=== PATIENT | female | born 1995 | race Caucasian/White ===

== ENCOUNTER 2021-10-05 07:18 | Outpatient (CLI) | payer OTHER, SELFPAY ==
--- NOTE | 2021-10-05 07:15 | CRLHL7_ITS ---
For Patients: As a result of the Century Cures Act, medical imaging exams and procedure reports are released immediately into your electronic medical record. You may view this report before your referring provider. If you have questions, please contact your health care provider. INDICATION: Third trimester scan, evaluate growth. +Covid in COMPARISON: 07/12/2021 TECHNIQUE: Real time alonzo scale imaging of the fetus was performed. FINDINGS: Sonographic imaging demonstrates a single living intrauterine gestation. Fetus demonstrates a regular cardiac rate of 136 beats per minute. Fetus has a vertex position. The placenta lies fundal. Amniotic fluid volume appears normal and there is a single deepest vertical pocket: 6.7 cm. The estimated weight is 1943gm which lies at the 49th %. On the prior OB ultrasound exam dated 07/12/2021 the estimated weight was at the 31st%. BPD 76th percentile. HC 74th percentile. AC 67th percentile. FL 11th percentile. The HC/AC ratio measures 1.07 range (0.96-1.12). IMPRESSION: Sonographic gestational age 32 weeks 5 days and sonographic due date 11/25/2021. Sonographic age is 5 days ahead of the clinical age. Estimated weight 49th percentile. Abdominal circumference 67th percentile. Dictated by Gopal Banks MD @ 10/05/2021 11:21:09 AM (Electronically Signed)
== END 2021-10-05 07:19 | disposition home or self-care (01) ==
PROVIDERS: Visit Provider Advanced Practice Midwife
DX: O98.513 Other viral diseases complicating pregnancy, third trimester (principal); U07.1 COVID-19; Z3A.32 32 weeks gestation of pregnancy
CPT/HCPCS: 76816

== ENCOUNTER 2021-11-02 07:19 | Outpatient (CLI) | payer OTHER, SELFPAY ==
--- NOTE | 2021-11-02 07:15 | CRLHL7_ITS ---
For Patients: As a result of the Century Cures Act, medical imaging exams and procedure reports are released immediately into your electronic medical record. You may view this report before your referring provider. If you have questions, please contact your health care provider. INDICATION: Third trimester scan, evaluate growth. +Covid in COMPARISON: 10/05/2021 TECHNIQUE: Real time alonzo scale imaging of the fetus was performed. FINDINGS: Sonographic imaging demonstrates a single living intrauterine gestation. Fetus demonstrates a regular cardiac rate of 129 beats per minute. Fetus has a vertex position. The placenta lies fundal. Amniotic fluid volume appears normal and there is a single deepest vertical pocket: 5.7 cm. The estimated weight is 3136gm which lies at the 82nd %. On the prior OB ultrasound exam dated 10/05/2021 the estimated weight was at the 49th%. BPD 76th percentile. HC 79th percentile. AC greater than 97th percentile. FL 10th percentile. The HC/AC ratio measures 0.98 range (0.92-1.05). Normal gross body movements, tone and respiratory activity. IMPRESSION: Normal biophysical profile 10/23. Sonographic gestational age 36 weeks 6 days and sonographic due date 11/24/2021. Sonographic age is 6 days ahead of the clinical age. Estimated weight 82nd percentile. Abdominal circumference greater than 97th percentile. Dictated by Gopal Banks MD @ 11/02/2021 8:51:32 AM (Electronically Signed)
--- OUTSIDE RECORDS SUMMARY | 2021-11-02 07:23 | XMS_ITS | Encounter Summary ---
:1995 Author Organization [place] Address [address] [place] [address] Care Team Providers Name Role Phone Krissy Gutierrez APRN, CNP Primary Care Provider [phone] Krissy Gutierrez APRN DIRECTOR DANCE Unavailable [phone] Krissy Gutierrez APRN DIRECTOR DANCE Unavailable [phone] Reason for Visit Reason Comments Medication Refill Zully Encounter Details Date Type Department Care Team Description 04/14/2018 Refill [facility] Krissy Gutierrez ication Refill [place] CANDIDA Heard CNP (Zully) [address] [place] [phone] (Wo rk) Social History Tobacco Use Types Packs/Day Years Used Date Never Smoker Smokeless Tobacco: Never Used Alcohol Use Standard Drinks/Week Comments Yes 0 (1 standard drink = 0.6 oz pure occasi onal. 2-3x per month, roughly alcohol) 5 mixed drinks. Alcohol Habits Answer Date Recorded How often do you have a drink Not asked containing alcohol? How many drinks containing alcohol do Not asked you have on a typical day when you are drinking? How often do you have six or more Not asked drinks on one occasion? Comment: occasional. 2-3x per month, 02/15/2015 roughly 5 mixed drinks. Financial Resource Strain Answer Date Recorded How hard is it for you to pay for the very basics like Not h carlos at all 07/28/2019 food, housing, medical care, and heating? Food Insecurity Answer Date Recorded Within the past 12 months, you worried that your food would Never true 07/28/2019 run out before you got money to buy more. Within the past 12 months, the food you bought just didn't N ever true 07/28/2019 last and you didn't have money to get more. Transportation Needs Answer Date Recorded In the past 12 months, has lack of transportation kept you f rom No 07/28/2019 medical appointments or from getting medications? In the past 12 months, has lack of transportation kept you f rom No 07/28/2019 meetings, work, or getting things needed for daily living? Sex Assigned at Date Recorded Female 07/27/2019 7:13 AM CDT documented as of this encounter Miscellaneous Notes Telephone Encounter - Jaqueline Pacheco RN - 04/16/2018 11:44 AM CST Duplicate Prescription approved per [facility] Refill Protocol. Jaqueline Pacheco RN, BSN WIRE OPERATOR Telephone Encounter - Dena Hedrick - 04/14/2018 4:22 PM CST Requested Prescriptions Pending Prescriptions Disp Refills ??? drospirenone-ethinyl estradiol (ZULLY) 3-0.03 MG tablet [Pharmacy Med Name: DROSPIRENONE-EE 3-0.03 MG TAB] 84 tablet 0 Sig: TAKE 1 TABLET BY MOUTH DAILY Contraceptives Protocol Passed - 04/14/2018 4:22 PM Passed - Patient is not a current smoker if age is 35 or older Passed - Recent (12 mo) or future (30 days) visit within the authorizing provider's specialty Patient had office visit in the last 12 months or has a visit in the next 30 days with authorizing provider or within the authorizing provider's specialty. See Patient Info tab in inbasket, or Choose Columns in Meds & Orders section of the refill encounter. Passed - Medication is active on med list Passed - No active on record Passed - No positive test in past 12 months Last Written Prescription Date: 03/06/18 Last Fill Quantity: 84, # refills: 3 Last office visit: 03/06/2018 with prescribing provider: Krissy Gutierrez Future Office Visit: WIRE OPERATOR documented in this encounter Plan of Treatment Not on filedocumented as of this encounter Visit Diagnoses Diagnosis Encounter for surveillance of contracept shirin pills Surveillance of previously prescribed co ntraceptive pill documented in this encounter Care Teams Window Shade Cloth Sewer Relationship Specialty Start Date End Date Krissy Gutierrez APRN PCP - General Nurse Practitioner 05/03/17 DIRECTOR DANCE [address] [place] [address] Krissy Gutierrez APRN PCP - Assigned PCP 05/05/17 05/20/18 DIRECTOR DANCE [address] [place], [place] [id number] Krissy Gutierrez APRN Assigned PCP 05/05/17 DIRECTOR DANCE [address] [place] [address] documented as of this encounter
--- OUTSIDE RECORDS SUMMARY | 2021-11-02 07:23 | XMS_ITS | Encounter Summary ---
:1995 Author Organization [place] Address [facility] [place] [address] Care Team Providers Name Role Phone Krissy Gutierrez APRN, CNP Primary Care Provider [phone] Krissy Gutierrez APRN HELICOPTER SPECIALIST Unavailable [phone] Krissy Gutierrez APRN HELICOPTER SPECIALIST Unavailable [phone] Reason for Visit Reason Comments Medication Refill fluticasone (FLONASE) 50 MCG /ACT spray Encounter Details Date Type Department Care Team Description 12/28/2017 Refill [facility] [place], [place] [facility]ication [facility] HELICOPTER SPECIALIST (fluticasone (FLONASE) [address] [place] [address] 50 MCG/ACT spray ) [place] [address] [place], [place] [phone] (Wo rk) [address] [phone] Social History Tobacco Use Types Packs/Day Years [...] this encounter Miscellaneous Notes Telephone Encounter - Roz Porter - 12/30/2017 8:27 AM CDT Requested Prescriptions Pending Prescriptions Disp Refills ??? fluticasone (FLONASE) 50 MCG/ACT spray [Pharmacy Med Name: FLUTICASONE PROP 50 MCG SPRAY] 16 mL 0 Last Written Prescription Date: Not on meds list Last Fill Quantity: n/a, # refills: n/a Last office visit: No previous visit found with prescribing provider: Future Office Visit: Sig: INHALE 2 SPRAYS IN EACH NOSTRIL ONCE DAILY, AFTER 1 WEEK, MAY USE 1-2 SPRAYS EACH NOSTRIL ONCE DAILY Inhaled Steroids Protocol Passed 12/28/2017 1:36 AM Passed - Patient is age 12 or older Passed - Recent (12 mo) or future (30 days) visit within the authorizing provider's specialty Patient had office visit in the last 12 months or has a visit in the next 30 days with authorizing provider or within the authorizing provider's specialty. See Patient Info tab in inbasket, or Choose Columns in Meds & Orders section of the refill encounter. documented in this encounter Plan of Treatment Not on filedocumented as of this encounter Visit Diagnoses Diagnosis Non-seasonal allergic rhinitis, unspecif ied trigger - Primary documented in this encounter Care Teams Bottom Crane Operator Relationship Specialty Start Date End Date Krissy Gutierrez APRN PCP - General Nurse Practitioner 05/03/17 HELICOPTER SPECIALIST [address] [place], [place] [phone] Krissy Gutierrez APRN PCP - Assigned PCP 05/05/17 05/20/18 HELICOPTER SPECIALIST [address] [place], [place] [id number] Krissy Gutierrez APRN Assigned PCP 05/05/17 HELICOPTER SPECIALIST [address] [place], [place] [id number] documented as of this encounter
--- OUTSIDE RECORDS SUMMARY | 2021-11-02 07:23 | XMS_ITS | Encounter Summary ---
:1995 Author Organization [place] Address [address] [place] [address] Care Team Providers Name Role Phone [place] Murillo Md MD Primary Care Provider [phone] BrendaKrissy ward APRN BOTTOM SANDER Primary Care Provider [phone] BrendaKrissy ward APRN BOTTOM SANDER Unavailable [phone] BrendaKrissy ward APRN BOTTOM SANDER Unavailable [phone] Yuki oRth BOAT CANVAS INSTALLER Unavailable Jonathan Susan CNM Unavailable Mari Jauregui CNM Unavailable [phone] Reason for Visit Reason Onset Date Comments Path Results 02/23/2015 biopsy Encounter Details Date Type Department Care Team Description 02/23/2015 Telephone Medicine GI - 1E Bri Gallagher Path Results (biopsy) Chris Payne MD Building [address] [place] [address] 1st Floor, Clinic [address] [phone] (Wo rk) [address] [phone] Social History Tobacco Use Types Packs/Day Years Used Date Never Smoker Alcohol Use Standard Drinks/Week Comments Yes 0 [...] this encounter Miscellaneous Notes Telephone Encounter - Bri Gallagher MD - 02/23/2015 5:29 PM INFECTION PREVENTIONIST Notified by call center that patient had called about biopsy results. Letter with results sent several days ago - unclear if letter not arrived yet, wrong address, or if pt has questions about biopsy results. Called patient multiple times at provided number with no answer. Message left (on personal voicemail) indicating letter was sent, no concerning findings on biopsy, and number provided to reach GI RN coordinator if further questions or concerns. CTION PREVENTIONIST Telephone Encounter - Mary Anne Allen - 02/23/2015 2:52 PM CST Patient called today. Patient is trying to get their biopsy test results. Please call patient at [phone]. Thank you. Central Scheduling Mary Anne Felipe CTION PREVENTIONIST documented in this encounter Plan of Treatment Not on filedocumented as of this encounter Visit Diagnoses Not on filedocumented in this encounter Care Teams Manager Statistical Programming Relationship Specialty Start Date End Date [facility], PCP - General 02/15/15 05/02/17 MD [place] [address] [place] [id number] Krissy Gutierrez, PCP - General Nurse Practitioner 05/03/17 SENIOR SOFTWARE ENGINEER BOTTOM SANDER [address] [place] [address] Krissy Gutierrez, PCP - Assigned PCP 05/05/17 05/20/18 SENIOR SOFTWARE ENGINEER BOTTOM SANDER [address] [place] [address] Krissy Gutierrez, Assigned PCP 05/05/17 2 SENIOR SOFTWARE ENGINEER BOTTOM SANDER [address] [place], [place] [id number] Yuki Roth, BOAT CANVAS INSTALLER Lead Supervisor [employer] Primary [facility] - CC 02/11/19 05/05/19 Jaqueline Castillo CNM Assigned OBGYN Provider 01/08/20 03/04/21 [address] [place], [place] [id number] Mari Jauregui, Assigned OBGYN Provider 1 04/29/[address] [facility] [address] [place] [address] documented as of this encounter
--- OUTSIDE RECORDS SUMMARY | 2021-11-02 07:23 | XMS_ITS | Encounter Summary ---
:1995 Author Organization [place] Address [address] [place] [address] Care Team Providers Name Role Phone Krissy Gutierrez APRN PATROL COMMUNITY SERVICE OFFICER Primary Care Provider [phone] Krissy Gutierrez APRN PATROL COMMUNITY SERVICE OFFICER Unavailable [phone] Jaqueline Castillo CNM Unavailable Mari Jauregui CNM Unavailable [phone] Encounter Details Date Type Department Care Team Description 07/28/2019 Documentation Only [facility] Janett Castillo, [place] [facility] CNM [address] [address] [place] [address] (Wo rk) Social History Tobacco Use Types Packs/Day Years Used Date Never Smoker Smokeless Tobacco: Never Used Alcohol Use Standard Drinks/Week Comments Not Currently 0 (1 standard drink = 0.6 oz pure occasi onal. 2-3x per month, alcohol) roughly 5 mixed drin ks. Alcohol Habits Answer Date Recorded How often [...] or getting things needed for daily living? Education Answer Date Recorded What is the highest level of school Master's degree (e.g., M A, MS, 07/28/2019 you have completed or the highest Mayda, MEd, RIVET DRIVER, DEVIKA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 Sex Assigned at Date Recorded Female 07/27/2019 7:13 AM CDT COVID-19 Exposure Response Date Recorded In the last month, have you been in contact with No / Unsure 07/28/2019 3:10 PM CDT someone who was confirmed or suspected to have Coronavirus / COVID-19? documented as of this encounter Plan of Treatment Not on filedocumented as of this encounter Visit Diagnoses Not on filedocumented in this encounter Care Teams Maid Cleaning Cooking Relationship Specialty Start Date End Date Krissy Gutierrez, PCP - General Nurse Practitioner 05/03/17 UTILITIES OPERATOR [employer]ITY SERVICE OFFICER [address] [place] [address] Krissy Gutierrez, Assigned PCP 05/05/17 2 UTILITIES OPERATOR [employer]OL COMMUNITY SERVICE OFFICER [address] [place] [address] Jaqueline Castillo, LEE Assigned OBGYN Provider 01/08/20 03/04/21 [address] [place] [address] Mari Jauregui, Assigned OBGYN Provider 1 04/29/[address] [address] documented as of this encounter
--- OUTSIDE RECORDS SUMMARY | 2021-11-02 07:23 | XMS_ITS | Encounter Summary ---
:1995 Author Organization [place] Address [facility] [place] [address] Care Team Providers Name Role Phone Krissy Gutierrez APRN, CNP Primary Care Provider [phone] Krissy Gutierrez APRN DRILL BIT SHARPENER Unavailable [phone] Reason for Referral Diagnostic Imaging Ultrasound (Routine) - Closed Specialty Diagnoses / Procedures Referred By Contact Refer red To Contact Diagnoses Encounter for supervision of normal first in first trimester Jaqueline Castillo CNM Procedures US OB < 14 Weeks Single [address] [place], [place] [address] Referral ID Status Reason Start Date Expiration Date Visits Requ ested Visits Authorized [id number] Closed 07/28/2019 07/27/2020 1 1 Reason for Visit Reason Comments Care New Nurse Telephone Visit Encounter Details Date Type Department Care Team Description 07/28/2019 Office [facility] er for supervision of normal first in first trimester (Primary Dx); Visit Clinic [facility]; [address] [place] [address] Seasonal a llergic [employer] [address] [place] [phone] Social History Tobacco Use Types Packs/Day Years Used Date Never Smoker Smokeless Tobacco: Never Used Alcohol Use Standard Drinks/Week Comments Not Currently 0 (1 standard drink = 0.6 oz pure occasi onal. 2-3x per month, alcohol) roughly 5 mixed yolanda ks. Alcohol Habits Answer Date Recorded How [...] have completed or the highest Mayda, MEd, DOLLY OPERATOR, DEVIKA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 Sex Assigned at Date Recorded Female 07/27/2019 7:13 AM CDT COVID-19 Exposure Response Date Recorded In the last month, have you been in contact with No / Unsure 07/28/2019 3:10 PM CDT someone who was confirmed or suspected to have Coronavirus / COVID-19? documented as of this encounter Last Filed Vital Signs Vital Sign Reading Time Taken Comments Blood Pressure - - Pulse - - Temperature - - Respiratory Rate - - Oxygen Saturation - - Inhaled Oxygen Concentration - - Weight - - Height 175.3 cm (5' 9) 07/28/2019 3:14 PM CDT Body Mass Index - - documented in this encounter Progress Notes Zuleika Garcia RN - 07/28/2019 3:30 PM CDT Chief Complaint Patient presents with ??? Care New Nurse Telephone Visit [id number] Estimated Date of Delivery: Mar 10, 2020 Initial Ht 1.753 m (5' 9) LMP 06/04/2019 BMI 19.64 kg/m?? Estimated body mass index is 19.64 kg/m?? as calculated from the following: Height as of this encounter: 1.753 m (5' 9). Weight as of 02/10/19: 60.3 kg (133 lb). BP completed using cuff size: NA (Not Taken) Questioned patient about current smoking habits. Pt. has never smoked. The following HM Due: NONE book and folder (containing standard educational hand-outs and brochures) given to patientat NPN visit. Information in folder reviewed. Questions answered. Brochure given on optional screening available to assess chromosomal anomalies. Pt advised to call the clinic if she has any questions or concerns related to her . labs to be obtained at NPN visit. New visit scheduled on 08/05/19 with Jaqueline Castillo CNM. Lab Results Component Value Date PAP NIL 05/02/2017 Patient supplied answers from flow sheet for: OB Questionnaire. Past Medical History Diabetes?: No Hypertension : No Heart disease, mitral valve prolapse or rheumatic fever?: No An autoimmune disease such as lupus or rheumatoid arthritis?: No Kidney disease or urinary tract infection?: No Epilepsy, seizures or spells?: No Migraine headaches?: (!) Yes A stroke or loss of function or sensation?: No Any other neurological problems?: No Have you ever been treated for depression?: No Are you having problems with crying spells or loss of self-esteem?: No Have you ever required psychiatric care?: No Have you ever had hepatitis, liver disease or jaundice?: No Have you been treated for blood clots in your veins, deep vein thromosis, inflammation in the veins,thrombosis, phlebitis, pulmonary embolism or varicosities?: No Have you had excessive bleeding after surgery or dental work?: No Do you bleed more than other women after a cut or scratch?: No Do you have a history of anemia?: (!) Yes Have you ever had thyroid problems or taken thyroid medication?: No Do you have any endocrine problems?: No Have you ever been in a major accident or suffered serious trauma?: No Within the last year, has anyone hit, slapped, kicked or otherwise hurt you?: No In the last year, has anyone forced you to have sex when you didn't want to?: No Past Medical History 2 Have you ever received a blood transfusion?: No Would you refuse a blood transfusion if a doctor judged it to be medically necessary?: No If you answered Yes, would you rather than receive a blood transfusion?: No If you answered Yes, is this for taoism reasons?: No Does anyone in your home smoke?: No Do you use tobacco products?: No Do you drink beer, wine or hard liquor?: No Do you use any of the following: marijuana, speed, cocaine, heroin, hallucinogens or other drugs?: No Is your blood type Rh negative?: No Have you ever had abnormal antibodies in your blood?: No Have you ever had asthma?: No Have you ever had tuberculosis?: No Do you have any allergies to drugs or kwwk-oos-gboidyi medications?: No Allergies: Dust Mites, Aspartame, Ethanol, Venlafaxine, Hydrochloride, Sertraline: (!) Yes(seasonal and dust mites) Have you had any breast problems?: No Have you ever breastfed?: No Have you had any gynecological surgical procedures such as cervical conization, a LEEP procedure, laser treatment, cryosurgery of the cervix or a dilation and curettage, etc?: No Have you ever had any other surgical procedures?: (!) Yes(see surgical history) Have you been hospitalized for a nonsurgical reason excluding normal delivery?: (!) Yes terminal ileitis Have you ever had any anesthetic complications?: No Have you ever had an abnormal pap smear?: No Past Medical History (Continued) Do you have a history of abnormalities of the uterus?: No Did your mother take ABBI or any other hormones when she was with you?: Unknown Did it take you more than a year to become ?: No Have you ever been evaluated or treated for infertility?: No Is there a history of medical problems in your family, which you feel may be important to this ?: No Do you have any other problems we have not asked about which you feel may be important to this ?: No Symptoms since last menstrual period Do you have any of the following symptoms: abdominal pain, blood in stools or urine, chest pain, shortness of breath, coughing or vomiting up blood, your heart racing or skipping beats, nausea and vomiting, pain on urination or vaginal discharge or bleed: No Current medications, including tbkv-mtt-aatyhkn medications, you are using? (If not applicable answer none): , iron supplement, OTC allergy medicine Will the patient be 35 years old or older at the time of delivery?: No Has the patient, baby's father or anyone in either family had: Thalassemia (Kenyan, Tanzanian, Mediterranean or background only) and an MCV result less than 80?: No Neural tube defect such as meningomyelocele, spina bifida or anencephaly?: No Congenital heart defect?: No Down's Syndrome?: No Nando-Sachs disease (Restoration, Cajun, Faroese-Swatara)?: No Sickle cell disease or trait ()?: No Hemophilia or other inherited problems of blood?: No Muscular dystrophy?: No Cystic fibrosis?: No Miami's chorea?: No Mental retardation/autism?: No If yes, was the person tested for fragile X?: Unknown Any other inherited genetic or chromosomal disorder?: Unknown Maternal metabolic disorder (e.g Insulin-dependent diabetes, PKU)?: No A child with defects not listed above?: No Recurrent loss or stillbirth?: Unknown Has the patient had any medications/street drugs/alcohol since her last menstrual period?: No Does the patient or baby's father have any other genetic risks?: No Infection History Do you object to being tested for Hepatitis B?: No Do you object to being tested for HIV?: No Do you feel that you are at high risk for coming in contact with the AIDS virus?: No Have you ever been treated for tuberculosis?: No Have you ever had a positive skin test for tuberculosis?: No Do you live with someone who has tuberculosis?: No Have you ever been exposed to tuberculosis?: No Do you have genital herpes?: No Does your partner have genital herpes?: No Have you had a viral illness since your last period?: No Have you ever had gonorrhea, chlamydia, syphilis, venereal warts, trichomoniasis, pelvic inflammatory disease or any other sexually transmitted disease?: No Do you know if you are a genital group B streptococcus carrier?: Unknown Have you had chicken pox/varicella?: (!) Yes Have you been vaccinated against chicken Pox?: No Have you had any other infectious diseases?: No Zuleika Garcia RN documented in this encounter Plan of Treatment Not on filedocumented as of this encounter Results US OB < 14 Weeks Single (08/05/2019 2:11 PM CDT) Anatomical Region Laterality Modality Abdomen/Pelvis Ultrasound Specimen (Source) Anatomical Location Collection Method / Collectio n Time Received Time / Laterality Volume Impressions 08/05/2019 3:09 PM CDT ? MEASUREMENTS Gest Sac: vis ? Position:nl ?Contour:smth/reg Yolk sac: 3.1 mm wnl CRL: 1.76 cm. ?EGA: ??8w 2d ?? U/S EDC: 14 Mar 2020 correspond Cardiac Activity:Yes ? FHR: 168 bpm ?? Rt Ov L: 1.5 x 3.7 x 2.1 cm ?? Complex c yst 2.1 x 2.0 x 2.5 cm Lt Ov L: nv ? Cul de sac: no free fluid ?? *Other Findings: ?? Early obstetric transabdominal ultrasoun d. Minor live intrauterine . EDC by LMP consistent with today's ultra sound EDC. ??Recommend EDC 03/10/2020. anomalies may be present but not d etected. Normal amniotic fluid seen. Gestational sac is Normal. Placenta is not seen as is appropriate f or early gestational age. Uterus is anteverted and normal. Left ovary Not visualized. Complex right ovarian cyst, consistent w ith corpus luteum cyst, consider repeat ultrasound only if clinically ind icated. No cul-de-sac fluid. Yury Hooper MD Obstetrics & Gynecology [facility] Narrative 08/05/2019 3:[address] [facility] Obstetrics & Gynecology [address] [place] [address] ULTRASOUND - OB < 14 Weeks ?? Referring Provider: Jaqueline Castillo CNM Clinic: [facility] ?? INDICATIONS FOR ULTRASOUND: OB History: Present Conditions: Initial S&D (0-17 we eks) ?? CLINICAL INFORMATION ?? LMP: 04 Jun 2019 - unsure EDC: Mar 06 ?? EGA: 8 w 6 d ? Jaqueline Castillo CNM IMG US ORDERABLES documented in this encounter Visit Diagnoses Diagnosis Encounter for supervision of normal firs t in first trimester - Primary Supervision of normal first Anemia Anemia, unspecified Seasonal allergic rhinitis Allergic rhinitis, cause unspecified Encounter for supervision of normal firs t in first trimester Supervision of normal first documented in this encounter Care Teams Gang Ripsaw Operator Relationship Specialty Start Date End Date Krissy Gutierrez APRN DRILL BIT SHARPENER PCP - General Nurse Practitioner 05/03/17 [address] [place] [address] Krissy Gutierrez APRN DRILL BIT SHARPENER Assigned PCP 05/05/17 10/13/21 [address] [place] [address] documented as of this encounter
--- OUTSIDE RECORDS SUMMARY | 2021-11-02 07:23 | XMS_ITS | Encounter Summary ---
:1995 Author Organization [place] Address [address] [place] [address]. [place] [address] Care Team Providers Name Role Phone Richa Murillo Md MD Primary Care Provider [phone] Reason for Visit Reason Comments URI Encounter Details Date Type Department Care Team Description 02/14/2017 Office Visit [facility] Javier Rosales Acute recurrent Clinic Walker MD Angel Luis maxillary sinusitis [address] [place] [address] (Primary Dx) [place] [address] [phone] Social History Tobacco Use Types Packs/Day Years [...] AM CDT documented as of this encounter Last Filed Vital Signs Vital Sign Reading Time Taken Comments Blood Pressure 100/69 02/14/2017 9:44 AM FILM OR VIDEOTAPE EDITOR Pulse 90 02/14/2017 9:44 AM FILM OR VIDEOTAPE EDITOR Temperature 36.4 ??C (97.6 ??F) 02/14/2017 9:44 AM FILM OR VIDEOTAPE EDITOR Respiratory Rate 12 02/14/2017 9:44 AM FILM OR VIDEOTAPE EDITOR Oxygen Saturation 96% 02/14/2017 9:44 AM FILM OR VIDEOTAPE EDITOR Inhaled Oxygen Concentration - - Weight 59.8 kg (131 lb 12.8 oz) 02/14/2017 9:44 AM FILM OR VIDEOTAPE EDITOR Height - - Body Mass Index 19.46 02/19/2015 10:47 PM FILM OR VIDEOTAPE EDITOR documented in this encounter Progress Notes Javier Rosales MD - 02/14/2017 9:30 AM CST SUBJECTIVE: Sharmaine Salas is a 21 year old female who presents to clinic today for the following health issues: RESPIRATORY SYMPTOMS ?? Duration: 1 month ?? Description nasal congestion, cough, ear pain both and headache ?? Severity: mild ?? Accompanying signs and symptoms: None ?? History (predisposing factors): none ?? 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 Therapies tried and outcome: Sudafed, Ibuprofen, and cough drops Past Medical History: Diagnosis Date ??? Anemia Past Surgical History: Procedure Laterality Date ??? COLONOSCOPY N/A 02/17/2015 Procedure: COMBINED COLONOSCOPY, SINGLE OR MULTIPLE BIOPSY/POLYPECTOMY BY BIOPSY; Surgeon: Bri Gallagher MD; Location: GI History reviewed. No pertinent family history. Social History Substance Use Topics ??? Smoking status: Never Smoker ??? Smokeless tobacco: Never Used ??? Alcohol use 0.0 oz/week 0 Standard drinks or equivalent per week Comment: occasional. 2-3x per month, roughly 5 mixed drinks. Patient complains of congestion with sore throat, nasal congestion and sinus pain. Some mucopurulantdischarge but no upper dental pain and no sustained fever. Duration less than one week. Has nohistory of airborn allergy or asthma. No chest pain, diaphoresis, or sob. scantilyproductive cough. TMs dull not *red, sinus tenderness left, lungs clear, s1s2,soft abd,no distress, cyanosis or stridor. 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 Discussed signs of systemic or constutional illness. OR VIDEOTAPE EDITOR documented in this encounter Plan of Treatment Not on filedocumented as of this encounter Visit Diagnoses Diagnosis Acute recurrent maxillary sinusitis - Pr imary Acute maxillary sinusitis documented in this encounter Care Teams Thread Milling Machine Set Up Operator Relationship Specialty Start Date End Date [facility] Md Murillo MD PCP - General 02/15/15 05/02/[address] [place] [id number] documented as of this encounter
--- OUTSIDE RECORDS SUMMARY | 2021-11-02 07:23 | XMS_ITS | Encounter Summary ---
:1995 Author Organization [place] Address [facility] [place] [address] Care Team Providers Name Role Phone Krissy Gutierrez APRN, CNP Primary Care Provider [phone] BrendaKrissy Orquidea TIRADO RN IMAGING Unavailable [phone] BrendaKrissy Orquidea TIRADO RN IMAGING Unavailable [phone] Encounter Details Date Type Department Care Team Description 11/30/2017 Virtual Visit [facility] Cary Peres, [address] [facility] PRODUCT PROMOTER SALES PERSON RN IMAGING [place] [address] [address] [facility] [address] [place] [address] [place] [address] [phone] Social History Tobacco Use Types Packs/Day Years [...] AM CDT documented as of this encounter Progress Notes Cary Peres APRN RN IMAGING - 11/30/2017 9:32 PM CDT Date: Clinician: Cary Peres Clinician Patient: Sharmaine Augustin Patient : 1995 Patient [address]: [address] [place] [address] Patient Visit Protocol: URI Patient Summary: Sharmaine is a 22 year old ( : 1995 ) female who initiated a Visit for cold, sinus infection, or influenza. When asked the question Please sign me up to receive news, health information and promotions. , Sharmaine responded No. Sharmaine states her symptoms started gradually3-6 days ago. After her symptoms started, they improved and then got worse again. Her symptoms consist of myalgia, facial pain or pressure, chills, rhinitis, enlarged lymph nodes, malaise, nasal congestion, a sore throat, and a headache. Sharmaine also feels feverish but was unable to measure her temperature. Symptom details Nasal secretions: The color of her mucus is green. Sore throat: Sharmaine reports having mild throat pain (between 1-3 on a 10 point pain scale), does not have exudate on her tonsils, and can swallow liquids. The lymph nodes in her neck are enlarged. Mele has not appeared on the skin since the sore throat started. Facial pain or pressure: The facial pain or pressure feels worse when bending over or leaning forward. Headache: She states the headache is moderate (between 4-6 on a 10 point pain scale). Sharmaine denies having wheezing, cough, dyspnea, ear pain, and teeth pain. She also denies having recent facial or sinus surgery in the past 60 days and taking antibiotic medication for the symptoms. Within the past week, Sharmaine has not been exposed to someone with strep throat. She has not recently been exposed to someone with influenza. Sharmaine has not been in close contact with any high risk individuals. Sharmaine had 1 sinus infection within the past year. Weight: 135 lbs Sharmaine does not smoke or use smokeless tobacco. She denies and denies . She has menstruated in the past month. Additional information as reported by the patient (free text): I would normally wait longer than 3 days of symptoms before coming in, however my wedding is in 2 weeks and I really want tofight this BERNADINE. 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 I feel very confident that this is a sinus infection because of how often I get them. MEDICATIONS: drospirenone-ethinyl estradiol oral, ALLERGIES: NKDA Clinician Response: Dear Sharmaine, Based on the information provided, you have viral sinusitis, alsoknown as a sinus infection. Sinus infections are caused by bacteria or a virus and symptoms are almost always identical. The difference between the 2 types of infections is timing. Sinus infections start as viral infections and symptoms improve on their own in about 7 days. If symptoms have not improved after 7 days or have even worsened, a bacterial infection may have developed. Medication information Because you have a viral infection, antibiotics will not help you get better. Treating a viral infection with antibiotics could actually make you feel worse. I am prescribing: Fluticasone 50 mcg/actuation nasal spray. Inhale 2 sprays in each nostril 1 time per day; after 1 week, may adjust to 1 - 2 sprays in each nostril 1 time per day. This medication takes several days to start working, so keep taking it even if it doesn't help right away. There are no refills with this prescription. Unless you are allergic to the mkwh-nvj-bqixswk medication(s) below, I recommend using: An antihistamine such as Benadryl, Claritin, or store brand. A decongestant such as Sudafed PE or store brand. Pizf-ozy-xfjqfqc medications do not require a prescription. Ask the pharmacist if you have any questions. Self care The following tips will keep you as comfortable as possible while you recover: Rest Drink plenty of water and other liquids Take a hot shower to loosen congestion Use throat lozenges Gargle with warm salt water (1/4 teaspoon of salt per 8 ounce glass of water) Suck on frozen items such as popsicles or ice cubes Drink hot tea with lemon and honey When to seek care Please be seen in a clinic or urgent care if new symptoms develop, or symptoms become worse. Call 911 or go to the emergency room if you feel that your throat is closing off, you suddenly develop a rash, you are unable to swallow fluids, you are drooling, or you are having difficulty breathing. Diagnosis: Viral sinusitis Diagnosis ICD: J01.90 Prescription: fluticasone 50 mcg/actuation nasal spray,suspension 1 120 spray aerosol with adapter (grams), 30 days supply. Inhale 2 sprays in each nostril 1 time per day; after 1 week, may adjust to 1- 2 sprays in each nostril 1 time per day.. Refills: 0, Refill as needed: no, Allow substitutions: yes Pharmacy: [facility] [id number] [address] [employer] - - [address] [place] [address] documented in this encounter Plan of Treatment Not on filedocumented as of this encounter Visit Diagnoses Not on filedocumented in this encounter Care Teams Digital Account Coordinator Relationship Specialty Start Date End Date Krissy Gutierrez APRN PCP - General Nurse Practitioner 05/03/17 RN IMAGING [address] [place], [place] [phone] Krissy Gutierrez APRN PCP - Assigned PCP 05/05/17 05/20/18 RN IMAGING [address] [place], [place] [phone] Krissy Gutierrez APRN Assigned PCP 05/05/17 RN IMAGING [address] [place] [address] documented as of this encounter
--- OUTSIDE RECORDS SUMMARY | 2021-11-02 07:23 | XMS_ITS | Encounter Summary ---
:1995 Author Organization [place] Address [address] [place] [address] Care Team Providers Name Role Phone Richa Murillo Md MD Primary Care Provider [phone] Reason for Visit Reason Onset Date Comments Panel Management 05/01/2017 Patient is failing P hysical and Pap Encounter Details Date Type Department Care Team Description 05/01/2017 Telephone [facility] Hesham Murillo el Management Clinic [place]calaRanjit Isaac MD (Patient is failing [address] Physical and Pap) [place] [address] [phone] (Wo rk) Social History Tobacco Use Types [...] this encounter Miscellaneous Notes Telephone Encounter - Peace Gonzalez CMA - 05/01/2017 12:17 PM CST Panel Management Review Patient has the following on her problem list: None Composite cancer screening Chart review shows that this patient is due/due soon for the following Pap Smear Summary: Patient is due/failing the following: PAP and PHYSICAL Action needed: Patient needs office visit for physiacl and pap. Type of outreach: Phone, spoke to patient. Coming 05/02/14 to see Krissy Gutierrez Questions for provider review: None Peace Gonzalez Chart routed to none . [place] documented in this encounter Plan of Treatment Not on filedocumented as of this encounter Visit Diagnoses Not on filedocumented in this encounter Care Teams Laborer Wrecking And Salvaging Relationship Specialty Start Date End Date [facility] Md Murillo MD PCP - General 02/15/15 05/02/[address] [place] [id number] documented as of this encounter
--- OUTSIDE RECORDS SUMMARY | 2021-11-02 07:23 | XMS_ITS | Encounter Summary ---
:1995 Author Organization [facility] Address [address] [place] [address] Care Team Providers Name Role Phone Krissy Gutierrez APRN, CNP Primary Care Provider [phone] Krissy Gutierrez APRN MICRO COMPUTER SPECIALIST Unavailable Encounter Details Date Type Department Care Team Description 07/28/2019 Travel Social History Tobacco Use Types Packs/Day Years [...] have completed or the highest Mayda, MEd, PACKAGE WORKER, DEVIKA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 Sex Assigned [...] on filedocumented in this encounter Care Teams Loader Magazine Grinder Relationship Specialty Start Date End Date Krissy Gutierrez APRN MICRO COMPUTER SPECIALIST PCP - General Nurse Practitioner 05/03/17 [address] [place], [place] [phone] Krissy Gutierrez APRN MICRO COMPUTER SPECIALIST Assigned PCP 05/05/17 10/13/21 [address] [place], [place] [phone] documented as of this encounter
--- OUTSIDE RECORDS SUMMARY | 2021-11-02 07:23 | XMS_ITS | Encounter Summary ---
:1995 Author Organization [place] Address [address] [place] [address] Care Team Providers Name Role Phone Krissy Gutierrez APRN, CNP Primary Care Provider [phone] Krissy Gutierrez APRN RN TESTING Unavailable [phone] Encounter Details Date Type Department Care Team Description 02/10/2019 Travel Social History Tobacco Use Types Packs/Day [...] AM CDT documented as of this encounter Plan of Treatment Not on filedocumented as of this encounter Visit Diagnoses Not on filedocumented in this encounter Care Teams Canal Driver Relationship Specialty Start Date End Date Krissy Gutierrez APRN RN TESTING PCP - General Nurse Practitioner 05/03/17 [address] [place] [address] Krissy Gutierrez APRN RN TESTING Assigned PCP 05/05/17 10/13/21 [address] [place] [address] documented as of this encounter
--- OUTSIDE RECORDS SUMMARY | 2021-11-02 07:23 | XMS_ITS | Encounter Summary ---
:1995 Author Organization [place] Address [address] [place] [address] Care Team Providers Name Role Phone Krissy Gutierrez APRN, CNP Primary Care Provider Krissy Gutierrez APRN STOCK PARTS FABRICATOR Unavailable [phone] Encounter Details Date Type Department Care Team Description 10/29/2019 Travel Social History Tobacco Use Types Packs/Day [...] have completed or the highest Mayda, MEd, WELDING MACHINE FEEDER, DEVIKA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 Sex Assigned at Date Recorded Female 07/27/2019 7:13 AM CDT COVID-19 Exposure Response Date Recorded In the last month, have you been in contact with No / Unsure 10/29/2019 9:44 AM CDT someone who was confirmed or suspected to have Coronavirus / COVID-19? documented as of this encounter Plan of Treatment Not on filedocumented as of this encounter Visit Diagnoses Not on filedocumented in this encounter Care Teams Reeling Machine Setup Operator Relationship Specialty Start Date End Date Krissy Gutierrez APRN STOCK PARTS FABRICATOR PCP - General Nurse Practitioner 05/03/17 [address] [place], [place] [phone] Krissy Gutierrez APRN STOCK PARTS FABRICATOR Assigned PCP 05/05/17 10/13/21 [address] [place], [place] [id number] documented as of this encounter
--- OUTSIDE RECORDS SUMMARY | 2021-11-02 07:23 | XMS_ITS | Encounter Summary ---
:1995 Author Organization [place] Address [facility] [place] [address] Care Team Providers Name Role Phone Krissy Gutierrez APRN CARGO HANDLER Primary Care Provider [phone] Krissy Gutierrez APRN CARGO HANDLER Unavailable [phone] Reason for Visit Diagnostic Imaging Ultrasound (Routine) - Closed Specialty Diagnoses / Procedures Referred By Contact Refer red To Contact Diagnoses Encounter for supervision of normal first in first trimester Jaqueline Castillo CNM Procedures US OB < 14 Weeks Single [address] [place], [place] [address] Referral ID Status Reason Start Date Expiration Date Visits Requ ested Visits Authorized [id number] Closed 07/28/2019 07/27/2020 1 1 Encounter Details Date Type Department Care Team Description 08/05/2019 Orders Only [facility] parvez for supervision [place] of normal first [address] [place] [address] in [facility] [address] [place] [address] Social History Tobacco Use Types Packs/Day Years [...] have completed or the highest Mayda, MEd, HYDROCRANE OPERATOR, DEVIKA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 Sex Assigned at Date Recorded Female 07/27/2019 7:13 AM CDT COVID-19 Exposure Response Date Recorded In the last month, have you been in contact with No / Unsure 08/05/2019 2:18 PM CDT someone who was confirmed or suspected to have Coronavirus / COVID-19? documented as of this encounter Plan of Treatment Not on filedocumented as of this encounter Procedures Procedure Name Priority Date/Time Associated Diagnosis Comme nts US OB < 14 WEEKS Routine 08/05/2019 2:11 PM Encounter for Resu lts for this SINGLE-TRANSABDOMIN CDT supervision of clement galeano are in [place] normal first the results in first section. trimester documented in this encounter Results US OB < 14 [...] fluid. Yury Hooper MD Obstetrics & Gynecology [facility] Narrative 08/05/2019 3:09 PM CDT [facility] Obstetrics & Gynecology [address] [place] [address] ULTRASOUND - OB < 14 Weeks ?? Referring Provider: Jaqueline Castillo CNM Clinic: [facility] ?? INDICATIONS FOR ULTRASOUND: OB History: Present [...] first documented in this encounter Care Teams Lamp Stack Developer Relationship Specialty Start Date End Date Krissy Gutierrez APRN CARGO HANDLER PCP - General Nurse Practitioner 05/03/17 [address] [place], [place] [phone] Krissy Gutierrez APRN CARGO HANDLER Assigned PCP 05/05/17 10/13/21 [address] [place], [place] [id number] documented as of this encounter
--- OUTSIDE RECORDS SUMMARY | 2021-11-02 07:23 | XMS_ITS | Encounter Summary ---
:1995 Author Organization [place] Address [address] [facility] [place] [address] Care Team Providers Name Role Phone Krissy Gutierrez APRN SHIFT SUPERVISOR Primary Care Provider [phone] Krissy Gutierrez APRN SHIFT SUPERVISOR Unavailable [phone] Reason for Visit Reason Comments Care Encounter Details Date Type Department Care Team Description 10/29/2019 Office [facility] Mari Jauregui Pre екатерина care in [facility] Jaqueline SELENAJanett second trimester [place] [address] (Primary Dx) [address], [place] [address] [address] [place], [place] [phone] [address] (Work) [phone] Social History Tobacco Use Types Packs/Day Years [...] have completed or the highest Mayda, MEd, TANKROOM TENDER, DEVIKA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 Sex Assigned [...] Sign Reading Time Taken Comments Blood Pressure 96/56 10/29/2019 10:26 AM CDT Pulse - - Temperature - - Respiratory Rate - - Oxygen Saturation - - Inhaled Oxygen Concentration - - Weight 63 kg (139 lb) 10/29/2019 10:26 AM CDT Height - - Body Mass Index 20.53 08/05/2019 2:23 PM CDT documented in this encounter Progress Notes Mari Jauregui CNM - 10/29/2019 10:30 AM CDT Feeling well. Baby is active. Denies any leaking of fluid, vaginal bleeding, regular uterine contractions, or headaches or other concerns. Reviewed to call [phone] for contractions, loss of fluid, vaginal bleeding, decreased movement or any other questions or concerns. RTC in 4 weeks - can be phone or video. Mari Jauregui DNP, SENIOR UX DEVELOPER, LEE documented in this encounter Nursing Notes Darnell Dowling MA - 10/29/2019 10:30 AM CDT Chief Complaint Patient presents with ??? Care Initial BP 96/56 (BP Location: Right arm, Cuff Size: Adult Regular) Wt 63 kg (139 lb) LMP 06/04/2019 BMI 20.53 kg/m?? Estimated body mass index is 20.53 kg/m?? as calculated from the following: Height as of 08/05/19: 1.753 m (5' 9). Weight as of this encounter: 63 kg (139 lb). BP completed using cuff size: regular Questioned patient about current smoking habits. Pt. has never smoked. Darnell Dowling MA documented in this encounter Plan of Treatment Not on filedocumented as of this encounter Visit Diagnoses Diagnosis care in second trimester - Prim guillermo documented in this encounter Care Teams Dry Kiln Burner Relationship Specialty Start Date End Date Krissy Gutierrez APRN SHIFT SUPERVISOR PCP - General Nurse Practitioner 05/03/17 [address] [place] [address] Krissy Gutierrez APRN SHIFT SUPERVISOR Assigned PCP 05/05/17 10/13/21 [address] [place] [address] documented as of this encounter
--- OUTSIDE RECORDS SUMMARY | 2021-11-02 07:23 | XMS_ITS | Encounter Summary ---
:1995 Author Organization [place] Address [address] [place] [address] Care Team Providers Name Role Phone Krissy Gutierrez APRN CHALK TESTER Primary Care Provider [phone] Krissy Gutierrez APRN CHALK TESTER Unavailable [phone] Reason for Visit Reason Comments Medication Refill Encounter Details Date Type Department Care Team Description 09/01/2019 Refill [facility] Cary Peres Ma, Medication Refill [place] DIRECTOR CUSTOMER CHALK TESTER [address] [place] [address] [place] [address] [phone] Social History Tobacco Use Types Packs/Day Years [...] have completed or the highest Mayda, MEd, CARDING MACHINE FEEDER, DEVIKA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 Sex Assigned at Date Recorded Female 07/27/2019 7:13 AM CDT COVID-19 Exposure Response Date Recorded In the last month, have you been in contact with No / Unsure 08/05/2019 2:18 PM CDT someone who was confirmed or suspected to have Coronavirus / COVID-19? documented as of this encounter Miscellaneous Notes Telephone Encounter - Bri Caruso RN - 09/03/2019 12:40 PM CDT Pending Prescriptions: Disp Refills fluticasone (FLONASE) 50 MCG/ACT nasal spr*16 mL 0 Sig: INHALE 2 SPRAYS IN EACH NOSTRIL ONCE DAILY, AFTER 1 WEEK, MAY USE 1-2 SPRAYS EACH NOSTRIL ONCE DAILY Routing refill request to provider for review/approval because: Protocol failed. Please advise, thanks. Routed to covering provider. documented in this encounter Plan of Treatment Not on filedocumented as of this encounter Visit Diagnoses Diagnosis Seasonal allergic rhinitis, unspecified trigger - Primary documented in this encounter Care Teams High School Sports Coach Relationship Specialty Start Date End Date Krissy Gutierrez APRN CHALK TESTER PCP - General Nurse Practitioner 05/03/17 [address] [place] [address] Krissy Gutierrez APRN CHALK TESTER Assigned PCP 05/05/17 10/13/21 [address] [place] [address] documented as of this encounter
--- OUTSIDE RECORDS SUMMARY | 2021-11-02 07:23 | XMS_ITS | Encounter Summary ---
:1995 Author Organization [place] Address [address] [place] [address] Care Team Providers Name Role Phone Krissy Gutierrez APRN, CNP Primary Care Provider [phone] Krissy Gutierrez APRN REGULATORY AFFAIRS MANAGER Unavailable [phone] Encounter Details Date Type Department Care Team Description 09/03/2019 Travel Social History Tobacco Use Types Packs/Day [...] have completed or the highest Mayda, MEd, AUDIT SPECIALIST, DEVIKA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 Sex Assigned at Date Recorded Female 07/27/2019 7:13 AM CDT COVID-19 Exposure Response Date Recorded In the last month, have you been in contact with No / Unsure 09/03/2019 1:57 PM CDT someone who was confirmed or suspected to have Coronavirus / COVID-19? documented as of this encounter Plan of Treatment Not on filedocumented as of this encounter Visit Diagnoses Not on filedocumented in this encounter Care Teams Adhesion Tester Relationship Specialty Start Date End Date Krissy Gutierrez APRN REGULATORY AFFAIRS MANAGER PCP - General Nurse Practitioner 05/03/17 [address] [place], [place] [phone] Krissy Gutierrez APRN REGULATORY AFFAIRS MANAGER Assigned PCP 05/05/17 10/13/21 [address] [place], [place] [phone] documented as of this encounter
--- OUTSIDE RECORDS SUMMARY | 2021-11-02 07:23 | XMS_ITS | Encounter Summary ---
:1995 Author Organization [place] Address [address] [place] [address]. [place] [address] Care Team Providers Name Role Phone Richa Murillo Md MD Primary Care Provider [phone] Reason for Visit Reason Comments Arm Pain right arm pain post IV, redn ess, swelling, and hardness at sight after potassium Encounter Details Date Type Department Care Team Description 02/19/2015 - Emergency [facility] Santiago Cho after 02/20/2015 [facility] Emergency MD Travis infusion, initial Department [address] [place] [address] encounter [address] [place] [address] [phone] (Wo rk) Social History Tobacco Use Types [...] Sign Reading Time Taken Comments Blood Pressure 109/55 02/20/2015 1:34 AM BUSINESS REPORTING DEVELOPER Pulse 82 02/20/2015 1:34 AM BUSINESS REPORTING DEVELOPER Temperature 36.6 ??C (97.9 ??F) 02/19/2015 10:47 PM BUSINESS REPORTING DEVELOPER Respiratory Rate 16 02/20/2015 1:34 AM BUSINESS REPORTING DEVELOPER Oxygen Saturation 100% 02/20/2015 1:34 AM BUSINESS REPORTING DEVELOPER Inhaled Oxygen Concentration - - Weight 63.5 kg (140 lb) 02/19/2015 10:47 PM BUSINESS REPORTING DEVELOPER Height 175.3 cm (5' 9) 02/19/2015 10:47 PM BUSINESS REPORTING DEVELOPER Body Mass Index 20.67 02/19/2015 10:47 PM BUSINESS REPORTING DEVELOPER documented in this encounter Discharge Instructions Discharge InstructionsSchSantiago gonzales MD - 02/20/2015 1:06 AM BUSINESS REPORTING DEVELOPER Please make an appointment to follow up with [facility] (phone: ) in 2-3 days if not improving. Return if worsening redness that spreads up her arm, worse swelling in her hand or fever. NESS REPORTING DEVELOPER documented in this encounter Medications at Time of Discharge Medication Sig Dispensed Refills Start Date End Date cephALEXin (KEFLEX) 500 Take 1 capsule (500 28 capsule 0 08/201402/27/2015 MG capsule mg) by mouth 4 times daily for 7 days cephALEXin (KEFLEX) 500 Take 1 capsule (500 15 capsule 0 08/201402/14/2017 MG capsuleIndications: mg) by mouth 3 times Skin and Soft Tissue daily Infection desogestrel-ethinyl Take 1 tablet by 0 05/02/2017 estradiol (APRI) 0.15-30 mouth daily MG-MCG per tablet oxyCODONE (ROXICODONE) 5 Take 0.5-1 tablets 6 tablet 0 06/201402/14/2017 MG immediate release (2.5-5 mg) by mouth tabletIndications: every 3 hours as Ileitis, terminal, needed for moderate unspecified complication to severe pain (H) documented as of this encounter ED Notes Santiago Cho MD - 02/19/2015 11:22 PM CST Images from the original note were not included. History Chief Complaint Patient presents with ??? Arm Pain right arm pain post IV, redness, swelling, and hardness at sight after potassium HPI Sharmaine Louise is a 19 year old female with chronic anemia who was recent hospitalized with terminal ileitis managed conservatively. The patient reports that she was discharged 2 days ago and was feeling better. She developed some redness near her IV site in the right arm yesterday which got worse today. It feels swollen and warm but there is no feverishness or spread up to the upper arm. She denies any swelling in her hand. I have reviewed the Medications, Allergies, Past Medical and Surgical History, and Social History inthe [email or web address] system. Past Medical History Diagnosis Date ??? Anemia Past Surgical History Procedure Laterality Date ??? Colonoscopy N/A 02/17/2015 Procedure: COMBINED COLONOSCOPY, SINGLE OR MULTIPLE BIOPSY/POLYPECTOMY BY BIOPSY; Surgeon: Bri Gallagher MD; Location: [facility] No family history on file. History Substance Use Topics ??? Smoking status: Never Smoker ??? Smokeless tobacco: Not on file ??? Alcohol Use: 0.0 oz/week 0 Not specified per week Comment: occasional. 2-3x per month, roughly 5 mixed drinks. No current facility-administered medications for this encounter. Current Outpatient Prescriptions Medication ??? cephALEXin (KEFLEX) 500 MG capsule ??? oxyCODONE (ROXICODONE) 5 MG immediate release tablet ??? desogestrel-ethinyl estradiol (APRI) 0.15-30 MG-MCG per tablet No Known Allergies Review of Systems Constitutional: Negative for fever. Respiratory: Negative for shortness of breath. Cardiovascular: Negative for chest pain. Gastrointestinal: Negative for abdominal pain. All other systems reviewed and are negative. Physical Exam BP: 111/71 mmHg Pulse: 77 Temp: 97.9 ??F (36.6 ??C) Resp: 16 Height: 175.3 cm (5' 9) Weight: 63.504 kg (140 lb) SpO2: 100 % Physical Exam Constitutional: She is oriented to person, place, and time. She appears well- developed and well-nourished. No distress. HENT: Head: Normocephalic and atraumatic. Eyes: No scleral icterus. Neck: Normal range of motion. Neck supple. Musculoskeletal: Arms: Neurological: She is alert and oriented to person, place, and time. Skin: Skin is warm and dry. No rash noted. She is not diaphoretic. No erythema. No pallor. ED Course Procedures Critical Care time: none [facility] Diagnoses: None Labs Ordered and Resulted from Time of ED Arrival Up to the Time of Departure from the ED - No data to display Assessments & Plan (with Medical Decision Making) The patient has a superficial thrombophlebitis secondary to recent IV. She had no pain at the time of infusion of her last meds so I do not think this is a chemical phlebitis from extravasation. It is warm and the redness is increasing in size today so we will start her on Keflex and have her use warmcompresses until it resolves. She does not appear systemically ill or have any clinical signs of a DVT. I have reviewed the nursing notes. I have reviewed the findings, diagnosis, plan and need for follow up with the patient. Discharge Medication List as of 02/20/2015 1:08 AM START taking these medications Details cephALEXin (KEFLEX) 500 MG capsule Take 1 capsule (500 mg) by mouth 3 times daily, Disp-15 capsule, R-0, Local Print Final diagnoses: Phlebitis after infusion, initial encounter 02/19/2015 [facility] [place] EMERGENCY DEPARTMENT Santiago Cho MD 02/20/15 0252 NESS REPORTING DEVELOPER Kristal Rodney RN - 02/19/2015 10:49 PM CST Triage Assessment & Note: BP 111/71 mmHg Pulse 77 Temp(Src) 97.9 ??F (36.6 ??C) (Oral) Resp 16 Ht 1.753 m (5' 9) Wt63.504 kg (140 lb) BMI 20.67 kg/m2 SpO2 100% LMP 01/25/2015 ? No Patient presents with: Pt pain, redness, hardness at IV sight. Pt reports that she had potassium running as the last medication and that when the IV was taken out that the site looked odd and heat was applied. Home Treatments/Remedies: ice/ heat Febrile / Afebrile: Afebrile Duration of C/o: 48 hours Kristal Vivar RN February 19, 2015 NESS REPORTING DEVELOPER documented in this encounter Plan of Treatment Not on filedocumented as of this encounter Visit Diagnoses Diagnosis Phlebitis after infusion, initial encoun ter documented in this encounter Administered Medications Inactive Administered Medications - up to 3 most recent administrations Medication Order MAR Action Action Date Dose Rate Site cephALEXin (KEFLEX) capsule Given 02/20/2015 1:16 AM BUSINESS REPORTING DEVELOPER 1,000 m g 1,000 mg STAT, 1,000 mg, Oral, ONCE, On 02/20/15 at 0052, For 1 dose, Indications: Skin and Soft Tissue Infection documented in this encounter Active and Recently Administered Medications Times are shown in BUSINESS REPORTING DEVELOPER. Scheduled Medication Order 02/18/2015 02/19/2015 02/20/2015 cephALEXin (KEFLEX) capsule 1,000 mg (COMPLETED) 0116 (Given - Provider: Kristal Rodney RN) 1,000 mg, Oral, ONCE, 02/20/15 at 005 2, For 1 dose, Indications: Skin and Soft Tissue Infection documented in this encounter Care Teams Foster Care Therapist Relationship Specialty Start Date End Date [facility] Md Lidia, PCP - General 02/15/15 05/02/[address] [place] [address] documented as of this encounter
--- OUTSIDE RECORDS SUMMARY | 2021-11-02 07:23 | XMS_ITS | Encounter Summary ---
:1995 Author Organization [place] Address [address] [place] [address] Care Team Providers Name Role Phone Krissy Gutierrez APRN, CNP Primary Care Provider [phone] Krissy Gutierrez APRN SHOEMAKER APPRENTICE Unavailable [phone] Encounter Details Date Type Department Care Team Description 08/05/2019 Travel Social History Tobacco Use Types Packs/Day [...] have completed or the highest Mayda, MEd, CLINICAL SCIENCE LIAISON, DEVIKA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 Sex Assigned [...] filedocumented in this encounter Care Teams Manager Consumer Insights Relationship Specialty Start Date End Date Krissy Gutierrez APRN SHOEMAKER APPRENTICE PCP - General Nurse Practitioner 05/03/17 [address] [place], [place] [phone] Krissy Gutierrez APRN SHOEMAKER APPRENTICE Assigned PCP 05/05/17 10/13/21 [address] [place], [place] [id number] documented as of this encounter
--- OUTSIDE RECORDS SUMMARY | 2021-11-02 07:23 | XMS_ITS | Encounter Summary ---
:1995 Author Organization [place] Address [facility] [place] [address] Care Team Providers Name Role Phone Krissy Gutierrez APRN, CNP Primary Care Provider [phone] Krissy Gutierrez APRN, CNP Unavailable [phone] Reason for Referral Diagnostic Imaging Ultrasound (Routine) - Closed Specialty Diagnoses / Procedures Referred By Contact Refer red To Contact Diagnoses Encounter for supervision of normal first in second trimester Jaqueline Castillo CNM Procedures US OB > 14 Weeks [address] [place], [place] [address] Referral ID Status Reason Start Date Expiration Date Visits Requ ested Visits Authorized [id number] Closed 10/27/2019 10/26/2020 1 1 Reason for Visit Reason Comments Care 17w 1d, discuss cyst found o n US on 08/05/19-no sx Encounter Details Date Type Department Care Team Description 10/02/2019 Office [facility] Jaqueline Castillo for Visit [facility] supervision of normal [place] [address] first in [address] second trimester [place], (Primary Dx) [address] [place] [address] [place], [place] [phone] (Work) [phone] Social History Tobacco Use Types Packs/Day Years [...] have completed or the highest 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 Sex Assigned at Date Recorded Female 07/27/2019 7:13 AM CDT COVID-19 Exposure Response Date Recorded In the last month, have you been in contact with No / Unsure 10/02/2019 9:33 AM CDT someone who was confirmed or suspected to have Coronavirus / COVID-19? documented as of this encounter Last Filed Vital Signs Vital Sign Reading Time Taken Comments Blood Pressure 100/60 10/02/2019 9:44 AM CDT Pulse - - Temperature - - Respiratory Rate - - Oxygen Saturation - - Inhaled Oxygen Concentration - - Weight 61.2 kg (135 lb) 10/02/2019 9:44 AM CDT Height - - Body Mass Index 19.94 08/05/2019 2:23 PM CDT documented in this encounter Patient Instructions Patient InstructionsJaqueline Castillo CNM - 10/02/2019 9:30 AM CDT Weeks 17 thru 20 - Gestational Age ( Age - Weeks 15 thru 18): The baby has reached a point where movements are being felt more often by the mother. The eyebrows and eyelashes grow in, and tiny nails have begun to grow on the fingers and toes. The skin of the fetus is going through many changes and begins to produce vernix at the twentieth week. Vernix is a whitepasty substance that covers the fetus??? skin to protect it from amniotic fluid. Your baby can now hear your voices and music. A heartbeat can be heard by a stethoscope now. The fetus has reacheda length of 8 inches and weighs about 12 ounces. documented in this encounter Progress Notes Jaqueline Castillo CNM - 10/02/2019 9:30 AM CDT S:Feels well and has no concerns movement No Denies loss of fluid/vb/contractions/pelvic pain Depression screening done O: BP 100/60 (BP Location: Right arm, Cuff Size: Adult Regular) Wt 61.2 kg (135 lb) LMP 06/04/2019 BMI 19.94 kg/m?? Exam: Constitutional: healthy, alert and no distress Respiratory: Respirations even and unlabored Gastrointestinal: Abdomen soft, non-tender. Fundus measures appropriately for gestational age. Fetalheart tones heard easily. Psychiatric: mentation appears normal and affect normal/bright A: Diagnosis Comments 1. Encounter for supervision of normal first in second trimester P: Discussed options for quad screen today declined quad screen today Anatomy ultrasound next visit between 20-22 weeks Return to clinic 4 weeks Jaqueline Castillo APRN, CNM documented in this encounter Nursing Notes Catia Porter - 10/02/2019 9:30 AM CDT Chief Complaint Patient presents with ??? Care 17w 1d, discuss cyst found on US on 08/05/19-no sx Initial BP 100/60 (BP Location: Right arm, Cuff Size: Adult Regular) Wt 61.2 kg (135 lb) LMP 06/04/2019 BMI 19.94 kg/m?? Estimated body mass index is 19.94 kg/m?? as calculated from the following: Height as of 08/05/19: 1.753 m (5' 9). Weight as of this encounter: 61.2 kg (135 lb). BP completed using cuff size: regular Questioned patient about current smoking habits. Pt. has never smoked. The following HM Due: NONE Catia Porter CMA documented in this encounter Miscellaneous Notes Addendum Note - Catia Porter - 10/02/2019 9:30 AM CDT Addended by: CATIA PORTER on: 10/27/2019 01:13 PM Modules accepted: Orders documented in this encounter Plan of Treatment Not on filedocumented as of this encounter Results US OB > 14 Weeks (10/29/2019 10:25 AM CDT) Anatomical Region Laterality Modality Abdomen/Pelvis Ultrasound Specimen (Source) Anatomical Location Collection Method / Collectio n Time Received Time / Laterality Volume Narrative 10/30/2019 6:21 AM CDT 10/29/2019 10:28 AM ? [facility] [address] [facility]. [address] [place] [address] ?? ULTRASOUND - OB > 14 Weeks Complete ?? Referring Provider: Jaqueline Castillo CNM ?? INDICATIONS FOR ULTRASOUND: OB History: Present Conditions: Initial Survey (18-26 weeks) ?? CLINICAL INFORMATION ?? LMP: 04 Jun 2019 ??sure EDC: 10 Mar 2020 ??EGA: 21w 0d Previous US: Yes ? Minor Gestation. ?? presentation: Variable Placenta location: posterior and mid ?? Grade: 0 ?? Cord: 3 Vessel Cord ?? BPD 4.81 cm 20w4d HC 17.33 cm 19w6d AC 15.62 cm 20w5d FL 3.23 cm 20w0d HL 3.12 cm 20w3d Cerebellum 2.04 cm 19w4d CM 2.24 mm ?? Lat Vent 4.61 mm ?? Amniotic Fluid 5.00 cm MVP ?? Heart Rate 150 bpm ?? EFW (lbs/oz) 0 lbs ? 12ozs ?? EFW (g) 351 g ?? EDC: 03/15/2020 EGA:20w2d ??correspond ?? SURVEY Visualized with normal appearance: Head, Ventricles, Cerebellum, CSP, Face, Nose/Lips , Profile, 4 Chamber Hea rt, RVOT, LVOT, Spine, Kidneys, Stomach, Diaphragm, Abdominal Cord Inser tion, Bladder, Arms, Legs and Gender: Female ? MATERNAL ANATOMY Cervix: The cervix appears long and clos ed. Cervical Length: 3.28cm ?? Right Ovary: Not visualized Left Ovary: Not visualized ?? Complete obstetrical ultrasound using re altime transabdominal scanning. No gross anomalies observed; ??cor responding menstrual and sonographic dates. Placenta is posterior and mid. Maternal Uterus appears Normal. Maternal ovaries were not visualized. Amniotic fluid assessment is: Normal. anomalies may be present but not d etected. Dr. Salma Barnett MD Obstetrics and Gynecology [facility] ?? Jaqueline Castillo [facility] ORDERABLES documented in this encounter Visit Diagnoses Diagnosis Encounter for supervision of normal firs t in second trimester - Primary Supervision of normal first Encounter for supervision of normal firs t in second trimester Supervision of normal first documented in this encounter Care Teams Welfare Director Relationship Specialty Start Date End Date Krissy Gutierrez APRN POLYMER SPECIALIST PCP - General Nurse Practitioner 05/03/17 [id number] [place] [address] Krissy Gutierrez, CANDIDA POLYMER SPECIALIST Assigned PCP 05/05/17 10/13/21 [id number] [place] [address] documented as of this encounter
--- OUTSIDE RECORDS SUMMARY | 2021-11-02 07:23 | XMS_ITS | Encounter Summary ---
:1995 Author Organization [place] Address [facility] [place] [address] Care Team Providers Name Role Phone Krissy Gutierrez APRN INFORMATION TECHNOLOGY INSTRUCTOR Primary Care Provider [phone] Krissy Gutierrez APRN INFORMATION TECHNOLOGY INSTRUCTOR Unavailable Reason for Visit Reason Comments Care feeling nausea but not throw ing up Encounter Details Date Type Department Care Team Description 08/05/2019 Office [facility] Jaqueline Castillo for Visit [facility] LEE Jackson supervision of normal [place] [address] [address] first in [address] first trimester [facility], (Primary Dx) [address] [place] [address] [place], [place] [phone] (Work) [phone] Social History Tobacco Use Types Packs/Day Years [...] have completed or the highest Mayda, MEd, BIOLOGICAL SCIENCE TECHNICIAN FISH, [place]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 Sex Assigned [...] Sign Reading Time Taken Comments Blood Pressure 90/60 08/05/2019 2:23 PM CDT Pulse - - Temperature - - Respiratory Rate - - Oxygen Saturation - - Inhaled Oxygen Concentration - - Weight 62 kg (136 lb 11.2 oz) 08/05/2019 2:23 PM CDT Height 175.3 cm (5' 9) 08/05/2019 2:23 PM CDT Body Mass Index 20.19 08/05/2019 2:23 PM CDT documented in this encounter Patient Instructions Patient InstructionsJaqueline Castillo CNM - 08/05/2019 3:15 PM CDT Thank you for coming to see the Midwives at the [facility] ?? We will notify you about your labs that were drawn today once we get the results back or if you have MyChart they will be posted there as well ?? We will call you personally with results that require further discussion ?? If any referrals were ordered today you should be getting a call in the next week or you may needto call the number listed with your referral to schedule. ?? If you need any refills of medications please call your pharmacy and they will contact us ?? If you have any questions or concerns before your next visit, you can reach the nurse crusher loader operator healthcare market consultant by calling our pager number [phone]. ?? If you wish to schedule another appointment, please call our office at [phone]. You can alsomake appointments through [employer] ?? If you have a medical emergency please call 151. Because you are , we have additional resources for you: ?? You may call our consulting RN's during normal business hours for non-urgent questions about yourpregnancy. ?? After hours you may also page the crusher loader operator healthcare market consultant for urgent questions or issues at [phone].There is always a crusher loader operator healthcare market consultant 24 hours a day. Reminders: Before 14 weeks: Dating ultrasound, Genetic testing This ultrasound helps us determine your dates accurately. Verifi can be drawn anytime after 10 weeks of gestation 16 weeks: Optional genetic testing (quad screen) or single AFP This testing helps understand your baby's risk for some genetic abnormalities. 20 weeks: Screening ultrasound ( survey) This testing will look for early growth abnormalities, and may tell the baby's sex if you wish to find out. 28 weeks: One hour sugar test (GCT), hemoglobin and platelets This test helps identify diabetes of or gestational diabetes. We also look at the iron inyour blood and how well your blood clots. 28 - 36 weeks: Tetanus shot (Tdap) This shot helps protect you and your baby from tetanus and whooping cough. 36 weeks and later: Group B Strep test (GBS) This test helps predict if you need antibiotics in labor to prevent infection in your baby. Anytime November to June: Flu shot This shot helps protect you and your family from the flu. This is especially important during Any time during or after your you may experience increased depression and/or mood changes. We are here to support you. Please contact us if you are: ?? Feeling anxious ?? Overwhelmed or sad ?? Trouble sleeping ?? Crying uncontrollably ?? Trouble caring for yourself or baby. The typical schedule after your first visit today you can expect: Visit 2 - 12-16 weeks Visit 3 - 20 weeks Visit 4 - 24 weeks Visit 5 - 28 weeks Visit 6 - 32 weeks Visit 7 - 34 weeks Visit 8 - 36 weeks Weekly after 36 weeks until delivery. If anything comes up between your visits or you have concerns please don't hesitate to contact us. Secure access to your medical record: Use [employer] (secure email communication and access to your chart) to send your primary care providera message or make an appointment. Ask someone on your Team how to sign up for [employer]. To log on to [employer] or for more information in [employer] please visit the website at [email or web address]. Certified Nurse Cook Manager (CNM) Team Jaqueline Castillo APRN, LEE Gerard APRN, LEE Pitts APRN, LEE Baumann APRN, LEE Again, thank you for choosing the midwives at [facility]. We are excited to be a part of your . Please let us know how we can best partner with you to improve your and your family's health. Genetic Screening in There are several options you have for genetic screening in your . Everyone has their own personal reasons to screen or not to screen. We want you to make the best choice for you and your . Below is a list of options, what they screen for and when the screening is done. Genetic screening is recommended for women who are 35 and older at delivery and for those with a family history ofchromosomal abnormalities. However, screening is offered to all women. Innatal: This is a screening for the more common chromosome abnormalities, including trisomy 21 (Down's syndrome), trisomy 18, trisomy 13 and sex chromosome abnormalities. This is a test that can be done as early as 10 weeks gestation. ?? A maternal blood sample is drawn that sequences cell-free DNA in maternal plasma. This in turn allows for molecular counting of chromosome copy numbers with a >99% detection rate of Down syndrome, a 97% detection rate of Trisomy 18, and a 78% detection rate of Trisomy 13. ?? This test will give information about the gender of the baby. You can choose to not have that disclosed. ?? Results come back within 10-14 days. ?? About 5% of samples will have results that are designated as indeterminate or uninterruptable. With this type of result, genetic counseling and diagnostic testing are recommended. Remember this is a screening test and does not definitively diagnose or exclude the presence of these chromosome con ditions. ?? This screening may or may not be covered by insurance. We recommend you consult your insurance company to discuss. Financial assistance is available at a low cost if not covered by your insurance. Hemoglobin Electrophoresis: Hemoglobin electrophoresis is a non-invasive blood test that looks at abnormal hemoglobin (componentof red blood cells) production. Examples of this include sickle cell anemia (which is a disorder of the red blood cells and their shape) and the thalassemia???s (which is also a form of anemia). High risk groups include: , Southeast Asians, , Mediterranean, Estonian, South and Central Tuvaluan and Roe descent. This blood test is usually done with your first OB labs. This is a one-time test. Trio Carrier Screen: 1. Cystic Fibrosis (CF) is the most common life-shortening autosomal recessive disease among populations, with a frequency of 1 in Every 3,500 live births. Although it mainly affects the Population anyone can request screening. If you have a family history of cystic fibrosis you should request this test. This screening is a blood draw 2. Spinal Muscular Atrophy (SMA) is the most common inherited cause of infant . The most common form of this disorder causes by a age two. One in every 6,000 to 10,000 babies born in the has SMA 3. Fragile X Syndrome (FXS) is the most common inherited cause of intellectual disability. Approximately 1 in every 3,600 boys and 1 in every 6,000 girls is born with FXS If you are a carrier of CF or SMA, your partner will also need to be tested. This partner testing is offered free of charge. This screen can be done prior to or at any time during the . Quad Screen: The quad screen is a quadruple marker screening test done during the second trimester of your . This screening test that measures levels of four substances in a woman's blood; Alpha-fetoprotein (AFP), Human chorionic gonadotropin (HCG), Estriol, and Inhibin A. ?? AFP screens for open neural tube defects like Spina Bifida and Anencephaly. ?? Spina bifida is a serious defect that occurs when a portion of the neural tube fails to develop or close properly, causing defects in the spinal cord and in the bones of the spine. ?? Anencephaly is a serious defect in the closure of the neural tube, resulting in an underdeveloped brain and an incomplete skull. ?? Human chorionic gonadotropin (HCG), Estriol, and Inhibin screen for Down syndrome (trisomy 21) and Trisomy 18. ?? Down syndrome is a chromosomal disorder that causes lifelong intellectual disability and developmental delays and, in some people, health problems ?? Trisomy 18 is a chromosomal disorder that causes severe developmental delays and anatomic abnormalities. It is often fatal by age 1. The screening is ideally done between 15 and 18 weeks of but can be done up to week 20. Even if you have done the Verifi testing you can still get a single AFP drawn to check for neural tube defects. Screening Ultrasound: This is a survey done around 20 weeks gestation. This screen will look at the cardiac activity, heart rate and rhythm, assessment of the amniotic fluid volume, placenta appearance and location, and the umbilical cord vessel number and placental insertion site. They also do many measurements to make sure the baby is growing properly. The cervical length is also measured and movement is evaluated. The sex of the baby can usually be determined. In the event of a positive screen: There are two diagnostic tests available if any screening tests come back with an increased risk. You would first be referred to Maternal Medicine to be seen by a genetic counselor. They would assess your risk and see if further diagnostic testing is warranted. The options are; chorionic villus sampling (CVS), usually done at 11 to 12 weeks of and amniocentesis which is generally donelater in around 15 to 20 weeks. All risks/benefits would be explained and you can decide what course of action is best for you and your family. Why you might choose to screen? ?? A desire to know as much as you can about your baby ?? If your baby had a genetic abnormality you can learn about it before they are born ?? Choose whether to continue the or to terminate Why you might choose to NOT screen? ?? You feel that whatever happens is fine and you would not terminate ?? You know you don't want to do any diagnostic tests even if the screening test showed a high possibility of a genetic abnormality For further information please call: Quinn Pulliam [phone] documented in this encounter Progress Notes Jaqueline Castillo CNM - 08/05/2019 3:15 PM CDT Sharmaine Salas is a 23 year old woman, who is not a previous CN patient. She presents for a new OB Visit. This was a planned . FOB is Anup who is in good health. FOB IS actively involved in relationship and this . Sharmaine presents for her first OB visit. She is having intermittent nausea, otherwise is feeling well. Her and Anup and happy and excited about . She has not had bleeding since her LMP. She denies abdominal pain since her LMP. She has had nausea. has not had vomiting. Any personal or family history of blood clots? No History of sickle cell anemia or trait? No Patient's last menstrual period was 06/04/2019.. Estimated Date of Delivery: Mar 10, 2020 Ultrasoundconsistent with LMP. MENSTRUAL HISTORY frequency: every 28-32 days Last PAP: 2018 History of abnormal Pap? No Health maintenance updated: yes Current medications are: Current Outpatient Medications: ??? ferrous sulfate (FE TABS) 325 (65 Fe) MG EC tablet, Take 1 tablet (325 mg) by mouth daily, Disp:90 tablet, Rfl: 3 ??? loratadine (CLARITIN) 10 MG tablet, Take 1 tablet (10 mg) by mouth daily, Disp: 90 tablet, Rfl: 3 ??? Vit-Fe Fumarate-FA ( MULTIVITAMIN W/IRON) 27-0.8 MG tablet, Take 1 tablet by mouth daily, Disp: 90 tablet, Rfl: 3 INFECTION HISTORY HIV: No Hepatitis B: No Hepatitis C: No Tuberculosis: No Genital Herpes self: no Herpes partner: no Chlamydia: no Gonorrhea: no HPV: No BV: No Syphilis: No Chicken Pox: Yes - age 3 OB HISTORY OB History Para Term AB Living 1 0 0 0 0 0 SAB TAB Ectopic Multiple Live Births 0 0 0 0 0 # Outcome Date GA Lbr Julian/2nd Weight Sex Delivery Anes PTL Lv 1 Current PERSONAL HISTORY Exercise Habits: walking and jogging 4-7 days per week. Employment: Unemployed. Her job involves light activity with little potential for toxic exposure. Travel plans: are none planned. Diet: follows a balanced nutrition diet vitamins? Yes: Fish Oil? Yes: Abuse concerns? Partner present Any history if abuse, varbal, physical, sexual? Partner present Hgb A1c screen: BMI > 30: No, 1st degree family DM: No, History of GDM: No, PCOS: No, High risk ethnicity: No Social History Socioeconomic History ??? Marital status: Spouse name: Anup Tan ??? Number of children: Not on file ??? Years of education: Not on file ??? Highest education level: Master's degree (e.g., MA, MS, Mayda, MEd, BIOLOGICAL SCIENCE TECHNICIAN FISH, [employer]) Occupational History ??? 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 Financial resource strain: Not hard at all ??? Food insecurity Worry: Never true Inability: Never true ??? Transportation needs Medical: No Non-medical: No Tobacco Use ??? Smoking status: Never Smoker ??? Smokeless tobacco: Never Used Substance and Sexual Activity ??? Alcohol use: Not Currently Alcohol/week: 0.0 standard drinks Comment: occasional. 2-3x per month, roughly 5 mixed drinks. ??? Drug use: No ??? Sexual activity: Yes Partners: Male Lifestyle ??? Physical activity Days per week: Not on file Minutes per session: Not on file ??? Stress: Not on file Relationships ??? Social connections Talks on phone: Not on file Gets together: Not on file Attends religion service: Not on file Active member of club or organization: Not on file Attends meetings of clubs or organizations: Not on file Relationship status: Not on file ??? Intimate partner violence Fear of current or ex partner: Not on file Emotionally abused: Not on file Physically abused: Not on file Forced sexual activity: Not on file Other Topics Concern ??? Parent/sibling w/ CABG, VA or angioplasty before 65F 55M? Not Asked Social History Narrative ??? Not on file She reports that she has never smoked. She has never used smokeless tobacco. STD testing offered? Accepted Last PHQ-9 score on record = No flowsheet data found. Last GAD7 score on record = No flowsheet data found. Alcohol Score = 0 Referral/Meds needed? no PAST MEDICAL/SURGICAL HISTORY Past Medical History: Diagnosis Date ??? Anemia Past Surgical History: Procedure Laterality Date ??? COLONOSCOPY N/A 02/17/2015 Procedure: COMBINED COLONOSCOPY, SINGLE OR MULTIPLE BIOPSY/POLYPECTOMY BY BIOPSY; Surgeon: Bri Gallagher MD; Location: [facility] ??? EXTRACTION(S) DENTAL FAMILY HISTORY Family History Problem Relation Age of Onset ??? Breast Cancer Paternal Grandmother ??? Breast Cancer Paternal Aunt ROS: CONSTITUTIONAL: NEGATIVE for fever, chills, change in weight INTEGUMENTARU/SKIN: NEGATIVE for worrisome rashes, moles or lesions EYES: NEGATIVE for vision changes or irritation ENT: NEGATIVE for ear, mouth and throat problems RESP: NEGATIVE for significant cough or SOB BREAST: NEGATIVE for masses, tenderness or discharge CV: NEGATIVE for chest pain, palpitations or peripheral edema GI: NEGATIVE for nausea, abdominal pain, heartburn, or change in bowel habits : NEGATIVE for unusual urinary or vaginal symptoms. Periods are regular. MUSCULOSKELETAL: NEGATIVE for significant arthralgias or myalgia NEURO: NEGATIVE for weakness, dizziness or paresthesias PSYCHIATRIC: NEGATIVE for changes in mood or affect PHYSICAL EXAM Vitals: BP 90/60 Ht 1.753 m (5' 9) Wt 62 kg (136 lb 11.2 oz) LMP 06/04/2019 BMI 20.19 kg/m?? BMI= Body mass index is 20.19 kg/m??. GENERAL: 23 year old pleasant female, alert, cooperative and well groomed. NECK: Thyroid without enlargement and nodules. Lymph nodes not palpable. LUNGS: Clear to auscultation. BREAST: Symmetrical without lesions or nodes. Nipples everted. Areolas symmetric. No palpable axillary nodes. HEART: RRR without murmur. ABDOMEN: Soft without masses or tenderness. No scars noted.. GENITALIA: BUS without tenderness or inflammation. Perineum without lesions. VAGINA: [place], normal rugae and discharge. CERVIX: Anterior, smooth, without discharge, and firm/ closed 4 cm long. UTERUS: Anteverted, nontender 8 weeks in size. ADNEXA: Without masses or tenderness RECTAL: Normal appearance. Digital exam deferred. LOWER EXTREMITIES: No edema. No significant varicosities. ASSESSMENT/PLAN: IUP at 8w6d ICD-10-CM 1. Encounter for supervision of normal first in first trimester Z34.01 ABO/Rh type and screen Hepatitis B surface antigen CBC with platelets HIV Antigen Antibody Combo Rubella Antibody IgG Quantitative Treponema Abs w Reflex to RPR and Titer Urine Culture Aerobic Bacterial NEISSERIA GONORRHOEA PCR CHLAMYDIA TRACHOMATIS PCR consult for US for AMA patients: NA Genetic Testing reviewed and discussed, patient desires to discuss further with Anup and will have at next visit if they decide to have testing.. Handout provided COUNSELING ?? Instructed on use of triage nurse line and contacting the healthcare market consultant CNM after hours in an emergency. ?? Symptoms of N&V and fatigue usually start to resolve around 12-16 weeks ?? Reviewed CNM philosophy, call schedule for labor and delivery, and [facility] for delivery ?? 1st OB handout given outlining appointment spacing and CNM information ?? Reviewed exercise and nutrition ?? Recommend to gain 25-35 pounds with her . ?? Discussed OTC medications. OB med list given ?? Encouraged patient to arrange daycare if needed ?? Encouraged patient to take PNV's/DHA ?? Travel precautions discussed, no air travel after 36 weeks and Zika Virus discussed ?? Will call patient with lab results when available Does patient desire a RN home visit from the [facility]? No If yes, paperwork completed? No F/U to be addressed next visit: Decision about genetic testing. Will return to the clinic in 4 weeks for her next routine check. Will call to be seen sooner if problems arise. Jaqueline Castillo APRN, CNM documented in this encounter Nursing Notes Sarah Santiago CMA - 08/05/2019 3:15 PM CDT 8w6d Chief Complaint Patient presents with ??? Care feeling nausea but not throwing up Initial BP 90/60 Ht 1.753 m (5' 9) Wt 62 kg (136 lb 11.2 oz) LMP 06/04/2019 BMI 20.19 kg/m?? Estimated body mass index is 20.19 kg/m?? as calculated from the following: Height as of this encounter: 1.753 m (5' 9). Weight as of this encounter: 62 kg (136 lb 11.2 oz). BP completed using cuff size: regular Questioned patient about current smoking habits. Pt. has never smoked. The following HM Due: Chalmydia (13-24) documented in this encounter Plan of Treatment Not on filedocumented as of this encounter Procedures Procedure Name Priority Date/Time Associated Diagnosis Comme nts RUBELLA ANTIBODY IGG Routine 08/05/2019 3:16 PM Encounter for Results for this CDT supervision of procedure are in normal first the results in first section. trimester HIV ANTIGEN ANTIBODY Routine 08/05/2019 3:16 PM Encounter for Results for this COMBO CDT supervision of procedure are in normal first the results in first section. trimester TREPONEMA ABS W Routine 08/05/2019 3:16 PM Encounter for Resul ts for this REFLEX TO RPR AND CDT supervision of procedur e are in TITER normal first the results in first section. trimester HEPATITIS B SURFACE Routine 08/05/2019 3:16 PM Encounter for R esults for this ANTIGEN CDT supervision of procedure are in normal first the results in first section. trimester ABO/RH TYPE AND Routine 08/05/2019 3:16 PM Encounter for Resul ts for this SCREEN CDT supervision of procedure are in normal first the results in first section. trimester CBC WITH PLATELETS Routine 08/05/2019 3:16 PM Encounter for Re sults for this CDT supervision of procedure are in normal first the results in first section. trimester NEISSERIA Routine 08/05/2019 3:00 PM Encounter for Results for this GONORRHOEAE PCR CDT supervision of procedure are in normal first the results in first section. trimester CHLAMYDIA Routine 08/05/2019 3:00 PM Encounter for Results for this TRACHOMATIS PCR CDT supervision of procedure are in normal first the results in first section. trimester URINE CULTURE Routine 08/05/2019 2:35 PM Encounter for Results for this CDT supervision of procedure are in normal first the results in first section. trimester documented in this encounter Results Treponema Abs w Reflex to RPR and Titer (08/05/2019 3:16 PM CDT) [facility] Method Time Signature Treponema Nonreactive NR^Nonrea 08/06/2019 [facility] ctive 8:25 AM CDT [facility] Comment: Methodology Change: Test performed on DiaSorin Liaison XL by Treponema pallidum Total Antibodies Assay as of . Specimen Anatomical Collection Method Collection Time Receive d Time (Source) Location / / Volume Laterality Blood specimen 08/05/2019 3:16 PM 020 3:21 (specimen) CDT PM CDT SusanRenetta [facility] - BLOOD ORDERABLES Performing Organization Address City/[facility]/ZIP Code Phon e Number [facility] [address] Rubella Antibody IgG Quantitative (08/05/2019 3:16 PM CDT) [facility] Rubella Antibody 20 IU/mL 08/06/2019 [place] [facility] IgG Quantitative 9:39 AM CDT [facility] Comment: Positive. ??Suggests previous exposure o r immunization and probable immunity Reference Range: ??Unvaccinated Negative 0-7 IU/mL Vaccinated or previous exposure Positive 10 IU/ml or greater Specimen Anatomical Collection Method Collection Time Receive d Time (Source) Location / / Volume Laterality Blood specimen 08/05/2019 3:16 PM 020 3:21 (specimen) CDT PM CDT Jaqueline [facility] - BLOOD ORDERABLES Performing Organization Address City/[facility]/ZIP Code Phon e Number [address] HIV Antigen Antibody Combo (08/05/2019 3:16 PM CDT) [facility] Method Time Signature HIV Antigen Nonreactive NR^Nonrea 08/06/2019 [place] OF Antibody ctive 11:32 AM CDT [facility] Comment: HIV-1 p24 Ag & HIV-1/HIV-2 Ab N ot Detected Specimen Anatomical Collection Method Collection Time Receive d Time (Source) Location / / Volume Laterality Blood specimen 08/05/2019 3:16 PM 020 3:21 (specimen) CDT PM CDT Jaqueline [facility] - BLOOD ORDERABLES Performing Organization Address City/[facility]/ZIP Code Phon e Number [address] (ABNORMAL) CBC with platelets (08/05/2019 3:16 PM CDT) [facility] Method Time Signature WBC 8.8 4.0 - 11.0 08/05/2019 [place] 10e9/L 4:28 PM CDT [facility] RBC Count 3.83 3.8 - 5.2 08/05/2019 [place] 10e12/L 4:28 PM CDT [facility] Hemoglobin 11.0 (L) 11.7 - 08/05/2019 [place] 15.7 g/dL 4:28 PM CDT [facility] Hematocrit 32.5 (L) 35.0 - 08/05/2019 [place] 47.0 % 4:28 PM CDT [facility] MCV 85 78 - 100 08/05/2019 [facility] fl 4:28 PM CDT [facility] MCH 28.7 26.5 - 08/05/2019 [place] 33.0 pg 4:28 PM CDT [facility] MCHC 33.8 31.5 - 08/05/2019 [place] 36.5 g/dL 4:28 PM CDT [facility] RDW 12.2 10.0 - 08/05/2019 [place] 15.0 % 4:28 PM CDT [facility] Platelet Count 204 150 - 450 08/05/2019 [place] 10e9/L 4:28 PM CDT [facility] Specimen Anatomical Collection Method Collection Time Receive d Time (Source) Location / / Volume Laterality Blood specimen 08/05/2019 3:16 PM 020 3:21 (specimen) CDT PM CDT Jaqueline [facility] LAB - BLOOD ORDERABLES Performing Organization Address City/State/ZIP Code Phon e Number [facility] [address] [place], [place] [address] [address] Hepatitis B surface antigen (08/05/2019 3:16 PM CDT) [facility] gist Method Time Signature Hep B Surface Nonreactive NR^Nonrea 08/06/2019 [facility] ctive 11:32 AM CDT [facility] Specimen Anatomical Collection Method Collection Time Receive d Time (Source) Location / / Volume Laterality Blood specimen 08/05/2019 3:16 PM 020 3:21 (specimen) CDT PM CDT Jaqueline [facility] - BLOOD ORDERABLES Performing Organization Address City/State/ZIP Code Phon e Number [facility] [address] [place] [address] [facility] ABO/Rh type and screen (08/05/2019 3:16 PM CDT) [facility] [place] Method Time Signature ABO O 08/05/2019 [place] 5:42 PM CDT [facility] RH(D) Pos [facility] Antibody Neg 08/05/2019 [place] Screen 5:42 PM CDT [facility] Test Valid [place] 08/05/2019 [facility] Only At [facility] 5:50 PM CDT [facility]PITAL Specimen 08/08/2019 08/05/2019 [place] Expires 5:50 PM CDT [facility] Specimen Anatomical Collection Method Collection Time Receive d Time (Source) Location / / Volume Laterality Blood specimen 08/05/2019 3:16 PM 020 3:21 (specimen) CDT PM CDT Jaqueline Castillo CNM LAB - BLOOD BANK TEST ORDER Performing Organization Address City/State/ZIP [facility] Phon e Number [facility] [address] [place], [place] [address] [facility] [address] [place], [place] [address] [place] [address] CHLAMYDIA TRACHOMATIS PCR (08/05/2019 3:00 PM CDT) [facility] [place] Method Time Signature Specimen Vagina 08/05/2019 [place] Description 3:37 PM CDT [facility] Chlamydia Negative NEG^Negat 08/06/2019 INFECTIOUS Trachomatis PCR shirin 12:26 PM CDT [facility] Comment: Negative for C. trachomatis rRNA by galo scription mediated amplification. A negative result by consultant electronics media mario amplification does not preclude the presence of C. trachomatis infection because results are dependent on proper and adequate collection, absence of inhibitors, and sufficient rRNA to be detected. Specimen Anatomical Collection Method Collection Time Receive d Time (Source) Location / / Volume Laterality Specimen from 08/05/2019 3:00 PM 08/05/19 20 3:37 vagina CDT PM CDT (specimen) Jaqueline Castillo CNM LAB - MICRO GENERAL ORDERABL ES Performing Organization Address City/State/ZIP Code Phon e Number [facility] [address] [place] [address] DIAGNOSTIC LABORATORY, [facility] [address] [place] [address] [place] [address] INFECTIOUS DISEASES [address] [place] [address], A [facility]IC LAB[facility]ORY NEISSERIA GONORRHOEA PCR (08/05/2019 3:00 PM CDT) Analysis Performed At Patho logist Time Signature Specimen Vagina 08/05/2019 [facility] 3:37 PM CDT [facility] [place] N Gonorrhea Negative NEG^Negati 08/06/2019 INFECTIOUS PCR ve 12:26 PM CDT [facility] Comment: Negative for N. gonorrhoeae rRNA by galo scription mediated amplification. A negative result by consultant electronics media mario amplification does not preclude the presence of N. gonorrhoeae infection because results are dependent on proper and adequate collection, absence of inhibitors, and sufficient rRNA to be detected. Specimen Anatomical Collection Method Collection Time Receive d Time (Source) Location / / Volume Laterality Specimen from 08/05/2019 3:00 PM 08/05/19 3:37 vagina CDT PM CDT (specimen) Jaqueline [facility] LAB - MICRO GENERAL ORDERABL ES Performing Organization Address City/State/ZIP Code Phon e Number [facility]ECTIOUS [facility] [address] [place] [address] DIAGNOSTIC LABORATORY, [facility] [address] [place] [address] [facility] 180 INFECTIOUS DISE[facility] [address] [place] [address], A DIAGNOSTIC LABORATORY Urine Culture Aerobic Bacterial (08/05/2019 2:35 PM CDT) Component Value Ref Test Analysis Performed At Patholo gist Range Method Time Signature Specimen Midstream Urine INFECTIOUS Description [facility] Culture Micro 50,000 to 100,000 colonies/mL 2019 INFECTIOUS urogenital marly 10:02 PM [facility] Susceptibility testing not routinely done CDT [facility] Specimen (Source) Anatomical Collection Method Collection Time Re ceived Time Location / / Volume Laterality Examination of 08/05/2019 2:35 08/05/2019 2:45 midstream urine PM CDT PM CDT specimen (procedure) Jaqueline Castillo CNM LAB - MICRO GENERAL ORDERABL ES Performing Organization Address City/State/ZIP Code Phon e Number INFECTIOUS DISEASES [address] [place] [address] DIAGNOSTIC LABORATORY, [facility] INFECTIOUS DISEASES [address] [place] [address], A DIAGNOSTIC LABORATORY documented in this encounter Visit Diagnoses Diagnosis Encounter for supervision of normal firs t in first trimester - Primary Supervision of normal first documented in this encounter Care Teams Merchandising Stock Associate Relationship Specialty Start Date End Date Krissy Gutierrez APRN INFORMATION TECHNOLOGY INSTRUCTOR PCP - General Nurse Practitioner 05/03/17 [address] [place], [place] [phone] Krissy Gutierrez APRN INFORMATION TECHNOLOGY INSTRUCTOR Assigned PCP 05/05/17 10/13/21 [address] [place], [place] [phone] documented as of this encounter
--- OUTSIDE RECORDS SUMMARY | 2021-11-02 07:23 | XMS_ITS | Encounter Summary ---
:1995 Author Organization [place] Address [facility] [place] [address] Care Team Providers Name Role Phone Krissy Gutierrez APRN, CNP Primary Care Provider [phone] Krissy Gutierrez APRN INSPECTOR AND TESTER Unavailable [phone] Reason for Visit Reason Onset Date Comments Physical Blood Draw Imm/Inj flu Imm/Inj 02/10/2019 Flu Shot Encounter Details Date Type Department Care Team Description 02/10/2019 Office Visit [facility] Krissy Gutierrez Wellness e xamination (Primary Dx); [facility] [place] CANDIDA Heard Iron deficiency anemia, unsp ecified iron deficiency anemia type; [address] [facility] Encounter for surveillance of contracept shirin pills; [place], [place] [phone] [place] [address] Need for Tdap vaccination; [id number] [place], [place] Need for prophylactic vaccin ation and inoculation against influenza [phone] Social History Tobacco Use Types Packs/Day Years [...] Sign Reading Time Taken Comments Blood Pressure 96/50 02/10/2019 11:05 AM ELECTRIC SCREW DRIVER OPERATOR Pulse 72 02/10/2019 11:05 AM ELECTRIC SCREW DRIVER OPERATOR Temperature 36.8 ??C (98.2 ??F) 02/10/2019 11:05 AM ELECTRIC SCREW DRIVER OPERATOR Respiratory Rate 16 02/10/2019 11:05 AM ELECTRIC SCREW DRIVER OPERATOR Oxygen Saturation 98% 02/10/2019 11:05 AM ELECTRIC SCREW DRIVER OPERATOR Inhaled Oxygen Concentration - - Weight 60.3 kg (133 lb) 02/10/2019 11:05 AM ELECTRIC SCREW DRIVER OPERATOR Height 175.3 cm (5' 9) 02/10/2019 11:05 AM ELECTRIC SCREW DRIVER OPERATOR Body Mass Index 19.64 02/10/2019 11:05 AM ELECTRIC SCREW DRIVER OPERATOR documented in this encounter Progress Notes Krissy Gutierrez, CANDIDA INSPECTOR AND TESTER - 02/10/2019 10:45 AM CST SUBJECTIVE: CC: Sharmaine Salas is an 23 year old woman who presents for preventive health visit. Healthy Habits: Getting at least 3 servings of Calcium per day: Yes Bi-annual eye exam: NO Dental care twice a year: NO Sleep apnea or symptoms of sleep apnea: None Diet: Regular (no restrictions) Frequency of exercise: 4-5 days/week Duration of exercise: 30-45 minutes Taking medications regularly: Yes Medication side effects: None PHQ-2 Total Score: 1 Additional concerns today: Yes 1. Cervical cancer screening: pap 04/2017 2. Discuss preparing for future . 3. Menses; Regular, on OCP Today's PHQ-2 Score: PHQ-2 (??1999 Pfizer) 02/10/2019 Q1: Little interest or pleasure in doing things 1 Q2: Feeling down, depressed or hopeless 0 PHQ-2 Score 1 Q1: Little interest or pleasure in doing things Several days Q2: Feeling down, depressed or hopeless Not at all PHQ-2 Score 1 Abuse: Current or Past(Physical, Sexual or Emotional)- No Do you feel safe in your environment? Yes Social History Tobacco Use ??? Smoking status: Never Smoker ??? Smokeless tobacco: Never Used Substance Use Topics ??? Alcohol use: Yes Alcohol/week: 0.0 standard drinks Comment: occasional. 2-3x per month, roughly 5 mixed drinks. Alcohol Use 02/10/2019 Prescreen: >3 drinks/day or >7 drinks/week? No Prescreen: >3 drinks/day or >7 drinks/week? - Reviewed orders with patient. Reviewed health maintenance and updated orders accordingly - Yes BP Readings from Last 3 Encounters: 02/10/19 96/50 03/06/18 100/60 05/02/17 112/75 Wt Readings from Last 3 Encounters: 02/10/19 60.3 kg (133 lb) 03/06/18 60.3 kg (133 lb) 05/02/17 60.5 kg (133 lb 6.4 oz) Patient Active Problem List Diagnosis ??? Encounter for surveillance of contraceptive pills Past Surgical History: Procedure Laterality Date ??? COLONOSCOPY N/A 02/17/2015 Procedure: COMBINED COLONOSCOPY, SINGLE OR MULTIPLE BIOPSY/POLYPECTOMY BY BIOPSY; Surgeon: Bri Gallagher MD; Location: [facility] Social History Tobacco Use ??? Smoking status: Never Smoker ??? Smokeless tobacco: Never Used Substance Use Topics ??? Alcohol use: Yes Alcohol/week: 0.0 standard drinks Comment: occasional. 2-3x per month, roughly 5 mixed drinks. History reviewed. No pertinent family history. Current Outpatient Medications Medication Sig Dispense Refill ??? drospirenone-ethinyl estradiol (MONIKA) 3-0.03 MG tablet TAKE 1 TABLET BY MOUTH DAILY 84 tablet 3 Mammogram not appropriate for this patient based on age. Pertinent mammograms are reviewed under the imaging tab. History of abnormal Pap smear: NO - age 21-29 PAP every 3 years recommended PAP / HPV 05/02/2017 PAP NIL Reviewed and updated as needed this visit by clinical staff Reviewed and updated as needed this visit by Provider Review of Systems Constitutional: Negative for chills and fever. HENT: Positive for sore throat. Negative for congestion, ear pain and hearing loss. Eyes: Negative for pain and visual disturbance. Respiratory: Positive for cough. Negative for shortness of breath. Cardiovascular: Negative for chest pain, palpitations and peripheral edema. Gastrointestinal: Negative for abdominal pain, constipation, diarrhea, heartburn, hematochezia and nausea. Breasts: Negative for tenderness, breast mass and discharge. Genitourinary: Negative for dysuria, frequency, genital sores, hematuria, pelvic pain, urgency, vaginal bleeding and vaginal discharge. Musculoskeletal: Positive for arthralgias. Negative for joint swelling and myalgias. Skin: Negative for rash. Neurological: Positive for weakness and headaches. Negative for dizziness and paresthesias. Psychiatric/Behavioral: Negative for mood changes. The patient is not nervous/anxious. Sore throat and cough, improving. OBJECTIVE: BP 96/50 (BP Location: Right arm, Patient Position: Chair, Cuff Size: Adult Regular) Pulse 72 Temp 98.2 ??F (36.8 ??C) (Oral) Resp 16 Ht 1.753 m (5' 9) Wt 60.3 kg (133 lb) LMP 01/20/2019 SpO2 98% BMI 19.64 kg/m?? Physical Exam GENERAL: healthy, alert and no distress EYES: Eyes grossly normal to inspection, PERRL and conjunctivae and sclerae normal HENT: ear canals and TM's normal, nose and mouth without ulcers or lesions NECK: no adenopathy, no asymmetry, masses, or scars and thyroid normal to palpation RESP: lungs clear to auscultation - no rales, rhonchi or wheezes BREAST: normal without masses, tenderness or nipple discharge and no palpable axillary masses or adenopathy CV: regular rate and rhythm, normal S1 S2, no S3 or S4, no murmur, click or rub, no peripheral edemaand peripheral pulses strong ABDOMEN: soft, nontender, no hepatosplenomegaly, no masses and bowel sounds normal MS: no gross musculoskeletal defects noted, no edema SKIN: no suspicious lesions or rashes NEURO: Normal strength and tone, mentation intact and speech normal PSYCH: mentation appears normal, affect normal/bright ASSESSMENT/PLAN: Sharmaine was seen today for physical, blood draw, imm/inj and imm/inj. Diagnoses and all orders for this visit: Wellness examination: Contemplating in the spring, discussed stopping OCP for 2 months prior and using condoms, start on vitamin at that time. Suggested Dr. Ugarte for OB care. Very nervous about medical care for herself and is interested in discussing counseling to help withdiscussion of stress related to medical care and procedures (social sciences department chair contacted). Iron deficiency anemia, unspecified iron deficiency anemia type - CBC with platelets differential - Iron and iron binding capacity Encounter for surveillance of contraceptive pills - drospirenone-ethinyl estradiol (MONIKA) 3-0.03 MG tablet; Take 1 tablet by mouth daily Need for Tdap vaccination - TDAP VACCINE Need for prophylactic vaccination and inoculation against influenza - INFLUENZA VACCINE IM > 6 MONTHS VALENT IIV4 [57956] - Vaccine Administration, Initial [73743] COUNSELING: Reviewed preventive health counseling, as reflected in patient instructions Regular exercise Healthy diet/nutrition Estimated body mass index is 19.64 kg/m?? as calculated from the following: Height as of 03/06/18: 1.753 m (5' 9). Weight as of 03/06/18: 60.3 kg (133 lb). reports that she has never smoked. She has never used smokeless tobacco. Counseling Resources: ATP IV Guidelines Pooled Cohorts Equation Calculator Breast Cancer Risk Calculator FRAX Risk Assessment ICSI Preventive Guidelines Dietary Guidelines for Americans, 2009 USDA's MyPlate ASA Prophylaxis Lung CA Screening Follow up in 1 year, sooner as needed. Krissy Gutierrez APRN CNP [facility] TRIC SCREW DRIVER OPERATOR documented in this encounter Plan of Treatment Not on filedocumented as of this encounter Procedures Procedure Name Priority Date/Time Associated Diagnosis Comme nts CBC WITH PLATELETS & Routine 02/10/2019 11:38 Iron deficiency Results for this DIFFERENTIAL AM ELECTRIC SCREW DRIVER OPERATOR anemia, unspecified procedur e are in iron deficiency the results anemia type section. IRON AND IRON BINDING Routine 02/10/2019 11:38 Iron deficiency Results for this CAPACITY AM ELECTRIC SCREW DRIVER OPERATOR anemia, unspecified procedur e are in iron deficiency the results anemia type section. documented in this encounter Results Iron and iron binding capacity (02/10/2019 11:38 AM ELECTRIC SCREW DRIVER OPERATOR) athologist Signature Iron 157 35 - 180 02/11/2019 [facility] ug/dL 8:33 AM [facility] Iron Binding 386 240 - 430 02/11/2019 [place] Cap ug/dL 8:36 AM [facility] Iron Saturation 41 15 - 46 % 02/11/2019 [place] Index 8:36 AM [facility] Specimen Anatomical Collection Method Collection Time Receive d Time (Source) Location / / Volume Laterality Blood specimen 02/10/2019 11:38 9 (specimen) AM ELECTRIC SCREW DRIVER OPERATOR 11:51 AM ELECTRIC SCREW DRIVER OPERATOR Krissy Gutierrez BRICK SETTER OPERATOR INSPECTOR AND TESTER LAB - BLOOD ORDERABLES Performing Organization Address City/State/ZIP Code Phon e Number [facility] [address] [address] [phone] [facility] [address] [place], [place] [address] [facility] [address] [place] [address], [place] [phone] (ABNORMAL) CBC with platelets differential (02/10/2019 11:38 AM ELECTRIC SCREW DRIVER OPERATOR) athologist Signature WBC 7.7 4.0 - 11.0 02/10/2019 [place] 10e9/L 12:19 PM [facility] RBC Count 3.89 3.8 - 5.2 02/10/2019 [place] 10e12/L 12:19 PM [facility] Hemoglobin 11.2 (L) 11.7 - 15.7 02/10/2019 [place] g/dL 12:19 PM [facility] Comment: Results confirmed by repeat megan t Hematocrit 33.6 (L) 35.0 - 47.0 % 02/10/2019 12:19 PM CS T [facility] Comment: Results confirmed by repeat megan t MCV 86 78 - 100 fl 02/10/2019 12:19 [place] [facility] PM [facility] MCH 28.8 26.5 - 33.0 02/10/2019 12:19 [facility] pg PM ELECTRIC SCREW DRIVER OPERATOR [place] MCHC 33.3 31.5 - 36.5 02/10/2019 12:19 [facility] g/dL PM ELECTRIC SCREW DRIVER OPERATOR [place] RDW 12.2 10.0 - 15.0 02/10/2019 12:19 [facility] % PM ELECTRIC SCREW DRIVER OPERATOR [place] Platelet Count 229 150 - 450 02/10/2019 12:19 [facility] 10e9/L PM ELECTRIC SCREW DRIVER OPERATOR [place] % Neutrophils 53.8 % 02/10/2019 12:19 [facility] PM ELECTRIC SCREW DRIVER OPERATOR [place] % Lymphocytes 38.3 % 02/10/2019 12:19 [facility] PM ELECTRIC SCREW DRIVER OPERATOR [place] % Monocytes 6.6 % 02/10/2019 12:19 [facility] PM ELECTRIC SCREW DRIVER OPERATOR [place] % Eosinophils 0.8 % 02/10/2019 12:19 [facility] PM ELECTRIC SCREW DRIVER OPERATOR [place] % Basophils 0.5 % 02/10/2019 12:19 [facility] PM ELECTRIC SCREW DRIVER OPERATOR [place] Absolute Neutrophil 4.1 1.6 - 8.3 02/10/2019 12:19 [facility] 10e9/L PM ELECTRIC SCREW DRIVER OPERATOR [place] Absolute 2.9 0.8 - 5.3 02/10/2019 12:19 [facility] Lymphocytes 10e9/L PM ELECTRIC SCREW DRIVER OPERATOR [place] Absolute Monocytes 0.5 0.0 - 1.3 02/10/2019 12:19 [facility] 10e9/L PM ELECTRIC SCREW DRIVER OPERATOR [place] Absolute 0.1 0.0 - 0.7 02/10/2019 12:19 [facility] Eosinophils 10e9/L PM ELECTRIC SCREW DRIVER OPERATOR [place] Absolute Basophils 0.0 0.0 - 0.2 02/10/2019 12:19 [facility] 10e9/L PM ELECTRIC SCREW DRIVER OPERATOR [place] Diff Method Automated Method 02/10/2019 12:19 [facility] PM ELECTRIC SCREW DRIVER OPERATOR [place] Specimen Anatomical Collection Method Collection Time Receive d Time (Source) Location / / Volume Laterality Blood specimen 02/10/2019 11:38 9 (specimen) AM ELECTRIC SCREW DRIVER OPERATOR 11:51 AM ELECTRIC SCREW DRIVER OPERATOR Krissy Gutierrez APRN INSPECTOR AND TESTER LAB - BLOOD ORDERABLES Performing Organization Address City/State/ZIP Code Phon e Number [facility] [address] [place] [address] documented in this encounter Visit Diagnoses Diagnosis Wellness examination - Primary Iron deficiency anemia, unspecified iron deficiency anemia type Encounter for surveillance of contracept shirin pills Surveillance of previously prescribed co ntraceptive pill Need for Tdap vaccination Need for prophylactic vaccination with c ombined [id number]-bmahyvwny (DTP) vaccine Need for prophylactic vaccination and in oculation against influenza documented in this encounter Care Teams Meeting Coordinator Relationship Specialty Start Date End Date Krissy Gutierrez APRN INSPECTOR AND TESTER PCP - General Nurse Practitioner 05/03/17 [address] [place], [place] [phone] Krissy Gutierrez APRN INSPECTOR AND TESTER Assigned PCP 05/05/17 10/13/21 [address] [place], [place] [phone] documented as of this encounter
--- OUTSIDE RECORDS SUMMARY | 2021-11-02 07:23 | XMS_ITS | Encounter Summary ---
:1995 Author Organization [place] Address [facility] [place] [address] Care Team Providers Name Role Phone Krissy Gutierrez APRN, CNP Primary Care Provider [phone] Krissy Gutierrez APRN CLASSROOM COORDINATOR Unavailable [phone] Krissy Gutierrez APRN CLASSROOM COORDINATOR Unavailable [phone] Reason for Visit Reason Comments Refill Request BC Encounter Details Date Type Department Care Team Description 03/06/2018 Office Visit [facility] Krissy Gutierrez Encounter for Clinic [place] [address] [facility] CLASSROOM COORDINATOR contraceptive pills [place], [place] [id number] [id number] [place], [place] [phone] [id number] Social History Tobacco Use Types Packs/Day Years [...] Reading Time Taken Comments Blood Pressure 100/60 03/06/2018 4:21 PM COAL HAULER Pulse 81 03/06/2018 4:21 PM COAL HAULER Temperature 36.7 ??C (98.1 ??F) 03/06/2018 4:21 PM COAL HAULER Respiratory Rate 12 03/06/2018 4:21 PM COAL HAULER Oxygen Saturation 99% 03/06/2018 4:21 PM COAL HAULER Inhaled Oxygen Concentration - - Weight 60.3 kg (133 lb) 03/06/2018 4:21 PM COAL HAULER Height 175.3 cm (5' 9) 03/06/2018 4:21 PM COAL HAULER Body Mass Index 19.64 03/06/2018 4:21 PM COAL HAULER documented in this encounter Progress Notes Krissy Gutierrez, CANDIDA CLASSROOM COORDINATOR - 03/06/2018 5:15 PM CST SUBJECTIVE: Sharmaine Tan is a 22 year old female who presents to clinic today for the following health issues: Medication Followup of Zully ?? Taking Medication as prescribed: yes ?? Side Effects: None ?? Medication Helping Symptoms: yes Periods are monthly, lasting 2-3 days, light. Social: Recently , plans to run a marathon in 12/2018 Problem list and histories reviewed & adjusted, as indicated. Additional history: as documented Patient Active Problem List Diagnosis ??? Encounter for surveillance of contraceptive pills Past Surgical History: Procedure Laterality Date ??? COLONOSCOPY N/A 02/17/2015 Procedure: COMBINED COLONOSCOPY, SINGLE OR MULTIPLE BIOPSY/POLYPECTOMY BY BIOPSY; Surgeon: Bri Gallagher MD; Location: [facility] Social History Tobacco Use ??? Smoking status: Never Smoker ??? Smokeless tobacco: Never Used Substance Use Topics ??? Alcohol use: Yes Alcohol/week: 0.0 oz Comment: occasional. 2-3x per month, roughly 5 mixed drinks. History reviewed. No pertinent family history. Current Outpatient Medications Medication Sig Dispense Refill ??? drospirenone-ethinyl estradiol (ZULLY) 3-0.03 MG tablet Take 1 tablet by mouth daily 84 tablet 3 No Known Allergies Reviewed and updated as needed this visit by clinical staff Tobacco Allergies Meds Med Hx Surg Hx Fam Hx Soc Hx Reviewed and updated as needed this visit by Provider ROS: CONSTITUTIONAL: NEGATIVE for fever, chills, change in weight RESP: NEGATIVE for significant cough or SOB CV: NEGATIVE for chest pain, palpitations or peripheral edema : negative for dysuria, hematuria, decreased urinary stream, erectile dysfunction PSYCHIATRIC: NEGATIVE for changes in mood or affect OBJECTIVE: BP 100/60 (BP Location: Left arm, Patient Position: Chair, Cuff Size: Adult Regular) Pulse 81 Temp 98.1 ??F (36.7 ??C) (Oral) Resp 12 Ht 1.753 m (5' 9) Wt 60.3 kg (133 lb) SpO2 99% BMI 19.64 kg/m?? Body mass index is 19.64 kg/m??. GENERAL: healthy, alert and no distress NECK: no adenopathy, no asymmetry, masses, or scars and thyroid normal to palpation RESP: lungs clear to auscultation - no rales, rhonchi or wheezes CV: regular rate and rhythm, normal S1 S2, no S3 or S4, no murmur, click or rub, no peripheral edema PSYCH: mentation appears normal, affect normal/bright ASSESSMENT: See below PLAN: Sharmaine was seen today for refill request. Diagnoses and all orders for this visit: Encounter for surveillance of contraceptive pills - drospirenone-ethinyl estradiol (ZULLY) 3-0.03 MG tablet; Take 1 tablet by mouth daily Follow up in 1 year sooner as needed. Krissy Gutierrez APRN CNP [facility] documented in this encounter Plan of Treatment Not on filedocumented as of this encounter Visit Diagnoses Diagnosis Encounter for surveillance of contracept shirin pills Surveillance of previously prescribed co ntraceptive pill documented in this encounter Care Teams In File Operator Relationship Specialty Start Date End Date Krissy Gutierrez APRN PCP - General Nurse Practitioner 05/03/17 CLASSROOM COORDINATOR [address] [place] [address] Krissy Gutierrez APRN PCP - Assigned PCP 05/05/17 05/20/18 CLASSROOM COORDINATOR [address] [place] [address] Krissy Gutierrez APRN Assigned PCP 05/05/17 CLASSROOM COORDINATOR [address] [place] [address] documented as of this encounter
--- OUTSIDE RECORDS SUMMARY | 2021-11-02 07:23 | XMS_ITS | Encounter Summary ---
:1995 Author Organization [place] Address [address] [place] [address] Care Team Providers Name Role Phone Krissy Gutierrez APRN, CNP Primary Care Provider [phone] Krissy Gutierrez APRN INCOME TAX ADVISOR Unavailable [phone] Brenda Krissy Heard APRN INCOME TAX ADVISOR Unavailable [phone] Encounter Details Date Type Department Care Team Description 03/06/2018 Travel Social History Tobacco Use Types Packs/Day [...] on filedocumented in this encounter Care Teams Weather Teacher Relationship Specialty Start Date End Date Krissy Gutierrez APRN PCP - General Nurse Practitioner 05/03/17 INCOME TAX ADVISOR [address] [place] [address] Krissy Gutierrez APRN PCP - Assigned PCP 05/05/17 05/20/18 INCOME TAX ADVISOR [address] [place] [address] Krissy Gutierrez APRN Assigned PCP 05/05/17 INCOME TAX ADVISOR [address] [place] [address] documented as of this encounter
--- OUTSIDE RECORDS SUMMARY | 2021-11-02 07:23 | XMS_ITS | Encounter Summary ---
:1995 Author Organization [place] Address [address] [place] [address] Care Team Providers Name Role Phone Krissy Gutierrez APRN, CNP Primary Care Provider [phone] Krissy Gutierrez APRN GINGER FARMER Unavailable [phone] Encounter Details Date Type Department Care Team Description 10/02/2019 Travel Social History Tobacco Use Types Packs/Day [...] have completed or the highest Mayda, MEd, TEST LEAD APPLICATION TESTING, [place]VIKA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 Sex Assigned [...] on filedocumented in this encounter Care Teams Board Design Engineer Relationship Specialty Start Date End Date Krissy Gutierrez APRN GINGER FARMER PCP - General Nurse Practitioner 05/03/17 [address] [place], [place] [id number] Krissy Gutierrez APRN GINGER FARMER Assigned PCP 05/05/17 10/13/21 [address] [place], [place] [id number] documented as of this encounter
--- OUTSIDE RECORDS SUMMARY | 2021-11-02 07:23 | XMS_ITS | Encounter Summary ---
:1995 Author Organization [place] Address [address] [place] [address] Care Team Providers Name Role Phone Krissy Gutierrez APRN LOAN APPROVER Primary Care Provider [phone] Krissy Gutierrez APRN LOAN APPROVER Unavailable [phone] Krissy Gutierrez APRN LOAN APPROVER Unavailable [phone] Reason for Visit Reason Onset Date Comments Medication Refill 04/11/2018 Encounter Details Date Type Department Care Team Description 04/10/2018 Refill [facility] Krissy Gutierrez, Medication Refill [facility] LOAN APPROVER [phone] [place] [address] (Wo rk) Social History Tobacco Use [...] this encounter Miscellaneous Notes Telephone Encounter - Junie Knapp RN - 04/11/2018 1:59 PM CST Last Written Prescription Date: 03.06.18 Last Fill Quantity: 84, # refills: 3 Last office visit: 03/06/2018 with prescribing provider: Brenda Future Office Visit: Requested Prescriptions Pending Prescriptions Disp Refills ??? drospirenone-ethinyl estradiol (MONIKA) 3-0.03 MG tablet [Pharmacy Med Name: DROSPIRENONE-EE 3-0.03 MG TAB] 84 tablet 0 Sig: TAKE 1 TABLET BY MOUTH DAILY Contraceptives Protocol Passed - 04/10/2018 2:15 AM Passed - Patient is not a current [...] No positive test in past 12 months Rx was sent 03.06.18 for year supply Deny as duplicate Junie Knapp RN, BS Clinical Nurse Triage. CAULKER documented in this encounter Plan of Treatment Not on filedocumented as of this encounter Visit Diagnoses Diagnosis Encounter for surveillance of contracept shirin pills Surveillance of previously prescribed co ntraceptive pill documented in this encounter Care Teams Events Assistant Relationship Specialty Start Date End Date Krissy Gutierrez APRN PCP - General Nurse Practitioner 05/03/17 LOAN APPROVER [address] [place] [address] Krissy Gutierrez APRN PCP - Assigned PCP 05/05/17 05/20/18 LOAN APPROVER [address] [place] [address] Krissy Gutierrez APRN Assigned PCP 05/05/17 LOAN APPROVER [address] [place] [address] documented as of this encounter
--- OUTSIDE RECORDS SUMMARY | 2021-11-02 07:23 | XMS_ITS | Encounter Summary ---
:1995 Author Organization [place] Address [facility] [place] [address] Care Team Providers Name Role Phone Krissy Gutierrez APRN HYDRO PNEUMATIC TESTER Primary Care Provider [phone] Krissy Gutierrez APRN HYDRO PNEUMATIC TESTER Unavailable [phone] Reason for Visit Diagnostic Imaging Ultrasound (Routine) - Closed Specialty Diagnoses / Procedures Referred By Contact Refer red To Contact Diagnoses Encounter for supervision of normal first in second trimester Jaqueline Castillo CNM Procedures US OB > 14 Weeks [address] [place], [place] [address] Referral ID Status Reason Start Date Expiration Date Visits Requ ested Visits Authorized [id number] Closed 10/27/2019 10/26/2020 1 1 Encounter Details Date Type Department Care Team Description 10/29/2019 Orders Only [facility] dale for supervision [place] of normal first [address] [facility] in second trimester [address] [place] [address] Social History Tobacco Use [...] have completed or the highest Mayda, MEd, HAND II THERMAL CUTTER, DEVIKA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 Sex Assigned [...] Date/Time Associated Diagnosis Comme nts US OB > 14 WEEKS Routine 10/29/2019 10:25 AM Encounter for Res ults for this CDT supervision of normal proced ure are in first in the resul ts second trimester section. documented in this encounter Results US OB > 14 Weeks (10/29/2019 10:25 AM CDT) Anatomical Region Laterality Modality Abdomen/Pelvis Ultrasound Specimen (Source) Anatomical Location Collection Method / Collectio n Time Received Time / Laterality Volume Narrative 10/30/2019 6:21 AM CDT 10/29/2019 10:28 AM ? [facility] Obstetrics & Gynecology [address] [facility] [place] [address] ?? ULTRASOUND - OB > 14 Weeks [...] Not visualized ?? Complete obstetrical ultrasound using [facility] transabdominal scanning. No gross anomalies observed; ??cor responding menstrual and sonographic dates. Placenta is posterior and mid. Maternal Uterus appears Normal. Maternal ovaries were not visualized. Amniotic fluid assessment is: Normal. anomalies may be present but not d etected. Dr. Salma Barnett MD Obstetrics and Gynecology [facility] ?? Jaqueline Castillo CNM IMG US ORDERABLES documented in this encounter Visit Diagnoses Diagnosis Encounter for supervision of normal firs t in second trimester Supervision of normal first documented in this encounter Care Teams Fire Investigation Lieutenant Relationship Specialty Start Date End Date Krissy Gutierrez APRN HYDRO PNEUMATIC TESTER PCP - General Nurse Practitioner 05/03/17 [address] [place], [place] [id number] Krissy Gutierrez APRN HYDRO PNEUMATIC TESTER Assigned PCP 05/05/17 10/13/21 [address] [place], [place] [id number] documented as of this encounter
--- OUTSIDE RECORDS SUMMARY | 2021-11-02 07:23 | XMS_ITS | Encounter Summary ---
:1995 Author Organization [place] Address [facility] [place] [address] Care Team Providers Name Role Phone [place] Toni Murillo Md MD Primary Care Provider [phone] Krissy Gutierrez APRN, CNP Primary Care Provider [phone] Krissy Gutierrez APRN COMMUNICATION ELECTRONIC TECHNICIAN Unavailable [phone] Krissy Gutierrez APRN, CNP Unavailable [phone] Reason for Visit Reason Comments Physical Recheck Medication Encounter Details Date Type Department Care Team Description 05/02/2017 Office Visit [facility] Krissy Gutierrez e xamination (Primary Dx); [facility] [place] CANDIDA Heard Encounter for surveillance o f contraceptive pills [address] [place] [address] [facility] [address] [place], [place] [phone] [id number] Social History Tobacco Use Types Packs/Day Years [...] Sign Reading Time Taken Comments Blood Pressure 112/75 05/02/2017 6:05 PM PIPELINE WELDER Pulse 67 05/02/2017 6:05 PM PIPELINE WELDER Temperature 36.4 ??C (97.5 ??F) 05/02/2017 6:05 PM PIPELINE WELDER Respiratory Rate 14 05/02/2017 6:05 PM PIPELINE WELDER Oxygen Saturation 100% 05/02/2017 6:05 PM PIPELINE WELDER Inhaled Oxygen Concentration - - Weight 60.5 kg (133 lb 6.4 oz) 05/02/2017 6:05 PM PIPELINE WELDER Height 175.3 cm (5' 9) 05/02/2017 6:05 PM PIPELINE WELDER Body Mass Index 19.7 05/02/2017 6:05 PM PIPELINE WELDER documented in this encounter Patient Instructions Patient Peace Riddle CMA - 05/02/2017 6:06 PM CST Preventive Health Recommendations Female Ages 18 to 25 Yearly exam: ??? See your health care provider every year in order to o Review health changes. o Discuss preventive care. o Review your medicines if your doctor has prescribed any. ??? You should be tested each year for STDs (sexually transmitted diseases). ??? After age 20, talk to your provider about how often you should have cholesterol testing. ??? Starting at age 21, get a Pap test every three years. If you have an abnormal result, your doctor may have you test more often. ??? If you are at risk for diabetes, you should have a diabetes test (fasting glucose). Shots: ??? Get a flu shot each year. ??? Get a tetanus shot every 10 years. ??? Consider getting the shot (vaccine) that prevents cervical cancer (Gardasil). Nutrition: ??? Eat at least 5 servings of fruits and vegetables each day. ??? Eat whole-grain bread, whole-wheat pasta and brown rice instead of white grains and rice. ??? Talk to your provider about Calcium and Vitamin D. Lifestyle ??? Exercise at least 150 minutes a week each week (30 minutes a day, 5 days a week). This will helpyou control your weight and prevent disease. ??? Limit alcohol to one drink per day. ??? No smoking. ??? Wear sunscreen to prevent skin cancer. ??? See your dentist every six months for an exam and cleaning. LINE WELDER documented in this encounter Progress Notes Peace Gonzalez CMA - 05/02/2017 6:00 PM CST phy LINE WELDER Krissy Gutierrez APRN CNP - 05/02/2017 6:00 PM CST SUBJECTIVE: CC: Penny Salas is an 21 year old woman who presents for preventive health visit. 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 She is also planning a wedding and buying a house. She is getting in November Prior to this year she was very physically active, but she has had a hard time maintaining that this year. CUSTOMER SERVICER: Penny reports that for the most part her periods are good. She says that the longer she is on the Apri the sole stainer her periods are becoming and the less cramping she is getting. She reports that her periods are lasting about 2.5 days. However 6 months she has noticed she is getting very emotional and anxious and agitated a few days before her period starts and it lasts about a week. Her LMP was 04/16/2017 and it was normal. Sexually active with male partner. Health Maintenance: Pap: Last 2014? - Normal, Will be done today Mammogram: Not needed, patient <50yo Colonoscopy: Not needed, patient <50yo DEXA: Not needed, patient <50yo Today's PHQ-2 Score: PHQ-2 (??1999 Pfizer) 05/02/2017 Q1: Little interest or pleasure in doing things 1 Q2: Feeling down, depressed or hopeless 1 PHQ-2 Score 2 Q1: Little interest or pleasure in doing things Several days Q2: Feeling down, depressed or hopeless Several days PHQ-2 Score 2 Abuse: Current or Past(Physical, Sexual or Emotional)- No Do you feel safe in your environment - Yes Social History Substance Use Topics ??? Smoking status: Never Smoker ??? Smokeless tobacco: Never Used ??? Alcohol use 0.0 oz/week 0 Standard drinks or equivalent per week Comment: occasional. 2-3x per month, roughly 5 mixed drinks. Alcohol Use 05/02/2017 If you drink alcohol, do you typically have greater than 3 drinks per day OR greater than 7 drinks per week??? No No flowsheet data found. Reviewed orders with patient. Reviewed health maintenance and updated orders accordingly - Yes Mammogram not appropriate for this patient based on age. Pertinent mammograms are reviewed under the imaging tab. History of abnormal Pap smear: NO - age 21-29 PAP every 3 years recommended Reviewed and updated as needed this visit by clinical staff Tobacco Med Hx Surg Hx Fam Hx Soc Hx Reviewed and updated as needed this visit by Provider Review of Systems Constitutional, HEENT, cardiovascular, pulmonary, GI, , musculoskeletal, neuro, skin, endocrine and psych systems are negative, except as in HPI or otherwise noted This document serves as a record of the services and decisions personally performed and made by Krissy Gutierrez CNP. It was created on her behalf by Ryan Castillo, a trained medical librarian. The creation of this document is based the provider's statements to the medical librarian. Ryan Castillo May 02, 2017 6:10 PM OBJECTIVE: BP 112/75 (BP Location: Right arm, Patient Position: Chair, Cuff Size: Adult Regular) Pulse 67 Temp 97.5 ??F (36.4 ??C) (Oral) Resp 14 Ht 5' 9 (1.753 m) Wt 133 lb 6.4 oz (60.5 kg) LMP 04/16/2017 SpO2 100% BMI 19.7 kg/m2 Physical Exam GENERAL: healthy, alert and no [...] rub, no peripheral edemaand peripheral pulses strong CAPPING MACHINE OPERATOR: normal female external genitalia, vaginal mucosa pink, moist, well rugated and normal cervix, adnexae, and uterus without masses. Normal vaginal discharge. No CMT. ABDOMEN: soft, nontender, no hepatosplenomegaly, no masses and bowel sounds normal MS: no gross musculoskeletal defects noted, no edema SKIN: no suspicious lesions or rashes NEURO: Normal strength and tone, mentation intact and speech normal PSYCH: mentation appears normal, affect normal/bright ASSESSMENT/PLAN: Penny was seen today for physical and recheck medication. Diagnoses and all orders for this visit: Wellness examination - PAP imaged thin layer screen - Neisseria gonorrhoeae PCR - Chlamydia trachomatis PCR - Wet prep Encounter for surveillance of contraceptive pills: due to issues with PMS will change OCP to monika,also discussed option of taking consecutively for 3 months. - drospirenone-ethinyl estradiol (MONIKA) 3-0.03 MG per tablet; Take 1 tablet by mouth daily COUNSELING: Reviewed preventive health counseling, as reflected in patient instructions Regular exercise Healthy diet/nutrition Contraception Family planning reports that she has never smoked. She has never used smokeless tobacco. Estimated body mass index is 19.46 kg/(m^2) as calculated from the following: Height as of 02/19/15: 5' 9 (1.753 m). Weight as of 02/14/17: 131 lb 12.8 oz (59.8 kg). Counseling Resources: ATP IV Guidelines Pooled Cohorts Equation Calculator Breast Cancer Risk Calculator FRAX Risk Assessment ICSI Preventive Guidelines Dietary Guidelines for Americans, 2009 USDA's MyPlate ASA Prophylaxis Lung CA Screening The information in this document, created by the medical librarian for me, accurately reflects the services I personally performed and the decisions made by me. I have reviewed and approved this document for accuracy. Krissy Gutierrez CNP Follow up via phone in 1-2 months to update me on how the OCP is working. Return in 1 year for physical Krissy Gutierrez APRN CNP [facility] Answers for HPI/ROS submitted by the patient on 05/02/2017 PHQ-2 Score: 2 LINE WELDER documented in this encounter Nursing Notes Peace Gonzalez CMA - 05/02/2017 6:00 PM CST Chief Complaint Patient presents with ??? Physical ??? Recheck Medication Initial BP 112/75 (BP Location: Right arm, Patient Position: Chair, Cuff Size: Adult Regular) Pulse 67 Temp 97.5 ??F (36.4 ??C) (Oral) Resp 14 Ht 5' 9 (1.753 m) Wt 133 lb 6.4 oz (60.5 kg) LMP 04/16/2017 SpO2 100% BMI 19.7 kg/m2 Estimated body mass index is 19.7 kg/(m^2) as calculated from the following: Height as of this encounter: 5' 9 (1.753 m). Weight as of this encounter: 133 lb 6.4 oz (60.5 kg). Medication Reconciliation: complete LINE WELDER documented in this encounter Plan of Treatment Not on filedocumented as of this encounter Procedures Procedure Name Priority Date/Time Associated Diagnosis Comme nts PAP IMAGED THIN Routine 05/02/2017 6:34 PM Wellness examinatio n Results for this LAYER SCREEN PIPELINE WELDER procedure are i n the results section. WET PREPARATION Routine 05/02/2017 6:30 PM Wellness examinatio n Results for this PIPELINE WELDER procedure are i n the results section. NEISSERIA Routine 05/02/2017 6:30 PM Wellness examination R esults for this GONORRHOEAE PCR PIPELINE WELDER procedure ar e in the results section. CHLAMYDIA Routine 05/02/2017 6:30 PM Wellness examination R esults for this TRACHOMATIS PCR PIPELINE WELDER procedure ar e in the results section. documented in this encounter Results PAP imaged thin layer screen (05/02/2017 6:34 PM PIPELINE WELDER) Component Value Ref Test Analysis Performed At [facility] Range Method Time Signature PAP NIL COPATH Copath Report COPATH Patient Name: PENNY SALAS MR#: [id number] Specimen #: [id number] Collected: 05/02/2017 Received: 05/06/2017 Reported: 05/07/2017 14:40 Ordering Phy(s): KRISSY GUTIERREZ For improved result formatting, select 'View Enhanced Report Format' under Linked Documents section. SPECIMEN/STAIN PROCESS: Pap imaged thin layer prep screening (Surepath, FocalPoint w ith guided screening) ? Pap-Cyto x 1 SOURCE: Cervical, endocervical ---- Pap imaged thin layer prep screening (Surepath, FocalPoint with guided screening) SPECIMEN ADEQUACY: Satisfactory for evaluation. -Transformation zone component present. CYTOLOGIC INTERPRETATION: Negative for intraepithelial lesion or malignancy Electronically signed out by: SARA Kaye (ASCP) Processed and screened at [facility], [facility] CLINICAL HISTORY: LMP: 04/16/17 Papanicolaou Test Limitations: ??Cervical cytology is a sc reening test with limited sensitivity; regular screening is critical for cancer prevention; Pap tests are p rimarily effective for the diagnosis/prevention of squamous cell carcinoma, not adenocarcinomas or other cancer s. TESTING LAB LOCATION: [address] ??[address] COLLECTION SITE: Client: ??[facility] Location: [facility] (R) Specimen (Source) Anatomical Collection Method Collection Time Re ceived Time Location / / Volume Laterality Cytologic 05/02/2017 6:34 05/06/2017 8 :30 material PM PIPELINE WELDER AM PIPELINE WELDER (specimen) Krissy Gutierrez APRN, CNP LAB - OPTIME CLINICAL SPE LELE Performing Organization Address City/State/ZIP Code Phon e Number [place] Wet prep (05/02/2017 6:30 PM PIPELINE WELDER) Patholo gist Method Time Signature Specimen Vagina [place] Description [facility] Wet Prep No Trichomonas 05/02/2017 [facility] seen 7:02 PM PIPELINE WELDER [facility] Wet Prep No clue cells 05/02/2017 [facility] seen 7:02 PM PIPELINE WELDER [facility] Wet Prep No yeast seen 05/02/2017 [facility] 7:02 PM PIPELINE WELDER [facility] Specimen Anatomical Collection Method Collection Time Receive d Time (Source) Location / / Volume Laterality Specimen from 05/02/2017 6:30 PM 05/02/19 18 6:36 vagina PIPELINE WELDER PM PIPELINE WELDER (specimen) Krissy Gutierrez APRN COMMUNICATION ELECTRONIC TECHNICIAN LAB - MICRO GENERAL ORDER NISHA Performing Organization Address City/[facility]/ZIP Code Phon e Number [facility] [address] [place] [address] Chlamydia trachomatis PCR (05/02/2017 6:30 PM PIPELINE WELDER) [facility] gist Method Time Signature Specimen Endocervical 05/02/2017 [facility] Description 6:36 PM PIPELINE WELDER [facility] Chlamydia Negative NEG^Negat 05/05/2017 [facility] Trachomatis PCR shirin 2:[address] [facility] Comment: Negative for C. trachomatis rRNA by galo scription mediated amplification. A negative result by plasma center technician media mario amplification does not preclude the presence of C. trachomatis infection because results are dependent on proper and adequate collection, absence of inhibitors, and sufficient rRNA to be detected. Specimen (Source) Anatomical Collection Method Collection Time Re ceived Time Location / / Volume Laterality Endocervical 05/02/2017 6:30 05/02/2017 6 :36 cytologic material PM PIPELINE WELDER PM PIPELINE WELDER (specimen) Krissy Gutierrez APRN COMMUNICATION ELECTRONIC TECHNICIAN LAB - MICRO GENERAL ORDER NISHA Performing Organization Address City/State/ZIP Code Phon e Number [facility] [address] [place] [address] [address] Neisseria gonorrhoeae PCR (05/02/2017 6:30 PM PIPELINE WELDER) [facility] gist Method Time Signature Specimen Endocervical 05/02/2017 [place] Des[facility]rip 6:36 PM PIPELINE WELDER [facility] N Gonorrhea Negative NEG^Negat 05/05/2017 [facility] PCR shirin 2:[address] [facility] Comment: Negative for N. gonorrhoeae rRNA by galo scription mediated amplification. A negative result by plasma center technician media mario amplification does not preclude the presence of N. gonorrhoeae infection because results are dependent on proper and adequate collection, absence of inhibitors, and sufficient rRNA to be detected. Specimen (Source) Anatomical Collection Method Collection Time Re ceived Time Location / / Volume Laterality Endocervical 05/02/2017 6:30 05/02/2017 6 :36 cytologic material PM PIPELINE WELDER PM PIPELINE WELDER (specimen) Krissy Gutierrez APRN COMMUNICATION ELECTRONIC TECHNICIAN LAB - MICRO GENERAL ORDER NISHA Performing Organization Address City/State/ZIP Code Phon e Number [facility] [address] [place], [place] [id number] [place] [address] documented in this encounter Visit Diagnoses Diagnosis Wellness examination - Primary Encounter for surveillance of contracept shirin pills Surveillance of previously prescribed co ntraceptive pill documented in this encounter Care Teams Pressure Steamer Tender Relationship Specialty Start Date [facility] - General 02/15/15 05/02/[address] [place] [address] Krissy Gutierrez APRN PCP - General Nurse Practitioner 05/03/17 COMMUNICATION ELECTRONIC TECHNICIAN [address] [place] [address] Krissy Gutierrez APRN PCP - Assigned PCP 05/05/17 05/20/18 COMMUNICATION ELECTRONIC TECHNICIAN [address] [place] [address] Krissy Gutierrez APRN Assigned PCP 05/05/17 [facility] [address] [place], [place] [id number] documented as of this encounter
--- OUTSIDE RECORDS SUMMARY | 2021-11-02 07:23 | XMS_ITS | Encounter Summary ---
:1995 Author Organization [place] Address [facility] [place] [address] Care Team Providers Name Role Phone Krissy Gutierrez APRN GEOPHYSICS PROFESSOR Primary Care Provider [phone] Krissy Gutierrez APRN GEOPHYSICS PROFESSOR Unavailable [phone] Reason for Visit Reason Comments Care 13w, Progenity screening Encounter Details Date Type Department Care Team Description 09/03/2019 Office [facility] Jaqueline Castillo for Visit [facility] [place] supervision of [facility] [address] [address] first in [address] second trimester [facility], (Primary Dx) [address] [place] [address] [place], [place] [phone] [address] (Work) [phone] Social History Tobacco Use Types Packs/Day Years [...] have completed or the highest Mayda, MEd, NURSE EXTERN, DEVIKA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 Sex Assigned [...] Sign Reading Time Taken Comments Blood Pressure 94/58 09/03/2019 2:04 PM CDT Pulse - - Temperature - - Respiratory Rate - - Oxygen Saturation - - Inhaled Oxygen Concentration - - Weight 60.3 kg (133 lb) 09/03/2019 2:04 PM CDT Height - - Body Mass Index 19.64 08/05/2019 2:23 PM CDT documented in this encounter Patient Instructions Patient InstructionsJaqueline Castillo CNM - 09/03/2019 2:00 PM CDT Weeks 14 thru 16 - Gestational Age ( age - Weeks 12 thru 14): The fetus???s skin is thin and see-through. Fine hair called lanugo begins to form on the head. The fetus begins sucking and swallows bits of amniotic fluid. Fingerprints which individualize each humanbeing have now begun to develop on the tiny fingers of the fetus. Meconium is made in the intestinaltract and will build up to be the baby???s first bowel movement. Flutters may be felt in the mom???sgrowing abdomen, as the fetus begins to move around more. Sweat glands have developed, and the liverand pancreas produce fluid secretions. The fetus has reached 6 inches in length and weighs about 4 ounces documented in this encounter Progress Notes Jaqueline Castillo CNM - 09/03/2019 2:00 PM CDT S: Patient feels much better Patient has had nausea and has not had vomiting O: BP 94/58 (BP Location: Right arm, Cuff Size: Adult Regular) Wt 60.3 kg (133 lb) LMP 06/04/2019 BMI 19.64 kg/m?? Exam: Constitutional: healthy, alert and no distress Respiratory: Respirations even and unlabored Gastrointestinal: Abdomen soft, non-tender. Fundus measures appropriately for gestational age. Fetalheart tones heard easily Psychiatric: mentation appears normal and affect normal/bright A: Diagnosis Comments 1. Encounter for supervision of normal first in second trimester Non Invasive Test Cell Free DNA P: Educated about diet and exercise and normal weight gain Normal to feel movement between 18-22 weeks Reviewed labs from 1st OB Discussed genetic screening; patient wishes to have NIPT done. Warning signs discussed Discussed option for Quad screen at next visit. Return to clinic 4 weeks Encouraged patient to call with any questions or concerns. Jaqueline Castillo APRN, CNM documented in this encounter Nursing Notes Catia Porter - 09/03/2019 2:00 PM CDT Chief Complaint Patient presents with ??? Care 13w, Progenity screening Initial BP 94/58 (BP Location: Right arm, Cuff Size: Adult Regular) Wt 60.3 kg (133 lb) LMP 06/04/2019 BMI 19.64 kg/m?? Estimated body mass index is 19.64 kg/m?? as calculated from the following: Height as of 08/05/19: 1.753 m (5' 9). Weight as of this encounter: 60.3 kg (133 lb). BP completed using cuff size: regular Questioned patient about current smoking habits. Pt. has never smoked. The following HM Due: NONE Catia Porter CMA documented in this encounter Plan of Treatment Not on filedocumented as of this encounter Procedures Procedure Name Priority Date/Time Associated Diagnosis Comme nts INVITAE Routine 09/03/2019 2:29 PM Encounter for Results for this NON-INVASIVE CDT supervision of procedure are in SCREENING normal first the resul ts in second section. trimester documented in this encounter Results Non Invasive Test Cell Free DNA (09/03/2019 2:29 PM CDT) [facility] gist Method Time Signature Lab Scanned NON INVAS [facility] Result DNA-Scanned Specimen (Source) Anatomical Collection Method Collection Time Re ceived Time Location / / Volume Laterality Blood specimen 09/03/2019 2:29 PM (specimen) CDT Jaqueline Castillo CNM LAB - BLOOD ORDERABLES Performing Organization Address City/State/ZIP Code Phon e Number [facility] documented in this encounter Visit Diagnoses Diagnosis Encounter for supervision of normal firs t in second trimester - Primary Supervision of normal first documented in this encounter Care Teams Brim Rounder Relationship Specialty Start Date End Date Krissy Gutierrez APRN GEOPHYSICS PROFESSOR PCP - General Nurse Practitioner 05/03/17 [address] [place], [place] [phone] Krissy Gutierrez APRN GEOPHYSICS PROFESSOR Assigned PCP 05/05/17 10/13/21 [address] [place] [address] documented as of this encounter
--- OUTSIDE RECORDS SUMMARY | 2021-11-02 07:23 | XMS_ITS | Encounter Summary ---
:1995 Author Organization [place] Address [address] [place] [address] Care Team Providers Name Role Phone Krissy Gutierrez APRN RN PROGRESSIVE CARE UNIT Primary Care Provider [phone] Krissy Gutierrez APRN RN PROGRESSIVE CARE UNIT Unavailable [phone] Reason for Visit Reason Onset Date Comments Results 09/09/2019 Innatal Encounter Details Date Type Department Care Team Description 09/09/2019 Telephone [facility] Jaqueline Castillo, Results (Innatal) Clinic [facility] [address] [address] [facility] [address] [place] [phone] (Wo rk) Social History Tobacco Use [...] have completed or the highest Mayda, MEd, MEDIA ANALYST, DEVIKA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 Sex Assigned at Date Recorded Female 07/27/2019 7:13 AM CDT COVID-19 Exposure Response Date Recorded In the last month, have you been in contact with No / Unsure 09/03/2019 1:57 PM CDT someone who was confirmed or suspected to have Coronavirus / COVID-19? documented as of this encounter Miscellaneous Notes Telephone Encounter - Georgia El RN - 09/09/2019 2:54 PM CDT Results received from Progenity testing in [facility].. Testing done: Innatal Screen Action: Spoke to pt and gave NORMAL results. Gender: Gender revealed to pt on the phone. Routed to provider as FYI. Georgia El RN documented in this encounter Plan of Treatment Not on filedocumented as of this encounter Visit Diagnoses Not on filedocumented in this encounter Care Teams Animal Biologist Relationship Specialty Start Date End Date Krissy Gutierrez APRN RN PROGRESSIVE CARE UNIT PCP - General Nurse Practitioner 05/03/17 [address] [place], [place] [phone] Krissy Gutierrez APRN RN PROGRESSIVE CARE UNIT Assigned PCP 05/05/17 10/13/21 [address] [place], [place] [phone] documented as of this encounter
--- OUTSIDE RECORDS SUMMARY | 2021-11-02 07:23 | XMS_ITS | Encounter Summary ---
:1995 Author Organization [place] Address [facility] [place] [address] Care Team Providers Name Role Phone Krissy Gutierrez APRN, CNP Primary Care Provider [phone] Krissy Gutierrez APRN, CNP Unavailable [phone] Krissy Gutierrez APRN, CNP Unavailable [phone] Reason for Visit Reason Comments Medication Refill drospirenone-ethinyl estradi ol (MONIKA) 3-0.03 MG per tablet Encounter Details Date Type Department Care Team Description 08/07/2017 Refill [facility] Krissy Gutierrez ication Refill [place] CANDIDA Heard CNP (drospirenone-ethinyl [id number] [facility] [id number] [place] [address] estradiol (MONIKA) [place], [place] 3-0.03 MG per tablet) [id number] [phone] (Wo rk) Social History Tobacco Use Types [...] Telephone Encounter - Jaqueline Pacheco RN - 08/09/2017 12:17 PM CDT Pt calls, things are going well, noticed changes the first month and now going very well, wants to stay on BCP, sent renewal, will see 04/2018 for annual, FY Prescription approved [place] [facility] [place] Protocol. Jaqueline Pacheco RN, BSN Telephone Encounter - Jaqueline Pacheco RN - 08/09/2017 9:18 AM CDT Follow up via phone in 1-2 months to update me on how the OCP is working. Return in 1 year for physical left message for call back Jaqueline Pacheco RN ?? Telephone Encounter - Alanna Little - 08/08/2017 4:01 PM CDT Requested Prescriptions Pending Prescriptions Disp Refills ??? drospirenone-ethinyl estradiol (MONIKA) 3-0.03 MG per tablet [Pharmacy Med Name: [id number]-GO3-6.03 MG TAB] Last Written Prescription Date: 05/02/17 Last Fill Quantity: 84 tablets, # refills: 0 Last office visit: 05/02/2017 with prescribing provider: Brenda Future Office Visit: 84 tablet 0 Sig: TAKE 1 TABLET BY MOUTH DAILY Contraceptives Protocol Passed 08/07/2017 11:49 AM Passed - Patient is not a [...] section of the refill encounter. Passed - No active on record Passed - No positive test in past 12 months documented in this encounter Plan of Treatment Not on filedocumented as of this encounter Visit Diagnoses Diagnosis Encounter for surveillance of contracept shirin pills Surveillance of previously prescribed co ntraceptive pill documented in this encounter Care Teams Hand Filer Balance Wheel Relationship Specialty Start Date End Date Krissy Gutierrez APRN PCP - General Nurse Practitioner 05/03/17 [employer] [address] [place] [address] Krissy Gutierrez APRN PCP - Assigned PCP 05/05/17 05/20/18 [employer] [address] [place] [address] Krissy Gutierrez APRN Assigned PCP 05/05/17 [employer] [employer] [address] [place] [address] documented as of this encounter
--- OUTSIDE RECORDS SUMMARY | 2021-11-02 07:23 | XMS_ITS | Clinical Summary ---
:1995 Author Organization [place] Address [address] [place] [address] Care Team Providers Name Role Phone Krissy Gutierrez APRN HOME CARE ADMINISTRATOR Primary Care Provider [phone] Allergies No known active allergies Medications Medication Sig Dispensed Refills Start Date End Date Status Vit-Fe Take 1 tablet by 90 tablet 3 07/28/2019 Active Fumarate-FA ( mouth daily MULTIVITAMIN W/IRON) 27-0.8 MG tabletIndications: Encounter for supervision of normal first in first trimester ferrous sulfate (FE Take 1 tablet 90 tablet 3 07/28/2019 Active TABS) 325 (65 Fe) MG EC (325 mg) by mouth tabletIndications: daily Anemia loratadine (CLARITIN) Take 1 tablet (10 90 tablet 3 07/28/2019 Active 10 MG mg) by mouth tabletIndications: daily Seasonal allergic rhinitis Active Problems No known active problems Resolved Problems Problem Noted Date Resolved Date Encounter for surveillance of contraceptive pills 05/02/2017 10/29/2019 Ileitis 02/16/2015 05/02/2017 Immunizations Name Administration Dates Next Due HepA-Adult 07/27/2014 Influenza Vaccine IM > 6 months Valent IIV4 02/10/2019, 110 06/2017 (Alfuria,Fluzone) TDAP Vaccine (Adacel) 02/10/2019 Family History Medical History Relation Comments Breast Cancer Paternal Aunt Breast Cancer Paternal Grandmother Relation Status Comments Father Alive Mother Alive Paternal Aunt Alive Paternal Grandmother Social History Tobacco Use Types Packs/Day Years [...] have completed or the highest Mayda, MEd, SOLVENT STATION ATTENDANT, DEVIKA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 Sex Assigned at Date Recorded Female 07/27/2019 7:13 AM CDT Last Filed Vital Signs Vital Sign Reading Time Taken Comments Blood Pressure 96/56 10/29/2019 10:26 AM CDT Pulse 72 02/10/2019 11:05 AM FOCUSER Temperature 36.8 ??C (98.2 ??F) 02/10/2019 11:05 AM FOCUSER Respiratory Rate 16 02/10/2019 11:05 AM FOCUSER Oxygen Saturation 98% 02/10/2019 11:05 AM FOCUSER Inhaled Oxygen Concentration - - Weight 63 kg (139 lb) 10/29/2019 10:26 AM CDT Height 175.3 cm (5' 9) 08/05/2019 2:23 PM CDT Body Mass Index 20.53 08/05/2019 2:23 PM CDT Plan of Treatment Health Maintenance Due Date Last Done Comments ADVANCE CARE PLANNING 1995 ANNUAL REVIEW OF HM ORDERS 1995 COVID-19 Vaccine (#1) 05/08/1994 HEPATITIS C SCREENING 11/06/2011 PREVENTIVE CARE VISIT 02/11/2020 02/10/2019, 05/02/2017 PAP 05/02/2020 05/02/2017 PHQ-2 (once per calendar 03/18/2021 07/28/2019, 02/10/2019, year) 05/02/2017, Additional history exists INFLUENZA VACCINE (#1) 2021 02/10/2019, 01/19/2018 DTAP/TDAP/TD IMMUNIZATION 02/10/2029 02/10/2019 (2 - Td or Tdap) HIV SCREENING Completed 08/05/2019 HEPATITIS B IMMUNIZATION Aged Out No long er eligible based on patient 's age to complete this topic IPV IMMUNIZATION Aged Out No longer eligi ble based on patient 's age to complete this topic MENINGITIS IMMUNIZATION Aged Out No longe r eligible based on patient 's age to complete this topic Pneumococcal Vaccine: Aged Out No longer eligible Pediatrics (0 to 5 Years) based on patient's age and At-Risk Patients (6 to to co mplete this topic 64 Years) Insurance Payer Benefit Plan / Subscriber ID Effective Dates Phone Addre ss Type Group BCBS [place] OF [place] [id number] 2018-[place] [phone] [address] [address] Indemnity nt [address] [place] [address] Advance Directives For more information, please contact: [phone] Latest Code Status on File Code Status Date Activated Date Inactivated Comments Full Code 02/18/2015 1:58 PM Full Code 02/16/2015 1:46 AM 02/18/2015 1:58 PM Care Teams Auto Service Representative Relationship Specialty Start Date End Date Krissy Gutierrez, THERMODYNAMICIST HOME CARE ADMINISTRATOR PCP - General Nurse Practitioner 05/03/17 [id number] [place] [address]
--- OUTSIDE RECORDS SUMMARY | 2021-11-02 07:24 | XMS_ITS | Encounter Summary ---
:1995 Author Organization [facility] Address [address] [place] [id number] Care Team Providers Name Role Phone [facility] KIKI Murillo Primary Care Provider [phone] Reason for Visit Reason Comments Abdominal Pain PT reports four days RLQ abd pain. Pain improves w/ laying down, leaning over. Pain in waves, + rebound pain. Auth/Cert Specialty Diagnoses / Procedures Referred By Contact Refer red To Contact Oncology Diagnoses Ileitis, terminal, unspecified complication (H) Ileitis [address] [place] [address] Phone: Referral ID Status Reason Start Date Expiration Date Visits Requ ested Visits Authorized [id number] 02/16/2015 02/16/2016 1 1 Encounter Details Date Type Department Care Team Description 02/15/2015 - [facility] Jodi Pacheco MD [facility] [place] [address] Ileitis, terminal, 02/18/2015 Encounter [facility] [address] Vipin Valentine MD unspecified [facility] Fredis Mas MD [address] [facility] [address] [place], [place] [address] complication (H) 500 [facility] Gianni Martinez MD [facility] [address] [place], [place] [id number] [place] [address] Social History Tobacco Use Types Packs/Day Years [...] Sign Reading Time Taken Comments Blood Pressure 118/61 02/18/2015 7:25 AM [employer] Pulse 55 02/18/2015 4:33 AM [employer] Temperature 36.4 ??C (97.6 ??F) 02/18/2015 7:25 AM [employer] Respiratory Rate 18 02/18/2015 7:25 AM [employer] Oxygen Saturation 100% 02/18/2015 7:25 AM [employer] Inhaled Oxygen Concentration - - Weight 61.2 kg (135 lb) 02/17/2015 9:08 AM [employer] Height 175.3 cm (5' 9) 02/17/2015 9:08 AM [employer] Body Mass Index 19.94 02/17/2015 9:08 AM [employer] documented in this encounter Discharge Summaries Glo Little PA-C - 02/18/2015 12:56 PM CST Images from the original note were not included. [facility] - Internal Medicine Discharge Summary Date of Service: 02/18/2015 Sharmaine Salas Date of : 1995 Age: [age] year old Date of Admission: 02/15/2015 Date of Discharge: 02/18/2015 3:15 PM Admitting Physician: Fredis Mas MD Discharge Physician: Gianni Martinez MD / Glo Little PA-C [phone] Discharging Service: Internal Medicine, [facility] Primary Provider: [facility] Lidia Outpatient To Do: - GI to contact patient re: biopsy results, follow up with them as needed - Follow up with PCP as needed Discharge Diagnosis: RLQ abdominal pain with terminal ileitis on CT scan Normocytic anemia, mild thrombocytopenia Discharge Disposition: Discharged to home Condition on Discharge: Discharge condition: Stable Code status on discharge: Full Code Procedures: Colonoscopy results (02/17/15): The entire examined colon is normal. Biopsied to rule out IBD. The examined portion of the ileum was normal with lymphoid aggregates, advanced about 15cm into terminal ileum. Biopsied to rule out IBD vs tuberculosis. Discharge Medications: Current Discharge Medication List CONTINUE these medications which have NOT CHANGED Details desogestrel-ethinyl estradiol (APRI) 0.15-30 MG-MCG per tablet Take 1 tablet by mouth daily Consultations: Consultation during this admission received from gastroenterology and surgery Reason for Admission: Sharmaine Salas is a 19 year old female with history of chronic anemia admitted for RLQ abd pain, initially concerning for appendicitis, however, CT scan showing terminal ileitis. Hospital Course by Problem: RLQ abdominal pain with terminal ileitis on CT scan (02/16/15). Surgery consulted in ED, no indication for surgical intervention, no concern for appendicitis based on CT results. UA and urine negative. GI consulted, colonoscopy completed 02/17 with terminal ileum showing lymphoid aggregates, otherwise normal. GI to follow up with patient regarding biopsy results. Pt tolerating regular diet without difficulty prior to discharge. Normocytic anemia, mild thrombocytopenia. Hgb stable at 9-10. Likely dilutional component due to IVF. Pt does have history of heavy menses, improved with OCPs. Previously on iron supplements, but has not been taking regularly. Unsure of her baseline Hgb, but thinks its usually 'just below normal'. Denies recent bloody stools. Vit B12/folate normal. Physical Exam on day of Discharge: Blood pressure 118/61, pulse 55, temperature 97.6 ??F (36.4 ??C), temperature source Oral, resp. rate 18, height 1.753 m (5' 9), weight 61.236 kg (135 lb), last menstrual period 01/25/2015, SpO2 100 %. GENERAL: Alert and oriented x 3. NAD. HEENT: Anicteric sclera. PERRL. Mucous membranes moist. CV: RRR. S1, S2. No murmurs appreciated. RESPIRATORY: Effort normal. Lungs CTAB with no wheezing, rales, rhonchi. GI: Abdomen soft and non distended with normoactive bowel sounds present in all quadrants. No tenderness, rebound, guarding. MUSCULOSKELETAL: No joint swelling or tenderness. NEUROLOGICAL: No focal deficits. Moves all extremities. EXTREMITIES: No peripheral edema. Intact bilateral pedal pulses. SKIN: No jaundice. No rashes. Significant Results: Lab Results Component Value Date WBC 4.2 02/18/2015 HGB 10.3* 02/18/2015 HCT 31.3* 02/18/2015 PLT 149* 02/18/2015 NA 139 02/18/2015 POTASSIUM 4.0 02/18/2015 CHLORIDE 109 02/18/2015 CO2 24 02/18/2015 BUN 1* 02/18/2015 CR 0.60 02/18/2015 GLC 92 02/18/2015 AST 15 02/17/2015 ALT 14 02/17/2015 ALKPHOS 44 02/17/2015 BILITOTAL 0.4 02/17/2015 INR 1.13 02/17/2015 No results found for this or any previous visit (from the past 48 hour(s)). Pending Results: Unresulted Labs Ordered in the Past 30 Days of this Admission Date and Time Order Name Status Description 02/17/2015 1051 AFB Stain Non Blood In process 02/17/2015 1051 AFB Culture Non Blood In process Discharge Instructions and Follow-Up: Discharge Procedure Orders Reason for your hospital stay Order Comments: You were hospitalized due to lower abdominal pain, with imaging showing terminal ileitis (inflammation of your ileum). Our GI team was involved and completed a colonscopy with biopsies.The biopsy results are still pending, but the GI team will call and let you know these results next week. If needed, they will help set you up for any follow up appointments. Activity Order Comments: Your activity upon discharge: activity as tolerated Order Specific Question Answer Comments Is discharge order? Yes When to contact your care team Order Comments: Call your primary doctor if you have any of the following: temperature greater than 100.4, increased abdominal pain, intractable nausea/vomiting. Full Code Diet Order Comments: Follow this diet upon discharge: Regular Diet Order Specific Question Answer Comments Is discharge order? Yes Date of service: 02/18/2015 50 minutes spent in discharge, including >50% in counseling and coordination of care, medication review and plan of care recommended on follow up. It was our pleasure to care for Sharmaine Salas during this hospitalization. Please do not hesitateto contact me should there be questions regarding the hospital course or discharge plan. Glo Little PA-C [facility] Pager: [phone] [employer] documented in this encounter Medications at Time of Discharge Medication Sig Dispensed Refills Start Date End Date desogestrel-ethinyl Take 1 tablet by 0 05/02/2017 estradiol (APRI) 0.15-30 mouth daily MG-MCG per tablet oxyCODONE (ROXICODONE) 5 Take 0.5-1 tablets 6 tablet 0 06/201402/14/2017 MG immediate release (2.5-5 mg) by mouth tabletIndications: every 3 hours as Ileitis, terminal, needed for moderate unspecified complication to severe pain (H) documented as of this encounter Progress Notes Lia Pelletier MD - 02/18/2015 2:47 PM CST [facility] GASTROENTEROLOGY PROGRESS NOTE Sharmaine Salas [id number] 02/18/2015 SUBJECTIVE: Patient is doing well today post procedure. She is tolerating diet, and has no abdominalpain today. Has not required any pain medication. She has not had any further BMs. OBJECTIVE: VS: BP 118/61 mmHg Pulse 55 Temp(Src) 97.6 ??F (36.4 ??C) (Oral) Resp 18 Ht 1.753 m (5' 9) Wt 61.236 kg (135 lb) BMI 19.93 kg/m2 SpO2 100% LMP 01/25/2015 GEN: A&Ox3, NAD, comfortable CV: RRR, no M/G/R PULM: CTA B/L ABD: Normoactive bowel sounds, soft, ND, NT, no HSM SKIN: No jaundice EXT: No c/c/e NEURO: No focal deficits REVIEW OF LABORATORY, PATHOLOGY AND IMAGING RESULTS: BMP Recent Labs Lab 02/18/15 0732 02/17/15 0635 02/16/15 0635 02/15/151928 NA 139 144 139 138 POTASSIUM 4.0 3.8 3.8 3.6 CHLORIDE 109 112* 108 107 ALEX 8.0* 7.3* 7.3* 8.3* CO2 24 24 24 25 BUN 1* 1* 5* 9 CR 0.60 0.65 0.66 0.66 GLC 92 93 69* 77 CBC Recent Labs Lab 02/18/15 0732 02/17/15 0635 02/16/15 0635 WBC 4.2 4.2 4.6 RBC 3.73* 3.40* 3.40* HGB 10.3* 9.3* 9.4* HCT 31.3* 28.7* 29.0* MCV 84 84 85 MCH 27.6 27.4 27.6 MCHC 32.9 32.4 32.4 RDW 12.7 13.0 12.9 PLT 149* 134* 117* INR Recent Labs Lab 02/17/15 0635 INR 1.13 LFTs Recent Labs Lab 02/17/15 0635 02/16/15 0635 02/15/151928 ALKPHOS 44 42 51 AST 15 13 14 ALT 14 7 12 BILITOTAL 0.4 0.3 0.2 PROTTOTAL 5.4* 5.4* 6.6* ALBUMIN 2.6* 2.4* 3.0* PANCNo lab results found in last 7 days. IMPRESSION: Sharmaine Salas is a 19 year old female with history of anemia from heavy menses who presents with RLQ pain since Saturday. Presented initially to [facility] where ultrasound was concerning for possible appendicitis, but when she presented to [facility], her CT scan showed normal appendix but did show inflammation near the terminal ileum. DDx includes infectious (Yersinia, TB) vs IBD (Crohns) and these etiologies were discussed with the patient. Colonoscopy performed on 02/17, showed normal colon, biopsied to rule out IBD. Terminal ileum was normal with lymphoid aggregates advanced about 15cm into the terminal ileum that was biopsied to rule out IBD vs tuberculosis. RECOMMENDATIONS: -If patient has another BM before she leaves then it can be sent for Yersinia and Giardia, if not, no need to send patient home with a stool kit. -Once we have the biopsy results, will plan to call patient to discuss next steps depending on the etiology. We discussed this with the patient. -Ok to d/c from our standpoint. Discussed recs with CHARLOTTE Cody of the [facility] Team It has been a pleasure to participate in the care of this patient. Patient was discussed with GI staff, Dr. Burch. Please feel free to page with questions. Margi Pelletier MD GI Fellow [phone] [employer] Associated attestation - Giovanny Burch MD - 02/18/2015 8:53 PM [employer] Attestation: I performed a history and physical examination of the above patient and discussed the management with the GI Fellow, Dr. Pelletier on 02/18/15. I reviewed the note and there are no changes. Please see theHPI for pertinent positives and negatives. I agree with the documented findings and plan of care as outlined with the following additions: Pt with a number of interesting infectious exposures initially raising concern for less typical GI bugs. Today is reporting resolution of her symptoms, particularly her significant discomfort in RLQ. With acute onset and then rapid resolution of symptoms, as well as quick normalization of mild CRP elevation (with no treatment), and normal colonoscopic exam --> suspect this was a self-resolving infectious process. Unlikely IBD, though reviewed pathophysiology of Crohn's and symptoms to monitor for. We discussed concerning signs to watch for after discharge such as fever, bloody stools, significantdiarrhea, increasing pain, inability to tolerate po, etc Giovanny Burch MD Gastroenterology - Lum[facility] Service Lia Pelletier MD - 02/17/2015 1:48 PM CST Brief GI Note Colonoscopy performed today, see report for full details but noted to have normal colon that was biopsied, terminal ileum that showed lymphoid aggregates but otherwise normal that was biopsied extensively. DDx includes IBD vs tuberculosis. Recs: -Ok to ADAT -Pain control per the primary team -Await pathology and determine further plan from there Recs relayed to Glo PORTER of the [facility] team Discussed with Dr. Elliott Pelletier MD GI Fellow [phone] [employer] Glo Little PA-Vera - 02/17/2015 12:58 PM CST Images from the original note were not included. [facility] - Internal Medicine Daily Note Date of Service: 02/17/2015 Patient: Sharmaine Salas Admission Date: 02/15/2015 Hospital Day # 2 Assessment & Plan: Sharmaine Salas is a 19 year old female with history of chronic anemia admitted for RLQ abd pain, with CT scan showing terminal ileitis. RLQ abdominal pain with terminal ileitis on CT scan (02/16/15). Surgery consulted in ED, no indication for surgical intervention, no concern for appendicitis based on CT results. UA and urine negative. Colonoscopy completed today with terminal ileum showing lymphoid aggregates, otherwise normal. DDx includes IBD vs tuberculosis - GI consulted, appreciate recommendations - ADAT - Continue IVF until improved oral intake - Continue dilaudid 0.2 mg q2h PRN moderate-severe pain, add Tylenol and low dose oxycodone if tolerating oral intake Normocytic anemia, mild thrombocytopenia. Hgb 9.4 and Plt 117 this am, though per pt, Hgb 11.8 at [facility]. MCV 85. Likely dilutional component due to IVF. Pt does have history of heavy menses, improvedwith OCPs. Previously on iron supplements, but has not been taking regularly. Unsure of her baselineHgb, but thinks its usually 'just below normal'. Denies recent bloody stools. Vit B12/folate normal. - Continue to monitor - Continue OCPs Consulting Services: GI CODE: Full code DVT: SCDs, mechanical Diet/fluids: IVF, ADAT Disposition: Likely to d/c home tomorrow Pt's care was discussed with bedside RN, patient and Dr. Martinez during Care Team Rounds. Glo Little PA-C [facility] Pager: [phone] Team: Manoj Myers 2 Page Cross Cover after 5 pm: pager [phone] Subjective & Interval Hx: Feeling out of it after colonoscopy. Tolerated okay. Discussed generalimpression from GI team, that biopsies were taken. Pain under adequate control. Okay to advance dietas tolerated. Denies new concerns. Last 24 hr care team notes reviewed. ROS: 4 point ROS including Respiratory, CV, GI and , other than that noted in the HPI, is negative Medications: Reviewed in EPIC. Physical Exam: Blood pressure 97/50, pulse 57, temperature 97.7 ??F (36.5 ??C), temperature source Oral, resp. rate14, height 1.753 m (5' 9), weight 61.236 kg (135 lb), last menstrual period 01/25/2015, SpO2 99 %. GENERAL: Alert and oriented x 3. Appears comfortable. HEENT: NCAT. Anicteric sclera. Mucous membranes moist. CV: RRR. S1, S2. No murmurs appreciated. RESPIRATORY: Effort normal on room air. Lungs CTAB with no wheezing, rales, rhonchi. GI: Abdomen soft and non distended, bowel sounds present. Mild RLQ tenderness. No rebound or guarding. MUSCULOSKELETAL: No joint swelling or tenderness. NEUROLOGICAL: No focal deficits. Moves all extremities. EXTREMITIES: No peripheral edema. Intact bilateral pedal pulses. SKIN: No jaundice. No rashes. Lines/Tubes: Peripheral IV 02/15/15 Right (Active) Site Assessment WDL 02/17/2015 9:07 AM Line Status Infusing 02/16/2015 11:00 PM Phlebitis Scale 0-->no symptoms 02/16/2015 11:00 PM Infiltration Scale 0 02/16/2015 11:00 PM Number of days:2 Labs & Studies of Note: I personally reviewed the following studies: CMP with Cr 0.65, K 3.8, CRP 16 (55) CBC with Hgb 9.3, plt 134 Colonoscopy (02/17/15): The entire examined colon is normal. Biopsied to rule out IBD. The examined portion of the ileum was normal with lymphoid aggregates, advanced about 15cm into terminal ileum. Biopsied to rule out IBD vs tuberculosis. Medications list for Reference Current Facility-Administered Medications Medication ??? influenza quadrivalent (PF) vacc age 3 yrs and older (FLUZONE or Flulaval) injection 0.5 mL ??? HYDROmorphone (DILAUDID) injection 0.2 mg ??? desogestrel-ethinyl estradiol (APRI) 0.15-30 MG-MCG per tablet 1 tablet ??? naloxone (NARCAN) injection 0.1-0.4 mg ??? dextrose 5% and 0.9% NaCl + KCl 20 mEq/L infusion [employer] Glo Little PA-C - 02/16/2015 2:05 PM CST Images from the original note were not included. [facility] Service - Internal Medicine Daily Note Date of Service: 02/16/2015 Patient: Sharmaine Salas Admission Date: 02/15/2015 Hospital Day # 1 Assessment & Plan: Sharmaine Salas is a 19 year old female with history of chronic anemia admitted for RLQ abd pain, with CT scan showing terminal ileitis. RLQ abdominal pain with terminal ileitis on CT scan (02/16/15). Surgery consulted in ED, no indication for surgical intervention, no concern for appendicitis based on CT results. UA and urine negative. - GI consulted today, appreciate recommendations - CL diet today, bowel prep this evening and plan for colonoscopy tomorrow - Continue IVF - Continue dilaudid 0.2 mg q2h PRN moderate-severe pain. Normocytic anemia, mild thrombocytopenia. Hgb 9.4 and Plt 117 this am, though per pt, Hgb 11.8 at [facility]. MCV 85. Likely dilutional component due to IVF. Pt does have history of heavy menses, improvedwith OCPs. Previously on iron supplements, but has not been taking regularly. Unsure of her baselineHgb, but thinks its usually 'just below normal'. Denies recent bloody stools. - Check Vit B12/folate - Continue to monitor - Continue OCPs Consulting Services: GI, Surgery CODE: Full code DVT: Ambulatory Diet/fluids: CL diet Disposition: Pending further GI work-up, stable pain control with diet resumed Pt's care was discussed with bedside RN, patient and Dr. Martinez during Care Team Rounds. Glo Little PA-C [facility] Pager: [phone] Team: Manoj Myers 2 Page Cross Cover after 5 pm: pager [phone] Subjective & Interval Hx: Sharmaine Salas is a previously healthy 19 y.o. female who initially presented to [facility] yesterdaywith abdominal pain and was sent to the emergency department with concerns for appendicitis. Ultrasound was suggestive of appendicitis and surgery subsequently saw the patient and recommended CT scan which revealed a normal appendix and terminal ileitis for which patient was admitted to the hospital. She reports that her pain started 4 days ago on 03/14 and has been waxing and waning since that time with postprandial exacerbation and decreased appetite. She is feeling better today after receiving pain medications last night and being kept NPO with IV fluids since that time. She had one episode of diarrhea on 02/13, otherwise has had normal formed stools. No black or bloody stools. No nausea or vomiting aside from after she received oral contrast in the ED. No dysuria, hematuria, urgency, or frequency. No vaginal complaints. No rashes. No arthralgias. No fevers. No recent antibiotics or isotretinoin use. No known family history of autoimmune disease. She did have travel outside of the country to [facility] this past July and visited a friend's farm on 02/05 milking cows and feeding calves, but did not have any raw milk and no contacts with similar experiences have been ill. Last 24 hr care team notes reviewed. ROS: 4 point ROS including Respiratory, CV, GI and , other than that noted in the HPI, is negative Medications: Reviewed in EPIC. Physical Exam: Blood pressure 110/58, pulse 65, temperature 97.8 ??F (36.6 ??C), temperature source Oral, resp. rate 15, height 1.753 m (5' 9), weight 61.961 kg (136 lb 9.6 oz), last menstrual period 01/25/2015, SpO2 100 %. GENERAL: Alert and oriented x 3. Appears comfortable. HEENT: NCAT. Anicteric sclera. Mucous membranes moist. CV: RRR. S1, S2. No murmurs appreciated. RESPIRATORY: Effort normal on room air. Lungs CTAB with no wheezing, rales, rhonchi. GI: Abdomen soft and non distended, bowel sounds present. Mild RLQ tenderness. No rebound or guarding. MUSCULOSKELETAL: No joint swelling or tenderness. NEUROLOGICAL: No focal deficits. Moves all extremities. EXTREMITIES: No peripheral edema. Intact bilateral pedal pulses. SKIN: No jaundice. No rashes. Lines/Tubes: Peripheral IV 02/15/15 Right (Active) Site Assessment WDL 02/16/2015 11:00 AM Line Status Infusing 02/16/2015 11:00 AM Phlebitis Scale 0-->no symptoms 02/16/2015 11:00 AM Infiltration Scale 0 02/16/2015 11:00 AM Number of days:1 Labs & Studies of Note: I personally reviewed the following studies: CBC with Hgb 9.4, plt 117 CMP with Cr 0.66, K 3.8 CRP 55 Medications list for Reference Current Facility-Administered Medications Medication ??? [START ON 02/17/2015] influenza quadrivalent (PF) vacc age 3 yrs and older (FLUZONE or Flulaval) injection 0.5 mL ??? HYDROmorphone (DILAUDID) injection 0.2 mg ??? desogestrel-ethinyl estradiol (APRI) 0.15-30 MG-MCG per tablet 1 tablet ??? naloxone (NARCAN) injection 0.1-0.4 mg ??? dextrose 5% and 0.9% NaCl + KCl 20 mEq/L infusion [employer] Laura Levy MD - 02/16/2015 9:21 AM CST GENERAL SURGERY PROGRESS NOTE Sharmaine Salas [id number] 19 year old female Date of Service: 02/16/2015 S/ Overnight Events Feeling overall better this morning Pain is still present but slightly reduced in severity, analgesia helping O Temp: [96.6 ??F (35.9 ??C)-97.9 ??F (36.6 ??C)] 97.9 ??F (36.6 ??C) Pulse: [63-75] 69 Heart Rate: [72] 72 Resp: [16] 16 BP: (93-121)/(52-82) 101/53 mmHg SpO2: [96 %-100 %] 100 % I/O this shift: In: 260 [I.V.:260] Out: - EXAMINATION Resting comfortably in bed, no acute distress Respirations unlaboured Abdomen soft, minimally-tender, non-distended Ext wwf Lines/ Drains: ?? Peripheral Access Labs Lab Results Component Value Date WBC 4.6 02/16/2015 HGB 9.4* 02/16/2015 HCT 29.0* 02/16/2015 PLT 117* 02/16/2015 NA 139 02/16/2015 POTASSIUM 3.8 02/16/2015 CHLORIDE 108 02/16/2015 CO2 24 02/16/2015 BUN 5* 02/16/2015 CR 0.66 02/16/2015 GLC 69* 02/16/2015 AST 13 02/16/2015 ALT 7 02/16/2015 ALKPHOS 42 02/16/2015 BILITOTAL 0.3 02/16/2015 CT ABDOMEN PELVIS W CONTRAST 02/15/2015 10:57 PM 1. Moderately thickened segment of terminal ileum with adjacent inflammatory changes and small quantity of free fluid, which may correspond to findings on recent ultrasound. This could be related to infection or inflammatory bowel disease. 2. The appendix is normal. Assessment/Plan Sharmaine Salas is a 19 y o female presenting with RLQ pain, nausea, loss of appetite. CT findings ruled out acute appendicitis. No findings to support surgical intervention at this time Laura Levy MD, [facility] General Surgery PGY1 Pager [phone] [employer] Associated attestation - Arie Paul MD - 02/17/2015 4:50 PM [employer] Patient seen and evaluated. Discussed with resident team and agree with note as written. Clinically,this is unlikely to be appendicitis in light of the length of symptoms. In addition, CT scan is not consistent with appendicitis. Continue further workup by internal medicine. documented in this encounter H&P Notes Fredis Mas MD - 02/16/2015 1:49 AM CST [facility] Medicine History and Physical Department of Internal Medicine Patient Name: Sharmaine Salas Age: [age] year old Date of : 1995 Date of Admission:02/15/2015 Primary care provider: [facility] Lidia Date of Service: 02/16/2015 Admitting Team: Corey Myers Assessment and Plan: Sharmaine Salas is a 19 year old female with sub acute RLQ abdominal pain. CT scan indicates terminal ileitis. Her CRP is significantly elevated with a normal WBC in clinic. She has cow exposure last week on a friends farm, but otherwise no suspicious infectious exposures. Differential is infectious vs inflammatory bowel disease. - NPO overnight - Gi consult placed but not called tonight - surgery saw patient in ED and will follow per ED report - LR IVF fluid support - repeat CMP,CBC, CRP in AM - if any signs of infection develop will obtain cultures and start antibiotics, but given stability at this time will monitor off antimicrobials. - if diarrhea develops will obtain Cdiff and stool o&p - dilaudid for pain - she received 0.5 in ED and is very loopy - will decrease to 0.2 and monitor - nausea is only related to contrast with CT, will hold on further antiemetics unless she requires them. Continue OP OCPs CODE: FULL Diet/IVF: NPO DVT ppx: ambulation Disposition/Admission Status: anticipate 1-2 days depending on GI plan and course of pain Fredis Mas MD Internal Medicine Hospitalist & Staff Physician [facility] Pager: [phone] - GOLD 1 or 2 will assume care in morning. 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 She has been mostly in bed with this pain,but she continues to attend classes at [employer]. She has missed work due to the pain and notes that the pain is worse after meals. She has some trouble falling asleep due to nagging pain. She has had decrease appetite, but is able to take food and water. She has had hot flashes and chills but not duke sweats. There was one episode of diarrhea on Saturday, but no significant ongoing stools. No blood or black stools. She had emesis in ED with the oral contrast, but no other vomiting at home. Sharmaine has no vaginal symptoms. No urinary symptoms. She has no rashes. No respiratory concerns. 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 She did NOT drink any raw milk. She traveled to [place] [place] in July as a study abroad with no related health issues. Her last MP was Jan 25 - no issues. Sharmaine felt the pain is odd enough and persistent enough to go to [facility] for evaluation. There shewas noted to have RLQ pain that was concerning for appendicitis and sent to [facility] ED. Notably though her WBC was normal in clinic. In the ED a US found possible inflammed appendix. The surgery team saw the patient and recommended she have a CT scan. The CT scan noted a normal appendix but did see terminal ileitis. Surgery aske for the patient to be admit to IM and consider GI consult. Past Medical History: Past Medical History Diagnosis Date ??? 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 Family History: Only child - no siblings Mother and father both in good health Allergies: No Known Allergies Medications: Prior to Admission Medications Prescriptions Last Dose Informant Patient Reported? Taking? desogestrel-ethinyl estradiol (APRI) 0.15-30 MG-MCG per tablet 02/15/2015 at Unknown time Yes Yes Sig: Take 1 tablet by mouth daily Facility-Administered Medications: None Review of Systems: A complete ROS was performed and is negative other than what is stated in the HPI. Physical Exam: Blood pressure 103/63, pulse 75, temperature 96.6 ??F (35.9 ??C), temperature source Oral, resp. rate 16, height 1.753 m (5' 9), weight 61.961 kg (136 lb 9.6 oz), last menstrual period 01/25/2015, SpO2 97 %. General: resting in bed - a little loopy with dilaudid on board but very calm and apprpriate and no distress HEENT:MMM - PERRLA - no trauma Neck: no masses Chest/Resp: clear with no wheeze/crackles Heart/CV: rrr - no MGR Abdomen/GI: tender in the RLQ and towards umbilicus - BS hypoactive - no epigastric tenderness - no cva tenderness Extremities/MSK: no edema - no joint effusions - normal bulk and tone Skin: no rash - warm and well perfused Neuro: no focal deficits - CN grossly intacy Psych: calm and appropriate - a little groggy from dilaudid Peripheral IV 02/15/15 Right (Active) Number of days:1 Data: Faye WBC at clinic No rise in lfts Elevated CRP to 55 Normal LA UTI not consistent with infection Imaging - per surgery notes and ed report there is terminal ileitis. Fredis Mas MD [employer] documented in this encounter Consult Notes Lia Pelletier MD - 02/16/2015 6:29 PM CSTAssociated Order(s): GASTROENTEROLOGY IP CONSULT [facility] Gastroenterology Consultation Sharmaine Salas [id number] 19 year old 1995 02/16/2015 Date of Admission: 02/15/2015 Reason for consult: Terminal ileitis seen on CT scan Requesting physician: Gianni Dietrich MD Level of consult: Consult and follow for daily recommendations Chief Complaint: Right lower abdominal pain since this weekend HPI: Sharmaine Salas is a 19 year old female with a PMH significant for anemia from heavy menses on control and iron supplementation who presents on this admission with RLQ pain since Saturday. She denies any radiation of the pain, worse with eating. Had one episode of emesis with the CT contrast but none before or after. Denies any changes in her stools and states she actually has not had a stool in a few days because she has not eaten much of anything since her symptoms started. Feels that she had some subjective fevers and chills. When asked about travel history, she states that in July 2014, she was in [facility] [place] for study abroad. She denies any chronic cough or weight loss. She states thatshe was milking cows and feeding calves this weekend but states that her and her boyfriend have friends who live on this farm and that they have gone up there in the past and never had any issues previously. Denies any major changes in diet, being near sick contacts. Past Medical History: Past Medical History Diagnosis Date ??? Anemia Past Surgical History: History reviewed. No pertinent past surgical history. Medications: Current Facility-Administered Medications Medication ??? [START ON 02/17/2015] influenza quadrivalent (PF) vacc age 3 yrs and older (FLUZONE or Flulaval) injection 0.5 mL ??? HYDROmorphone (DILAUDID) injection 0.2 mg ??? desogestrel-ethinyl estradiol (APRI) 0.15-30 MG-MCG per tablet 1 tablet ??? naloxone (NARCAN) injection 0.1-0.4 mg ??? dextrose 5% and 0.9% NaCl + KCl 20 mEq/L infusion Allergies: No Known Allergies Social History: History Social History ??? Marital Status: Single Spouse Name: N/A Number of Children: N/A ??? Years of Education: N/A Occupational History ??? Not on file. Social History Main Topics ??? Smoking status: Never Smoker ??? Smokeless tobacco: Not on file ??? Alcohol Use: 0.0 oz/week 0 Not specified per week Comment: occasional. 2-3x per month, roughly 5 mixed drinks. ??? Drug Use: No ??? Sexual Activity: Partners: Male Control/ Protection: OCP Comment: uses condoms on and off, in monogamous relationship Other Topics Concern ??? Not on file Social History Narrative Family History: Father has stomach problems but she does not know much more about them. Review of Systems: A complete 10 point review of systems was obtained. Please see the HPI for pertinent positives and negatives. All other systems were reviewed and were found to be negative. Physical Exam: VS: BP 100/51 mmHg Pulse 68 Temp(Src) 97.9 ??F (36.6 ??C) (Oral) Resp 16 Ht 1.753 m (5' 9) Wt 61.961 kg (136 lb 9.6 oz) BMI 20.16 kg/m2 SpO2 99% LMP 01/25/2015 General: A&Ox3, NAD, appears stated age, conversational and cooperative HEENT: NC/AT, PERRL, EOMI, sclera anicteric, MMM, no oral lesions Neck: Supple, no LAD, thyromegaly or masses CV: RRR, no murmurs, gallops or rubs Pulm: CTA B/L, no crackles, wheezes or rhonchi Abd: Normoactive bowel sounds, soft, obese, mild RLQ TTP Skin: No stigmata of chronic liver disease Ext: WWPx4, no LE edema Neuro: CN II-XII grossly intact Data: BMP Recent Labs Lab 02/16/15 0635 02/15/151928 NA 139 138 POTASSIUM 3.8 3.6 CHLORIDE 108 107 ALEX 7.3* 8.3* CO2 24 25 BUN 5* 9 CR 0.66 0.66 GLC 69* 77 CBC Recent Labs Lab 02/16/15634 WBC 4.6 RBC 3.40* HGB 9.4* HCT 29.0* MCV 85 MCH 27.6 MCHC 32.4 RDW 12.9 PLT 117* INRNo lab results found in last 7 days. LFTs Recent Labs Lab 02/16/15 0635 02/15/151928 ALKPHOS 42 51 AST 13 14 ALT 7 12 BILITOTAL 0.3 0.2 PROTTOTAL 5.4* 6.6* ALBUMIN 2.4* 3.0* PANCNo lab results found in last 7 days. Impression: Sharmaine Salas is a 19 year old female with history of anemia from heavy menses who presents with RLQ pain since Saturday. Presented initially to [facility] where ultrasound was concerning for possible appendicitis, but when she presented to [facility], her CT scan showed normal appendix but did show inflammation near the terminal ileum. DDx includes infectious (Yersinia, TB) vs IBD (Crohns) and these etiologies were discussed with the patient. Plan for colonoscopy tomorrow to evaluate and biopsy. Recommendations: -Colonoscopy tomorrow. Clear liquid diet ok until midnight then NPO. 4L of golytely tonight until clear. -Yersinia and Giardia with stool studies It has been a pleasure to participate in the care of this patient. Patient discussed with GI staff, Dr. Burch . Please feel free to page with questions. Margi Pelletier MD GI Fellow [phone] [employer] Associated attestation - Giovanny Burch MD - 02/16/2015 10:19 PM [employer] Attestation: I performed a history and physical examination of the above patient and discussed the management with the GI Fellow, Dr. Pelletier on 02/16/15. I reviewed the note and there are no changes to the past medical, family or social history. A complete 10 point review of systems was obtained. Please see the HPI for pertinent positives and negatives. All other systems were reviewed and were found to be negative. I agree with the documented findings and plan of care as outlined. Giovanny Burch MD Gastroenterology - Luminal Service Miguelito Anguiano MD - 02/16/2015 12:18 AM CST Surgical Consult Note 02/15/15 Sharmaine Salas [id number] Chief complaint: RLQ pain HPI: Pt is a 19 y o female who initially presented with sharp abdominal pain in the periumbilical area on Saturday, in which she thought it was just indigestion. The pain got progressively worse and localized in the right lower quadrant (8/10 pain) that was worse upon movement and felt better when lying still. Onset of pain is associated with nausea, chills, night sweats, loss of appetite and feelingfaint into Saturday. Saturday thru Saturday she had some flares but the pain would got away for 4-5 hrs. Pt does report having heavy menstrual periods. Pt currently rates the pain at a 4 and calls it a 'discomfort'. OSH reported normal pelvic exam, negative UA and beta-HCG, normal wbc. ROS: + light headed, diarrhea, nausea, night sweats, chills, loss of appetite. Denied recent sick contacts, headache, muscle aches, sob, cp, pain or burning upon urination, or abdominal trauma. Past Medical Hx: anemia Past Surgical Hx: none Family Hx: denied diseases/illnesses in siblings/parents. Denies family hx of IBD, diabetes, cardiovascular disease, cancer. Allergies: NKDA. Seasonal allergies. Medications: OCP Social Hx: Lives with three other roommates in an [facility] apartment. 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 Alcohol: 2-3x/month, roughly 5 mixed drinks Smoking: no Drugs: no Sexual activity: on OCPs, in a monogamous relationship with a male partner, uses condoms on and off. Physical Exam: Temp: [96.9 ??F (36.1 ??C)] 96.9 ??F (36.1 ??C) Pulse: [75] 75 Resp: [16] 16 BP: (95-115)/(66-82) 115/82 mmHg SpO2: [99 %-100 %] 100 % General: pt in no acute distress and cooperative. Teary-eyed part way through conversation. Cardiovascular: RRR Pulmonary: non-labored breathing on room air Abdominal: soft, mild distension, tender to palpation in RLQ Extremities: no LE edema Labs: Ref. Range 02/15/2015 19:29 Sodium Latest Range: 133-144 mmol/L 138 Potassium Latest Range: 3.4-5.3 mmol/L 3.6 Chloride Latest Range: 94-109 mmol/L 107 Carbon Dioxide Latest Range: 20-32 mmol/L 25 Urea Nitrogen Latest Range: 7-30 mg/dL 9 Creatinine Latest Range: 0.52-1.04 mg/dL 0.66 OSH CBC: wbc 4.9, hgb 10.8, plts 159 HCG: negative Imaging: US: non compressible appendix (1.3 cm), small amount of free pelvic fluid Awaiting abdominal/pelvic CT A&P: Sharmaine Salas is a 19 y o female presenting with RLQ pain, nausea, loss of appetite and US showing probable appendicitis. Most likely clinical presentation representing appendicitis but also considering IBD, ectopic , PID, ovarian torsion, gastroenteritis. Pt is afebrile, WBC wnl, non-toxic appearance, beta-hcg negative. Awaiting CT abdomen/pelvic with PO and IV contrast. Potential that the appendix has ruptured after her case of brief pain relief and would be worried about abscess formation, which would need to be drained before removal. Patient seen and examined, note written by Dr. Dean. Addendum 12AM Reviewed CT scan: Prelim read: 1. Moderately thickened segment of terminal ileum, which may correspond to the finding on recent ultrasound. This could be related to infection or inflammatory bowel disease. 2. The appendix is normal. - No acute surgical intervention, no worrisome findings on CT scan, no appendicitis - Admit to internal medicine for further workup of terminal ileitis, consider GI consultation. Discussed with staff Dr. Odonnell. Miguelito Anguiano MD General Surgery PGY-2 [employer] Associated attestation - Lj Odonnell MD - 05/17/2015 2:00 PM [employer] Agree with consult note Lj Odonnell documented in this encounter Nursing Notes Day Skaggs RN - 02/17/2015 10:46 AM CST Colonoscopy with biopsies completed. Pt had discomfort throughout, but given additional sedation with relief. Report called to pt nurse on 7C and transport here to take pt back to dept. [employer] documented in this encounter ED Notes Vipin Celaya MD - 02/16/2015 12:23 AM CST This patient is a 19-year-old female who was previously seen at [facility] with right lower quadrant abdominal pain. Patient was signed out to me by Dr. Jodi Brewer. Patient underwent ultrasound which showed a 1.3 cm dilated appendix that was suspicious for appendicitis. Surgery did come down to evaluate the patient and had confirmed the possibility of appendicitis but felt CT would be appropriate. Serial abdominal exam by myself revealed significant tenderness in the right lower quadrant but nosignificant rebound and slight guarding. Patient???s bowel sounds were slightly hypoactive in the right lower quadrant but otherwise normal elsewhere. There was no distention. Patient underwent CT scanof the abdomen which showed a normal appendix but the terminal ileum was moderately swollen, making this suggestive for possible infectious colitis versus other inflammatory bowel disease. The patient required fluids as well as antiemetics to control her nausea. She did require Dilaudid 0.5 mg IV for pain control. At this point, Surgery felt it would be appropriate to have the patient admitted to theMedicine service and consider the possibility of GI seeing her in the morning. I called the Medicineattending, went over the lab and x-ray findings, as well as the patient???s clinical exam. The patient will be admitted for further observation and management of her pain. Gastroenterology consult needs to be entertained for possible endoscopy as well in the morning. Patient was kept NPO. Vipin Celaya MD 02/16/15 0054 [employer] Jodi Brewer MD - 02/15/2015 7:07 PM CST History Chief Complaint Patient presents with ??? Abdominal Pain PT reports four days RLQ abd pain. Pain improves w/ laying down, leaning over. Pain in waves, + rebound pain. HPI Sharmaine Salas is a 19 year old female who presents with 4 days of abdominal pain. She describes having sharp right lower quadrant pain that can be provoked by leaning forward as well as by eating. No other provoking or palliating factors. No radiation of pain. The pain has ebbed and flowed since onset and there are periods of several hours that she is pain-free. She was evaluated at [facility] today and advised to come here to the ED for further evaluation. Here in the ED, she notes that two days ago she felt nauseous with decreased appetite. She denies vomiting or diarrhea. No changes in bowel movements. Her last bowel movement was 2 days ago, which is reportedly typical for her. She has been pass ing flatulence. She denies fevers or chills. She denies urinary symptoms, including no dysuria or hematuria. No vaginal bleeding or discharge. UPT was negative at [facility] today. Patient reports that she has mild bilateral neck and upper back pain. She denies history of falls or injury, loss of controlof bowel or bladder, lower extremity numbness, tingling or weakness. She denies adenopathy or immunosuppression. She notes that she was acutely lightheaded with movement two days ago and she reports feeling mildly so at present. She does endorse that she hasn't been taking her iron pills, which she takes for her history of anemia. She has no other concerns or complaints. [facility] History, Lab, and Exam Findings 02/15/15: +history of sexual activity (single partner) WBC 4.9 HGB 10.8 PLT 159 PREG - Negative UA GLU - Negative UA BLD - Negative UA KET - Negative UA WBC 5-10 UA RBC 0-3 UA Bacteria - Moderate UA Squamous - Many Pelvic: nl external genitalia, no discharge or bleeding present, no vaginal or cervical lesions, no CMT, uterus normal in size and contour, non-tender, and no adnexal fullness, mass or tenderness I have reviewed the Medications, Allergies, Past Medical and Surgical History, and [facility] PAST MEDICAL HISTORY Past Medical History Diagnosis Date ??? Anemia PAST SURGICAL HISTORY History reviewed. No pertinent past surgical history. FAMILY HISTORY No family history on file. SOCIAL HISTORY History Substance Use Topics ??? Smoking status: Never Smoker ??? Smokeless tobacco: Not on file ??? Alcohol Use: Yes Comment: occasional No current facility-administered medications for this encounter. Current Outpatient Prescriptions Medication ??? desogestrel-ethinyl estradiol (APRI) 0.15-30 MG-MCG per tablet No Known Allergies Review of Systems Constitutional: Negative for fever and chills. HENT: Negative for congestion and sore throat. Eyes: Negative for visual disturbance. Respiratory: Negative for cough and shortness of breath. Cardiovascular: Negative for chest pain. Gastrointestinal: Positive for nausea and abdominal pain (RLQ). Negative for vomiting, diarrhea, constipation, blood in stool and abdominal distention. Genitourinary: Negative for dysuria, hematuria, vaginal bleeding and vaginal discharge. Musculoskeletal: Positive for back pain and neck pain. See HPI Neurological: Positive for light-headedness. Negative for weakness and numbness. All other systems reviewed and are negative. Physical Exam BP: 95/67 mmHg Pulse: 75 Temp: 96.9 ??F (36.1 ??C) Resp: 16 Height: 175.3 cm (5' 9.02) Weight: 62.596 kg (138 lb) SpO2: 99 % Physical Exam Constitutional: Vital signs are normal. She appears well-developed. Non-toxic appearance. She does not have a sickly appearance. No distress. HENT: Head: Normocephalic and atraumatic. Right Ear: External ear normal. Left Ear: External ear normal. Nose: Nose normal. Mouth/Throat: Oropharynx is clear and moist and mucous membranes are normal. Eyes: Conjunctivae and EOM are normal. Pupils are equal, round, and reactive to light. No scleral icterus. Neck: Normal range of motion. Neck supple. No tracheal deviation present. Cardiovascular: Normal rate, regular rhythm, normal heart sounds and intact distal pulses. Exam reveals no gallop and no friction rub. No murmur heard. Pulmonary/Chest: Effort normal and breath sounds normal. Stridor present. No respiratory distress. She has no wheezes. She has no rales. She exhibits no tenderness. Abdominal: Soft. She exhibits no distension. There is tenderness in the right lower quadrant. There is rebound and tenderness at McBurney's point. There is no rigidity, no guarding and no CVA tenderness. Musculoskeletal: Normal range of motion. She exhibits no edema or tenderness. Extremities warm and seemingly well perfused. No edema or calf tenderness. Neurological: She is alert. She is not disoriented. She displays no atrophy and no tremor. She exhibits normal muscle tone. She displays no seizure activity. Coordination and gait normal. GCS eye subscore is 4. GCS verbal subscore is 5. GCS motor subscore is 6. Skin: Skin is warm and dry. No rash noted. She is not diaphoretic. No erythema. No pallor. Psychiatric: She has a normal mood and affect. Her speech is normal and behavior is normal. Judgmentnormal. ED Course Procedures 7:07 PM Patient was seen and examined in ED 19. Critical Care time: None [facility] Diagnoses: None Labs Ordered and Resulted from Time of ED Arrival Up to the Time of Departure from the ED - No data to display Assessments & Plan (with Medical Decision Making) HISTORY TAKING INFORMATION: - History, ROS, SH, PMH and Physical exam performed myself in the presence of our front office medical assistant, EDnursing staff and the patient's friend. I obtained some collateral history originally when I took the referring phone call from the appointment provider. No interpretive services were needed. - Old chart from [facility] reviewed and revealed the patient has a known history of chronic anemia forwhich she takes iron supplementations, though she admits to not taking these consistently recently. No known allergies or other chronic medication use. IMPRESSION: Generally healthy 19-year-old female, with only a history of chronic anemia on iron supplementation, presents for evaluation of 4 days of intermittent right-sided abdominal pain. Clinically, the patient is nontoxic. Her blood pressure is in the high 90s systolic. Time she is mentating appro priate, has a normal heart rate, temperature and oxygen saturation. Her abdomen is soft and there isno distention. He does have pain to palpation over the right inferior rectus/right lower quadrant that is improved with straight leg raise (negative Carnett sign), and is associated with some rebound tenderness. She has no low pelvic or suprapubic discomfort. No upper abdomen findings and negative Vargas sign Review of the objective testing and exam report from [place] and shows that the patient has a possibleUTI versus contamination, some ongoing chronic anemia but not significantly so, normal WBC, negativepregnancy. They also performed a pelvic exam that showed no adnexal tenderness and was grossly normal. Differential diagnosis for this patient includes appendicitis, ulcerative disease, inflammatory bowel disease, et al. She is having no duke urinary symptoms and there was no blood on her urine to makeme think that this would be a stone. Her discomfort seems to low to be biliary in origin and her liver margin is appropriate and not in the region of her pain. Also, she is not having the lower suprapubic or pelvic symptoms to make me think that this was ovarian in nature or related to acute cystitis,leaving her appendix, intestine, and abdominal wall as the most likely causes. PLAN: The patient did not have an electrolyte panel checked there and so we will add this on given she's had some symptoms that sound almost like orthostasis or dehydration. Additionally I'll add on a lactate. Given her rebound tenderness I am somewhat concerned for the possibility of appendicitis. Thankfully, because the patient is so then I think we may be old to perform an abdominal ultrasound to evaluate for this, and will hopefully try to hold off on performing a CT exposing this young patient to that radiation. Also, given the possible contamination on her urine from the outside facility if the patient is able to give a urine sample here we will retest this and instructed her a bit more on ho w to obtain a good clean sample. RESULTS: - Labs: Total calcium and albumin/protein both a bit low. Lactate normal. Otherwise as per the labs drawn at [place] prior to arrival. - Urine: Pending - Imaging: I was called by Radiology regarding the patient's US and they thought it represented an acute appendicitis (dilated and noncompressible blind end tube per their report consistent with appendicits). INTERVENTIONS: - Patient is currently declining pain medications. We will continue to reassess for additional interventions as needed. - Surgery consult obtained: They recommended a CT of the A/P with contrast expressing concern for possible appendiceal rupture. This was ordered and was pending at the time of shift change. They had ushold off an antibiotics at this time. RE-EVALUATION: -Patient continues to decline pain medications. Vitals and exam remain consistent. SIGNOUT: - Patient signed out to Dr. Celaya, I appreciate his assistance. - Pending at shift changed: CT of the A/P, final recommendations from Surgery I have reviewed the findings and plan at the time of the end of my shift, and discussed transition of care. I answered all questions to the best of my ability at that time. New Prescriptions No medications on file Final diagnoses: None I, Yulia Villavicencio, am serving as a trained front office medical assistant to document services personally performed by MD Cyn, based on the provider's statements to me. IJodi MD, was physically present and have reviewed and verified the accuracy of this note documented by Yulia Villavicencio. 02/15/2015 [facility], EMERGENCY DEPARTMENT Jodi Brewer MD 02/16/152052 MBLER WATCH TRAIN Jodi Brewer MD - 02/15/2015 5:41 PM CST I received a phone call about this patient from the [facility]. Provider expressed concern of the patient having right lower quadrant pain with some rebound and is referring her to the emergency department for further evaluation. Really clinically nontoxic but with the abdominal pain as described above, x4 days. Workup at the clinic/objective findings from the OSH reportedly included: - Pelvic exam that was reportedly normal - Negative UA and test - Normal white blood cell count Jodi Brewer MD 02/15/15 1743 MBLER WATCH TRAIN Kathrine Stein, YOSELYN - 02/15/2015 5:38 PM CST PT reports four days RLQ abd pain. Pain improves w/ laying down, leaning over. Pain in waves, + rebound pain. PT w/ labs from [facility]. MBLER WATCH TRAIN documented in this encounter Miscellaneous Notes Plan of Care - Saadia Moulton RN - 02/18/2015 3:07 PM CST Problem: Goal Outcome Summary Goal: Goal Outcome Summary Outcome: Adequate for Discharge Date Met: 02/18/15 VSS. Reports manageable amount of abdominal pain, declines pain meds. Tolerating small amounts of regular diet. No BM. GI team will f/u with patient after discharge with results of biopsy. D/c instructions reviewed, patient verbalized understanding. Awaiting transport staff to escort to pharmacy/frontdoor to meet ride. MBLER WATCH TRAIN Plan of Care - Shy Trimble RN - 02/18/2015 5:18 AM CST Problem: Goal Outcome Summary Goal: Goal Outcome Summary Outcome: Improving VSS. Denies pain and N/V. Tolerating full liquids. Stool samples still needed, no BMs overnight. Continue plan of care. MBLER WATCH TRAIN Plan of Care - Radha Nobles RN - 02/17/2015 9:10 PM CST Problem: Goal Outcome Summary Goal: Goal Outcome Summary Outcome: Improving VSS. Denies pain. Colonoscopy with biopsies done today. Tolerated full liqs diet. Up ad mable. Voidingbut saving. Pt in good spirits. P: continue with POC. Stool samples still needed for labs, pt aware. MBLER WATCH TRAIN Plan of Care - Kristal Rodriguez - 02/17/2015 1:28 PM CST Problem: Goal Outcome Summary Goal: Goal Outcome Summary Outcome: Improving Denies pain. Patient down for colonoscopy, had 200 mcg fentanyl and 7 mg versed, returned to unit somulent. Pulse oxyimeter on, sats 98% room air, pulse 47-50 bpm, team notifed. Lungs clear. Has not voided yet. Up with stand by assist until medication has cleared. Emotional, parents in [place]. P: Encourage ambulation, IS, emotional support., FALL PRECAUTIONS. MBLER WATCH TRAIN Plan of Care - Catherine Valdez, YOSELYN - 02/17/2015 4:44 AM CST Problem: Goal Outcome Summary Goal: Goal Outcome Summary Outcome: Improving BP slightly soft; per pt's baseline. Bowel prep complete at 0130. Stools clear x3. Denies pain. BS hyperactive. Up ad mable. Plan: will go for colonoscopy today. Pain management with dilaudid IV prn. MBLER WATCH TRAIN Plan of Care - Radha Nobles RN - 02/16/2015 10:05 PM ASSEMBLER WATCH TRAIN Problem: Goal Outcome Summary Goal: Goal Outcome Summary Outcome: No Change VSS. C/o's abd cramping after bowel prep was started. Pain relieved with Dilaudid IV x1 and BM x2 ofgreenish/yellow watery stool then 1large formed stool. Voiding but not saved. Up ad mable. Pt still taking golytely (total 4liters) in prep fro colonoscopy tomorrow. Per SHAFT MECHANIC, pt might have to take to more golytely if stools are still not clear. P: continue to monitor status and continue with POC. Pls MD if stools are not clear yet. MBLER WATCH TRAIN Plan of Care - Ino Seymour RN - 02/16/2015 2:23 PM CST Problem: Goal Outcome Summary Goal: Goal Outcome Summary Pt VSS. Reports intermittent pain to right lower abdomen. Refusing pain medication. Tolerating a clear liquid diet. May have colonoscopy tomorrow a.m. Awaiting orders. IVF cont as ordered. Friend at the bedside. Up independently. Will continue to monitor and follow plan of care. MBLER WATCH TRAIN Utilization Review - Jessica Malone MD - 02/16/2015 12:14 PM CST [facility] Admission Status; Secondary Review Determination Admission Date: 02/15/2015 6:50 PM Under the authority of the Utilization Management Committee, the utilization review process indicated a secondary review on the above patient. The review outcome is based on review of the medical records, discussions with staff, and applying clinical experience noted on the date of the review. (X) Inpatient Status Appropriate - This patient's medical care is consistent with medical managementfor inpatient care and reasonable inpatient medical practice. () Observation Status Appropriate - This patient does not meet hospital inpatient criteria and is placed in observation status. If this patient's primary payer is Medicare and was admitted as an inpatient, Condition Code 44 should be used and patient status changed to observation. () Admission Status NOT Appropriate - This patient's medical care is not consistent with medical management for Inpatient or Observation Status. 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 She has been mostly in bed with this pain, and noted that the pain was worse after meals. She has some trouble falling asleep due to nagging pain.She has had decrease appetite, but is able to take food and water. She has had hot flashes and chills but not duke sweats. There was one episode of diarrhea on Saturday,but no significant ongoing stools. Seen initially at [facility], then sent to [facility]. Notably though her WBC was normal in clinic. In the ED a US found possible inflammed appendix. The surgery team saw the patient and recommended she have a CT scan. The CT scan noted a normal appendix but did see terminal ileitis. Admitted inpatient for the severe abdominal pain with either appendicitis or possible colitis. She was placed in NPO status with IVF and IV pain meds, serial abdominal exams. Today, GI consult recommended Colonoscopy for tomorrow for definitive diagnosis. Inpatient appropriate In summary, the severity of illness, intensity of service provided, expected length of stay and riskfor adverse outcome make the care complex, high risk and appropriate for hospital admission. The information on this document is developed by the utilization review team in order for the business office to ensure compliance. This only denotes the appropriateness of proper admission status and does not reflect the quality of care rendered. The definitions of Inpatient Status and Observation Status used in making the determination above are those provided in the CMS Coverage Manual, Chapter 1 and Chapter 6, section 70.4. Sincerely, Jessica Malone MD Utilization Review/ Case Management [facility]. MBLER WATCH TRAIN Plan of Care - Shy Trimble RN - 02/16/2015 6:05 AM CST Problem: Goal Outcome Summary Goal: Goal Outcome Summary Outcome: No Change Admitted from ER for RLQ abdominal pain. Pain comes and goes. No pain meds given while here on 7C, patient reports pain is manageable right now. Denies n/v, NPO. Received IV dilaudid in ED and patient said it made her dizzy. LR @ 150 to R PIV. VSS. Continue plan of care. control pills at bedside, verified by pharmacy. MBLER WATCH TRAIN documented in this encounter Plan of Treatment Not on filedocumented as of this encounter Procedures Procedure Name Priority Date/Time Associated Diagnosis Comme nts CRP INFLAMMATION Routine 02/18/2015 7:32 Ileitis, terminal, Re sults for this AM ASSEM[employer] WATCH TRAIN unspecified procedure are i n complication (H) the results section. BASIC METABOLIC PANEL Routine 02/18/2015 7:32 Ileitis, termina l, Results for this AM [employer] TRAIN unspecified procedure are i n complication (H) the results section. CBC WITH PLATELETS Routine 02/18/2015 7:32 Ileitis, terminal, Results for this AM [employer] TRAIN unspecified procedure are i n complication (H) the results section. AFB STAIN NON BLOOD Routine 02/17/2015 10:51 Ileitis, terminal , Results for this AM [employer] TRAIN unspecified procedure are i n complication (H) the results section. AFB CULTURE AND STAIN Routine 02/17/2015 10:51 Ileitis, termin al, Results for this NON BLOOD AM [employer] WATCH TRAIN unspecified procedure are i n complication (H) the results section. SURGICAL PATHOLOGY Routine 02/17/2015 10:35 Resul ts for this EXAM AM [employer]ER WATCH TRAIN procedure are i n the results section. COLONOSCOPY, WITH 02/17/2015 9:33 Inflammed terminal POLYPECTOMY AND BIOPSY AM ASSEMBLER WATCH TRAIN ileum on CT COLONOSCOPY Routine 02/17/2015 9:19 Results for this AM [employer] TRAIN procedure are i n the results section. INR Routine 02/17/2015 6:35 Ileitis, terminal, Result s for this AM [employer] WATCH TRAIN unspecified procedure are i n complication (H) the results section. FOLATE Routine 02/17/2015 6:35 Ileitis, terminal, Result s for this AM [employer] TRAIN unspecified procedure are i n complication (H) the results section. CRP INFLAMMATION Routine 02/17/2015 6:35 Ileitis, terminal, Re sults for this AM [employer] TRAIN unspecified procedure are i n complication (H) the results section. COMPREHENSIVE Routine 02/17/2015 6:35 Ileitis, terminal, Resul ts for this METABOLIC PANEL AM [employer]ATCH TRAIN unspecified procedure ar e in complication (H) the results section. VITAMIN B12 Routine 02/17/2015 6:35 Ileitis, terminal, Result s for this AM [employer] TRAIN unspecified procedure are i n complication (H) the results section. CBC WITH PLATELETS Routine 02/17/2015 6:35 Ileitis, terminal, Results for this AM [employer] TRAIN unspecified procedure are i n complication (H) the results section. COMPREHENSIVE Routine 02/16/2015 6:35 Ileitis, terminal, Resul ts for this METABOLIC PANEL AM [employer]ER WATCH TRAIN unspecified procedure ar e in complication (H) the results section. CBC WITH PLATELETS Routine 02/16/2015 6:35 Ileitis, terminal, Results for this AM [employer]ATCH TRAIN unspecified procedure are i n complication (H) the results section. CT ABDOMEN PELVIS W STAT 02/15/2015 10:57 Resu lts for this CONTRAST PM [employer] TRAIN procedure are i n the results section. HCG QUALITATIVE URINE STAT 02/15/2015 8:49 Res ults for this PM [employer] TRAIN procedure are i n the results section. UA MACROSCOPIC WITH STAT 02/15/2015 8:49 Resul ts for this REFLEX TO MICRO AND PM [employer]ER WATCH TRAIN procedur e are in CULTURE the results section. US ABDOMEN COMPLETE STAT 02/15/2015 8:32 Resul ts for this PM [employer] TRAIN procedure are i n the results section. LACTIC ACID STAT 02/15/2015 7:29 Results for this PM [employer] TRAIN procedure are i n the results section. CRP INFLAMMATION Routine 02/15/2015 7:29 Ileitis, terminal, Re sults for this PM [employer] TRAIN unspecified procedure are i n complication (H) the results section. COMPREHENSIVE STAT 02/15/2015 7:29 Results for this METABOLIC PANEL PM [employer]ATCH TRAIN procedure ar e in the results section. documented in this encounter Results CRP inflammation (02/18/2015 7:32 AM ASSEMBLER WATCH TRAIN) Analysis Performed At Patho logist Time Signature CRP Inflammation 8.0 0.0 - 8.0 [facility] mg/L [facility] Specimen Anatomical Collection Method Collection Time Receive d Time (Source) Location / / Volume Laterality Blood specimen 02/18/2015 7:32 AM 015 7:54 (specimen) ASSEM[employer]ATCH TRAIN AM ASSEMBLER WATCH TRAIN Glo Little PA-C LAB - BLOOD ORDERABLES Performing Organization Address City/State/ZIP Code Phon e Number [facility] [address] [place] [address] [facility] (ABNORMAL) Basic metabolic panel (02/18/2015 7:32 AM ASSEMBLER WATCH TRAIN) Patholo gist Method Time Signature Sodium 139 133 - 144 [facility] mmol/L [facility] Potassium 4.0 3.4 - 5.3 [facility] mmol/L [facility] Chloride 109 94 - 109 [facility] mmol/L [facility] Carbon Dioxide 24 20 - 32 [facility] mmol/L [facility] Anion Gap 6 3 - 14 [facility] mmol/L [facility] Glucose 92 70 - 99 [facility] mg/dL [facility] Urea Nitrogen 1 (L) 7 - 30 [facility] mg/dL [facility] Creatinine 0.60 0.52 - [facility] 1.04 [facility] mg/dL [facility] GFR Estimate >90 >60 [facility] Non GFR Calc mL/min/1. [facility] 7m2 [facility] GFR Estimate >90 >60 [facility] If Black GFR Calc mL/min/1. [facility] 7m2 [facility] Calcium 8.0 (L) 8.5 - [facility] 10.1 [facility] mg/dL [facility] Specimen Anatomical Collection Method Collection Time Receive d Time (Source) Location / / Volume Laterality Blood specimen 02/18/2015 7:32 AM 015 7:54 (specimen) ASSEMBLER WATCH TRAIN AM ASSEMBLER WATCH TRAIN Glo Little PA-C LAB - BLOOD ORDERABLES Performing Organization Address City/State/ZIP Code Phon e Number [facility] [address], [place] [id number] [place] [address] (ABNORMAL) CBC with platelets (02/18/2015 7:32 AM ASSEMBLER WATCH TRAIN) [facility] gist Method Time Signature WBC 4.2 4.0 - 11.0 [facility] 10e9/L [facility] RBC Count 3.73 (L) 3.8 - 5.2 [facility] 10e12/L [facility] Hemoglobin 10.3 (L) 11.7 - [facility] 15.7 g/dL [facility] Hematocrit 31.3 (L) 35.0 - [facility] 47.0 % [facility] MCV 84 78 - 100 [facility] fl [facility] MCH 27.6 26.5 - [facility] 33.0 pg [facility] MCHC 32.9 31.5 - [facility] 36.5 g/dL [facility] RDW 12.7 10.0 - [facility] 15.0 % [facility] Platelet Count 149 (L) 150 - 450 [facility] 10e9/L [facility] Specimen Anatomical Collection Method Collection Time Receive d Time (Source) Location / / Volume Laterality Blood specimen 02/18/2015 7:32 AM 015 7:54 (specimen) ASSEMBLER WATCH TRAIN AM ASSEMBLER WATCH TRAIN Glo Little PA-C LAB - BLOOD ORDERABLES Performing Organization Address City/State/ZIP Code Phon e Number [address] [address] [facility] AFB Stain Non Blood (02/17/2015 10:51 AM ASSEMBLER WATCH TRAIN) [facility] Method Time Signature Specimen Tissue [place] [facility] AFB Stain Negative for acid fast bacteria [facility] [employer] Micro Report FINAL [facility] Status 02/20/2015 [facility] Specimen Anatomical Collection Method Collection Time Receive d Time (Source) Location / / Volume Laterality 02/17/2015 10:51 02/17/2015 4:50 AM ASSEMBLER WATCH TRAIN PM ASSEMBLER WATCH TRAIN Giovanny Burch MD LAB - MICRO GENERAL ORD ERABLES Performing Organization Address City/State/ZIP Code Phon e Number [address] [address] [place] [employer] Culture Non Blood (02/17/2015 10:51 AM ASSEMBLER WATCH TRAIN) [facility] Signature Specimen Tissue [facility] Culture Micro Culture negative for acid fast bacilli [facility] [employer],[address] [id number] [facility] Micro Report FINAL [facility] Status 04/15/2015 [facility] Specimen Anatomical Collection Method Collection Time Receive d Time (Source) Location / / Volume Laterality 02/17/2015 10:51 02/17/2015 4:50 AM ASSEMBLER WATCH TRAIN PM ASSEMBLER WATCH TRAIN Giovanny Burch MD LAB - MICRO GENERAL ORD ERABLES Performing Organization Address City/State/ZIP Code Phon e Number [address] [address] [place] Surgical pathology exam (02/17/2015 10:35 AM ASSEMBLER WATCH TRAIN) Component Value Ref Test Analysis Performed At [facility] Method Time Signature Copath Report Patient Name: SHARMAINE SALAS MR#: [id number] Specimen #: [id number] Collected: 02/17/2015 Received: 02/17/2015 Reported: 02/18/2015 15:18 Ordering Phy(s): GIOVANNY BURCH SPECIMEN(S): A: Ileum biopsy, terminal B: Colon biopsy, random, right C: Colon biopsy, random, left FINAL DIAGNOSIS: A) Small intestine, terminal ileum, biopsy: - Fragments of ileal mucosa with intraepithelial lymphocytes of uncertain significance - No histological evidence of Crohn's disease - See comment B) Colon, right, biopsy: - Colon mucosa without histopathologic abnormality - No evidence chronic, active and microscopic colitis C) Colon, left, biopsy: - Colon mucosa without histopathologic abnormality - No evidence chronic, active and microscopic colitis COMMENT: The terminal ileal biopsy, specimen A, shows some nondiagnos tic abnormalities. ??These consist mainly of an increase in lymp hocytes involving the surface epithelium reminiscent of what is seen in microscopic colitis. ??There is no evidence of granulomatous inflammation, crypt distortion, acute neutrophilic cryptitis or pseudopyloric metaplasia, and hence there are no features he re suggestive of Crohn's disease or tuberculosis. ??Given the a bsence of abnormalities in the colonic biopsy, the significance of the epithelial lymphocytes in the terminal ileum is unknown. I have personally reviewed all specimens and or slides, incl uding the listed special stains, and used them with my medical judgeme nt to determine the final diagnosis. Electronically signed out by: Giles Wong M.D., [facility] CLINICAL HISTORY: The patient is a 19 year old female presented with right low er abdominal pain. CT scan of the abdomen showed thickening of the wall i n the terminal ileum. Colonoscopy ??revealed normal colon. Rule ou t inflammatory bowel disease. ??The entire examined colon is n ormal. The examined portion of the ileum was normal with lymphoid aggre glasgow, advanced about 15cm into terminal ileum. Biopsied to rule ou t inflammatory bowel disease versus tuberculosis. GROSS: A: The specimen is received in formalin with proper patient identification, labeled terminal ileum biopsies. ??The spe cimen consists of nine irregular archibald soft tissues averaging 0.2 cm in greatest dimension which are entirely submitted in cassette 1. B: The specimen is received in formalin with proper patient identification, labeled random right colon. ??The specimen consists of five irregular archibald soft tissues averaging 0.2 cm in greatest dimension which are entirely submitted in cassette 1. C: The specimen is received in formalin with proper patient identification, labeled random left colon. ??The specimen consists of four irregular archibald soft tissues averaging 0.3 cm in greatest dimension which are entirely submitted in cassette 1. (Dictated by: Dr azalea Sandoval 02/17/2015 04:01 PM) MICROSCOPIC: Microscopic examination is performed. CPT Codes: A: 98239-II4 B: 59692-NL9 C: 30905-SE0 TESTING LAB LOCATION: [facility], [facility] [address] [place] [address] ?? [id number] COLLECTION SITE: Client: [facility] Location: [facility] (B) Specimen Anatomical Collection Method Collection Time Receive d Time (Source) Location / / Volume Laterality 02/17/2015 10:35 02/17/2015 2:55 AM ASSEMBLER WATCH TRAIN PM ASSEMBLER WATCH TRAIN Giovanny HARDING - [place] Performing Organization Address City/State/ZIP Code Phon e Number [facility] COLONOSCOPY (02/17/2015 9:19 AM ASSEMBLER WATCH TRAIN) [facility] gist Method Time Signature COLONOSCOPY [facility] RADIOLOGY [address] [place] [address] [phone] ? End oscopy Department RESULTS Patient Name: Sharamine Salas ?Procedure Date: 02/17/2015 9:19 AM ? Accou nt Number: [id number] Date of : 1995 ?Admit Type: Inp atient Age: 19 ?Gende r: Female Note Status: Finalized ?Attending MD: Giovanny Burch MD Procedure: ? Colonoscopy Indications: ? Abnormal CT of the GI tract Providers: ? Ki jessica Burch MD, Lia Pelletier MD, Day ? Alondra Skaggs RN Patient Profile: ? 19 y/ o F with RLQ pain for 5 days prior to admission who ? was found to have inflammation in the terminal ileum on ? CT. Referring MD: ? Medicines: ? Fentanyl 200 micrograms IV, Midazo mathews 7 mg IV Complications: ? No immediate complications. Procedure: ? Pre-Anesthesia Assessment: ? - Prior to the procedure, a History and Physical was ? performed, and patient medications and allergies were ? reviewed. The patient is competent. The risks and ? benefits of the procedure and the sedation options and ? risks were discussed with the patient. All questions ? were answered and informed consent was obtained. Patient ? identification and proposed procedure were verified by ? the physician in the procedure room. Mental Status ? Examination: alert and oriented. Airway Examination: ? normal oropharyng eal airway and neck mobility. ? Respiratory Examination: clear to auscultation. CV ? Examination: normal. Prophylactic Antibiotics: The ? patient does not require prophylactic antibiotics. Prior ? Anticoagulants: The patient has taken no previous ? anticoagu lant or antiplatelet agents. ASA Grade ? Assessment: II - A patient with mild systemic disease. ? After reviewing the risks and benefits, the patient was ? deemed in satisfactory condition to undergo the ? procedure. The anesthesia plan was to use moderate ? sedation / analgesia (conscious sedation). Immediately ? prior to administration of medications, the patient was ? re-assessed for adequacy to receive sedatives. The heart ? rate, respiratory rate, oxygen saturations, blood ? pressure, adequacy of pulmonary ventilation, and ? response to care were monitored throughout the ? procedure. The physical status of the patient was ? re-assessed after the procedu re. ? After obtaining informed consent, the colonoscope was ? passed under direct vision. Throughout the procedure, ? the patie nt's blood pressure, pulse, and oxygen ? saturations were monitored continuously. The Colonoscope ? was introduced through the anus and advanced to 15 cm ? into the ileum. The colonoscopy was performed without ? difficulty. The patient tolerated the procedure well. ? The quality of the bowel preparation was excellent. ? Findings: ? The perianal and digital rectal examinations were nor mal. ? The colon (entire exa mined portion) appeared normal. Biopsies were taken ? with a cold forceps for histology to rule out IBD. ? The terminal ileum appeared normal as well as having lymphoid ? aggregates. Advanaced about 15cm into the terminal il eum and no ? inflammation was appreciated. Biopsies were feliciano en with a cold forceps ? for histology to rule out IBD and tuberculosis. ? No additional abnormalities were found on retroflexio n. ? Impression: ?- The entire examined colon is normal. Biopsied to rule ? out IBD. ? - The examined portion of the ileum was normal with ? lymphoid aggregates, advanced about 15cm into terminal ? ileum. Biopsied to rule out IBD vs tuberculosis. Recommendation: ?- Return patient to [facility] care. ? - Await pathology results. ? - May ADAT ? Giovanny Burch MD Giovanny Burch MD 02/17/2015 10:53 AM Giovanny Burch MD Giovanny Burch MD 02/17/2015 10:53 AM Number of Addenda: 0 Note Initiated On: 02/17/2015 9:19 AM Specimen (Source) Anatomical Collection Method Collection Time Re ceived Time Location / / Volume Laterality 02/17/2015 9:19 AM [employer]IN Giovanny Burch MD PROCEDURES Performing Organization Address City/[facility]/ZIP Code Phon e Number RADIOLOGY RESULTS (ABNORMAL) CRP inflammation (02/17/2015 6:35 AM ASSEMBLER WATCH TRAIN) Patholo gist Method Time Signature CRP Inflammation 16.0 (H) 0.0 - 8.0 [facility] mg/L [facility] Specimen Anatomical Collection Method Collection Time Receive d Time (Source) Location / / Volume Laterality Blood specimen 02/17/2015 6:35 AM 015 7:21 (specimen) AS[employer]ER [employer] TRAIN AM ASSEMBLER WATCH TRAIN Glo Little PA-C LAB - BLOOD ORDERABLES Performing Organization Address City/[facility]/ZIP Code Phon e Number [facility] [address] [place] [address] [facility] Folate (02/17/2015 6:35 AM ASSEMBLER WATCH TRAIN) P athologist Signature Folate 14.0 >5.4 ng/mL [facility] Comment: Interp: >5.4 ng/mL = Normal Specimen Anatomical Collection Method Collection Time Receive d Time (Source) Location / / Volume Laterality Blood specimen 02/17/2015 6:35 AM 015 7:21 (specimen) AS[employer]ER [employer] TRAIN AM ASSEMBLER WATCH TRAIN Glo Little PA-C LAB - BLOOD ORDERABLES Performing Organization Address City/State/ZIP Code Phon e Number [facility] [address] [place] [address] [facility] Vitamin B12 (02/17/2015 6:35 AM ASSEMBLER W[employer] TRAIN) P athologist Signature Vitamin B12 522 193 - 986 [facility] pg/mL [facility] Comment: Interp: [phone] = Normal Specimen Anatomical Collection Method Collection Time Receive d Time (Source) Location / / Volume Laterality Blood specimen 02/17/2015 6:35 AM 015 7:21 (specimen) ASSEM[employer]ER W[employer] TRAIN AM ASSEMBLER WATCH TRAIN Glo Little PA-C LAB - BLOOD ORDERABLES Performing Organization Address City/State/ZIP Code Phon e Number [facility] [address] [place] [address] [facility] (ABNORMAL) Comprehensive metabolic panel (02/17/2015 6:35 AM ASSEMBLER WATCH TRAIN) Patholo gist Method Time Signature Sodium 144 133 - 144 [facility] mmol/L [facility] Potassium 3.8 3.4 - 5.3 [facility] mmol/L [facility] Chloride 112 (H) 94 - 109 [facility] mmol/L [facility] Carbon Dioxide 24 20 - 32 [facility] mmol/L [facility] Anion Gap 8 3 - 14 [facility] mmol/L [facility] Glucose 93 70 - 99 [facility] mg/dL [facility] Urea Nitrogen 1 (L) 7 - 30 [facility] mg/dL [facility] Creatinine 0.65 0.52 - [facility] 1.04 [facility] mg/dL [facility] GFR Estimate >90 >60 [facility] Non GFR Calc mL/min/1. [facility] [address] GFR Estimate If >90 >60 [facility] Black GFR Calc mL/min/1. [place] [facility] 7m2 [facility] Calcium 7.3 (L) 8.5 - [facility] 10.1 [facility] mg/dL [facility] Bilirubin Total 0.4 0.2 - 1.3 [facility] mg/dL [facility] Albumin 2.6 (L) 3.4 - 5.0 [facility] g/dL [facility] Protein Total 5.4 (L) 6.8 - 8.8 [facility] g/dL [facility] Alkaline 44 40 - 150 [facility] Phosphatase U/L [facility] ALT 14 0 - 50 [facility] U/L [facility] AST 15 0 - 45 [facility] U/L [facility] Specimen Anatomical Collection Method Collection Time Receive d Time (Source) Location / / Volume Laterality Blood specimen 02/17/2015 6:35 AM 015 7:21 (specimen) AS[employer]ER W[employer] TRAIN AM ASSEMBLER WATCH TRAIN Glo Little PA-C LAB - BLOOD ORDERABLES Performing Organization Address City/[facility]/ZIP Code Phon e Number [address] INR (02/17/2015 6:35 AM ASSEMBLER WATCH TRAIN) P athologist Signature INR 1.13 0.86 - 1.14 [facility] Specimen Anatomical Collection Method Collection Time Receive d Time (Source) Location / / Volume Laterality Blood specimen 02/17/2015 6:35 AM 015 7:21 (specimen) ASSEMBLER WATCH TRAIN AM ASSEMBLER WATCH TRAIN Glo Little PA-C LAB - BLOOD ORDERABLES Performing Organization Address City/State/ZIP Code Phon e Number [address] (ABNORMAL) CBC with platelets (02/17/2015 6:35 AM ASSEMBLER WATCH TRAIN) Patholo gist Method Time Signature WBC 4.2 4.0 - 11.0 [facility] 10e9/L [facility] RBC Count 3.40 (L) 3.8 - 5.2 [facility] 10e12/L [facility] Hemoglobin 9.3 (L) 11.7 - [facility] 15.7 g/dL [facility] Hematocrit 28.7 (L) 35.0 - [facility] 47.0 % [facility] MCV 84 78 - 100 [facility] MCH 27.4 26.5 - [facility] 33.0 pg [facility] MCHC 32.4 31.5 - [facility] 36.5 g/dL [facility] RDW 13.0 10.0 - [facility] 15.0 % [facility] Platelet Count 134 (L) 150 - 450 [facility] 10e9/L [facility] Specimen Anatomical Collection Method Collection Time Receive d Time (Source) Location / / Volume Laterality Blood specimen 02/17/2015 6:35 AM 015 7:21 (specimen) ASSEM[employer]ER W[employer] TRAIN AM ASSEMBLER WATCH TRAIN Glo Little PA-C LAB - BLOOD ORDERABLES Performing Organization Address City/[facility]/ZIP Code Phon e Number [facility] [address] (ABNORMAL) CBC with platelets (02/16/2015 6:35 AM ASSEMBLER WATCH TRAIN) [facility] [employer] Method Time Signature WBC 4.6 4.0 - 11.0 [facility] 10e9/L [facility] RBC Count 3.40 (L) 3.8 - 5.2 [facility] 10e12/L [facility] Hemoglobin 9.4 (L) 11.7 - [facility] 15.7 g/dL [facility] Hematocrit 29.0 (L) 35.0 - [facility] 47.0 % [facility] MCV 85 78 - 100 [facility] fl [facility] MCH 27.6 26.5 - [facility] 33.0 pg [facility] MCHC 32.4 31.5 - [facility] 36.5 g/dL [facility] RDW 12.9 10.0 - [facility] 15.0 % [facility] Platelet Count 117 (L) 150 - 450 [facility] 10e9/L [facility] Specimen Anatomical Collection Method Collection Time Receive d Time (Source) Location / / Volume Laterality Blood specimen 02/16/2015 6:35 AM 015 7:48 (specimen) ASSEMBLER WATCH TRAIN AM ASSEMBLER WATCH TRAIN Fredis Mas MD LAB - BLOOD ORDERABLES Performing Organization Address City/State/ZIP Code Phon e Number [facility] [address] (ABNORMAL) Comprehensive metabolic panel (02/16/2015 6:35 AM ASSEMBLER WATCH TRAIN) [facility] [employer] Method Time Signature Sodium 139 133 - 144 [facility] mmol/L [facility] Potassium 3.8 3.4 - 5.3 [facility] mmol/L [facility] Chloride 108 94 - 109 [facility] mmol/L [facility] Carbon Dioxide 24 20 - 32 [facility] mmol/L [facility] Anion Gap 7 3 - 14 [facility] mmol/L [facility] Glucose 69 (L) 70 - 99 [facility] mg/dL [facility] Urea Nitrogen 5 (L) 7 - 30 [facility] mg/dL [facility] Creatinine 0.66 0.52 - [facility] 1.04 [facility] mg/dL [facility] GFR Estimate >90 >60 [facility] Non GFR Calc mL/min/1. [facility] [address] GFR Estimate If >90 >60 [facility] Black GFR Calc mL/min/1. [place] [facility] 7m2 [facility] Calcium 7.3 (L) 8.5 - [facility] 10.1 [facility] mg/dL [facility] Bilirubin Total 0.3 0.2 - 1.3 [facility] mg/dL [facility] Albumin 2.4 (L) 3.4 - 5.0 [facility] g/dL [facility] Protein Total 5.4 (L) 6.8 - 8.8 [facility] g/dL [facility] Alkaline 42 40 - 150 [facility] Phosphatase U/L [facility] ALT 7 0 - 50 [facility] U/L [facility] AST 13 0 - 45 [facility] U/L [facility] Specimen Anatomical Collection Method Collection Time Receive d Time (Source) Location / / Volume Laterality Blood specimen 02/16/2015 6:35 AM 015 7:48 (specimen) ASSEMBLER WATCH TRAIN AM ASSEMBLER WATCH TRAIN Fredis Mas MD LAB - BLOOD ORDERABLES Performing Organization Address City/State/ZIP Code Phon e Number [facility] [address] [place], [place] [id number] [place] [address] CT Abdomen Pelvis w Contrast (02/15/2015 10:57 PM ASSEMBLER WATCH TRAIN) Anatomical Region Laterality Modality Abdomen/Pelvis, SUBRAD CT BODY, UMP CT ABDOMEN PELVIS Computed Tomography Specimen (Source) Anatomical Location Collection Method / Collectio n Time Received Time / Laterality Volume Impressions 02/16/2015 7:27 AM ASSEMBLER WATCH TRAIN Impression: 1. Moderately thickened segment of termi nal ileum with adjacent inflammatory changes and small quantity of free fluid, which may correspond to findings on recent ultraso und. This could be related to infection or inflammatory bowel disease. 2. The appendix is normal. I have personally reviewed the examinati on and initial interpretation and I agree with the findings. ANDERSON COY MD Narrative 02/16/2015 7:27 AM ASSEMBLER WATCH TRAIN Examination: ??CT ABDOMEN PELVIS W CONTRAST 02/15/2015 10:57 PM History: Question appendicitis Comparison: Ultrasound from the same pancho e Technique: CT of the abdomen and pelvis were obtained with 85 mL Isovue-370 intravenous contrast. Sagitta l and coronal reconstructions created and reviewed. Findings: The appendix is normal in joe dawson and fills with air and fluid. There is no periappendiceal fat s tranding or signs of perforation. There is mild low-density w all thickening in the terminal ileum. There is asymmetric fat stranding in the pericecal and stephane-ileal fat, best appreciated on samantha nal images. Small amount of adjacent free peritoneal fluid, and some pelvic free fluid. No pneumoperitoneum. Minimal fatty infiltration of the left h epatic lobe along the ligamentum teres. Otherwise normal liver , gallbladder, spleen, adrenals, kidneys, pancreas, anteverted uterus, urinary bladder. No bowel obstruction. No lymphadenopathy. P atent major abdominal vasculature. Lower thorax: Clear. Bones and soft tissues: No suspicious ed ne findings. Normal. Procedure Note Anderson Coy MD - 02/16/2015F ormatting of this note might be different from the original. Examination: CT ABDOMEN PELVIS W CONTRAS T 02/15/2015 10:57 PM History: Question appendicitis Comparison: Ultrasound from the same pancho e Technique: CT of the abdomen and pelvis were obtained with 85 mL Isovue-370 intravenous contrast. Sagitta l and coronal reconstructions created and reviewed. Findings: The appendix is normal in joe dawson and fills with air and fluid. There is no periappendiceal fat s tranding or signs of perforation. There is mild low-density w all thickening in the terminal ileum. There is asymmetric fat stranding in the pericecal and stephane-ileal fat, best appreciated on samantha nal images. Small amount of adjacent free peritoneal fluid, and some pelvic free fluid. No pneumoperitoneum. Minimal fatty infiltration of the left h epatic lobe along the ligamentum teres. Otherwise normal liver , gallbladder, spleen, adrenals, kidneys, pancreas, anteverted uterus, urinary bladder. No bowel obstruction. No lymphadenopathy. P atent major abdominal vasculature. Lower thorax: Clear. Bones and soft tissues: No suspicious ed ne findings. Normal. IMPRESSION Impression: 1. Moderately thickened segment of termi nal ileum with adjacent inflammatory changes and small quantity of free fluid, which may correspond to findings on recent ultraso und. This could be related to infection or inflammatory bowel disease. 2. The appendix is normal. I have personally reviewed the examinati on and initial interpretation and I agree with the findings. ANDERSON COY MD Jodi Pacheco MD IMG CT ORDERABLES HCG qualitative urine (02/15/2015 8:49 PM ASSEMBLER WATCH TRAIN) Analysis Performed At Patho logist Time Signature HCG Qual Urine Negative NEG [facility] Specimen Anatomical Collection Method Collection Time Receive d Time (Source) Location / / Volume Laterality Urine specimen URINE SPECIMEN / 02/15/2015 8:49 PM 03/2014 8:57 (specimen) Unknown [employer] TRAIN PM ASSEMBLER WATCH TRAIN Jodi Pacheco MD LAB - URINE ORDERABLES Performing Organization Address City/[facility]/ZIP Code Phon e Number [facility] [address] [place] [address] [facility] (ABNORMAL) UA reflex to Microscopic and Culture (02/15/2015 8:49 PM ASSEMBLER WATCH TRAIN) Patholo gist Method Time Signature Color Urine Yellow [facility] Appearance Urine Clear [facility] Glucose Urine Negative NEG mg/dL [facility] Bilirubin Urine Negative NEG [facility] Ketones Urine 10 (A) NEG mg/dL [facility] Specific [place] 1.009 1.003 - [facility] Urine 1.035 [facility] Blood Urine Negative NEG [facility] pH Urine 6.0 5.0 - 7.0 [facility] pH [facility] Protein Albumin Negative NEG mg/dL [facility] Urine [facility] Urobilinogen Normal 0.0 - 2.0 [facility] mg/dL mg/dL [facility] Nitrite Urine Negative NEG [facility] Leukocyte Negative NEG [facility] Esterase Urine [facility] Source Midstream [facility]rine [facility] Specimen Anatomical Collection Method Collection Time Receive d Time (Source) Location / / Volume Laterality Urine specimen MID-STREAM URINE 02/15/2015 8:49 PM 03/2014 8:57 (specimen) SAMPLE / Unknown [employer] TRAIN PM ASSEMBLER WATCH TRAIN Jodi Pacheco MD LAB - URINE ORDERABLES Performing Organization Address City/State/ZIP Code Phon e Number [facility] [address] [place] [address] [facility] (ABNORMAL) US Abdomen Complete (02/15/2015 8:32 PM ASSEMBLER WATCH TRAIN) Component Value Ref Test Analysis Performed At [facility] gist Range Method Time Signature Radiologist Possible RADIOLOGY flags appendicitis RESULTS (Urgent) Anatomical Region Laterality Modality Abdomen/Pelvis Ultrasound Specimen (Source) Anatomical Location Collection Method / Collectio n Time Received Time / Laterality Volume Impressions 02/15/2015 10:13 PM ASSEMBLER WATCH TRAIN Impression: Noncompressible appendix measuring up to 1.3 cm in diameter with a small amount of pelvic f ree fluid. Findings consistent with appendicitis in the appropriate cli nical setting. [Urgent result: Possible appendicitis] Finding was identified on 02/15/2015 8:[address] Brewer was contacted by Dr. Thong bravo at 02/15/2015 8:38 PM and verbalized understanding of the abnormal finding. I have personally reviewed the examinati on and initial interpretation and I agree with the findings. ANDERSON COY MD Narrative 02/15/2015 10:13 PM ASSEMBLER WATCH TRAIN Exam: US ABDOMEN COMPLETE, 02/15/2015 8:34 PM Indication: ? Appendicitis or other caus e for R-sided abd pain Comparison: None available Technique: Grayscale evaluation of the r ight lower quadrant focused for detection of appendicitis. Findings: In the pelvis there is a trace amount of free fluid. The appendix is identified in the right lowe r quadrant as a blind-ending tubular structure originating from the c ecum. The appendix measures up to 1.3 cm in diameter and is noncompress ible. Dynamic evaluation demonstrates no evidence of peristalsis. During graded compression of the appendix, pain is elicited. Procedure Note Anderson Coy MD - 02/15/2015F ormatting of this note might be different from the original. Exam: US ABDOMEN COMPLETE, 02/15/2015 8:3 4 PM Indication: ? Appendicitis or other caus e for R-sided abd pain Comparison: None available Technique: Grayscale evaluation of the r ight lower quadrant focused for detection of appendicitis. Findings: In the pelvis there is a trace amount of free fluid. The appendix is identified in the right lowe r quadrant as a blind-ending tubular structure originating from the c ecum. The appendix measures up to 1.3 cm in diameter and is noncompress ible. Dynamic evaluation demonstrates no evidence of peristalsis. During graded compression of the appendix, pain is elicited. IMPRESSION Impression: Noncompressible appendix abbey suring up to 1.3 cm in diameter with a small amount of pelvic f ree fluid. Findings consistent with appendicitis in the appropriate cli nical setting. [Urgent result: Possible appendicitis] Finding was identified on 02/15/2015 8:[address] Brewer was contacted by Dr. Thong bravo at 02/15/2015 8:38 PM and verbalized understanding of the abnormal finding. I have personally reviewed the examinati on and initial interpretation and I agree with the findings. ANDERSON COY MD Jodi Pacheco MD IMG US ORDERABLES (ABNORMAL) CRP inflammation (02/15/2015 7:29 PM ASSEMBLER WATCH TRAIN) [facility] Method Time Signature CRP Inflammation 55.0 (H) 0.0 - 8.0 [facility] mg/L [facility] Specimen Anatomical Collection Method Collection Time Receive d Time (Source) Location / / Volume Laterality 02/15/2015 7:29 PM 5 7:50 ASSEMBLER [employer] TRAIN PM AS[employer]BLER WATCH TRAIN Jodi Pacheco MD LAB - BLOOD ORDERABLES Performing Organization Address City/State/ZIP Code Phon e Number [address] Lactic acid (02/15/2015 7:29 PM ASSEMBLER WATCH TRAIN) athologist Signature Lactic Acid 0.7 0.4 - 2.0 [facility] mmol/L [facility] Specimen Anatomical Collection Method Collection Time Receive d Time (Source) Location / / Volume Laterality Blood specimen 02/15/2015 7:29 PM 015 7:50 (specimen) ASSEMBLER WATCH TRAIN PM ASSEMBLER WATCH TRAIN Jodi Pacheco MD LAB - BLOOD ORDERABLES Performing Organization Address City/[facility]/ZIP Code Phon e Number [phone] [place] [address] (ABNORMAL) Comprehensive metabolic panel (02/15/2015 7:29 PM ASSEMBLER WATCH TRAIN) [facility] Method Time Signature Sodium 138 133 - 144 [facility] mmol/L [facility] Potassium 3.6 3.4 - 5.3 [facility] mmol/L [facility] Chloride 107 94 - 109 [facility] mmol/L [facility] Carbon Dioxide 25 20 - 32 [facility] mmol/L [facility] Anion Gap 7 3 - 14 [facility] mmol/L [facility] Glucose 77 70 - 99 [facility] mg/dL [facility] Urea Nitrogen 9 7 - 30 [facility] mg/dL [facility] Creatinine 0.66 0.52 - [facility] 1.04 [facility] mg/dL [facility] GFR Estimate >90 >60 [facility] Non GFR Calc mL/min/1. [facility] [address] GFR Estimate If >90 >60 [facility] [place] GFR Calc mL/min/1. [place] [facility] 7m2 [facility] Calcium 8.3 (L) 8.5 - [facility] 10.1 [facility] mg/dL [facility] Bilirubin Total 0.2 0.2 - 1.3 [facility] mg/dL [facility] Albumin 3.0 (L) 3.4 - 5.0 [facility] g/dL [facility] Protein Total 6.6 (L) 6.8 - 8.8 [facility] g/dL [facility] Alkaline 51 40 - 150 [facility] Phosphatase U/L [facility] ALT 12 0 - 50 [facility] U/L [facility] AST 14 0 - 45 [facility] U/L [facility] Specimen Anatomical Collection Method Collection Time Receive d Time (Source) Location / / Volume Laterality Blood specimen 02/15/2015 7:29 PM 015 7:50 (specimen) ASSEMBLER WATCH TRAIN PM ASSEMBLER WATCH TRAIN Jodi Pacheco MD LAB - BLOOD ORDERABLES Performing Organization Address City/State/ZIP Code Phon e Number [facility] [address] [place], [place] [phone] [place] [address] documented in this encounter Visit Diagnoses Diagnosis Ileitis, terminal, unspecified complicat ion (H) Ileitis Other and unspecified noninfectious halie roenteritis and colitis documented in this encounter Administered Medications Inactive Administered Medications - up to 3 most recent administrations Medication Order MAR Action Action Date Dose Rate Site 0.9% sodium chloride BOLUS New Bag 02/15/2015 7:31 PM ASSEMBLER W[employer] TRAIN 1,000 mLs 1000 mL/hr Intravenous, 1,000 mL, ONCE, at 1,000 mL/hr, Administer over 1 Hours, On Sat02/15/15 at 1932, For 1 dose 0.9% sodium chloride infusion New Bag 02/16/2015 12:34 AM ASSEMBLER WATCH TRAIN 125 mL/hr at 125 mL/hr, Intravenous, CONTINUOUS, Starting on Sat02/15/15 at 2135, Until Sat02/16/15 at 0146 desogestrel-ethinyl estradiol (APRI) Given 02/17/2015 10:[address] 1 tablet 0.15-30 MG-MCG per tablet 1 tablet 1 tablet, Oral, EVERY EVENING, First dose on Sat02/16/15 at 0200 Given 02/16/2015 10:49 PM ASSEMBLER W[employer] TRAIN 1 tablet Given 02/16/2015 2:25 AM ASSEMBLER WATCH TRAIN 1 tablet dextrose 5% and 0.9% NaCl + KCl 20 mEq/L 20-5-0.9 MEQ/L-%-% infusion INO SEYMOUR: cabinet override, 1 do se, Starting on Sat02/16/15 at 0841, Until Sat02/16/15 at 0843 dextrose 5% and 0.9% NaCl + KCl 20 New Bag 02/18/2015 12:17 AM ASSEMBLER WATCH TRAIN 125 mL/hr mEq/L infusion at 125 mL/hr, Intravenous, CONTINUOUS, Starting on Sat02/16/15 at 0845, Until Sat02/18/15 at 0827 New Bag 02/17/2015 4:09 PM ASSEMBLER WATCH TRAIN 125 mL/hr New Bag 02/17/2015 8:21 AM ASSEMBLER WATCH TRAIN 125 mL/hr HYDROmorphone (DILAUDID) injection 0.2 m g Given 02/16/2015 8:21 PM ASSEMBLER WATCH TRAIN 0.2 mg 0.2 mg, Intravenous, EVERY 2 HOURS PRN, moderate to severe pain, Starting on Sat02/16/15 at 0143 HYDROmorphone (PF) (DILAUDID) injection 0.5 Given 04/2014 12:22 AM ASSEMBLER WATCH TRAIN 0.5 mg mg 0.5 mg, Intravenous, ONCE, On Sat02/16/15 at 0017, For 1 dose iohexol (OMNIPAQUE) 140 mg/mL solution 2 5 mL Given 02/15/2015 10:14 PM ASSEMBLER WATCH TRAIN 25 mLs 25 mL, Oral, EVERY 30 MIN, First dose on Sat02/15/15 at 2135, For 2 doses, Dilute 50 mL contrast into 600mL of water/juice/soda to make a total of 650mL. Give age appropriate amount, half the total volume now and half in 30 minutes so all fluid is in by CT in 60 minutes. 0-6 mo: 100mL total fluid 6 mo-1 yr: 150 mL total fluid 1-3 yrs: 200 mL total fluid 3-6 yrs: 250 mL total fluid 6-8 yrs: 300 mL total fluid 8-10 yrs: 400 mL total fluid 10-16 yrs: 500 mL total fluid 16 yrs- adult: 650 mL total fluid Given 02/15/2015 9:44 PM ASSEMBLER WATCH TRAIN 25 mLs iopamidol (ISOVUE-370) 76% solution 85 m L Given 02/15/2015 10:49 PM ASSEMBLER WATCH TRAIN 85 mLs 85 mL, Intravenous, ONCE, On Sat02/15/15 at 2214, For 1 dose lactated ringers infusion New Bag 02/16/2015 2:25 AM ASSEMBLER WATCH TRAIN 1,000 mLs 150 mL/hr at 150 mL/hr, Intravenous, CONTINUOUS, Starting on Sat02/16/15 at 0200, Until Sat02/16/15 at 0834 ondansetron (ZOFRAN) 2 MG/ML injection Starting on Sat02/15/15 at 2325, For 1 dose, NANDINI [place]ER[place]: cabinet override ondansetron (ZOFRAN) injection 4 mg Given 02/15/2015 11:26 PM [employer] 4 mg 4 mg, Intravenous, ONCE, Administer over 2 Minutes, On Sat02/15/15 at 2325, For 1 dose polyethylene glycol (GoLYTELY,NuLYTELY) Given 02/16/2015 6:06 PM [employer] 4,000 mLs suspension 4,000 mL 4,000 mL, Oral or NG Tube, ONCE, On Sat02/16/15 at 1600, For 1 dose, FOR Procedure PREP ONLY If patient is scheduled BEFORE 12 noon, give DAY BEFORE PROCEDURE from [id number]. One 8 ounce glass every 15 minutes until finished. If unable to drink Golytely/Colyte, give per NG at rate of 8 ounces every 15 minutes until finished. sodium chloride (PF) 0.9% PF flush 71 mL Given 02/15/2015 10:49 PM [employer] 71 mLs 71 mL, Intravenous, ONCE, On Sat02/15/15 at 2214, For 1 dose documented in this encounter Active and Recently Administered Medications Times are shown in [employer]. Scheduled Medication Order 02/16/2015 02/17/2015 02/18/2015 desogestrel-ethinyl estradiol (APRI) 0.1 5-30 MG-MCG per tablet 1 tablet (CANCELED) 0225 (Given - Provider: Shy vasquez RN)2249 (Given - Provider: Radha Nobles, YOSELYN) 222 (Given - Provider: Ruchi Mendez RN) 1 tablet, Oral, EVERY EVENING, First dose on Sat02/16/15 at 0200 HYDROmorphone (PF) (DILAUDID) injection 0.5 mg (COMPLE NOY) 0022 (Given - Provider: Lyle Akers RN) 0.5 mg, Intravenous, ONCE, 1 dose, Sat02/16/15 at 0017 polyethylene glycol (GoLYTELY,NuLYTELY) suspension 4,0 00 mL (COMPLETED) 1806 (Given - Provider: Radha Nobles RN) 4,000 mL, Oral or NG Tube, ONCE, 05/02 at 1600, For 1 dose, FOR Procedure PREP ONLY If patient is scheduled BEFORE 12 noon, give DAY BEFORE PROCEDURE from [id number]. One 8 ounce glass every 15 min utes until finished. If unable to drink Golytely/Colyte, give per NG at rate of 8 ounces every 15 minutes until finished. Continuous Medication Order 02/16/2015 02/17/2015 02/18/2015 0.9% sodium chloride infusion (CANCELED) 0034 (New Bag - Provider: Lyle Akers RN) at 125 mL/hr, Intravenous, CONTINUOUS, S tarting 02/15/15 at 2135, Until Sat02/16/15 at 0146 dextrose 5% and 0.9% NaCl + KCl 20 mEq/L infusion (CAN CELED) 0843 (New Bag - Provider: Ino Seymour RN)1647 (New Bag - Provider: Radha Nobles RN) 0052 (New Bag - Provider: Catherine Valdez RN )0700 (Rate/Dose Verify - Provider: Kristal Rodriguez)0821 (New Bag - Provider: Kristal Rodriguez)1609 (New Bag - Provider: Radha Nobles RN) 0017 (New Bag - Provider: Shy Trimble, YOSELYN)0845 (Stopped - Provider: Saadia Moulton RN) at 125 mL/hr, Intravenous, CONTINUOUS, S tarting Sat02/16/15 at 0845, Until Sat02/18/15 at 0827 lactated ringers infusion (CANCELED) 0225 (New Bag - P rovider: Shy Trimble RN) at 150 mL/hr, Intravenous, CONTINUOUS, S tarting Sat02/16/15 at 0200, Until Sat02/16/15 at 0834 PRN Medication Order 02/16/2015 02/17/2015 02/18/2015 fentaNYL (SUBLIMAZE) injection (CANCELED) 0953 (Given - Provider: Day Skaggs RN)0958 (Given - Provider: Day Skaggs RN)1003 (Given - Provider: Day Skaggs RN)1010 (Given - Provider: Day Skaggs RN) PRN, Starting Peggy 02/17/15 at 0953, Intra-procedure HYDROmorphone (DILAUDID) injection 0.2 mg (CANCELED) 2 021 (Given - Provider: Radha Nobles RN) 0.2 mg, Intravenous, EVERY 2 HOURS PRN, Starting Sat02/16/15 at 0143, Until Sat02/18/15 at 1728, moderate to severe pain midazolam (VERSED) injection (CANCELED) 0953 (Given - Provider: Day Skaggs RN)0958 (Given - Provider: Day Skaggs RN)1003 (Given - Provider: Day Skaggs RN)1006 (Given - Provider: Day Skaggs RN)1010 (Given - Provider: Day Skaggs RN) PRN, Starting Peggy 02/17/15 at 0953, Intra-procedure oxyCODONE (ROXICODONE) tablet 2.5-5 mg 2.5-5 mg, Oral, EVERY 3 HOURS PRN, moder ate to severe pain, Starting Peggy 02/17/15 at 1449 simethicone (MYLICON) suspension (CANCELED) 0953 (Given - Provider: Day Skaggs, RN - Comment: in irrigation water) PRN, Starting Peggy 02/17/15 at 0953, Intra-procedure documented in this encounter Care Teams Ceramic [employer] Designer Relationship Specialty Start Date End Date [facility] Lidia, MD PCP - General 02/15/15 05/02/[address] [place] [id number] documented as of this encounter
--- OUTSIDE RECORDS SUMMARY | 2021-11-02 07:24 | XMS_ITS | Encounter Summary ---
:1995 Author Organization [place] Address [address] [place] [address] Care Team Providers Name Role Phone [facility] Md KIKI Murillo Primary Care Provider [phone] Reason for Visit Reason Comments Abdominal Pain PT reports four days RLQ abd pain. Pain improves w/ laying down, leaning over. Pain in waves, + rebound pain. Auth/Cert Specialty Diagnoses / Procedures Referred By Contact Refer red To Contact Oncology Diagnoses Ileitis, terminal, unspecified complication (H) Ileitis Uu [address] [address] [place] [address] Phone: Referral ID Status Reason Start Date Expiration Date Visits Requ ested Visits Authorized [id number] 02/16/2015 02/16/2016 1 1 Encounter Details Date Type Department Care Team Description 02/17/2015 Surgery [facility] Giovanny Burch COLKatie NOSCOPY, WITH Endoscopy MD Kerry POLYPECTOMY AND BIOPSY [address] [facility] [address] [place] [address] [place], [place] [phone] (Wo rk) Surgery Details Date/Time Status Location OR Service Patient Case Case Traum a Class Class Type Case? 02/17/15 9:30 Posted [facility] GI [facility] GI Gastroenterology Inpatient AM 02 Panel 1 Procedure LRB Anes Op Region Wound Class Commen ts COLONOSCOPY, WITH N/A Conscious Sedation Anus II-Clean C ontaminated POLYPECTOMY AND BIOPSY Surgeon Surgeon Role Service Panel Giovanny Burch MD Primary Gastroenterolog y 1 documented in this encounter Social History Tobacco Use Types Packs/Day Years [...] Sign Reading Time Taken Comments Blood Pressure 121/81 02/17/2015 10:15 AM CLERK TELEVISION PRODUCTION Pulse 63 02/17/2015 6:18 AM CLERK TELEVISION PRODUCTION Temperature 36.8 ??C (98.3 ??F) 02/17/2015 6:18 AM CLERK TELEVISION PRODUCTION Respiratory Rate 21 02/17/2015 10:15 AM CLERK TELEVISION PRODUCTION Oxygen Saturation 98% 02/17/2015 10:15 AM CLERK TELEVISION PRODUCTION Inhaled Oxygen Concentration - - Weight 61.2 kg (135 lb) 02/17/2015 9:08 AM CLERK TELEVISION PRODUCTION Height 175.3 cm (5' 9) 02/17/2015 9:08 AM CLERK TELEVISION PRODUCTION Body Mass Index 19.94 02/17/2015 9:08 AM CLERK TELEVISION PRODUCTION documented in this encounter Discharge Summaries Glo Little PA-C - 02/18/2015 12:56 PM CST Images from the original note were not included. [facility] - [facility] Medicine Discharge Summary Date of Service: 02/18/2015 Sharmaine Salas Date of : 1995 Age: [age] year old Date of Admission: 02/15/2015 Date of Discharge: 02/18/2015 3:15 PM Admitting Physician: Fredis Mas MD Discharge Physician: Gianni Martinez MD / Glo Little PA-C [phone] Discharging Service: Internal Medicine, [facility] Primary Provider: [facility] Md Lidia Outpatient To Do: - [...] course or discharge plan. Glo Little PA-C [facility] Pager: [phone] K TELEVISION PRODUCTION documented in this encounter Medications at Time [...] Pelletier MD - 02/18/2015 2:47 PM CST [facility] GASTROENTEROLOGY PROGRESS NOTE Sharmaine Salas [id number] 02/18/2015 SUBJECTIVE: Patient is doing well today [...] RLQ pain since Saturday. Presented initially to [facility] where ultrasound was concerning for possible appendicitis, but when she presented to [facility], her CT scan showed normal appendix but [...] with questions. Margi Pelletier MD GI Fellow [phone] K TELEVISION PRODUCTION Associated attestation - Giovanny Burch MD - 02/18/2015 8:53 PM CLERK TELEVISION PRODUCTION Attestation: I performed a history and physical [...] with Dr. Elliott Pelletier MD GI Fellow [phone] K TELEVISION PRODUCTION Glo Little PA-Vera - 02/17/2015 12:58 PM [...] am, though per pt, Hgb 11.8 at [facility]. MCV 85. Likely dilutional component due to [...] during Care Team Rounds. Glo Little PA-C [facility] Pager: [phone] Team: Manoj Myers 2 Page Cross Cover after 5 pm: pager [phone] Subjective & Interval Hx: Feeling out of [...] 0.9% NaCl + KCl 20 mEq/L infusion K TELEVISION PRODUCTION Glo Little PA-C - 02/16/2015 2:05 PM CST Images from the original note were not included. [facility] - Internal Medicine Daily Note Date [...] am, though per pt, Hgb 11.8 at [facility]. MCV 85. Likely dilutional component due to [...] during Care Team Rounds. Glo Little PA-C [facility] Pager: [phone] Team: Manoj Myers 2 Page Cross Cover after 5 pm: pager [phone] Subjective & Interval Hx: Sharmaine Salas is a previously healthy 19 y.o. female who initially presented to [facility] yesterdaywith abdominal pain and was sent to [...] have travel outside of the country to [facility] this past July and visited a friend's [...] 0.9% NaCl + KCl 20 mEq/L infusion K TELEVISION PRODUCTION Laura Levy MD - 02/16/2015 9:21 AM CST GENERAL SURGERY PROGRESS NOTE Sharmaine Salas [id number] 19 year old female Date of Service: [...] intervention at this time Laura Levy MD, [facility] General Surgery PGY1 Pager [phone] K TELEVISION PRODUCTION Associated attestation - Arie Paul MD - 02/17/2015 4:50 PM CLERK TELEVISION PRODUCTION Patient seen and evaluated. Discussed with resident team and agree with note as written. Clinically,this is unlikely to be appendicitis in light of the length of symptoms. In addition, CT scan is not consistent with appendicitis. Continue further workup by internal medicine. documented in this encounter H&P Notes Fredis Mas MD - 02/16/2015 1:49 AM CST [facility] History and Physical Department of Internal Medicine Patient Name: Sharmaine Salas Age: [age] year old Date of : 1995 Date of Admission:02/15/2015 Primary care provider: [facility] Md Lidia Date of Service: 02/16/2015 [...] MD Internal Medicine Hospitalist & Staff Physician [facility] Pager: [phone] - GOLD 1 or 2 will assume care in morning. 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 She has been mostly in bed with this pain,but she continues to attend classes at [employer]. She has missed work due to [...] up until this weekend. 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 She did NOT drink any raw milk. She traveled to [facility] in July as a study abroad with no related health issues. Her last MP was Jan 25 - no issues. Sharmaine felt the pain is odd enough and persistent enough to go to [facility] for evaluation. There shewas noted to have RLQ pain that was concerning for appendicitis and sent to [facility] ED. 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 Fredis Mas MD K TELEVISION PRODUCTION documented in this encounter Consult Notes Lia Pelletier MD - 02/16/2015 6:29 PM CSTAssociated Order(s): GASTROENTEROLOGY IP CONSULT [facility] Gastroenterology Consultation Sharmaine Salas [id number] 19 year old 1995 02/16/2015 Date of [...] that in July 2014, she was in [facility] for study abroad. She denies any chronic [...] RLQ pain since Saturday. Presented initially to [facility] where ultrasound was concerning for possible appendicitis, but when she presented to [facility], her CT scan showed normal appendix but [...] with questions. Margi Pelletier MD GI Fellow [phone] K TELEVISION PRODUCTION Associated attestation - Giovanny Burch MD - 02/16/2015 10:19 PM CLERK TELEVISION PRODUCTION Attestation: I performed a history and physical [...] CST Surgical Consult Note 02/15/15 Sharmaine Salas [id number] Chief complaint: RLQ pain HPI: Pt is [...] Lives with three other roommates in an [facility] apartment. 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 Alcohol: 2-3x/month, roughly 5 mixed drinks Smoking: [...] Odonnell. Miguelito Anguiano MD General Surgery PGY-2 K TELEVISION PRODUCTION Associated attestation - Lj Odonnell MD - 05/17/2015 2:00 PM CLERK TELEVISION PRODUCTION Agree with consult note Lj Odonnell documented in this encounter Nursing Notes Day Skaggs RN - 02/17/2015 10:46 AM CST Colonoscopy with biopsies completed. Pt had discomfort throughout, but given additional sedation with relief. Report called to pt nurse on 7C and transport here to take pt back to dept. K TELEVISION PRODUCTION documented in this encounter ED Notes Vipin Celaya MD - 02/16/2015 12:23 AM CST This patient is a 19-year-old female who was previously seen at [facility] with right lower quadrant abdominal pain. [...] kept NPO. Vipin Celaya MD 02/16/15 0054 K TELEVISION PRODUCTION Jodi Brewer MD - 02/15/2015 7:07 PM [...] she is pain-free. She was evaluated at [facility] today and advised to come here to [...] bleeding or discharge. UPT was negative at [facility] today. Patient reports that she has mild [...] She has no other concerns or complaints. [facility] History, Lab, and Exam Findings 02/15/15: +history [...] and Surgical History, and [facility] PAST MEDICAL HISTORY Past Medical [...] in ED 19. Critical Care time: None [facility] Diagnoses: None Labs Ordered and Resulted from Time of ED Arrival Up to the Time of Departure from the ED - No data to display Assessments & Plan (with Medical Decision Making) HISTORY TAKING INFORMATION: - History, ROS, SH, PMH and Physical exam performed myself in the presence of our medical concierge, EDnursing staff and the patient's friend. I obtained some collateral history originally when I took the referring phone call from the appointment provider. No interpretive services were needed. - Old chart from [facility] reviewed and revealed the patient has a [...] the objective testing and exam [place] and shows that the patient has a [...] Otherwise as per the labs drawn at [facility] prior to arrival. - Urine: Pending - [...] Yulia Villavicencio, am serving as a trained medical concierge to document services personally performed by MD Cyn, based on the provider's statements to me. IJodi MD, was physically present and have reviewed and verified the accuracy of this note documented by Yulia Villavicencio. 02/15/2015 [facility] EMERGENCY DEPARTMENT Jodi Brewer MD 02/16/152052 K TELEVISION PRODUCTION Jodi Brewer MD - 02/15/2015 5:41 PM CST I received a phone call about this patient from the [facility]. Provider expressed concern of the patient having [...] blood cell count Jodi Brewer MD 02/15/15 8813 K TELEVISION PRODUCTION Kathrine Stein RN - 02/15/2015 5:38 PM CST PT reports four days RLQ abd pain. Pain improves w/ laying down, leaning over. Pain in waves, + rebound pain. PT w/ labs from [facility]. K TELEVISION PRODUCTION documented in this encounter Miscellaneous Notes Plan [...] to escort to pharmacy/[facility] to meet ride. K TELEVISION PRODUCTION Plan of Care - Shy Trimble RN - 02/18/2015 5:18 AM CST Problem: Goal Outcome Summary Goal: Goal Outcome Summary Outcome: Improving VSS. Denies pain and N/V. Tolerating full liquids. Stool samples still needed, no BMs overnight. Continue plan of care. K TELEVISION PRODUCTION Plan of Care - Radha Nobles RN - 02/17/2015 9:10 PM CST Problem: Goal Outcome Summary Goal: Goal Outcome Summary Outcome: Improving VSS. Denies pain. Colonoscopy with biopsies done today. Tolerated full liqs diet. Up ad mable. Voidingbut saving. Pt in good spirits. P: continue with POC. Stool samples still needed for labs, pt aware. K TELEVISION PRODUCTION Plan of Care - Kristal Rodriguez - [...] until medication has cleared. Emotional, parents in [place]. P: Encourage ambulation, IS, emotional support., FALL PRECAUTIONS. K TELEVISION PRODUCTION Plan of Care - Catherine Valdez RN - 02/17/2015 4:44 AM CST Problem: Goal Outcome Summary Goal: Goal Outcome Summary Outcome: Improving BP slightly soft; per pt's baseline. Bowel prep complete at 0130. Stools clear x3. Denies pain. BS hyperactive. Up ad mable. Plan: will go for colonoscopy today. Pain management with dilaudid IV prn. K TELEVISION PRODUCTION Plan of Care - Radha Nobles RN - 02/16/2015 10:05 PM CLERK TELEVISION PRODUCTION Problem: Goal Outcome Summary Goal: Goal Outcome Summary Outcome: No Change VSS. C/o's abd cramping after bowel prep was started. Pain relieved with Dilaudid IV x1 and BM x2 ofgreenish/yellow watery stool then 1large formed stool. Voiding but not saved. Up ad mable. Pt still taking golytely (total 4liters) in prep fro colonoscopy tomorrow. Per DISABILITY RATER, pt might have to take to more golytely if stools are still not clear. P: continue to monitor status and continue with POC. Bear SWANSON if stools are not clear yet. K TELEVISION PRODUCTION Plan of Care - Teresa Mcgovern RN - 02/16/2015 2:23 PM CST Problem: Goal Outcome Summary Goal: Goal Outcome Summary Pt VSS. Reports intermittent pain to right lower abdomen. Refusing pain medication. Tolerating a clear liquid diet. May have colonoscopy tomorrow a.m. Awaiting orders. IVF cont as ordered. Friend at the bedside. Up independently. Will continue to monitor and follow plan of care. 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 She has been mostly in bed with [...] no significant ongoing stools. Seen initially at [facility], then sent to [facility]. Notably though her WBC was normal in [...] Jessica Malone MD Utilization Review/ Case Management [facility]. K TELEVISION PRODUCTION Plan of Care - Shy Trimble RN [...] control pills at bedside, verified by pharmacy. K TELEVISION PRODUCTION documented in this encounter Plan of Treatment Not on filedocumented as of this encounter Procedures Procedure Name Priority Date/Time Associated Diagnosis Comme nts CRP INFLAMMATION Routine 02/18/2015 7:32 Ileitis, terminal, Re sults for this AM CLERK TELEVISION PRODUCTION unspecified procedure are i n complication (H) the results section. BASIC METABOLIC PANEL Routine 02/18/2015 7:32 Ileitis, termina l, Results for this AM CLERK TELEVISION PRODUCTION unspecified procedure are i n complication (H) the results section. CBC WITH PLATELETS Routine 02/18/2015 7:32 Ileitis, terminal, Results for this AM CLERK TELEVISION PRODUCTION unspecified procedure are i n complication (H) the results section. AFB STAIN NON BLOOD Routine 02/17/2015 10:51 Ileitis, terminal , Results for this AM CLERK TELEVISION PRODUCTION unspecified procedure are i n complication (H) the results section. AFB CULTURE AND STAIN Routine 02/17/2015 10:51 Ileitis, termin al, Results for this NON BLOOD AM CLERK TELEVISION PRODUCTION unspecified procedure are i n complication (H) the results section. SURGICAL PATHOLOGY Routine 02/17/2015 10:35 Resul ts for this EXAM AM CLERK TELEVISION PRODUCTION procedure are i n the results section. COLONOSCOPY, WITH 02/17/2015 9:33 Inflammed terminal POLYPECTOMY AND BIOPSY AM CLERK TELEVISION PRODUCTION ileum on CT COLONOSCOPY Routine 02/17/2015 9:19 Results for this AM CLERK TELEVISION PRODUCTION procedure are i n the results section. INR Routine 02/17/2015 6:35 Ileitis, terminal, Result s for this AM CLERK TELEVISION PRODUCTION unspecified procedure are i n complication (H) the results section. FOLATE Routine 02/17/2015 6:35 Ileitis, terminal, Result s for this AM CLERK TELEVISION PRODUCTION unspecified procedure are i n complication (H) the results section. CRP INFLAMMATION Routine 02/17/2015 6:35 Ileitis, terminal, Re sults for this AM CLERK TELEVISION PRODUCTION unspecified procedure are i n complication (H) the results section. COMPREHENSIVE Routine 02/17/2015 6:35 Ileitis, terminal, Resul ts for this METABOLIC PANEL AM CLERK TELEVISION PRODUCTION unspecified procedure ar e in complication (H) the results section. VITAMIN B12 Routine 02/17/2015 6:35 Ileitis, terminal, Result s for this AM CLERK TELEVISION PRODUCTION unspecified procedure are i n complication (H) the results section. CBC WITH PLATELETS Routine 02/17/2015 6:35 Ileitis, terminal, Results for this AM CLERK TELEVISION PRODUCTION unspecified procedure are i n complication (H) the results section. COMPREHENSIVE Routine 02/16/2015 6:35 Ileitis, terminal, Resul ts for this METABOLIC PANEL AM CLERK TELEVISION PRODUCTION unspecified procedure ar e in complication (H) the results section. CBC WITH PLATELETS Routine 02/16/2015 6:35 Ileitis, terminal, Results for this AM CLERK TELEVISION PRODUCTION unspecified procedure are i n complication (H) the results section. CT ABDOMEN PELVIS W STAT 02/15/2015 10:57 Resu lts for this CONTRAST PM CLERK TELEVISION PRODUCTION procedure are i n the results section. HCG QUALITATIVE URINE STAT 02/15/2015 8:49 Res ults for this PM CLERK TELEVISION PRODUCTION procedure are i n the results section. UA MACROSCOPIC WITH STAT 02/15/2015 8:49 Resul ts for this REFLEX TO MICRO AND PM CLERK TELEVISION PRODUCTION procedur e are in CULTURE the results section. US ABDOMEN COMPLETE STAT 02/15/2015 8:32 Resul ts for this PM CLERK TELEVISION PRODUCTION procedure are i n the results section. LACTIC ACID STAT 02/15/2015 7:29 Results for this PM CLERK TELEVISION PRODUCTION procedure are i n the results section. CRP INFLAMMATION Routine 02/15/2015 7:29 Ileitis, terminal, Re sults for this PM CLERK TELEVISION PRODUCTION unspecified procedure are i n complication (H) the results section. COMPREHENSIVE STAT 02/15/2015 7:29 Results for this METABOLIC PANEL PM CLERK TELEVISION PRODUCTION procedure ar e in the results section. documented in this encounter Results CRP inflammation (02/18/2015 7:32 AM CLERK TELEVISION PRODUCTION) Analysis Performed At Patho logist Time Signature CRP Inflammation 8.0 0.0 - 8.0 [facility] mg/L [facility] Specimen Anatomical Collection Method Collection Time Receive d Time (Source) Location / / Volume Laterality Blood specimen 02/18/2015 7:32 AM 015 7:54 (specimen) CLERK TELEVISION PRODUCTION AM CLERK TELEVISION PRODUCTION Glo Little PA-C LAB - BLOOD ORDERABLES Performing Organization Address City/State/ZIP Code Phon e Number [facility] [address] [place] [address] [facility] (ABNORMAL) Basic metabolic panel (02/18/2015 7:32 AM CLERK TELEVISION PRODUCTION) Patholo gist Method Time Signature Sodium 139 133 - 144 [facility] mmol/L [facility] Potassium 4.0 3.4 - 5.3 [facility] mmol/L [facility] Chloride 109 94 - 109 [facility] mmol/L [facility] Carbon Dioxide 24 20 - 32 [facility] mmol/L [facility] Anion Gap 6 3 - 14 [facility] mmol/L [facility] Glucose 92 70 - 99 [facility] mg/dL [facility] Urea Nitrogen 1 (L) 7 - 30 [facility] mg/dL [facility] Creatinine 0.60 0.52 - [facility] 1.04 [facility] mg/dL [facility] GFR Estimate >90 >60 [facility] Non GFR Calc mL/min/1. [facility] 7m2 [facility] GFR Estimate >90 >60 [facility] If Black GFR Calc mL/min/1. [place] [facility] 7m2 [facility] Calcium 8.0 (L) 8.5 - [facility] 10.1 [facility] mg/dL [facility] Specimen Anatomical Collection Method Collection Time Receive d Time (Source) Location / / Volume Laterality Blood specimen 02/18/2015 7:32 AM 015 7:54 (specimen) CLERK TELEVISION PRODUCTION AM CLERK TELEVISION PRODUCTION Glo Little PA-C LAB - BLOOD ORDERABLES Performing Organization Address City/State/ZIP Code Phon e Number [facility] [address] [place], [place] [id number] [place] [address] (ABNORMAL) CBC with platelets (02/18/2015 7:32 AM CLERK TELEVISION PRODUCTION) [facility] gist Method Time Signature WBC 4.2 4.0 - 11.0 [facility] 10e9/L [facility] RBC Count 3.73 (L) 3.8 - 5.2 [facility] 10e12/L [facility] Hemoglobin 10.3 (L) 11.7 - [facility] 15.7 g/dL [facility] Hematocrit 31.3 (L) 35.0 - [facility] 47.0 % [facility] MCV 84 78 - 100 [facility] fl [facility] MCH 27.6 26.5 - [facility] 33.0 pg [facility] MCHC 32.9 31.5 - [facility] 36.5 g/dL [facility] RDW 12.7 10.0 - [facility] 15.0 % [facility] Platelet Count 149 (L) 150 - 450 [facility] 10e9/L [facility] Specimen Anatomical Collection Method Collection Time Receive d Time (Source) Location / / Volume Laterality Blood specimen 02/18/2015 7:32 AM 015 7:54 (specimen) CLERK TELEVISION PRODUCTION AM CLERK TELEVISION PRODUCTION Glo Little PA-C LAB - BLOOD ORDERABLES Performing Organization Address City/State/ZIP Code Phon e Number [address] [address] [facility] AFB Stain Non Blood (02/17/2015 10:51 AM CLERK TELEVISION PRODUCTION) [facility] Method Time Signature Specimen Tissue [facility] [employer]B Stain Negative for acid fast bacteria [facility] [employer] [facility] [employer] Micro Report FINAL [facility] Status 02/20/2015 [facility] Specimen Anatomical Collection Method Collection Time Receive d Time (Source) Location / / Volume Laterality 02/17/2015 10:51 02/17/2015 4:50 AM CLERK TELEVISION PRODUCTION PM CLERK TELEVISION PRODUCTION Giovanny Burch MD LAB - MICRO GENERAL ORD ERABLES Performing Organization Address City/State/ZIP Code Phon e Number [address] [address] [employer] Culture Non Blood (02/17/2015 10:51 AM CLERK TELEVISION PRODUCTION) [facility] Method Time Signature Specimen Tissue [facility] Culture Micro Culture negative for acid fast bacilli [facility] [employer] [facility] [employer] [id number] [facility] Micro Report FINAL [facility] Status 04/15/2015 [facility] Specimen Anatomical Collection Method Collection Time Receive d Time (Source) Location / / Volume Laterality 02/17/2015 10:51 02/17/2015 4:50 AM CLERK TELEVISION PRODUCTION PM CLERK TELEVISION PRODUCTION Giovanny Burch MD LAB - MICRO GENERAL ORD ERABLES Performing Organization Address City/State/ZIP Code Phon e Number [address] [address] [place] Surgical pathology exam (02/17/2015 10:35 AM CLERK TELEVISION PRODUCTION) Component Value Ref Test Analysis Performed At [facility] Range Method Time Signature Copath Report Patient Name: SHARMAINE SALAS MR#: [id number] Specimen #: [id number] Collected: 02/17/2015 Received: 02/17/2015 Reported: 02/18/2015 15:18 [...] Electronically signed out by: Giles Wong M.D., [facility] CLINICAL HISTORY: The patient is a [...] Microscopic examination is performed. CPT Codes: A: 99778-YI9 B: 13830-QS1 C: 89311-TD4 TESTING LAB LOCATION: [facility], [facility] [address] [place] [address] ?? [id number] COLLECTION SITE: Client: [facility] Location: [facility]7 (B) Specimen Anatomical Collection Method Collection Time Receive d Time (Source) Location / / Volume Laterality 02/17/2015 10:35 02/17/2015 2:55 AM CLERK TELEVISION PRODUCTION PM CLERK TELEVISION PRODUCTION Giovanny HARDING - TATIANA Performing Organization Address City/State/ZIP Code Phon e Number [facility] COLONOSCOPY (02/17/2015 9:19 AM CLERK TELEVISION PRODUCTION) [facility] gist Method Time Signature COLONOSCOPY [facility] RADIOLOGY [address] [place], [place] [id number] [phone] ? End oscopy Department RESULTS Patient Name: Sharmaine Salas ?Procedure Date: 02/17/2015 9:19 AM ? Accou nt Number: [id number] Date of : 1995 ?Admit Type: Inp atient Age: 19 ?Gende r: Female Note Status: Finalized ?Attending MD: Giovanny Burch MD Procedure: ? Colonoscopy Indications: ? Abnormal CT of the GI tract Providers: ? Ki jessica Burch MD, Lia Pelletier MD, aDy ? Alondra Skaggs RN Patient Profile: ? [...] / / Volume Laterality 02/17/2015 9:19 AM CLERK TELEVISION PRODUCTION Giovanny Burch MD PROCEDURES Performing Organization Address City/State/ZIP Code Phon e Number RADIOLOGY RESULTS (ABNORMAL) CRP inflammation (02/17/2015 6:35 AM CLERK TELEVISION PRODUCTION) Patholo gist Method Time Signature CRP Inflammation 16.0 (H) 0.0 - 8.0 [facility] mg/L [facility] Specimen Anatomical Collection Method Collection Time Receive d Time (Source) Location / / Volume Laterality Blood specimen 02/17/2015 6:35 AM 015 7:21 (specimen) CLERK TELEVISION PRODUCTION AM CLERK TELEVISION PRODUCTION Glo Little PA-C LAB - BLOOD ORDERABLES Performing Organization Address City/[facility]/ZIP Code Phon e Number [facility] [address] [place], [place] [address] [place] [address] Folate (02/17/2015 6:35 AM CLERK TELEVISION PRODUCTION) P athologist Signature Folate 14.0 >5.4 ng/mL [facility] Comment: Interp: >5.4 ng/mL = Normal Specimen Anatomical Collection Method Collection Time Receive d Time (Source) Location / / Volume Laterality Blood specimen 02/17/2015 6:35 AM 015 7:21 (specimen) CLERK TELEVISION PRODUCTION AM CLERK TELEVISION PRODUCTION Glo Little PA-C LAB - BLOOD ORDERABLES Performing Organization Address City/State/ZIP Code Phon e Number [facility] [address] [place] [address] [facility] Vitamin B12 (02/17/2015 6:35 AM CLERK TELEVISION PRODUCTION) P athologist Signature Vitamin B12 522 193 - 986 [facility] pg/mL [facility] Comment: Interp: [phone] = Normal Specimen Anatomical Collection Method Collection Time Receive d Time (Source) Location / / Volume Laterality Blood specimen 02/17/2015 6:35 AM 015 7:21 (specimen) CLERK TELEVISION PRODUCTION AM CLERK TELEVISION PRODUCTION Glo Little PA-C LAB - BLOOD ORDERABLES Performing Organization Address City/State/ZIP Code Phon e Number [facility] [address] [place] [address] [facility] (ABNORMAL) Comprehensive metabolic panel (02/17/2015 6:35 AM CLERK TELEVISION PRODUCTION) Patholo gist Method Time Signature Sodium 144 133 - 144 [facility] mmol/L [facility] Potassium 3.8 3.4 - 5.3 [facility] mmol/L [facility] Chloride 112 (H) 94 - 109 [facility] mmol/L [facility] Carbon Dioxide 24 20 - 32 [facility] mmol/L [facility] Anion Gap 8 3 - 14 [facility] mmol/L [facility] Glucose 93 70 - 99 [facility] mg/dL [facility] Urea Nitrogen 1 (L) 7 - 30 [facility] mg/dL [facility] Creatinine 0.65 0.52 - [facility] 1.04 [facility] mg/dL [facility] GFR Estimate >90 >60 [facility] Non GFR Calc mL/min/1. [facility] [address] GFR Estimate If >90 >60 [facility] Black GFR Calc mL/min/1. [place] [facility] ED[facility] 7m2 [facility] Calcium 7.3 (L) 8.5 - [facility] 10.1 [facility] mg/dL [facility] Bilirubin Total 0.4 0.2 - 1.3 [facility] mg/dL [facility] Albumin 2.6 (L) 3.4 - 5.0 [facility] g/dL [facility] Protein Total 5.4 (L) 6.8 - 8.8 [facility] g/dL [facility] Alkaline 44 40 - 150 [facility] Phosphatase U/L [facility] ALT 14 0 - 50 [facility] U/L [facility] AST 15 0 - 45 [facility] U/L [facility] Specimen Anatomical Collection Method Collection Time Receive d Time (Source) Location / / Volume Laterality Blood specimen 02/17/2015 6:35 AM 015 7:21 (specimen) CLERK TELEVISION PRODUCTION AM CLERK TELEVISION PRODUCTION Glo Little PA-C LAB - BLOOD ORDERABLES Performing Organization Address City/[facility]/ZIP Code Phon e Number [address] INR (02/17/2015 6:35 AM CLERK TELEVISION PRODUCTION) P athologist Signature INR 1.13 0.86 - 1.14 [facility] Specimen Anatomical Collection Method Collection Time Receive d Time (Source) Location / / Volume Laterality Blood specimen 02/17/2015 6:35 AM 015 7:21 (specimen) CLERK TELEVISION PRODUCTION AM CLERK TELEVISION PRODUCTION Glo Little PA-C LAB - BLOOD ORDERABLES Performing Organization Address City/[facility]/ZIP Code Phon e Number [address] (ABNORMAL) CBC with platelets (02/17/2015 6:35 AM CLERK TELEVISION PRODUCTION) Patholo gist Method Time Signature WBC 4.2 4.0 - 11.0 [facility] 10e9/L [facility] RBC Count 3.40 (L) 3.8 - 5.2 [facility] 10e12/L [facility] Hemoglobin 9.3 (L) 11.7 - [facility] 15.7 g/dL [facility] Hematocrit 28.7 (L) 35.0 - [facility] 47.0 % [facility] MCV 84 78 - 100 [facility] fl [facility] MCH 27.4 26.5 - [facility] 33.0 pg [facility] MCHC 32.4 31.5 - [facility] 36.5 g/dL [facility] RDW 13.0 10.0 - [facility] 15.0 % [facility] Platelet Count 134 (L) 150 - 450 [facility] 10e9/L [facility] Specimen Anatomical Collection Method Collection Time Receive d Time (Source) Location / / Volume Laterality Blood specimen 02/17/2015 6:35 AM 015 7:21 (specimen) CLERK TELEVISION PRODUCTION AM CLERK TELEVISION PRODUCTION Glo Little PA-C LAB - BLOOD ORDERABLES Performing Organization Address City/[facility]/ZIP Code Phon e Number [facility] [address] (ABNORMAL) CBC with platelets (02/16/2015 6:35 AM CLERK TELEVISION PRODUCTION) [facility] Method Time Signature WBC 4.6 4.0 - 11.0 [facility] 10e9/L [facility] RBC Count 3.40 (L) 3.8 - 5.2 [facility] 10e12/L [facility] Hemoglobin 9.4 (L) 11.7 - [facility] 15.7 g/dL [facility] Hematocrit 29.0 (L) 35.0 - [facility] 47.0 % [facility] MCV 85 78 - 100 [facility] fl [facility] MCH 27.6 26.5 - [facility] 33.0 pg [facility] MCHC 32.4 31.5 - [facility] 36.5 g/dL [facility] RDW 12.9 10.0 - [facility] 15.0 % [facility] Platelet Count 117 (L) 150 - 450 [facility] 10e9/L [facility] Specimen Anatomical Collection Method Collection Time Receive d Time (Source) Location / / Volume Laterality Blood specimen 02/16/2015 6:35 AM 015 7:48 (specimen) CLERK TELEVISION PRODUCTION AM CLERK TELEVISION PRODUCTION Fredis Mas MD LAB - BLOOD ORDERABLES Performing Organization Address City/[facility]/ZIP Code Phon e Number [facility] [address] (ABNORMAL) Comprehensive metabolic panel (02/16/2015 6:35 AM CLERK TELEVISION PRODUCTION) [facility] Method Time Signature Sodium 139 133 - 144 [facility] mmol/L [facility] Potassium 3.8 3.4 - 5.3 [facility] mmol/L [facility] Chloride 108 94 - 109 [facility] mmol/L [facility] Carbon Dioxide 24 20 - 32 [facility] mmol/L [facility] Anion Gap 7 3 - 14 [facility] mmol/L [facility] Glucose 69 (L) 70 - 99 [facility] mg/dL [facility] Urea Nitrogen 5 (L) 7 - 30 [facility] mg/dL [facility] Creatinine 0.66 0.52 - [facility] 1.04 [facility] mg/dL [facility] GFR Estimate >90 >60 [place] Non GFR Calc mL/min/1. [facility] [address] GFR Estimate If >90 >60 [place] GFR Calc mL/min/1. [place] M ED[facility] 7m2 [facility] Calcium 7.3 (L) 8.5 - [facility] 10.1 [place] [facility] mg/dL [facility] Bilirubin Total 0.3 0.2 - 1.3 [facility] mg/dL [facility] Albumin 2.4 (L) 3.4 - 5.0 [facility] g/dL [facility] Protein Total 5.4 (L) 6.8 - 8.8 [facility] g/dL [facility] Alkaline 42 40 - 150 [facility] Phosphatase U/L [facility] ALT 7 0 - 50 [facility] U/L [facility] AST 13 0 - 45 [facility] U/L [facility] Specimen Anatomical Collection Method Collection Time Receive d Time (Source) Location / / Volume Laterality Blood specimen 02/16/2015 6:35 AM 015 7:48 (specimen) CLERK TELEVISION PRODUCTION AM CLERK TELEVISION PRODUCTION Fredis Mas MD LAB - BLOOD ORDERABLES Performing Organization Address City/State/ZIP Code Phon e Number [facility] [address] [place] [address] [facility] [address] Abdomen Pelvis w Contrast (02/15/2015 10:57 PM CLERK TELEVISION PRODUCTION) Anatomical Region Laterality Modality Abdomen/Pelvis, SUBRAD CT BODY, UMP CT ABDOMEN PELVIS Computed Tomography Specimen (Source) Anatomical Location Collection Method / Collectio n Time Received Time / Laterality Volume Impressions 02/16/2015 7:27 AM CLERK TELEVISION PRODUCTION Impression: 1. Moderately thickened segment of termi [...] ANDERSON COY MD Narrative 02/16/2015 7:27 AM CLERK TELEVISION PRODUCTION Examination: ??CT ABDOMEN PELVIS W CONTRAST 02/15/2015 [...] Question appendicitis Comparison: Ultrasound from the same panhco e Technique: CT of the abdomen and [...] ORDERABLES HCG qualitative urine (02/15/2015 8:49 PM CLERK TELEVISION PRODUCTION) Analysis Performed At Patho logist Time Signature HCG Qual Urine Negative NEG [facility] Specimen Anatomical Collection Method Collection Time Receive d Time (Source) Location / / Volume Laterality Urine specimen URINE SPECIMEN / 02/15/2015 8:49 PM 03/2014 8:57 (specimen) Unknown CLERK TELEVISION PRODUCTION PM CLERK TELEVISION PRODUCTION Jodi Pacheco MD LAB - URINE ORDERABLES Performing Organization Address City/[facility]/ZIP Code Phon e Number [facility] [address] [place] [address] [facility] (ABNORMAL) UA reflex to Microscopic and Culture (02/15/2015 8:49 PM CLERK TELEVISION PRODUCTION) Patholo gist Method Time Signature Color Urine Yellow [facility] Appearance Urine Clear [facility] Glucose Urine Negative NEG mg/dL [facility] Bilirubin Urine Negative NEG [facility] Ketones Urine 10 (A) NEG mg/dL [facility] Specific [place] 1.009 1.003 - [facility] Urine 1.035 [facility] Blood Urine Negative NEG [facility] pH Urine 6.0 5.0 - 7.0 [facility] pH [facility] Protein Albumin Negative NEG mg/dL [facility] Urine [facility] Urobilinogen Normal 0.0 - 2.0 [place] mg/dL mg/dL [facility] Nitrite Urine Negative NEG [facility] Leukocyte Negative NEG [facility] Esterase Urine [facility] Source Midstream [facility] Urine [facility] Specimen Anatomical Collection Method Collection Time Receive d Time (Source) Location / / Volume Laterality Urine specimen MID-STREAM URINE 02/15/2015 8:49 PM 03/2014 8:57 (specimen) SAMPLE / Unknown CLERK TELEVISION PRODUCTION PM CLERK TELEVISION PRODUCTION Jodi Pacheco MD LAB - URINE ORDERABLES Performing Organization Address City/State/ZIP Code Phon e Number [facility] [address] [place] [address] [facility] (ABNORMAL) US Abdomen Complete (02/15/2015 8:32 PM CLERK TELEVISION PRODUCTION) Component Value Ref Test Analysis Performed At [facility] gist Range Method Time Signature Radiologist Possible RADIOLOGY flags appendicitis RESULTS (Urgent) Anatomical Region Laterality Modality Abdomen/Pelvis Ultrasound Specimen (Source) Anatomical Location Collection Method / Collectio n Time Received Time / Laterality Volume Impressions 02/15/2015 10:13 PM CLERK TELEVISION PRODUCTION Impression: Noncompressible appendix measuring up to 1.3 [...] ANDERSON COY MD Narrative 02/15/2015 10:13 PM CLERK TELEVISION PRODUCTION Exam: US ABDOMEN COMPLETE, 02/15/2015 8:34 PM [...] ORDERABLES (ABNORMAL) CRP inflammation (02/15/2015 7:29 PM CLERK TELEVISION PRODUCTION) [facility] Method Time Signature CRP Inflammation 55.0 (H) 0.0 - 8.0 [facility] mg/L [facility] Specimen Anatomical Collection Method Collection Time Receive d Time (Source) Location / / Volume Laterality 02/15/2015 7:29 PM 5 7:50 CLERK TELEVISION PRODUCTION PM CLERK TELEVISION PRODUCTION Jodi Pacheco MD LAB - BLOOD ORDERABLES Performing Organization Address City/State/ZIP Code Phon e Number [facility] [address] [place], [place] [id number] [place] [address] Lactic acid (02/15/2015 7:29 PM CLERK TELEVISION PRODUCTION) athologist Signature Lactic Acid 0.7 0.4 - 2.0 [facility] mmol/L [facility] Specimen Anatomical Collection Method Collection Time Receive d Time (Source) Location / / Volume Laterality Blood specimen 02/15/2015 7:29 PM 015 7:50 (specimen) CLERK TELEVISION PRODUCTION PM CLERK TELEVISION PRODUCTION Jodi Pacheco MD LAB - BLOOD ORDERABLES Performing Organization Address City/State/ZIP Code Phon e Number [facility] [address] [place], [place] [id number] [place] [address] (ABNORMAL) Comprehensive metabolic panel (02/15/2015 7:29 PM CLERK TELEVISION PRODUCTION) [facility] Method Time Signature Sodium 138 133 - 144 [facility] mmol/L [facility] Potassium 3.6 3.4 - 5.3 [facility] mmol/L [facility] Chloride 107 94 - 109 [facility] mmol/L [facility] Carbon Dioxide 25 20 - 32 [facility] mmol/L [facility] Anion Gap 7 3 - 14 [facility] mmol/L [facility] Glucose 77 70 - 99 [facility] mg/dL [facility] Urea Nitrogen 9 7 - 30 [facility] mg/dL [facility] Creatinine 0.66 0.52 - [facility] 1.04 [facility] mg/dL [facility] GFR Estimate >90 >60 [place] Non GFR Calc mL/min/1. [facility] [address] GFR Estimate If >90 >60 [facility] Black GFR Calc mL/min/1. [place] [facility] 7m2 [facility] Calcium 8.3 (L) 8.5 - [facility] 10.1 [facility] mg/dL [facility] Bilirubin Total 0.2 0.2 - 1.3 [facility] mg/dL [facility] Albumin 3.0 (L) 3.4 - 5.0 [facility] g/dL [facility] Protein Total 6.6 (L) 6.8 - 8.8 [facility] g/dL [facility] Alkaline 51 40 - 150 [facility] Phosphatase U/L [facility] ALT 12 0 - 50 [facility] U/L [facility] AST 14 0 - 45 [facility] U/L [facility] Specimen Anatomical Collection Method Collection Time Receive d Time (Source) Location / / Volume Laterality Blood specimen 02/15/2015 7:29 PM 015 7:50 (specimen) CLERK TELEVISION PRODUCTION PM CLERK TELEVISION PRODUCTION Jodi Pacheco MD LAB - BLOOD ORDERABLES Performing Organization Address City/State/ZIP Code Phon e Number [facility] [address] [place], [place] [id number] [address] documented in this encounter Visit Diagnoses Not on filedocumented in this encounter Administered Medications Inactive Administered Medications - up to 3 most recent administrations Medication Order MAR Action Action Date Dose Rate Site fentaNYL (SUBLIMAZE) injection Given 02/17/2015 10:10 AM CLERK TELEVISION PRODUCTION 50 mcg PRN, Starting on Peggy 02/17/15 at 0953, Intra-procedure Given 02/17/2015 10:03 AM CLERK TELEVISION PRODUCTION 50 mcg Given 02/17/2015 9:58 AM CLERK TELEVISION PRODUCTION 50 mcg midazolam (VERSED) injection Given 02/17/2015 10:10 AM CLERK TELEVISION PRODUCTION 1 mg PRN, Starting on Peggy 02/17/15 at 0953, Intra-procedure Given 02/17/2015 10:06 AM CLERK TELEVISION PRODUCTION 1 mg Given 02/17/2015 10:03 AM CLERK TELEVISION PRODUCTION 1 mg simethicone (MYLICON) suspension Given 02/17/2015 9:53 AM CLERK TELEVISION PRODUCTION 2 mLs PRN, Starting on Peggy 02/17/15 at 0953, Intra-procedure documented in this encounter Active and Recently Administered Medications Times are shown in CLERK TELEVISION PRODUCTION. Scheduled Medication Order 02/16/2015 02/17/2015 02/18/2015 desogestrel-ethinyl estradiol (APRI) 0.1 5-30 MG-MCG per tablet 1 tablet (CANCELED) 0225 (Given - Provider: Shy vasquez RN)2249 (Given - Provider: Radha Nobles, YOSELYN) 2229 (Given - Provider: Ruchi Mendez RN) 1 tablet, Oral, EVERY EVENING, First dose on Sat02/16/15 at 0200 HYDROmorphone (PF) (DILAUDID) injection 0.5 mg (COMPLE NOY) 0022 (Given - Provider: Lyle Akers, YOSELYN) 0.5 mg, Intravenous, ONCE, 1 dose, Sat02/16/15 at 0017 polyethylene glycol (GoLYTELY,NuLYTELY) suspension 4,0 00 mL (COMPLETED) 1806 (Given - Provider: Radha Nobles, YOSELYN) 4,000 mL, Oral or NG Tube, ONCE, 05/02 at 1600, For 1 dose, FOR Procedure PREP ONLY If patient is scheduled BEFORE 12 noon, give DAY BEFORE PROCEDURE from [phone]. One 8 ounce glass every 15 min utes until finished. If unable to drink Golytely/Colyte, give per NG at rate of 8 ounces every 15 minutes until finished. Continuous Medication Order 02/16/2015 02/17/2015 02/18/2015 0.9% sodium chloride infusion (CANCELED) 0034 (New Bag - Provider: Lyle Akers, YOSELYN) at 125 mL/hr, Intravenous, CONTINUOUS, S tarting 02/15/15 at 2135, Until Sat02/16/15 at 0146 dextrose 5% and 0.9% NaCl + KCl 20 mEq/L infusion (CAN CELED) 0843 (New Bag - Provider: Teresa Mcgovern RN)1647 (New Bag - Provider: Radha Nobles RN) 0052 (New Bag - Provider: Catherine Valdez RN )0700 (Rate/Dose Verify - Provider: Kristal Rodriguez)0821 (New Bag - Provider: Kristal Rodriguez)1609 (New Bag - Provider: Radha Nobles, YOSELYN) 0017 (New Bag - Provider: Shy [place], RN)0845 (Stopped - Provider: Saadia Moulton RN) at [...] Day Skaggs RN)1003 (Given - Provider: Day Skaggs, YOSELYN)1010 (Given - Provider: Day Skaggs, YOSELYN) PRN, Starting Peggy 02/17/15 at 0953, Intra-procedure HYDROmorphone (DILAUDID) injection 0.2 mg (CANCELED) 2 021 (Given - Provider: Radha Nobles, YOSELYN) 0.2 mg, Intravenous, EVERY 2 HOURS PRN, Starting Sat02/16/15 at 0143, Until Sat02/18/15 at 1728, moderate to severe pain midazolam (VERSED) injection (CANCELED) 0953 (Given - Provider: Day Skaggs RN)0958 (Given - Provider: Day Skaggs RN)1003 (Given - Provider: Day Skaggs RN)1006 (Given - Provider: Day Skaggs, YOSELYN)1010 (Given - Provider: Day Skaggs, YOSELYN) PRN, Starting Peggy 02/17/15 at 0953, Intra-procedure oxyCODONE (ROXICODONE) tablet 2.5-5 mg 2.5-5 mg, Oral, EVERY 3 HOURS PRN, moder ate to severe pain, Starting Peggy 02/17/15 at 1449 simethicone (MYLICON) suspension (CANCELED) 0953 (Given - Provider: Day Skaggs RN - Comment: in irrigation water) PRN, Starting Peggy 02/17/15 at 0953, Intra-procedure documented in this encounter Care Teams Weekday Babysitter Relationship Specialty Start Date End Date [facility] Md Lidia, PCP - General 02/15/15 05/02/[address] [place] [id number] documented as of this encounter
== END 2021-11-02 07:20 | disposition home or self-care (01) ==
LOC: US 07:20
PROVIDERS: Visit Provider Advanced Practice Midwife
DX: O98.513 Other viral diseases complicating pregnancy, third trimester (principal); U07.1 COVID-19; Z3A.36 36 weeks gestation of pregnancy
CPT/HCPCS: 76816; 76819

== ENCOUNTER 2021-11-02 09:02 | Outpatient (CLI) | payer OTHER, SELFPAY ==
--- OUTSIDE RECORDS SUMMARY | 2021-11-02 09:04 | XMS_ITS | Encounter Summary ---
:1995 Author Organization [place] Address [facility] [place] [address] Care Team Providers Name Role Phone Krissy Gutierrez APRN, CNP Primary Care Provider [phone] Krissy Gutierrez APRN BOTTLE SELECTOR Unavailable [phone] Reason for Visit Reason Onset Date Comments Physical Blood Draw Imm/Inj flu Imm/Inj 02/10/2019 Flu Shot Encounter Details Date Type Department Care Team Description 02/10/2019 Office Visit [facility] Krissy Gutierrez Wellness e xamination (Primary Dx); [facility] [place] CANDIDA Heard Iron deficiency anemia, unsp ecified iron deficiency anemia type; [address] [facility] Encounter for surveillance of contracept shirin pills; [place], [place] [id number] [place] [address] Need for Tdap vaccination; [address] [place], [place] Need for prophylactic vaccin ation and inoculation against influenza [phone] Social History Tobacco Use Types Packs/Day [...] Comments Blood Pressure 96/50 02/10/2019 11:05 AM [facility] Pulse 72 02/10/2019 11:05 AM [facility] Temperature 36.8 ??C (98.2 ??F) 02/10/2019 11:05 AM [facility] Respiratory Rate 16 02/10/2019 11:05 AM [facility] Oxygen Saturation 98% 02/10/2019 11:05 AM [facility] Inhaled Oxygen Concentration - - Weight 60.3 kg (133 lb) 02/10/2019 11:05 AM [facility] Height 175.3 cm (5' 9) 02/10/2019 11:05 AM [facility] Body Mass Index 19.64 02/10/2019 11:05 AM [facility] documented in this encounter Progress Notes Krissy Gutierrez, CANDIDA BOTTLE SELECTOR - 02/10/2019 10:45 AM CST SUBJECTIVE: CC: [...] BY BIOPSY; Surgeon: Bri Gallagher MD; Location: [facility] Social History Tobacco Use ??? 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 Iron deficiency anemia, unspecified iron deficiency anemia type - CBC with platelets differential - Iron and iron binding capacity Encounter for surveillance of contraceptive pills - drospirenone-ethinyl estradiol (MONIKA) 3-0.03 MG tablet; Take 1 tablet by mouth daily Need for Tdap vaccination - TDAP VACCINE Need for prophylactic vaccination and inoculation against influenza - INFLUENZA VACCINE IM > 6 MONTHS VALENT IIV4 [66033] - Vaccine Administration, Initial [97312] COUNSELING: Reviewed preventive health counseling, as reflected [...] sooner as needed. Krissy Gutierrez APRN CNP [facility] documented in this encounter Plan of Treatment Not on filedocumented as of this encounter Procedures Procedure Name Priority Date/Time Associated Diagnosis Comme nts CBC WITH PLATELETS & Routine 02/10/2019 11:38 Iron deficiency Results for this DIFFERENTIAL AM [facility] anemia, unspecified procedur e are in iron deficiency the results anemia type section. IRON AND IRON BINDING Routine 02/10/2019 11:38 Iron deficiency Results for this CAPACITY AM [facility] anemia, unspecified procedur e are in iron deficiency the results anemia type section. documented in this encounter Results Iron and iron binding capacity (02/10/2019 11:38 AM [facility]) athologist Signature Iron 157 35 - 180 [facility]2019 [facility]33 [facility] Iron Binding 386 240 - 430 02/11/2019 [facility] Cap ug/dL 8:36 AM [facility] Iron Saturation 41 15 - 46 % 02/11/2019 [facility] Index 8:36 AM [facility] Specimen Anatomical Collection Method Collection Time Receive d Time (Source) Location / / Volume Laterality Blood specimen 02/10/2019 11:38 9 (specimen) AM [facility] 11:51 AM [facility] Krissy Gutierrez PR SPECIALIST BOTTLE SELECTOR LAB - BLOOD ORDERABLES Performing Organization Address City/State/ZIP Code Phon e Number M [facility] [address] [address] [phone] [facility] [address] [place], [place] [address] [facility] [address] [place] [address], [place] [phone] (ABNORMAL) CBC with platelets differential (02/10/2019 11:38 AM [facility]) athologist Signature WBC 7.7 4.0 - 11.0 02/10/2019 [place] 10e9/L 12:[address] [facility] RBC Count 3.89 3.8 - 5.2 02/10/2019 [place] 10e12/L 12:[address] [facility] Hemoglobin 11.2 (L) 11.7 - 15.7 02/10/2019 [facility] g/dL 12:[address] [facility] Comment: Results confirmed by repeat megan t Hematocrit 33.6 (L) 35.0 - 47.0 % 02/10/2019 12:19 PM CS T [facility] Comment: Results confirmed by repeat megan t MCV 86 78 - 100 fl 02/10/2019 12:19 [facility] PM [facility] MCH 28.8 26.5 - 33.0 02/10/2019 12:19 [facility] pg PM [facility] [place] MCHC 33.3 31.5 - 36.5 02/10/2019 12:19 [facility] g/dL PM [facility] [place] RDW 12.2 10.0 - 15.0 02/10/2019 12:19 [facility] % PM [facility] [place] Platelet Count 229 150 - 450 02/10/2019 12:19 [facility] 10e9/L PM [facility] [place] % Neutrophils 53.8 % 02/10/2019 12:19 [facility] PM [facility] [place] % Lymphocytes 38.3 % 02/10/2019 12:19 [facility] PM [facility] [place] % Monocytes 6.6 % 02/10/2019 12:19 [facility] PM [facility] [place] % Eosinophils 0.8 % 02/10/2019 12:19 [facility] PM [facility] [place] % Basophils 0.5 % 02/10/2019 12:19 [facility] PM [facility] [place] Absolute Neutrophil 4.1 1.6 - 8.3 02/10/2019 12:19 [facility] 10e9/L PM [facility] [place] Absolute 2.9 0.8 - 5.3 02/10/2019 12:19 [facility] Lymphocytes 10e9/L PM [facility] [place] Absolute Monocytes 0.5 0.0 - 1.3 02/10/2019 12:19 [facility] 10e9/L PM [facility] [place] Absolute 0.1 0.0 - 0.7 02/10/2019 12:19 [facility] Eosinophils 10e9/L PM [facility] [place] Absolute Basophils 0.0 0.0 - 0.2 02/10/2019 12:19 [facility] 10e9/L PM [facility] [place] Diff Method Automated Method 02/10/2019 12:19 [facility] PM [facility] [place] Specimen Anatomical Collection Method Collection Time Receive d Time (Source) Location / / Volume Laterality Blood specimen 02/10/2019 11:38 9 (specimen) AM [facility] 11:51 AM [facility] Krissy Gutierrez APRN BOTTLE SELECTOR LAB - BLOOD ORDERABLES Performing Organization Address City/State/ZIP Code Phon e Number [facility] [address] [place] [address] documented in this encounter Visit Diagnoses Diagnosis Wellness examination - Primary Iron deficiency anemia, unspecified iron deficiency anemia type Encounter for surveillance of contracept shirin pills Surveillance of previously prescribed co ntraceptive pill Need for Tdap vaccination Need for prophylactic vaccination with c ombined ofbfmzfdgy-kbjyibp-qnnolzbbc (DTP) vaccine Need for prophylactic vaccination and in oculation against influenza documented in this encounter Care Teams Flap Presser Relationship Specialty Start Date End Date Krissy Gutierrez APRN BOTTLE SELECTOR PCP - General Nurse Practitioner 05/03/17 [address] [place], [place] [id number] Krissy Gutierrez APRN BOTTLE SELECTOR Assigned PCP 05/05/17 10/13/21 [address] [place], [place] [phone] documented as of this encounter
--- OUTSIDE RECORDS SUMMARY | 2021-11-02 09:04 | XMS_ITS | Encounter Summary ---
:1995 Author Organization [place] Address [facility] [place] [address] Care Team Providers Name Role Phone Krissy Gutierrez APRN CHROME PLATER HELPER Primary Care Provider [phone] Krissy Gutierrez APRN CHROME PLATER HELPER Unavailable [phone] Reason for Visit Reason Comments Care feeling nausea but not throw ing up Encounter Details Date Type Department Care Team Description 08/05/2019 Office [facility] Jaqueline Castillo for Visit [facility] LEE Jackson supervision of normal [place] [address] first in [address] first trimester [facility], (Primary Dx) [address] [place] [address] [place], [place] [phone] [address] (Work) [phone] Social History Tobacco Use Types Packs/Day Years [...] have completed or the highest Mayda, MEd, MUSIC JOURNALIST, DEVIKA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 Sex Assigned [...] coming to see the Midwives at the [facility] ?? We will notify you about your [...] next visit, you can reach the nurse chief petroleum engineer fractionation plant supervisor by calling our pager number [phone]. ?? If you wish to schedule another appointment, please call our office at [phone]. You can alsomake appointments through [employer] ?? If you have a medical emergency please call 311. Because you are , we have additional resources for you: ?? You may call our consulting RN's during normal business hours for non-urgent questions about yourpregnancy. ?? After hours you may also page the chief petroleum engineer fractionation plant supervisor for urgent questions or issues at [phone].There is always a chief petroleum engineer fractionation plant supervisor 24 hours a day. Reminders: Before 14 [...] Secure access to your medical record: Use Comsenzhart (secure email communication and access to your chart) to send your primary care providera message or make an appointment. Ask someone on your Team how to sign up for [employer]. To log on to [employer] or for more information in [employer] please visit the website at [email or web address]. Certified Nurse Kick Boxer (CNM) Team Jaqueline Castillo APRN, LEE Gerard APRN, LEE Pitts APRN, LEE Baumann APRN, LEE Again, thank you for choosing the midwives at [facility]. We are excited to be [...] groups include: , Southeast Asians, , Mediterranean, Sri Lankan, South and Central Brazilian and Roe descent. 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 Intimate partner violence Fear of current or ex partner: Not on file Emotionally abused: Not on file Physically abused: Not on file Forced sexual activity: Not on file Other Topics Concern ??? Parent/sibling w/ CABG, [place] or angioplasty before 65F 55M? Not Asked [...] tenderness or inflammation. Perineum without lesions. VAGINA: [place], normal rugae and discharge. CERVIX: Anterior, smooth, [...] of triage nurse line and contacting the fractionation plant supervisor CNM after hours in an emergency. ?? Symptoms of N&V and fatigue usually start to resolve around 12-16 weeks ?? Reviewed CNM philosophy, call schedule for labor and delivery, and [facility] for delivery ?? 1st OB handout given [...] desire a RN home visit from the critical access hospital? No If yes, paperwork completed? No F/U [...] RPR and Titer (08/05/2019 3:16 PM CDT) [facility] Method Time Signature Treponema Nonreactive NR^Nonrea 08/06/2019 [facility] ctive 8:[address] [facility] Comment: Methodology Change: Test performed on DiaSorin Liaison XL by Treponema pallidum Total Antibodies Assay as of . Specimen Anatomical Collection Method Collection Time Receive d Time (Source) Location / / Volume Laterality Blood specimen 08/05/2019 3:16 PM 020 3:21 (specimen) CDT PM CDT SusanRenetta W[facility] LAB - BLOOD ORDERABLES Performing Organization Address City/[facility]/ZIP Code Phon e Number [facility] [address] Rubella Antibody IgG Quantitative (08/05/2019 3:16 PM CDT) [facility] Time Signature Rubella Antibody 20 IU/mL 08/06/2019 [place] O F IgG Quantitative 9:[address] [facility] Comment: Positive. ??Suggests previous exposure o r immunization and probable immunity Reference Range: ??Unvaccinated Negative 0-7 IU/mL Vaccinated or previous exposure Positive 10 IU/ml or greater Specimen Anatomical Collection Method Collection Time Receive d Time (Source) Location / / Volume Laterality Blood specimen 08/05/2019 3:16 PM 020 3:21 (specimen) CDT PM CDT Jaqueline W[facility]S LAB - BLOOD ORDERABLES Performing Organization Address City/[facility]/ZIP Code Phon e Number [address] HIV Antigen Antibody Combo (08/05/2019 3:16 PM CDT) [facility] Method Time Signature HIV Antigen Nonreactive NR^Nonrea 08/06/2019 [place] OF Antibody ctive 11:32 AM CDT [facility] Comment: HIV-1 p24 Ag & HIV-1/HIV-2 Ab N ot Detected Specimen Anatomical Collection Method Collection Time Receive d Time (Source) Location / / Volume Laterality Blood specimen 08/05/2019 3:16 PM 020 3:21 (specimen) CDT PM CDT Jaqueline [facility]TERS LAB - BLOOD ORDERABLES Performing Organization Address City/[facility]/ZIP Code Phon e Number [address] (ABNORMAL) CBC with platelets (08/05/2019 3:16 PM CDT) [facility] Method Time Signature WBC 8.8 4.0 - 11.0 08/05/2019 [facility] 10e9/L 4:28 PM CDT [facility] RBC Count 3.83 3.8 - 5.2 08/05/2019 [place] 10e12/L 4:28 PM CDT [facility] Hemoglobin 11.0 (L) 11.7 - 08/05/2019 [place] 15.7 g/dL 4:28 PM CDT [facility] Hematocrit 32.5 (L) 35.0 - 08/05/2019 [place] 47.0 % 4:28 PM CDT [facility] MCV 85 78 - 100 08/05/2019 [facility] fl 4:28 PM CDT [facility] MCH 28.7 26.5 - 08/05/2019 [place] 33.0 pg 4:28 PM CDT [facility] MCHC 33.8 31.5 - 08/05/2019 [place] 36.5 g/dL 4:28 PM CDT [facility] RDW 12.2 10.0 - 08/05/2019 [place] 15.0 % 4:28 PM CDT [facility] Platelet Count 204 150 - 450 08/05/2019 [place] 10e9/L 4:28 PM CDT [facility] Specimen Anatomical Collection Method Collection Time Receive d Time (Source) Location / / Volume Laterality Blood specimen 08/05/2019 3:16 PM 020 3:21 (specimen) CDT PM CDT Jaqueline [facility] LAB - BLOOD ORDERABLES Performing Organization Address City/State/ZIP Code Phon e Number [facility] [address] [place], [place] [address] [address] Hepatitis B surface antigen (08/05/2019 3:16 PM CDT) [facility] gist Method Time Signature Hep B Surface Nonreactive NR^Nonrea 08/06/2019 [facility] ctive 11:[address] [facility] Specimen Anatomical Collection Method Collection Time Receive d Time (Source) Location / / Volume Laterality Blood specimen 08/05/2019 3:16 PM 020 3:21 (specimen) CDT PM CDT Jaqueline [facility] LAB - BLOOD ORDERABLES Performing Organization Address City/State/ZIP Code Phon e Number [facility] [address] [place] [address] [facility] ABO/Rh type and screen (08/05/2019 3:16 PM CDT) [facility] YesVideo Method Time Signature ABO O 08/05/2019 [place] 5:42 PM CDT [facility] RH(D) Pos [facility] Antibody Neg 08/05/2019 [place] Screen 5:42 PM CDT [facility] Test Valid [place] 08/05/2019 [facility] Only At [facility] 5:50 PM CDT [facility] Specimen 08/08/2019 08/05/2019 [place] Expires 5:50 PM CDT [facility] Specimen Anatomical Collection Method Collection Time Receive d Time (Source) Location / / Volume Laterality Blood specimen 08/05/2019 3:16 PM 020 3:21 (specimen) CDT PM CDT Jaqueline Castillo CNM LAB - BLOOD BANK TEST ORDER Performing Organization Address City/State/ZIP [facility] Phon e Number [facility] [address] [place], [place] [address] [facility] [address] [place], [place] [address] [place] [address] CHLAMYDIA TRACHOMATIS PCR (08/05/2019 3:00 PM CDT) [facility] YesVideo Method Time Signature Specimen Vagina 08/05/2019 [place] Description 3:37 PM CDT [facility] Chlamydia Negative NEG^Negat 08/06/2019 INFECTIOUS Trachomatis PCR shirin 12:26 PM CDT [facility] Comment: Negative for C. trachomatis rRNA by galo scription mediated amplification. A negative result by lung puller media mario amplification does not preclude the [...] Code Phon e Number [facility] [address] [place] [address] [facility], [facility] [address] [place] [address] [place] [address] INFECTIOUS DISEASES [address] [place] [address], [facility] NEISSERIA GONORRHOEA PCR (08/05/2019 3:00 PM CDT) Analysis Performed At Patho logist Time Signature Specimen Vagina 08/05/2019 [facility] 3:37 PM CDT [facility] Gonorrhea Negative NEG^Negati 08/06/2019 INFECTIOUS PCR ve 12:26 PM CDT [facility] Comment: Negative for N. gonorrhoeae rRNA by galo scription mediated amplification. A negative result by lung puller media mario amplification does not preclude the [...] Code Phon e Number INFECTIOUS DISEASES [address] [place] [address] DIAGNOSTIC LABORATORY, [facility] [address] [place] [address] [facility] 180 INFECTIOUS DISEASES [address] [place] [address], A DI[facility]IC LAB[facility]ATORY Urine Culture Aerobic Bacterial [...] Code Phon e Number INFECTIOUS DISEASES [address] [place] [address] DIAGNOSTIC LABORATORY, [facility] INFECTIOUS DISEASES [address] [place] [address], A DI[facility]STIC LAB[facility]ATORY documented in this encounter Visit Diagnoses Diagnosis Encounter for supervision of normal firs t in first trimester - Primary Supervision of normal first documented in this encounter Care Teams Adjunct Faculty Relationship Specialty Start Date End Date Krissy Gutierrez APRN CHROME PLATER HELPER PCP - General Nurse Practitioner 05/03/17 [address] [place], [place] [phone] Krissy Gutierrez APRN CHROME PLATER HELPER Assigned PCP 05/05/17 10/13/21 [address] [place], [place] [phone] documented as of this encounter
--- OUTSIDE RECORDS SUMMARY | 2021-11-02 09:04 | XMS_ITS | Encounter Summary ---
:1995 Author Organization [place] Address [address] [place] [address] Care Team Providers Name Role Phone Krissy Gutierrez APRN, CNP Primary Care Provider [phone] Krissy Gutierrez APRN JAPANESE INTERPRETER Unavailable [phone] Krissy Gutierrez APRN JAPANESE INTERPRETER Unavailable [phone] Reason for Visit Reason Comments Medication Refill [place] Encounter Details Date Type Department Care Team Description 04/14/2018 Refill [facility] Krissy Gutierrez ication Refill [place] CANDIDA Heard CNP (Zully) [address] [place] [id number] [phone] (Wo rk) Social History Tobacco Use Types [...] 11:44 AM CST Duplicate Prescription approved per [facility] Refill Protocol. Jaqueline Pacheco RN, BSN L TILE SETTER Telephone Encounter - Dena Hedrick - 04/14/2018 [...] prescribing provider: Krissy Gutierrez Future Office Visit: L TILE SETTER documented in this encounter Plan of Treatment Not on filedocumented as of this encounter Visit Diagnoses Diagnosis Encounter for surveillance of contracept shirin pills Surveillance of previously prescribed co ntraceptive pill documented in this encounter Care Teams Wooden Fence Erector Relationship Specialty Start Date End Date Krissy Gutierrez APRN PCP - General Nurse Practitioner 05/03/17 JAPANESE INTERPRETER [address] [place] [address] Krissy Gutierrez APRN PCP - Assigned PCP 05/05/17 05/20/18 JAPANESE INTERPRETER [address] [place], [place] [phone] Krissy Gutierrez APRN Assigned PCP 05/05/17 JAPANESE INTERPRETER [address] [place] [address] documented as of this encounter
--- OUTSIDE RECORDS SUMMARY | 2021-11-02 09:04 | XMS_ITS | Encounter Summary ---
:1995 Author Organization [place] Address [address] [place] [address] Care Team Providers Name Role Phone Krissy Gutierrez APRN, CNP Primary Care Provider [phone] Krissy Gutierrez APRN ENERGY MANAGEMENT SPECIALIST Unavailable [phone] Encounter Details Date Type Department Care Team [...] have completed or the highest Mayda, MEd, PAINT PROCESS ENGINEER, DEVIKA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 Sex Assigned [...] on filedocumented in this encounter Care Teams Solar Technician Relationship Specialty Start Date End Date Krissy Gutierrez APRN ENERGY MANAGEMENT SPECIALIST PCP - General Nurse Practitioner 05/03/17 [address] [place], [place] [id number] Krissy Gutierrez APRN ENERGY MANAGEMENT SPECIALIST Assigned PCP 05/05/17 10/13/21 [address] [place], [place] [phone] documented as of this encounter
--- OUTSIDE RECORDS SUMMARY | 2021-11-02 09:04 | XMS_ITS | Encounter Summary ---
:1995 Author Organization [place] Address [facility] [place] [address] Care Team Providers Name Role Phone Krissy Gutierrez APRN, CNP Primary Care Provider [phone] BrendaKrissy Orquidea TIRADO AIR CONDITIONING MECHANIC Unavailable [phone] BrendaKrissy Orquidea TIRADO AIR CONDITIONING MECHANIC Unavailable [phone] Encounter Details Date Type Department Care Team Description 11/30/2017 Virtual Visit [facility] Cary Peres, [address] [facility] WINDOWS MOBILE DEVELOPER AIR CONDITIONING MECHANIC [place] [address] [address] [facility] [address] [place] [address] [place] [address] [phone] Social History Tobacco Use Types Packs/Day Years [...] this encounter Progress Notes Cary Peres APRN AIR CONDITIONING MECHANIC - 11/30/2017 9:32 PM CDT Date: Clinician: Cary Peres Clinician Patient: Sharmaine Augustin Patient : 1995 Patient Address: [address] [place] [address] Patient Visit Protocol: URI Patient Summary: Sharmaine [...] prescription. Unless you are allergic to the qjpd-iee-idqvtvy medication(s) below, I recommend using: An antihistamine such as Benadryl, Claritin, or store brand. A decongestant such as Sudafed PE or store brand. Gwqf-aok-npygrem medications do not require a prescription. Ask [...] as needed: no, Allow substitutions: yes Pharmacy: [facility] [id number] [facility] [employer] - - [address] [place] [address] documented in this encounter Plan of Treatment Not on filedocumented as of this encounter Visit Diagnoses Not on filedocumented in this encounter Care Teams Claims Administrator Relationship Specialty Start Date End Date Krissy Gutierrez APRN PCP - General Nurse Practitioner 05/03/17 AIR CONDITIONING MECHANIC [address] [place], [place] [phone] Krissy Gutierrez APRN PCP - Assigned PCP 05/05/17 05/20/18 AIR CONDITIONING MECHANIC [address] [place], [place] [phone] Krissy Gutierrez APRN Assigned PCP 05/05/17 AIR CONDITIONING MECHANIC [address] [place] [address] documented as of this encounter
--- OUTSIDE RECORDS SUMMARY | 2021-11-02 09:04 | XMS_ITS | Encounter Summary ---
:1995 Author Organization [place] Address [facility] [place] [address] Care Team Providers Name Role Phone Krissy Gutierrez APRN, CNP Primary Care Provider [phone] Krissy Gutierrez APRN AUTOMATIC DRILLING MACHINE OPERATOR Unavailable [phone] Krissy Gutierrez APRN AUTOMATIC DRILLING MACHINE OPERATOR Unavailable [phone] Reason for Visit Reason Comments Medication Refill fluticasone (FLONASE) 50 MCG /ACT spray Encounter Details Date Type Department Care Team Description 12/28/2017 Refill [facility] [place] dication [facility]OMATIC DRILLING MACHINE OPERATOR (fluticasone (FLONASE) [address] 50 MCG/ACT spray ) [place] [address] [place], [place] [phone] (Wo rk) [address] [phone] Social History Tobacco Use Types Packs/Day Years [...] Primary documented in this encounter Care Teams Steam Drier Tender Relationship Specialty Start Date End Date Krissy Gutierrez APRN PCP - General Nurse Practitioner 05/03/17 AUTOMATIC DRILLING MACHINE OPERATOR [address] [place], [place] [phone] Krissy Gutierrez APRN PCP - Assigned PCP 05/05/17 05/20/18 AUTOMATIC DRILLING MACHINE OPERATOR [address] [place], [place] [phone] Krissy Gutierrez APRN Assigned PCP 05/05/17 AUTOMATIC DRILLING MACHINE OPERATOR [address] [place], [place] [id number] documented as of this encounter
--- OUTSIDE RECORDS SUMMARY | 2021-11-02 09:04 | XMS_ITS | Clinical Summary ---
:1995 Author Organization [place] Address [address] [place] [address] Care Team Providers Name Role Phone Krissy Gutierrez APRN CLINICAL AUDIOLOGIST Primary Care Provider [phone] Allergies No known active allergies Medications Medication [...] have completed or the highest Mayda, MEd, TUBING MACHINE TENDER, DEVIKA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 Sex Assigned at Date Recorded Female 07/27/2019 7:13 AM CDT Last Filed Vital Signs Vital Sign Reading Time Taken Comments Blood Pressure 96/56 10/29/2019 10:26 AM CDT Pulse 72 02/10/2019 11:05 AM MICROBIOLOGY TECHNOLOGIST Temperature 36.8 ??C (98.2 ??F) 02/10/2019 11:05 AM MICROBIOLOGY TECHNOLOGIST Respiratory Rate 16 02/10/2019 11:05 AM MICROBIOLOGY TECHNOLOGIST Oxygen Saturation 98% 02/10/2019 11:05 AM MICROBIOLOGY TECHNOLOGIST Inhaled Oxygen Concentration - - Weight 63 [...] ss Type Group BCBS [place] OF [place] [id number] 2018-Ains[place] [phone] [address] [address] Indemnity nt 0 [place] [address] Advance Directives For more information, please contact: [phone] Latest Code Status on File Code Status Date Activated Date Inactivated Comments Full Code 02/18/2015 1:58 PM Full Code 02/16/2015 1:46 AM 02/18/2015 1:58 PM Care Teams Shank Paperer Relationship Specialty Start Date End Date Krissy Gutierrez, PRESS OPERATOR HEAVY DUTY CLINICAL AUDIOLOGIST PCP - General Nurse Practitioner 05/03/17 [address] [place] [address]
--- OUTSIDE RECORDS SUMMARY | 2021-11-02 09:04 | XMS_ITS | Encounter Summary ---
:1995 Author Organization [place] Address [address] [place] [address] Care Team Providers Name Role Phone Krissy Gutierrez APRN, CNP Primary Care Provider [phone] Krissy Gutierrez APRN CLOCKMAKER Unavailable [phone] Encounter Details Date Type Department Care Team [...] have completed or the highest Mayda, MEd, SOAP DRIER OPERATOR, DEVIKA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 Sex [...] on filedocumented in this encounter Care Teams Corporate Director Of Pharmacy Relationship Specialty Start Date End Date Krissy Gutierrez APRN CLOCKMAKER PCP - General Nurse Practitioner 05/03/17 [address] [place], [place] [phone] Krissy Gutierrez APRN CLOCKMAKER Assigned PCP 05/05/17 10/13/21 [address] [place], [place] [id number] documented as of this encounter
--- OUTSIDE RECORDS SUMMARY | 2021-11-02 09:04 | XMS_ITS | Encounter Summary ---
:1995 Author Organization [place] Address [address] [place] [address] Care Team Providers Name Role Phone Krissy Gutierrez APRN DROP BOARD MAN Primary Care Provider [phone] Krissy Gutierrez APRN DROP BOARD MAN Unavailable [phone] Reason for Visit Reason Comments Medication Refill Encounter Details Date Type Department Care Team Description 09/01/2019 Refill [facility] Cary Peres Ma, Medication Refill [place] DATABASE DESIGN ANALYST DROP BOARD MAN [address] [place] [address] [place] [address] [place] [address] [phone] Social History Tobacco Use Types Packs/Day Years [...] have completed or the highest Mayda, MEd, STATION REPAIRER, DEVIKA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 Sex Assigned [...] Primary documented in this encounter Care Teams Metalizing Machine Operator Automatic Relationship Specialty Start Date End Date Krissy Gutierrez APRN DROP BOARD MAN PCP - General Nurse Practitioner 05/03/17 [address] [place] [address] Krissy Gutierrez APRN DROP BOARD MAN Assigned PCP 05/05/17 10/13/21 [address] [place] [address] documented as of this encounter
--- OUTSIDE RECORDS SUMMARY | 2021-11-02 09:04 | XMS_ITS | Encounter Summary ---
:1995 Author Organization [place] Address [address] [place] [address] Care Team Providers Name Role Phone Krissy Gutierrez APRN, CNP Primary Care Provider [phone] Krissy Gutierrez APRN TRUCK CRANE OPERATOR Unavailable [phone] Encounter Details Date Type Department Care Team [...] have completed or the highest Mayda, MEd, ARMATURE BALANCER, DEVIKA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 Sex Assigned [...] on filedocumented in this encounter Care Teams Reel Film Inspector Relationship Specialty Start Date End Date Krissy Gutierrez APRN TRUCK CRANE OPERATOR PCP - General Nurse Practitioner 05/03/17 [address] [place], [place] [phone] Krissy Gutierrez APRN TRUCK CRANE OPERATOR Assigned PCP 05/05/17 10/13/21 [address] [place], [place] [phone] documented as of this encounter
--- OUTSIDE RECORDS SUMMARY | 2021-11-02 09:04 | XMS_ITS | Encounter Summary ---
:1995 Author Organization [place] Address [address] [place] [address] Care Team Providers Name Role Phone Krissy Gutierrez APRN SERVICE OPERATOR Primary Care Provider [phone] Krissy Gutierrez APRN SERVICE OPERATOR Unavailable [phone] Jaqueline Castillo CNM Unavailable Mari Jauregui CNM Unavailable [phone] Encounter Details Date Type Department Care Team Description 07/28/2019 Documentation Only [facility] Janett Castillo, [place] Laborator y CNM [address] [address] [place] [address] (Wo rk) Social History [...] have completed or the highest Mayda, MEd, PERSONAL SHOPPER, DEVIKA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 Sex Assigned [...] on filedocumented in this encounter Care Teams Mortgage Protection Specialist Relationship Specialty Start Date End Date Krissy Gutierrez, PCP - General Nurse Practitioner 05/03/17 SCALE RECLAMATION TENDER SERVICE OPERATOR [address] [place] [address] Krissy Gutierrez, Assigned PCP 05/05/17 2 SCALE RECLAMATION TENDER SERVICE OPERATOR [address] [place] [address] Jaqueline Castillo, LEE Assigned OBGYN Provider 01/08/20 03/04/21 [address] [place] [address] Mari Jauregui, Assigned OBGYN Provider 1 04/29/[address] [address] documented as of this encounter
--- OUTSIDE RECORDS SUMMARY | 2021-11-02 09:04 | XMS_ITS | Encounter Summary ---
:1995 Author Organization [place] Address [facility] [place] [address] Care Team Providers Name Role Phone Krissy Gutierrez APRN, CNP Primary Care Provider [phone] Krissy Gutierrez APRN PATHOLOGY MANAGER Unavailable [phone] Reason for Referral Diagnostic Imaging Ultrasound (Routine) - Closed Specialty Diagnoses / Procedures Referred By Contact Refer red To Contact Diagnoses Encounter for supervision of normal first in first trimester Jaqueline Castillo CNM Procedures US OB < 14 Weeks Single [address] [place], [place] [address] Referral ID Status Reason Start Date Expiration Date Visits Requ ested Visits Authorized [id number] Closed 07/28/2019 07/27/2020 1 1 Reason for Visit Reason Comments Care New Nurse Telephone Visit Encounter Details Date Type Department Care Team Description 07/28/2019 Office [facility] er for supervision of normal first in first trimester (Primary Dx); Visit Clinic [facility]; [address] [place] [address] Seasonal a llergic [facility] [address] [place] [address] Social History Tobacco Use Types Packs/Day [...] have completed or the highest Mayda, MEd, SCOW HAND, DEVIKA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 Sex Assigned [...] If you answered Yes, is this for zoroastrian reasons?: No Does anyone in your home [...] you have any allergies to drugs or pczg-tii-yzyxqnv medications?: No Allergies: Dust Mites, Aspartame, Ethanol, [...] discharge or bleed: No Current medications, including joeh-vyz-wraqmhh medications, you are using? (If not applicable answer none): , iron supplement, OTC allergy medicine Will the patient be 35 years old or older at the time of delivery?: No Has the patient, baby's father or anyone in either family had: Thalassemia (Senegalese, Uruguayan, Mediterranean or background only) and an MCV result less than 80?: No Neural tube defect such as meningomyelocele, spina bifida or anencephaly?: No Congenital heart defect?: No Down's Syndrome?: No Nando-Sachs disease (Mandaeism, Cajun, Malawian-Fieldale)?: No Sickle cell disease or trait ()?: No Hemophilia or other inherited problems of blood?: No Muscular dystrophy?: No Cystic fibrosis?: No San Marino's chorea?: No Mental retardation/autism?: No If yes, [...] fluid. Yury Hooper MD Obstetrics & Gynecology [facility] Narrative 08/05/2019 3:09 PM CDT [facility] Obstetrics & Gynecology [address] [place] [address] ULTRASOUND - OB < 14 Weeks ?? Referring Provider: Jaqueline Castillo CNM Clinic: [facility] ?? INDICATIONS FOR ULTRASOUND: OB History: [...] first documented in this encounter Care Teams Director Of Clinical Education Relationship Specialty Start Date End Date Krissy Gutierrez APRN PATHOLOGY MANAGER PCP - General Nurse Practitioner 05/03/17 [address] [place] [address] Krissy Gutierrez APRN PATHOLOGY MANAGER Assigned PCP 05/05/17 10/13/21 [address] [place] [address] documented as of this encounter
--- OUTSIDE RECORDS SUMMARY | 2021-11-02 09:04 | XMS_ITS | Encounter Summary ---
:1995 Author Organization [place] Address [facility] [place] [address] Care Team Providers Name Role Phone Krissy Gutierrez APRN, CNP Primary Care Provider [phone] Krissy Gutierrez APRN, CNP Unavailable [phone] Krissy Gutierrez APRN, CNP Unavailable [phone] Reason for Visit Reason Comments Medication Refill drospirenone-ethinyl estradi ol (MONIKA) 3-0.03 MG per tablet Encounter Details Date Type Department Care Team Description 08/07/2017 Refill [facility] Krissy Gutierrez ication Refill [place] CANDIDA Heard CNP (drospirenone-ethinyl [address] [facility] [id number] [place] [address] estradiol (MONIKA) [place], [place] 3-0.03 MG per tablet) [phone] (Wo rk) Social History Tobacco Use Types [...] 04/2018 for annual, FY Prescription approved per [facility] Refill Protocol. Jaqueline Pacheco RN, BSN Telephone [...] 3-0.03 MG per tablet [Pharmacy Med Name: [id number] MG TAB] Last Written Prescription Date: 05/02/17 [...] pill documented in this encounter Care Teams Concrete Grinder Operator Relationship Specialty Start Date End Date Krissy Gutierrez APRN PCP - General Nurse Practitioner 05/03/17 COMPUTER OPERATIONS SUPERVISOR [address] [place] [address] Krissy Gutierrez APRN PCP - Assigned PCP 05/05/17 05/20/18 COMPUTER OPERATIONS SUPERVISOR [address] [place] [address] Krissy Gutierrez APRN Assigned PCP 05/05/17 COMPUTER OPERATIONS SUPERVISOR [address] [place] [address] documented as of this encounter
--- OUTSIDE RECORDS SUMMARY | 2021-11-02 09:04 | XMS_ITS | Encounter Summary ---
:1995 Author Organization [place] Address [address] [place] [address] Care Team Providers Name Role Phone Krissy Gutierrez APRN, CNP Primary Care Provider [phone] Krissy Gutierrez APRN CLAIM ADMINISTRATOR Unavailable [phone] Encounter Details Date Type Department Care Team [...] have completed or the highest Mayda, MEd, BRANCH OFFICE ADMINISTRATOR, DEVIKA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 Sex Assigned [...] on filedocumented in this encounter Care Teams Shop Estimator Relationship Specialty Start Date End Date Krissy Gutierrez APRN CLAIM ADMINISTRATOR PCP - General Nurse Practitioner 05/03/17 [address] [place], [place] [phone] Krissy Gutierrez APRN CLAIM ADMINISTRATOR Assigned PCP 05/05/17 10/13/21 [address] [place], [place] [address] documented as of this encounter
--- OUTSIDE RECORDS SUMMARY | 2021-11-02 09:04 | XMS_ITS | Encounter Summary ---
:1995 Author Organization [place] Address [address] [place] [address] Care Team Providers Name Role Phone [place] Murillo Md MD Primary Care Provider [phone] BrendaKrissy ward APRN BAGGAGEMAN Primary Care Provider [phone] BrendaKrissy ward APRN BAGGAGEMAN Unavailable [phone] BrendaKrissy ward APRN BAGGAGEMAN Unavailable [phone] Yuki Roth MATCHER Unavailable Jonathan Susan CNM Unavailable Mari Jauregui CNM Unavailable [phone] Reason for Visit Reason Onset Date Comments Path Results 02/23/2015 biopsy Encounter Details Date Type Department Care Team Description 02/23/2015 Telephone Medicine GI - 1E Bri Gallagher Path Results (biopsy) Crhis Payne MD Building [address] [place] [address] 1st Floor, Clinic [address] [phone] (Wo rk) [address] [phone] Social History Tobacco Use Types Packs/Day Years [...] Bri Gallagher MD - 02/23/2015 5:29 PM TABLE RUNNER Notified by call center that patient had [...] RN coordinator if further questions or concerns. E RUNNER Telephone Encounter - Mary Anne Allen - 02/23/2015 2:52 PM CST Patient called today. Patient is trying to get their biopsy test results. Please call patient at [phone]. Thank you. Central Scheduling Mary Anne Felipe E RUNNER documented in this encounter Plan of Treatment Not on filedocumented as of this encounter Visit Diagnoses Not on filedocumented in this encounter Care Teams Tavern Keeper Relationship Specialty Start Date End Date [facility], PCP - General 02/15/15 05/02/17 MD Marlin [address] [place] [address] Krissy Gutierrez, PCP - General Nurse Practitioner 05/03/17 RANCH HELPER BAGGAGEMAN [address] [place] [address] Krissy Gutierrez, PCP - Assigned PCP 05/05/17 05/20/18 RANCH HELPER BAGGAGEMAN [address] [place] [address] Krissy Gutierrez, Assigned PCP 05/05/17 2 RANCH HELPER BAGGAGEMAN [address] [place], [place] [phone] Yuki Roth, MATCHER Lead Inside Barrel Lathe Operator Primary Care - CC 02/11/19 05/05/19 Jaqueline Castillo CNM Assigned OBGYN Provider 01/08/20 03/04/21 [address] [place], [place] [phone] Mari Jauregui, Assigned OBGYN Provider 1 04/29/[address] [facility] [address] [place] [address] documented as of this encounter
--- OUTSIDE RECORDS SUMMARY | 2021-11-02 09:04 | XMS_ITS | Encounter Summary ---
:1995 Author Organization [place] Address [address] [place] [address] Care Team Providers Name Role Phone Krissy Gutierrez APRN EMERGING TECHNOLOGIES DIRECTOR Primary Care Provider [phone] Krissy Gutierrez APRN EMERGING TECHNOLOGIES DIRECTOR Unavailable [phone] Reason for Visit Reason Comments Care Encounter Details Date Type Department Care Team Description 10/29/2019 Office [facility] Mari Jauregui Pre екатерина care in Visit [facility] Jaqueline SELENAJanett second trimester [place] [address] (Primary Dx) [address] [place], [place] [address] [address] [place], [place] [phone] [address] (Work) [phone] Social History Tobacco Use Types Packs/Day Years [...] have completed or the highest Mayda, MEd, HOOK AND EYE MACHINE OPERATOR, DEVIKA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 Sex [...] headaches or other concerns. Reviewed to call [phone] for contractions, loss of fluid, vaginal bleeding, decreased movement or any other questions or concerns. RTC in 4 weeks - can be phone or video. Mari Jauregui DNP, INTERNAL GRINDER, LEE documented in this encounter Nursing Notes [...] guillermo documented in this encounter Care Teams Collateral Analyst Relationship Specialty Start Date End Date Krissy Gutierrez APRN EMERGING TECHNOLOGIES DIRECTOR PCP - General Nurse Practitioner 05/03/17 [address] [place] [address] Krissy Gutierrez APRN EMERGING TECHNOLOGIES DIRECTOR Assigned PCP 05/05/17 10/13/21 [address] [place] [address] documented as of this encounter
--- OUTSIDE RECORDS SUMMARY | 2021-11-02 09:04 | XMS_ITS | Encounter Summary ---
:1995 Author Organization [place] Address [address] [place] [address] Care Team Providers Name Role Phone Krissy Gutierrez APRN, CNP Primary Care Provider [phone] Krissy Gutierrez APRN AIRPLANE MECHANIC Unavailable [phone] Encounter Details Date Type Department Care Team [...] on filedocumented in this encounter Care Teams Mold Technician Relationship Specialty Start Date End Date Krissy Gutierrez APRN AIRPLANE MECHANIC PCP - General Nurse Practitioner 05/03/17 [address] [place] [address] Krissy Gutierrez APRN AIRPLANE MECHANIC Assigned PCP 05/05/17 10/13/21 [address] [place] [address] documented as of this encounter
--- OUTSIDE RECORDS SUMMARY | 2021-11-02 09:04 | XMS_ITS | Encounter Summary ---
:1995 Author Organization [place] Address [address] [place] [address] Care Team Providers Name Role Phone Krissy Gutierrez APRN, CNP Primary Care Provider [phone] Krissy Gutierrez APRN WEB DEVELOPMENT CONSULTANT Unavailable [phone] Encounter Details Date Type Department Care Team [...] have completed or the highest Mayda, MEd, MINES INSPECTOR, DEVIKA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 Sex Assigned [...] on filedocumented in this encounter Care Teams Crystal Machining Coordinator Relationship Specialty Start Date End Date Krissy Gutierrez APRN WEB DEVELOPMENT CONSULTANT PCP - General Nurse Practitioner 05/03/17 [address] [place], [place] [phone] Krissy Gutierrez APRN WEB DEVELOPMENT CONSULTANT Assigned PCP 05/05/17 10/13/21 [address] [place], [place] [id number] documented as of this encounter
--- OUTSIDE RECORDS SUMMARY | 2021-11-02 09:04 | XMS_ITS | Encounter Summary ---
:1995 Author Organization [place] Address [address] [place] [address] Care Team Providers Name Role Phone Krissy Gutierrez APRN, CNP Primary Care Provider [phone] Krissy Gutierrez APRN ENVIRONMENTAL ADVISOR Unavailable [phone] Brenda Krissy Heard APRN ENVIRONMENTAL ADVISOR Unavailable [phone] Encounter Details Date Type Department Care Team [...] on filedocumented in this encounter Care Teams Quality Assurance Monitor Body Relationship Specialty Start Date End Date Krissy Gutierrez APRN PCP - General Nurse Practitioner 05/03/17 ENVIRONMENTAL ADVISOR [address] [place] [address] Krissy Gutierrez APRN PCP - Assigned PCP 05/05/17 05/20/18 ENVIRONMENTAL ADVISOR [address] [place] [address] Krissy Gutierrez APRN Assigned PCP 05/05/17 ENVIRONMENTAL ADVISOR [address] [place] [address] documented as of this encounter
--- OUTSIDE RECORDS SUMMARY | 2021-11-02 09:04 | XMS_ITS | Encounter Summary ---
:1993 Author Organization [place] Address [address] [place] [address]. [place] [address] Care Team Providers Name Role Phone Richa Murillo Md MD Primary Care Provider [phone] Reason for Visit Reason Comments URI Encounter Details Date Type Department Care Team Description 02/14/2017 Office Visit [facility] Javier Rosales Acute recurrent Clinic [place] MD Angel Luis maxillary sinusitis [address] [place] [address] (Primary Dx) [place] [address] [phone] Social History Tobacco Use Types Packs/Day Years [...] Comments Blood Pressure 100/69 02/14/2017 9:44 AM TURKEY BONER Pulse 90 02/14/2017 9:44 AM TURKEY BONER Temperature 36.4 ??C (97.6 ??F) 02/14/2017 9:44 AM TURKEY BONER Respiratory Rate 12 02/14/2017 9:44 AM TURKEY BONER Oxygen Saturation 96% 02/14/2017 9:44 AM TURKEY BONER Inhaled Oxygen Concentration - - Weight 59.8 kg (131 lb 12.8 oz) 02/14/2017 9:44 AM TURKEY BONER Height - - Body Mass Index 19.46 02/19/2015 10:47 PM TURKEY BONER documented in this encounter Progress Notes Javier [...] none ?? 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 Therapies tried and [...] or stridor. 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 Discussed signs of systemic or constutional illness. EY BONER documented in this encounter Plan of Treatment Not on filedocumented as of this encounter Visit Diagnoses Diagnosis Acute recurrent maxillary sinusitis - Pr imary Acute maxillary sinusitis documented in this encounter Care Teams Motorized Squad Sergeant Relationship Specialty Start Date End Date [facility] Md Murillo MD PCP - General 02/15/15 05/02/[address] [place] [address] documented as of this encounter
--- OUTSIDE RECORDS SUMMARY | 2021-11-02 09:04 | XMS_ITS | Encounter Summary ---
:1993 Author Organization [place] Address [facility] [place] [address] Care Team Providers Name Role Phone Krissy Gutierrez APRN, CNP Primary Care Provider [phone] Krissy Gutierrez APRN, CNP Unavailable [phone] Reason for Referral Diagnostic Imaging Ultrasound (Routine) - Closed Specialty Diagnoses / Procedures Referred By Contact Refer red To Contact Diagnoses Encounter for supervision of normal first in second trimester Jaqueline Castillo CNM Procedures US OB > [address] [place], [place] [address] Referral ID Status Reason Start Date Expiration Date Visits Requ ested Visits Authorized [id number] Closed 10/27/2019 10/26/2020 1 1 Reason for Visit Reason Comments Care 17w 1d, discuss cyst found o n US on 08/05/19-no sx Encounter Details Date Type Department Care Team Description 10/02/2019 Office [facility] Jaqueline Castillo for Visit [facility] L[place] supervision of normal [place] [address] first in [address] [facility] [address] [place] [address] [place], [place] [phone] [address] (Work) [phone] Social History Tobacco Use Types Packs/Day Years [...] have completed or the highest Mayda, MEd, SURVEILLANCE INSPECTOR, DEVIKA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 Sex [...] 6:21 AM CDT 10/29/2019 10:28 AM ? [facility] Obstetrics & Gynecology [address] [facility]. [address] [place] [address] ?? ULTRASOUND - OB > 14 Weeks [...] Dr. Salma Barnett MD Obstetrics and Gynecology [facility] ?? Jaqueline Castillo [facility] ORDERABLES documented in this encounter Visit Diagnoses Diagnosis Encounter for supervision of normal firs t in second trimester - Primary Supervision of normal first Encounter for supervision of normal firs t in second trimester Supervision of normal first documented in this encounter Care Teams Foster Care Therapist Relationship Specialty Start Date End Date Krissy Gutierrez APRN CONSTRUCTION FLAGGER PCP - General Nurse Practitioner 05/03/17 [address] [place] [address] Krissy Gutierrez, CANDIDA CONSTRUCTION FLAGGER Assigned PCP 05/05/17 10/13/21 [address] [place] [address] documented as of this encounter
--- OUTSIDE RECORDS SUMMARY | 2021-11-02 09:04 | XMS_ITS | Encounter Summary ---
:1995 Author Organization [place] Address [address] [place] [address] Care Team Providers Name Role Phone Richa Murillo Md MD Primary Care Provider [phone] Reason for Visit Reason Onset Date Comments Panel Management 05/01/2017 Patient is failing P hysical and Pap Encounter Details Date Type Department Care Team Description 05/01/2017 [facility] Hesham Murillo [facility] EllsworthRanjit Isaac MD (Patient is failing [address] Physical and Pap) [place] [id number] [phone] (Wo rk) Social History Tobacco Use Types [...] Peace Gonzalez Chart routed to none . RESSED YEAST SUPERVISOR documented in this encounter Plan of Treatment Not on filedocumented as of this encounter Visit Diagnoses Not on filedocumented in this encounter Care Teams Rough Patcher Relationship Specialty Start Date End Date [facility] Md Murillo MD PCP - General 02/15/15 05/02/[address] [place] [id number] documented as of this encounter
--- OUTSIDE RECORDS SUMMARY | 2021-11-02 09:04 | XMS_ITS | Encounter Summary ---
:1995 Author Organization [place] Address [facility] [place] [address] Care Team Providers Name Role Phone Krissy Gutierrez APRN BEVERAGE SERVER Primary Care Provider [phone] Krissy Gutierrez APRN BEVERAGE SERVER Unavailable [phone] Reason for Visit Diagnostic Imaging Ultrasound (Routine) - Closed Specialty Diagnoses / Procedures Referred By Contact Refer red To Contact Diagnoses Encounter for supervision of normal first in first trimester Jaqueline Castillo CNM Procedures US OB < 14 Weeks Single [address] [place], [place] [address] Referral ID Status Reason Start Date Expiration Date Visits Requ ested Visits Authorized [id number] Closed 07/28/2019 07/27/2020 1 1 Encounter Details Date Type Department Care Team Description 08/05/2019 Orders Only [facility] parvez for supervision [place] of normal first [address] [place] [address] [facility] [address] [place] [address] Social History Tobacco Use [...] have completed or the highest Mayda, MEd, IDENTITY ACCESS MANAGEMENT ARCHITECT, DEVIKA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 Sex Assigned [...] fluid. Yury Hooper MD Obstetrics & Gynecology [facility] Narrative 08/05/2019 3:[address] [facility] Obstetrics & Gynecology [address] [facility] [place] [address] ULTRASOUND - OB < 14 Weeks ?? Referring Provider: Jaqueline Castillo CNM Clinic: [facility] ?? INDICATIONS FOR ULTRASOUND: OB History: Present [...] first documented in this encounter Care Teams Bandage Maker Relationship Specialty Start Date End Date Krissy Gutierrez APRN BEVERAGE SERVER PCP - General Nurse Practitioner 05/03/17 [address] [place], [place] [id number] Krissy Gutierrez APRN BEVERAGE SERVER Assigned PCP 05/05/17 10/13/21 [address] [place], [place] [id number] documented as of this encounter
--- OUTSIDE RECORDS SUMMARY | 2021-11-02 09:04 | XMS_ITS | Encounter Summary ---
:1995 Author Organization [place] Address [facility] [place] [address] Care Team Providers Name Role Phone Krissy Gutierrez APRN, CNP Primary Care Provider [phone] Krissy Gutierrez APRN ACCOUNTING INSTRUCTOR Unavailable [phone] Krissy Gutierrez APRN ACCOUNTING INSTRUCTOR Unavailable [phone] Reason for Visit Reason Comments Refill Request BC Encounter Details Date Type Department Care Team Description 03/06/2018 Office Visit [facility] Krissy Gutierrez Encounter for [facility] [place] [address] [facility] ACCOUNTING INSTRUCTOR contraceptive pills [place], [place] [id number] [place] [id number] [place], [place] [phone] [address] Social History Tobacco Use Types Packs/Day Years [...] Comments Blood Pressure 100/60 03/06/2018 4:21 PM REGIONAL EDUCATION MANAGER Pulse 81 03/06/2018 4:21 PM REGIONAL EDUCATION MANAGER Temperature 36.7 ??C (98.1 ??F) 03/06/2018 4:21 PM REGIONAL EDUCATION MANAGER Respiratory Rate 12 03/06/2018 4:21 PM REGIONAL EDUCATION MANAGER Oxygen Saturation 99% 03/06/2018 4:21 PM REGIONAL EDUCATION MANAGER Inhaled Oxygen Concentration - - Weight 60.3 kg (133 lb) 03/06/2018 4:21 PM REGIONAL EDUCATION MANAGER Height 175.3 cm (5' 9) 03/06/2018 4:21 PM REGIONAL EDUCATION MANAGER Body Mass Index 19.64 03/06/2018 4:21 PM REGIONAL EDUCATION MANAGER documented in this encounter Progress Notes Krissy Gutierrez, [place]AND[place] ACCOUNTING INSTRUCTOR - 03/06/2018 5:15 PM CST SUBJECTIVE: Sharmaine [...] as needed. Krissy Gutierrez APRN CNP [facility] ONAL EDUCATION MANAGER documented in this encounter Plan of Treatment Not on filedocumented as of this encounter Visit Diagnoses Diagnosis Encounter for surveillance of contracept shirin pills Surveillance of previously prescribed co ntraceptive pill documented in this encounter Care Teams Psych Therapist Relationship Specialty Start Date End Date Krissy Gutierrez APRN PCP - General Nurse Practitioner 05/03/17 ACCOUNTING INSTRUCTOR [address] [place] [address] Krissy Gutierrez APRN PCP - Assigned PCP 05/05/17 05/20/18 ACCOUNTING INSTRUCTOR [address] [place] [address] Krissy Gutierrez APRN Assigned PCP 05/05/17 ACCOUNTING INSTRUCTOR [address] [place] [address] documented as of this encounter
--- OUTSIDE RECORDS SUMMARY | 2021-11-02 09:04 | XMS_ITS | Encounter Summary ---
:1995 Author Organization [place] Address [facility] [place] [address] Care Team Providers Name Role Phone Krissy Gutierrez APRN HOME PLANNING CONSULTANT SALESPERSON Primary Care Provider [phone] Krissy Gutierrez APRN HOME PLANNING CONSULTANT SALESPERSON Unavailable [phone] Reason for Visit Reason Comments Care 13w, Progenity screening Encounter Details Date Type Department Care Team Description 09/03/[address] [facility] Jaqueline Castillo for Visit [facility] supervision of [facility] [address] [address] first in [address] second trimester [facility], (Primary Dx) [address] [place] [address] [place], [place] [phone] [address] (Work) [phone] Social History Tobacco Use Types Packs/Day Years [...] have completed or the highest Mayda, MEd, RUBBER FLAP TUBER MACHINE OPERATOR, DEVIKA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 [...] Cell Free DNA (09/03/2019 2:29 PM CDT) [facility] gist Method Time Signature Lab Scanned NON [...] first documented in this encounter Care Teams Branch Lead Relationship Specialty Start Date End Date Krissy Gutierrez APRN HOME PLANNING CONSULTANT SALESPERSON PCP - General Nurse Practitioner 05/03/17 [address] [place], [place] [phone] Krissy Gutierrez APRN HOME PLANNING CONSULTANT SALESPERSON Assigned PCP 05/05/17 10/13/21 [address] [place] [address] documented as of this encounter
--- OUTSIDE RECORDS SUMMARY | 2021-11-02 09:05 | XMS_ITS | Encounter Summary ---
:1995 Author Organization [facility] Address [address] [place] [address] Care Team Providers Name Role Phone [facility] Md KIKI Murillo Primary Care Provider [phone] Reason for Visit Reason Comments Abdominal Pain PT reports four days RLQ abd pain. Pain improves w/ laying down, leaning over. Pain in waves, + rebound pain. Auth/Cert Specialty Diagnoses / Procedures Referred By Contact Refer red To Contact Oncology Diagnoses Ileitis, terminal, unspecified complication (H) Ileitis Uu [address] [place] [address] Phone: Referral ID Status Reason Start Date Expiration Date Visits Requ ested Visits Authorized [id number] 02/16/2015 02/16/2016 1 1 Encounter Details Date Type Department Care Team Description 02/17/2015 Surgery [facility] Giovanny Burch COLKatie NOSCOPY, WITH Endoscopy MD Kerry POLYPECTOMY AND BIOPSY [address] [facility] [address] [place] [address] [place], [place] [phone] (Wo rk) Surgery Details Date/Time Status Location [...] Comments Blood Pressure 121/81 02/17/2015 10:15 AM SEED CLEANING MACHINE OPERATOR Pulse 63 02/17/2015 6:18 AM SEED CLEANING MACHINE OPERATOR Temperature 36.8 ??C (98.3 ??F) 02/17/2015 6:18 AM SEED CLEANING MACHINE OPERATOR Respiratory Rate 21 02/17/2015 10:15 AM SEED CLEANING MACHINE OPERATOR Oxygen Saturation 98% 02/17/2015 10:15 AM SEED CLEANING MACHINE OPERATOR Inhaled Oxygen Concentration - - Weight 61.2 kg (135 lb) 02/17/2015 9:08 AM SEED CLEANING MACHINE OPERATOR Height 175.3 cm (5' 9) 02/17/2015 9:08 AM SEED CLEANING MACHINE OPERATOR Body Mass Index 19.94 02/17/2015 9:08 AM SEED CLEANING MACHINE OPERATOR documented in this encounter Discharge Summaries Glo Little PA-C - 02/18/2015 12:56 PM CST Images from the original note were not included. [facility] Service - Internal Medicine Discharge Summary Date of Service: 02/18/2015 Sharmaine Salas Date of : 1995 Age: [age] year old Date of Admission: 02/15/2015 Date of Discharge: 02/18/2015 3:15 PM Admitting Physician: Fredis Mas MD Discharge Physician: Gianni Martinez MD / Glo Little PA-C [phone] Discharging Service: Internal Medicine, [facility] Primary Provider: [facility] Md Lidia Outpatient To Do: - GI [...] course or discharge plan. Glo Little PA-C [facility] Pager: [phone] CLEANING MACHINE OPERATOR documented in this encounter Medications at Time [...] Pelletier MD - 02/18/2015 2:47 PM CST [facility] GASTROENTEROLOGY PROGRESS NOTE Sharmaine Salas [id number] 02/18/2015 SUBJECTIVE: Patient is doing well today [...] RLQ pain since Saturday. Presented initially to [facility] where ultrasound was concerning for possible appendicitis, but when she presented to [facility], her CT scan showed normal appendix [...] with questions. Margi Pelletier MD GI Fellow [phone] CLEANING MACHINE OPERATOR Associated attestation - Giovanny Burch MD - 02/18/2015 8:53 PM SEED CLEANING MACHINE OPERATOR Attestation: I performed a history and physical [...] with Dr. Elliott Pelletier MD GI Fellow [phone] CLEANING MACHINE OPERATOR Glo Little PA-Vera - 02/17/2015 12:58 PM [...] am, though per pt, Hgb 11.8 at [facility]. MCV 85. Likely dilutional component due to [...] during Care Team Rounds. Glo Little PA-C [facility] Pager: [phone] Team: Manoj Myers 2 Page Cross Cover after 5 pm: pager [phone] Subjective & Interval Hx: Feeling out of [...] 0.9% NaCl + KCl 20 mEq/L infusion CLEANING MACHINE OPERATOR Glo Little PA-C - 02/16/2015 2:05 PM CST Images from the original note were not included. [facility] Service - Internal Medicine Daily Note Date [...] am, though per pt, Hgb 11.8 at [facility]. MCV 85. Likely dilutional component due to [...] during Care Team Rounds. Glo Little PA-C [facility] Pager: [phone] Team: Manoj Myers 2 Page Cross Cover after 5 pm: pager [phone] Subjective & Interval Hx: Sharmaine Salas is a previously healthy 19 y.o. female who initially presented to [facility] yesterdaywith abdominal pain and was sent to [...] 0.9% NaCl + KCl 20 mEq/L infusion CLEANING MACHINE OPERATOR Laura Levy MD - 02/16/2015 9:21 AM CST GENERAL SURGERY PROGRESS NOTE Sharmaine Salas [id number] 19 year old female Date of Service: [...] intervention at this time Laura Levy MD, [facility] General Surgery PGY1 Pager [phone] CLEANING MACHINE OPERATOR Associated attestation - Arie Paul MD - 02/17/2015 4:50 PM SEED CLEANING MACHINE OPERATOR Patient seen and evaluated. Discussed with resident team and agree with note as written. Clinically,this is unlikely to be appendicitis in light of the length of symptoms. In addition, CT scan is not consistent with appendicitis. Continue further workup by internal medicine. documented in this encounter H&P Notes Fredis Mas MD - 02/16/2015 1:49 AM CST [facility] Medicine History and Physical Department of Internal Medicine Patient Name: Sharmaine Salas Age: [age] year old Date of : 1995 Date of Admission:02/15/2015 Primary care provider: [facility] Md Lidia Date of Service: 02/16/2015 Admitting [...] MD Internal Medicine Hospitalist & Staff Physician [facility] Pager: [phone] - GOLD 1 or 2 will assume care in morning. 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 She has been mostly in bed with this pain,but she continues to attend classes at [employer]. She has missed work due to [...] drink any raw milk. She traveled to [place] [facility] in July as a study abroad with no related health issues. Her last MP was Jan 25 - no issues. Sharmaine felt the pain is odd enough and persistent enough to go to [facility] for evaluation. There shewas noted to have RLQ pain that was concerning for appendicitis and sent to [employer] [facility] ED. 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 Sexually active with Boyfriend - uses [...] there is terminal ileitis. Fredis Mas MD CLEANING MACHINE OPERATOR documented in this encounter Consult Notes Lia Pelletier MD - 02/16/2015 6:29 PM CSTAssociated Order(s): GASTROENTEROLOGY IP CONSULT [facility] Gastroenterology Consultation Sharmaine Salas [id number] 19 year old 1995 02/16/2015 Date of [...] that in July 2014, she was in [place] [facility] for study abroad. She denies any [...] RLQ pain since Saturday. Presented initially to [facility] where ultrasound was concerning for possible appendicitis, but when she presented to [facility], her CT scan showed normal appendix [...] with questions. Margi Pelletier MD GI Fellow [phone] CLEANING MACHINE OPERATOR Associated attestation - Giovanny Burch MD - 02/16/2015 10:19 PM SEED CLEANING MACHINE OPERATOR Attestation: I performed a history and physical [...] CST Surgical Consult Note 02/15/15 Sharmaine Salas [id number] Chief complaint: RLQ pain HPI: Pt is [...] Lives with three other roommates in an [facility] apartment. 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 Alcohol: 2-3x/month, roughly 5 mixed drinks Smoking: [...] Odonnell. Miguelito Anguiano MD General Surgery PGY-2 CLEANING MACHINE OPERATOR Associated attestation - Lj Odonnell MD - 05/17/2015 2:00 PM SEED CLEANING MACHINE OPERATOR Agree with consult note Lj Odonnell documented in this encounter Nursing Notes Day Skaggs RN - 02/17/2015 10:46 AM CST Colonoscopy with biopsies completed. Pt had discomfort throughout, but given additional sedation with relief. Report called to pt nurse on 7C and transport here to take pt back to dept. CLEANING MACHINE OPERATOR documented in this encounter ED Notes Vipin Celaya MD - 02/16/2015 12:23 AM CST This patient is a 19-year-old female who was previously seen at [facility] with right lower quadrant abdominal pain. Patient [...] kept NPO. Vipin Celaya MD 02/16/15 0054 CLEANING MACHINE OPERATOR Jodi Brewer MD - 02/15/2015 7:07 PM [...] she is pain-free. She was evaluated at [facility] today and advised to come here to [...] bleeding or discharge. UPT was negative at [facility] today. Patient reports that she has mild [...] She has no other concerns or complaints. [facility] History, Lab, and Exam Findings 02/15/15: +history [...] and Surgical History, and [facility]. PAST MEDICAL HISTORY Past Medical [...] in ED 19. Critical Care time: None [facility] Diagnoses: None Labs Ordered and Resulted from Time of ED Arrival Up to the Time of Departure from the ED - No data to display Assessments & Plan (with Medical Decision Making) HISTORY TAKING INFORMATION: - History, ROS, SH, PMH and Physical exam performed myself in the presence of our medical review coordinator, EDnursing staff and the patient's friend. I obtained some collateral history originally when I took the referring phone call from the appointment provider. No interpretive services were needed. - Old chart from [facility] reviewed and revealed the patient has a [...] the objective testing and exam report [place] [facility] and shows that the patient has a [...] Otherwise as per the labs drawn at [facility] prior to arrival. - Urine: Pending - [...] Villavicencio, am serving as a trained medical review coordinator to document services personally performed by MD Cyn, based on the provider's statements to me. IJodi MD, was physically present and have reviewed and verified the accuracy of this note documented by Yulia Villavicencio. 02/15/2015 [facility] EMERGENCY DEPARTMENT Jodi Brewer MD 02/16/152052 CLEANING MACHINE OPERATOR Jodi Brewer MD - 02/15/2015 5:41 PM CST I received a phone call about this patient from the [facility]. Provider expressed concern of the patient [...] blood cell count Jodi Brewer MD 02/15/15 2153 CLEANING MACHINE OPERATOR Kathrine Stein RN - 02/15/2015 5:38 PM CST PT reports four days RLQ abd pain. Pain improves w/ laying down, leaning over. Pain in waves, + rebound pain. PT w/ labs from [facility]. CLEANING MACHINE OPERATOR documented in this encounter Miscellaneous Notes Plan [...] to escort to pharmacy/[facility] to meet ride. CLEANING MACHINE OPERATOR Plan of Care - Shy Trimble RN - 02/18/2015 5:18 AM CST Problem: Goal Outcome Summary Goal: Goal Outcome Summary Outcome: Improving VSS. Denies pain and N/V. Tolerating full liquids. Stool samples still needed, no BMs overnight. Continue plan of care. CLEANING MACHINE OPERATOR Plan of Care - Radha Nobles RN - 02/17/2015 9:10 PM CST Problem: Goal Outcome Summary Goal: Goal Outcome Summary Outcome: Improving VSS. Denies pain. Colonoscopy with biopsies done today. Tolerated full liqs diet. Up ad mable. Voidingbut saving. Pt in good spirits. P: continue with POC. Stool samples still needed for labs, pt aware. CLEANING MACHINE OPERATOR Plan of Care - Kristal Rodriguez - [...] until medication has cleared. Emotional, parents in [place]. P: Encourage ambulation, IS, emotional support., FALL PRECAUTIONS. CLEANING MACHINE OPERATOR Plan of Care - Catherine Valdez RN - 02/17/2015 4:44 AM CST Problem: Goal Outcome Summary Goal: Goal Outcome Summary Outcome: Improving BP slightly soft; per pt's baseline. Bowel prep complete at 0130. Stools clear x3. Denies pain. BS hyperactive. Up ad mable. Plan: will go for colonoscopy today. Pain management with dilaudid IV prn. CLEANING MACHINE OPERATOR Plan of Care - Radha Nobles RN - 02/16/2015 10:05 PM SEED CLEANING MACHINE OPERATOR Problem: Goal Outcome Summary Goal: Goal Outcome Summary Outcome: No Change VSS. C/o's abd cramping after bowel prep was started. Pain relieved with Dilaudid IV x1 and BM x2 ofgreenish/yellow watery stool then 1large formed stool. Voiding but not saved. Up ad mable. Pt still taking golytely (total 4liters) in prep fro colonoscopy tomorrow. Per ACCESS SERVICES ASSISTANT, pt might have to take to more golytely if stools are still not clear. P: continue to monitor status and continue with POC. Bear SWANSON if stools are not clear yet. CLEANING MACHINE OPERATOR Plan of Care - Teresa Mcgovern RN - 02/16/2015 2:23 PM CST Problem: Goal Outcome Summary Goal: Goal Outcome Summary Pt VSS. Reports intermittent pain to right lower abdomen. Refusing pain medication. Tolerating a clear liquid diet. May have colonoscopy tomorrow a.m. Awaiting orders. IVF cont as ordered. Friend at the bedside. Up independently. Will continue to monitor and follow plan of care. 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 She has been mostly in bed with [...] no significant ongoing stools. Seen initially at [facility], then sent to [facility]. Notably though her WBC was normal [...] Jessica Malone MD Utilization Review/ Case Management [facility]. CLEANING MACHINE OPERATOR Plan of Care - Shy Trimble RN [...] control pills at bedside, verified by pharmacy. CLEANING MACHINE OPERATOR documented in this encounter Plan of Treatment Not on filedocumented as of this encounter Procedures Procedure Name Priority Date/Time Associated Diagnosis Comme nts CRP INFLAMMATION Routine 02/18/2015 7:32 Ileitis, terminal, Re sults for this AM SEED CLEANING MACHINE OPERATOR unspecified procedure are i n complication (H) the results section. BASIC METABOLIC PANEL Routine 02/18/2015 7:32 Ileitis, termina l, Results for this AM SEED CLEANING MACHINE OPERATOR unspecified procedure are i n complication (H) the results section. CBC WITH PLATELETS Routine 02/18/2015 7:32 Ileitis, terminal, Results for this AM SEED CLEANING MACHINE OPERATOR unspecified procedure are i n complication (H) the results section. AFB STAIN NON BLOOD Routine 02/17/2015 10:51 Ileitis, terminal , Results for this AM SEED CLEANING MACHINE OPERATOR unspecified procedure are i n complication (H) the results section. AFB CULTURE AND STAIN Routine 02/17/2015 10:51 Ileitis, termin al, Results for this NON BLOOD AM SEED CLEANING MACHINE OPERATOR unspecified procedure are i n complication (H) the results section. SURGICAL PATHOLOGY Routine 02/17/2015 10:35 Resul ts for this EXAM AM SEED CLEANING MACHINE OPERATOR procedure are i n the results section. COLONOSCOPY, WITH 02/17/2015 9:33 Inflammed terminal POLYPECTOMY AND BIOPSY AM SEED CLEANING MACHINE OPERATOR ileum on CT COLONOSCOPY Routine 02/17/2015 9:19 Results for this AM SEED CLEANING MACHINE OPERATOR procedure are i n the results section. INR Routine 02/17/2015 6:35 Ileitis, terminal, Result s for this AM SEED CLEANING MACHINE OPERATOR unspecified procedure are i n complication (H) the results section. FOLATE Routine 02/17/2015 6:35 Ileitis, terminal, Result s for this AM SEED CLEANING MACHINE OPERATOR unspecified procedure are i n complication (H) the results section. CRP INFLAMMATION Routine 02/17/2015 6:35 Ileitis, terminal, Re sults for this AM SEED CLEANING MACHINE OPERATOR unspecified procedure are i n complication (H) the results section. COMPREHENSIVE Routine 02/17/2015 6:35 Ileitis, terminal, Resul ts for this METABOLIC PANEL AM SEED CLEANING MACHINE OPERATOR unspecified procedure ar e in complication (H) the results section. VITAMIN B12 Routine 02/17/2015 6:35 Ileitis, terminal, Result s for this AM SEED CLEANING MACHINE OPERATOR unspecified procedure are i n complication (H) the results section. CBC WITH PLATELETS Routine 02/17/2015 6:35 Ileitis, terminal, Results for this AM SEED CLEANING MACHINE OPERATOR unspecified procedure are i n complication (H) the results section. COMPREHENSIVE Routine 02/16/2015 6:35 Ileitis, terminal, Resul ts for this METABOLIC PANEL AM SEED CLEANING MACHINE OPERATOR unspecified procedure ar e in complication (H) the results section. CBC WITH PLATELETS Routine 02/16/2015 6:35 Ileitis, terminal, Results for this AM SEED CLEANING MACHINE OPERATOR unspecified procedure are i n complication (H) the results section. CT ABDOMEN PELVIS W STAT 02/15/2015 10:57 Resu lts for this CONTRAST PM SEED CLEANING MACHINE OPERATOR procedure are i n the results section. HCG QUALITATIVE URINE STAT 02/15/2015 8:49 Res ults for this PM SEED CLEANING MACHINE OPERATOR procedure are i n the results section. UA MACROSCOPIC WITH STAT 02/15/2015 8:49 Resul ts for this REFLEX TO MICRO AND PM SEED CLEANING MACHINE OPERATOR procedur e are in CULTURE the results section. US ABDOMEN COMPLETE STAT 02/15/2015 8:32 Resul ts for this PM SEED CLEANING MACHINE OPERATOR procedure are i n the results section. LACTIC ACID STAT 02/15/2015 7:29 Results for this PM SEED CLEANING MACHINE OPERATOR procedure are i n the results section. CRP INFLAMMATION Routine 02/15/2015 7:29 Ileitis, terminal, Re sults for this PM SEED CLEANING MACHINE OPERATOR unspecified procedure are i n complication (H) the results section. COMPREHENSIVE STAT 02/15/2015 7:29 Results for this METABOLIC PANEL PM SEED CLEANING MACHINE OPERATOR procedure ar e in the results section. documented in this encounter Results CRP inflammation (02/18/2015 7:32 AM SEED CLEANING MACHINE OPERATOR) Analysis Performed At Patho logist Time Signature CRP Inflammation 8.0 0.0 - 8.0 [facility] mg/L [facility] Specimen Anatomical Collection Method Collection Time Receive d Time (Source) Location / / Volume Laterality Blood specimen 02/18/2015 7:32 AM 015 7:54 (specimen) SEED CLEANING MACHINE OPERATOR AM SEED CLEANING MACHINE OPERATOR Glo Little PA-C LAB - BLOOD ORDERABLES Performing Organization Address City/State/ZIP Code Phon e Number [facility] [address] [place] [address] [facility] (ABNORMAL) Basic metabolic panel (02/18/2015 7:32 AM SEED CLEANING MACHINE OPERATOR) Patholo gist Method Time Signature Sodium 139 133 - 144 [facility] mmol/L [facility] Potassium 4.0 3.4 - 5.3 [facility] mmol/L [facility] Chloride 109 94 - 109 [facility] mmol/L [facility] Carbon Dioxide 24 20 - 32 [facility] mmol/L [facility] Anion Gap 6 3 - 14 [facility] mmol/L [facility] Glucose 92 70 - 99 [facility] mg/dL [facility] Urea Nitrogen 1 (L) 7 - 30 [facility] mg/dL [facility] Creatinine 0.60 0.52 - [facility] 1.04 [facility] mg/dL [facility] GFR Estimate >90 >60 [facility] Non GFR Calc mL/min/1. [facility] 7m2 [facility] GFR Estimate >90 >60 [facility] If Black GFR Calc mL/min/1. [place] [facility] 7m2 [facility] Calcium 8.0 (L) 8.5 - [facility] 10.1 [facility] mg/dL [facility] Specimen Anatomical Collection Method Collection Time Receive d Time (Source) Location / / Volume Laterality Blood specimen 02/18/2015 7:32 AM 015 7:54 (specimen) SEED CLEANING MACHINE OPERATOR AM SEED CLEANING MACHINE OPERATOR Glo Little PA-C LAB - BLOOD ORDERABLES Performing Organization Address City/State/ZIP Code Phon e Number [facility] [address] [place], [place] [id number] [place] [address] (ABNORMAL) CBC with platelets (02/18/2015 7:32 AM SEED CLEANING MACHINE OPERATOR) [facility] gist Method Time Signature WBC 4.2 4.0 - 11.0 [facility] 10e9/L [facility] RBC Count 3.73 (L) 3.8 - 5.2 [facility] 10e12/L [facility] Hemoglobin 10.3 (L) 11.7 - [facility] 15.7 g/dL [facility] Hematocrit 31.3 (L) 35.0 - [facility] 47.0 % [facility] MCV 84 78 - 100 [facility] fl [facility] MCH 27.6 26.5 - [facility] 33.0 pg [facility] MCHC 32.9 31.5 - [facility] 36.5 g/dL [facility] RDW 12.7 10.0 - [facility] 15.0 % [facility] Platelet Count 149 (L) 150 - 450 [facility] 10e9/L [facility] Specimen Anatomical Collection Method Collection Time Receive d Time (Source) Location / / Volume Laterality Blood specimen 02/18/2015 7:32 AM 015 7:54 (specimen) SEED CLEANING MACHINE OPERATOR AM SEED CLEANING MACHINE OPERATOR Glo Little PA-C LAB - BLOOD ORDERABLES Performing Organization Address City/State/ZIP Code Phon e Number [address] [address] [facility] AFB Stain Non Blood (02/17/2015 10:51 AM SEED CLEANING MACHINE OPERATOR) [facility] Method Time Signature Specimen Tissue [facility] Stain Negative for acid fast bacteria [facility] [employer],[address] Micro Report FINAL [facility] Status 02/20/2015 [facility] Specimen Anatomical Collection Method Collection Time Receive d Time (Source) Location / / Volume Laterality 02/17/2015 10:51 02/17/2015 4:50 AM SEED CLEANING MACHINE OPERATOR PM SEED CLEANING MACHINE OPERATOR Giovanny Burch MD LAB - MICRO GENERAL ORD ERABLES Performing Organization Address City/State/ZIP Code Phon e Number [address] [address] [place] [employer] Culture Non Blood (02/17/2015 10:51 AM SEED CLEANING MACHINE OPERATOR) [facility] Method Time Signature Specimen Tissue [facility] Culture Micro Culture negative for acid fast bacilli [facility] [employer] [id number] [facility] Micro Report FINAL [facility] Status 04/15/2015 [facility] Specimen Anatomical Collection Method Collection Time Receive d Time (Source) Location / / Volume Laterality 02/17/2015 10:51 02/17/2015 4:50 AM SEED CLEANING MACHINE OPERATOR PM SEED CLEANING MACHINE OPERATOR Giovanny Burch MD LAB - MICRO GENERAL ORD ERABLES Performing Organization Address City/State/ZIP Code Phon e Number [address] [address] [place] Surgical pathology exam (02/17/2015 10:35 AM SEED CLEANING MACHINE OPERATOR) Component Value Ref Test Analysis Performed At [facility] Range Method Time Signature Copath Report Patient Name: SHARMAINE SALAS MR#: [id number] Specimen #: [id number] Collected: 02/17/2015 Received: 02/17/2015 Reported: 02/18/2015 15:18 [...] Electronically signed out by: Giles Wong M.D., [facility] CLINICAL HISTORY: The patient is a 19 [...] Microscopic examination is performed. CPT Codes: A: 54679-GS0 B: 95244-JB5 C: 51443-LO0 TESTING LAB LOCATION: [facility], [facility] [address] [place] [address] ?? [id number] COLLECTION SITE: Client: [facility] Location: [id number] (B) Specimen Anatomical Collection Method Collection Time Receive d Time (Source) Location / / Volume Laterality 02/17/2015 10:35 02/17/2015 2:55 AM SEED CLEANING MACHINE OPERATOR PM SEED CLEANING MACHINE OPERATOR Giovanny HARDING - TATIANA Performing Organization Address City/State/ZIP Code Phon e Number [facility] COLONOSCOPY (02/17/2015 9:19 AM SEED CLEANING MACHINE OPERATOR) [facility] gist Method Time Signature COLONOSCOPY [facility] RADIOLOGY [address] [place], [place] [id number] [phone] ? End oscopy Department RESULTS Patient Name: Sharmaine Salas ?Procedure Date: 02/17/2015 9:19 AM ? Accou nt Number: [id number] Date of : 1995 ?Admit Type: Inp [...] / / Volume Laterality 02/17/2015 9:19 AM SEED CLEANING MACHINE OPERATOR Giovanny Burch MD PROCEDURES Performing Organization Address City/State/ZIP Code Phon e Number RADIOLOGY RESULTS (ABNORMAL) CRP inflammation (02/17/2015 6:35 AM SEED CLEANING MACHINE OPERATOR) Patholo gist Method Time Signature CRP Inflammation 16.0 (H) 0.0 - 8.0 [facility] mg/L [facility] Specimen Anatomical Collection Method Collection Time Receive d Time (Source) Location / / Volume Laterality Blood specimen 02/17/2015 6:35 AM 015 7:21 (specimen) SEED CLEANING MACHINE OPERATOR AM SEED CLEANING MACHINE OPERATOR Glo Little PA-C LAB - BLOOD ORDERABLES Performing Organization Address City/[facility]/ZIP Code Phon e Number [facility] [address] [place], [place] [id number] [place] [address] Folate (02/17/2015 6:35 AM SEED CLEANING MACHINE OPERATOR) P athologist Signature Folate 14.0 >5.4 ng/mL [facility] Comment: Interp: >5.4 ng/mL = Normal Specimen Anatomical Collection Method Collection Time Receive d Time (Source) Location / / Volume Laterality Blood specimen 02/17/2015 6:35 AM 015 7:21 (specimen) SEED CLEANING MACHINE OPERATOR AM SEED CLEANING MACHINE OPERATOR Glo Little PA-C LAB - BLOOD ORDERABLES Performing Organization Address City/State/ZIP Code Phon e Number [facility] [address] [place] [address] [facility] Vitamin B12 (02/17/2015 6:35 AM SEED CLEANING MACHINE OPERATOR) P athologist Signature Vitamin B12 522 193 - 986 [facility] pg/mL [facility] Comment: Interp: [phone] = Normal Specimen Anatomical Collection Method Collection Time Receive d Time (Source) Location / / Volume Laterality Blood specimen 02/17/2015 6:35 AM 015 7:21 (specimen) SEED CLEANING MACHINE OPERATOR AM SEED CLEANING MACHINE OPERATOR Glo Little PA-C LAB - BLOOD ORDERABLES Performing Organization Address City/State/ZIP Code Phon e Number [facility] [address] [place] [address] [facility] (ABNORMAL) Comprehensive metabolic panel (02/17/2015 6:35 AM SEED CLEANING MACHINE OPERATOR) Patholo gist Method Time Signature Sodium 144 133 - 144 [facility] mmol/L [facility] Potassium 3.8 3.4 - 5.3 [facility] mmol/L [facility] Chloride 112 (H) 94 - 109 [facility] mmol/L [facility] Carbon Dioxide 24 20 - 32 [facility] mmol/L [facility] Anion Gap 8 3 - 14 [facility] mmol/L [facility] Glucose 93 70 - 99 [facility] mg/dL [facility] Urea Nitrogen 1 (L) 7 - 30 [facility] mg/dL [facility] Creatinine 0.65 0.52 - [facility] 1.04 [facility] mg/dL [facility] GFR Estimate >90 >60 [facility] Non GFR Calc mL/min/1. [facility] [address] GFR Estimate If >90 >60 [facility] Black GFR Calc mL/min/1. [place] [facility]ICAL 7m2 [facility] Calcium 7.3 (L) 8.5 - [facility] 10.1 [facility] mg/dL [facility] Bilirubin Total 0.4 0.2 - 1.3 [facility] mg/dL [facility] Albumin 2.6 (L) 3.4 - 5.0 [facility] g/dL [facility] Protein Total 5.4 (L) 6.8 - 8.8 [facility] g/dL [facility] Alkaline 44 40 - 150 [facility] Phosphatase U/L [facility] ALT 14 0 - 50 [facility] U/L [facility] AST 15 0 - 45 [facility] U/L [facility] Specimen Anatomical Collection Method Collection Time Receive d Time (Source) Location / / Volume Laterality Blood specimen 02/17/2015 6:35 AM 015 7:21 (specimen) SEED CLEANING MACHINE OPERATOR AM SEED CLEANING MACHINE OPERATOR Glo Little PA-C LAB - BLOOD ORDERABLES Performing Organization Address City/[facility]/ZIP Code Phon e Number [address] INR (02/17/2015 6:35 AM SEED CLEANING MACHINE OPERATOR) P athologist Signature INR 1.13 0.86 - 1.14 [facility] Specimen Anatomical Collection Method Collection Time Receive d Time (Source) Location / / Volume Laterality Blood specimen 02/17/2015 6:35 AM 015 7:21 (specimen) SEED CLEANING MACHINE OPERATOR AM SEED CLEANING MACHINE OPERATOR Glo Little PA-C LAB - BLOOD ORDERABLES Performing Organization Address City/[facility]/ZIP Code Phon e Number [address] (ABNORMAL) CBC with platelets (02/17/2015 6:35 AM SEED CLEANING MACHINE OPERATOR) Patholo gist Method Time Signature WBC 4.2 4.0 - 11.0 [facility] 10e9/L [facility] RBC Count 3.40 (L) 3.8 - 5.2 [facility] 10e12/L [facility] Hemoglobin 9.3 (L) 11.7 - [facility] 15.7 g/dL [facility] Hematocrit 28.7 (L) 35.0 - [facility] 47.0 % [facility] MCV 84 78 - 100 [facility] fl [facility] MCH 27.4 26.5 - [facility] 33.0 pg [facility] MCHC 32.4 31.5 - [facility] 36.5 g/dL [facility] RDW 13.0 10.0 - [facility] 15.0 % [facility] Platelet Count 134 (L) 150 - 450 [facility] 10e9/L [facility] Specimen Anatomical Collection Method Collection Time Receive d Time (Source) Location / / Volume Laterality Blood specimen 02/17/2015 6:35 AM 015 7:21 (specimen) SEED CLEANING MACHINE OPERATOR AM SEED CLEANING MACHINE OPERATOR Glo Little PA-C LAB - BLOOD ORDERABLES Performing Organization Address City/[facility]/ZIP Code Phon e Number [facility] [address] (ABNORMAL) CBC with platelets (02/16/2015 6:35 AM SEED CLEANING MACHINE OPERATOR) [facility] Musations Method Time Signature WBC 4.6 4.0 - 11.0 [facility] 10e9/L [facility] RBC Count 3.40 (L) 3.8 - 5.2 [facility] 10e12/L [facility] Hemoglobin 9.4 (L) 11.7 - [facility] 15.7 g/dL [facility] Hematocrit 29.0 (L) 35.0 - [facility] 47.0 % [facility] MCV 85 78 - 100 [facility] fl [facility] MCH 27.6 26.5 - [facility] 33.0 pg [facility] MCHC 32.4 31.5 - [facility] 36.5 g/dL [facility] RDW 12.9 10.0 - [facility] 15.0 % [facility] Platelet Count 117 (L) 150 - 450 [facility] 10e9/L [facility] Specimen Anatomical Collection Method Collection Time Receive d Time (Source) Location / / Volume Laterality Blood specimen 02/16/2015 6:35 AM 015 7:48 (specimen) SEED CLEANING MACHINE OPERATOR AM SEED CLEANING MACHINE OPERATOR Fredis Mas MD LAB - BLOOD ORDERABLES Performing Organization Address City/[facility]/ZIP Code Phon e Number [facility] [address] (ABNORMAL) Comprehensive metabolic panel (02/16/2015 6:35 AM SEED CLEANING MACHINE OPERATOR) [facility] Musations Method Time Signature Sodium 139 133 - 144 [facility] mmol/L [facility] Potassium 3.8 3.4 - 5.3 [facility] mmol/L [facility] Chloride 108 94 - 109 [facility] mmol/L [facility] Carbon Dioxide 24 20 - 32 [facility] mmol/L [facility] Anion Gap 7 3 - 14 [facility] mmol/L [facility] Glucose 69 (L) 70 - 99 [facility] mg/dL [facility] Urea Nitrogen 5 (L) 7 - 30 [facility] mg/dL [facility] Creatinine 0.66 0.52 - [facility] 1.04 [facility] mg/dL [facility] GFR Estimate >90 >60 [facility] Non GFR Calc mL/min/1. [facility] [address] GFR Estimate If >90 >60 [facility] Black GFR Calc mL/min/1. [place] M EDICAL 7m2 [facility] Calcium 7.3 (L) 8.5 - [facility] 10.1 [facility] mg/dL [facility] Bilirubin Total 0.3 0.2 - 1.3 [facility] mg/dL [facility] Albumin 2.4 (L) 3.4 - 5.0 [facility] g/dL [facility] Protein Total 5.4 (L) 6.8 - 8.8 [facility] g/dL [facility] Alkaline 42 40 - 150 [facility] Phosphatase U/L [facility] ALT 7 0 - 50 [facility] U/L [facility] AST 13 0 - 45 [facility] U/L [facility] Specimen Anatomical Collection Method Collection Time Receive d Time (Source) Location / / Volume Laterality Blood specimen 02/16/2015 6:35 AM 015 7:48 (specimen) SEED CLEANING MACHINE OPERATOR AM SEED CLEANING MACHINE OPERATOR Fredis Mas MD LAB - BLOOD ORDERABLES Performing Organization Address City/State/ZIP Code Phon e Number [facility] [address] [place] [address] [facility] CT Abdomen Pelvis w Contrast (02/15/2015 10:57 PM SEED CLEANING MACHINE OPERATOR) Anatomical Region Laterality Modality Abdomen/Pelvis, SUBRAD CT BODY, UMP CT ABDOMEN PELVIS Computed Tomography Specimen (Source) Anatomical Location Collection Method / Collectio n Time Received Time / Laterality Volume Impressions 02/16/2015 7:27 AM SEED CLEANING MACHINE OPERATOR Impression: 1. Moderately thickened segment of termi nal ileum with adjacent inflammatory changes and small quantity of free fluid, which may correspond to findings on recent ultraso und. This could be related to infection or inflammatory bowel disease. 2. The appendix is normal. I have personally reviewed the examinati on and initial interpretation and I agree with the findings. ADNERSON COY MD Narrative 02/16/2015 7:27 AM SEED CLEANING MACHINE OPERATOR Examination: ??CT ABDOMEN PELVIS W CONTRAST 02/15/2015 [...] ORDERABLES HCG qualitative urine (02/15/2015 8:49 PM SEED CLEANING MACHINE OPERATOR) Analysis Performed At Patho logist Time Signature HCG Qual Urine Negative NEG [facility] Specimen Anatomical Collection Method Collection Time Receive d Time (Source) Location / / Volume Laterality Urine specimen URINE SPECIMEN / 02/15/2015 8:49 PM 03/2014 8:57 (specimen) Unknown SEED CLEANING MACHINE OPERATOR PM SEED CLEANING MACHINE OPERATOR Jodi Pacheco MD LAB - URINE ORDERABLES Performing Organization Address City/[facility]/ZIP Code Phon e Number [facility] [address] [place] [address] [facility] (ABNORMAL) UA reflex to Microscopic and Culture (02/15/2015 8:49 PM SEED CLEANING MACHINE OPERATOR) Patholo gist Method Time Signature Color Urine Yellow [facility] Appearance Urine Clear [facility] Glucose Urine Negative NEG mg/dL [facility] Bilirubin Urine Negative NEG [facility] Ketones Urine 10 (A) NEG mg/dL [facility] Specific [place] 1.009 1.003 - [facility] Urine 1.035 [facility] Blood Urine Negative NEG [facility] pH Urine 6.0 5.0 - 7.0 [facility] pH [facility] Protein Albumin Negative NEG mg/dL [facility] Urine [facility] Urobilinogen Normal 0.0 - 2.0 [facility] mg/dL mg/dL [facility] Nitrite Urine Negative NEG [facility] Leukocyte Negative NEG [facility] Esterase Urine [facility] Source Midstream [facility] Urine [facility] Specimen Anatomical Collection Method Collection Time Receive d Time (Source) Location / / Volume Laterality Urine specimen MID-STREAM URINE 02/15/2015 8:49 PM 03/2014 8:57 (specimen) SAMPLE / Unknown SEED CLEANING MACHINE OPERATOR PM SEED CLEANING MACHINE OPERATOR Jodi Pacheco MD LAB - URINE ORDERABLES Performing Organization Address City/State/ZIP Code Phon e Number [facility] [address] [place] [address] [facility] (ABNORMAL) US Abdomen Complete (02/15/2015 8:32 PM SEED CLEANING MACHINE OPERATOR) Component Value Ref Test Analysis Performed At [facility] gist Range Method Time Signature Radiologist Possible RADIOLOGY flags appendicitis RESULTS (Urgent) Anatomical Region Laterality Modality Abdomen/Pelvis Ultrasound Specimen (Source) Anatomical Location Collection Method / Collectio n Time Received Time / Laterality Volume Impressions 02/15/2015 10:13 PM SEED CLEANING MACHINE OPERATOR Impression: Noncompressible appendix measuring up to 1.3 [...] ANDERSON COY MD Narrative 02/15/2015 10:13 PM SEED CLEANING MACHINE OPERATOR Exam: US ABDOMEN COMPLETE, 02/15/2015 8:34 PM [...] ORDERABLES (ABNORMAL) CRP inflammation (02/15/2015 7:29 PM SEED CLEANING MACHINE OPERATOR) [facility] Method Time Signature CRP Inflammation 55.0 (H) 0.0 - 8.0 [facility] mg/L [facility] Specimen Anatomical Collection Method Collection Time Receive d Time (Source) Location / / Volume Laterality 02/15/2015 7:29 PM 5 7:50 SEED CLEANING MACHINE OPERATOR PM SEED CLEANING MACHINE OPERATOR Jodi Pacheco MD LAB - BLOOD ORDERABLES Performing Organization Address City/State/ZIP Code Phon e Number [facility] [address] [place], [place] [id number] [place] [address] Lactic acid (02/15/2015 7:29 PM SEED CLEANING MACHINE OPERATOR) athologist Signature Lactic Acid 0.7 0.4 - 2.0 [facility] mmol/L [facility] Specimen Anatomical Collection Method Collection Time Receive d Time (Source) Location / / Volume Laterality Blood specimen 02/15/2015 7:29 PM 015 7:50 (specimen) SEED CLEANING MACHINE OPERATOR PM SEED CLEANING MACHINE OPERATOR Jodi Pacheco MD LAB - BLOOD ORDERABLES Performing Organization Address City/State/ZIP Code Phon e Number [facility] [address] [place], [place] [phone] [place] [address] (ABNORMAL) Comprehensive metabolic panel (02/15/2015 7:29 PM SEED CLEANING MACHINE OPERATOR) [facility] Method Time Signature Sodium 138 133 - 144 [facility] mmol/L [facility] Potassium 3.6 3.4 - 5.3 [facility] mmol/L [facility] Chloride 107 94 - 109 [facility] mmol/L [facility] Carbon Dioxide 25 20 - 32 [facility] mmol/L [facility] Anion Gap 7 3 - 14 [facility] mmol/L [facility] Glucose 77 70 - 99 [facility] mg/dL [facility] Urea Nitrogen 9 7 - 30 [facility] mg/dL [facility] Creatinine 0.66 0.52 - [facility] 1.04 [facility] mg/dL [facility] GFR Estimate >90 >60 [facility] Non GFR Calc mL/min/1. [facility] [address] GFR Estimate If >90 >60 [facility] Black GFR Calc mL/min/1. [place] [facility] 7m2 [facility] Calcium 8.3 (L) 8.5 - [facility] 10.1 [facility] mg/dL [facility] Bilirubin Total 0.2 0.2 - 1.3 [facility] mg/dL [facility] Albumin 3.0 (L) 3.4 - 5.0 [facility] g/dL [facility] Protein Total 6.6 (L) 6.8 - 8.8 [facility] g/dL [facility] Alkaline 51 40 - 150 [facility] Phosphatase U/L [facility] ALT 12 0 - 50 [facility] U/L [facility] AST 14 0 - 45 [facility] U/L [facility] Specimen Anatomical Collection Method Collection Time Receive d Time (Source) Location / / Volume Laterality Blood specimen 02/15/2015 7:29 PM 015 7:50 (specimen) SEED CLEANING MACHINE OPERATOR PM SEED CLEANING MACHINE OPERATOR Jodi Pacheco MD LAB - BLOOD ORDERABLES Performing Organization Address City/State/ZIP Code Phon e Number [facility] [address] [place], [place] [phone] [place] [address] documented in this encounter Visit Diagnoses Not on filedocumented in this encounter Administered Medications Inactive Administered Medications - up to 3 most recent administrations Medication Order MAR Action Action Date Dose Rate Site fentaNYL (SUBLIMAZE) injection Given 02/17/2015 10:10 AM SEED CLEANING MACHINE OPERATOR 50 mcg PRN, Starting on Peggy 02/17/15 at 0953, Intra-procedure Given 02/17/2015 10:03 AM SEED CLEANING MACHINE OPERATOR 50 mcg Given 02/17/2015 9:58 AM SEED CLEANING MACHINE OPERATOR 50 mcg midazolam (VERSED) injection Given 02/17/2015 10:10 AM SEED CLEANING MACHINE OPERATOR 1 mg PRN, Starting on Peggy 02/17/15 at 0953, Intra-procedure Given 02/17/2015 10:06 AM SEED CLEANING MACHINE OPERATOR 1 mg Given 02/17/2015 10:03 AM SEED CLEANING MACHINE OPERATOR 1 mg simethicone (MYLICON) suspension Given 02/17/2015 9:53 AM SEED CLEANING MACHINE OPERATOR 2 mLs PRN, Starting on Peggy 02/17/15 at 0953, Intra-procedure documented in this encounter Active and Recently Administered Medications Times are shown in SEED CLEANING MACHINE OPERATOR. Scheduled Medication Order 02/16/2015 02/17/2015 02/18/2015 desogestrel-ethinyl [...] 12 noon, give DAY BEFORE PROCEDURE from [id number]. One 8 ounce glass every 15 min [...] documented in this encounter Care Teams Ceramic Chemist Relationship Specialty Start Date End Date [facility] Md Lidia, PCP - General 02/15/15 05/02/[address] [place] [id number] documented as of this encounter
--- OUTSIDE RECORDS SUMMARY | 2021-11-02 09:05 | XMS_ITS | Encounter Summary ---
:1995 Author Organization [facility] Address [address] [place] [address] Care Team Providers Name Role Phone [place] [facility] Md KIKI Murillo Primary Care Provider [phone] Reason for Visit Reason Comments Abdominal Pain PT reports four days RLQ abd pain. Pain improves w/ laying down, leaning over. Pain in waves, + rebound pain. Auth/Cert Specialty Diagnoses / Procedures Referred By Contact Refer red To Contact Oncology Diagnoses Ileitis, terminal, unspecified complication (H) Ileitis Uu [address] [place] [address] Phone: Referral ID Status Reason Start Date Expiration Date Visits Requ ested Visits Authorized [id number] 02/16/2015 02/16/2016 1 1 Encounter Details Date Type Department Care Team Description 02/15/2015 - [facility] Jodi Pacheco MD [facility] [place] [address] Ileitis, terminal, 02/18/2015 Encounter [facility] [address] Vipin Valentine MD unspecified [facility] Fredis Mas MD [address] [facility] [address] [place], [place] [id number] complication (H) 500 [facility] Gianni Martinez MD [facility]0 [facility] [address] [place], [place] [address] [place] [address] Social History Tobacco Use Types [...] Comments Blood Pressure 118/61 02/18/2015 7:25 AM SOLAR CONSULTANT Pulse 55 02/18/2015 4:33 AM SOLAR CONSULTANT Temperature 36.4 ??C (97.6 ??F) 02/18/2015 7:25 AM SOLAR CONSULTANT Respiratory Rate 18 02/18/2015 7:25 AM SOLAR CONSULTANT Oxygen Saturation 100% 02/18/2015 7:25 AM SOLAR CONSULTANT Inhaled Oxygen Concentration - - Weight 61.2 kg (135 lb) 02/17/2015 9:08 AM SOLAR CONSULTANT Height 175.3 cm (5' 9) 02/17/2015 9:08 AM SOLAR CONSULTANT Body Mass Index 19.94 02/17/2015 9:08 AM SOLAR CONSULTANT documented in this encounter Discharge Summaries Glo Little PA-C - 02/18/2015 12:56 PM CST Images from the original note were not included. [facility] - Internal Medicine Discharge Summary Date of Service: 02/18/2015 Sharmaine Salas Date of : 1995 Age: [age] year old Date of Admission: 02/15/2015 Date of Discharge: 02/18/2015 3:15 PM Admitting Physician: Fredis Mas MD Discharge Physician: Gianni Martinez MD / Glo Little PA-C [phone] Discharging Service: Internal Medicine, [facility] Primary Provider: [facility] Md Lidia Outpatient To Do: - GI [...] course or discharge plan. Glo Little PA-C [facility] Pager: [phone] R CONSULTANT documented in this encounter Medications at Time [...] Pelletier MD - 02/18/2015 2:47 PM CST [facility] GASTROENTEROLOGY PROGRESS NOTE Sharmaine Salas [id number] 02/18/2015 SUBJECTIVE: Patient is doing well today [...] RLQ pain since Saturday. Presented initially to [place] where ultrasound was concerning for possible appendicitis, but when she presented to [facility], her CT scan showed normal appendix but [...] with questions. Margi Pelletier MD GI Fellow [phone] R CONSULTANT Associated attestation - Giovanny Burch MD - 02/18/2015 8:53 PM SOLAR CONSULTANT Attestation: I performed a history and physical [...] with Dr. Elliott Pelletier MD GI Fellow [phone] R CONSULTANT Glo Littel PA-Vera - 02/17/2015 12:58 PM CST Images [...] during Care Team Rounds. Glo Little PA-C [facility] Pager: [phone] Team: Manoj Myers 2 Page Cross Cover after 5 pm: pager [phone] Subjective & Interval Hx: Feeling out of [...] 0.9% NaCl + KCl 20 mEq/L infusion R CONSULTANT Glo Little PA-C - 02/16/2015 2:05 PM CST Images from the original note were not included. [facility] - Internal Medicine Daily Note Date [...] am, though per pt, Hgb 11.8 at [place]. MCV 85. Likely dilutional component due to [...] during Care Team Rounds. Glo Little PA-C [facility] Pager: [phone] Team: Manoj Myers 2 Page Cross Cover after 5 pm: pager [phone] Subjective & Interval Hx: Sharmaine Salas is a previously healthy 19 y.o. female who initially presented to [place] yesterdaywith abdominal pain and was sent to [...] have travel outside of the country to [facility] this past July and visited [...] 0.9% NaCl + KCl 20 mEq/L infusion R CONSULTANT Laura Levy MD - 02/16/2015 9:21 AM CST GENERAL SURGERY PROGRESS NOTE Sharmaine Salas [id number] 19 year old female Date of Service: [...] this time Laura Levy MD, [facility] General Surgery PGY1 Pager [phone] R CONSULTANT Associated attestation - Arie Paul MD - 02/17/2015 4:50 PM SOLAR CONSULTANT Patient seen and evaluated. Discussed with resident team and agree with note as written. Clinically,this is unlikely to be appendicitis in light of the length of symptoms. In addition, CT scan is not consistent with appendicitis. Continue further workup by internal medicine. documented in this encounter H&P Notes Fredis Mas MD - 02/16/2015 1:49 AM CST [facility] History and Physical Department of Internal Medicine Patient Name: Sharmaine Salas Age: [age] year old Date of : 1995 Date of Admission:02/15/2015 Primary care provider: [facility] Md Lidia Date of Service: 02/16/2015 Admitting [...] MD Internal Medicine Hospitalist & Staff Physician [facility] Pager: [phone] - GOLD 1 or 2 will assume care in morning. 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 She has been mostly in bed with this pain,but she continues to attend classes at [employer]. She has missed work due to the [...] up until this weekend. 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 She did NOT drink any raw milk. She traveled to [facility] in July as a study abroad with no related health issues. Her last MP was Jan 25 - no issues. Sharmaine felt the pain is odd enough and persistent enough to go to [facility] for evaluation. There shewas noted to have RLQ pain that was concerning for appendicitis and sent to [employer] ED. 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 Fredis Mas MD R CONSULTANT documented in this encounter Consult Notes Lia Pelletier MD - 02/16/2015 6:29 PM CSTAssociated Order(s): GASTROENTEROLOGY IP CONSULT [facility] Gastroenterology Consultation Sharmaine Salas [id number] 19 year old 1995 02/16/2015 Date of [...] July 2014, she was in [place] [place] [facility] for study abroad. She denies any [...] RLQ pain since Saturday. Presented initially to [place] where ultrasound was concerning for possible appendicitis, but when she presented to [facility], her CT scan showed normal appendix but [...] with questions. Margi Pelletier MD GI Fellow [phone] R CONSULTANT Associated attestation - Giovanny Burch MD - 02/16/2015 10:19 PM SOLAR CONSULTANT Attestation: I performed a history and physical [...] CST Surgical Consult Note 02/15/15 Sharmaine Salas [id number] Chief complaint: RLQ pain HPI: Pt is [...] Lives with three other roommates in [facility] apartment. 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 Alcohol: 2-3x/month, roughly 5 mixed drinks Smoking: [...] Odonnell. Miguelito Anguiano MD General Surgery PGY-2 R CONSULTANT Associated attestation - Lj Odonnell MD - 05/17/2015 2:00 PM SOLAR CONSULTANT Agree with consult note Lj Odonnell documented in this encounter Nursing Notes Day Skaggs RN - 02/17/2015 10:46 AM CST Colonoscopy with biopsies completed. Pt had discomfort throughout, but given additional sedation with relief. Report called to pt nurse on 7C and transport here to take pt back to dept. R CONSULTANT documented in this encounter ED Notes Vipin Celaya MD - 02/16/2015 12:23 AM CST This patient is a 19-year-old female who was previously seen at [facility] with right lower quadrant abdominal pain. Patient [...] kept NPO. Vipin Celaya MD 02/16/15 0054 R CONSULTANT Jodi Brewer MD - 02/15/2015 7:07 PM [...] she is pain-free. She was evaluated at [place] today and advised to come here to [...] bleeding or discharge. UPT was negative at [place] today. Patient reports that she has mild [...] She has no other concerns or complaints. [place] History, Lab, and Exam Findings 02/15/15: +history [...] and Surgical History, and [facility]. PAST MEDICAL HISTORY Past Medical [...] in ED 19. Critical Care time: None [facility] Diagnoses: None Labs Ordered and Resulted from Time of ED Arrival Up to the Time of Departure from the ED - No data to display Assessments & Plan (with Medical Decision Making) HISTORY TAKING INFORMATION: - History, ROS, SH, PMH and Physical exam performed myself in the presence of our medical receptionist, EDnursing staff and the patient's friend. I obtained some collateral history originally when I took the referring phone call from the appointment provider. No interpretive services were needed. - Old chart from [facility] reviewed and revealed the patient [...] the objective testing and exam report from [facility] and shows that the patient has a [...] Otherwise as per the labs drawn at [place] prior to arrival. - Urine: Pending - [...] Villavicencio, am serving as a trained medical receptionist to document services personally performed by MD Cyn, based on the provider's statements to me. IJodi MD, was physically present and have reviewed and verified the accuracy of this note documented by Yulia Villavicencio. 02/15/2015 [facility], EMERGENCY DEPARTMENT Jodi Brewer MD 02/16/152052 R CONSULTANT Jodi Brewer MD - 02/15/2015 5:41 PM CST I received a phone call about this patient from the [facility]. Provider expressed concern of the [...] cell count Jodi Brewer MD 02/15/15 1743 R CONSULTANT Kathrine Stein, YOSELYN - 02/15/2015 5:38 PM CST PT reports four days RLQ abd pain. Pain improves w/ laying down, leaning over. Pain in waves, + rebound pain. PT w/ labs from [facility]. R CONSULTANT documented in this encounter Miscellaneous Notes Plan [...] to escort to pharmacy/frontdoor to meet ride. R CONSULTANT Plan of Care - Shy Trimble RN - 02/18/2015 5:18 AM CST Problem: Goal Outcome Summary Goal: Goal Outcome Summary Outcome: Improving VSS. Denies pain and N/V. Tolerating full liquids. Stool samples still needed, no BMs overnight. Continue plan of care. R CONSULTANT Plan of Care - Radha Nobles RN - 02/17/2015 9:10 PM CST Problem: Goal Outcome Summary Goal: Goal Outcome Summary Outcome: Improving VSS. Denies pain. Colonoscopy with biopsies done today. Tolerated full liqs diet. Up ad mable. Voidingbut saving. Pt in good spirits. P: continue with POC. Stool samples still needed for labs, pt aware. R CONSULTANT Plan of Care - Kristal Rodriguez - [...] until medication has cleared. Emotional, parents in [place]. P: Encourage ambulation, IS, emotional support., FALL PRECAUTIONS. R CONSULTANT Plan of Care - Catherine Valdez, YOSELYN - 02/17/2015 4:44 AM CST Problem: Goal Outcome Summary Goal: Goal Outcome Summary Outcome: Improving BP slightly soft; per pt's baseline. Bowel prep complete at 0130. Stools clear x3. Denies pain. BS hyperactive. Up ad mable. Plan: will go for colonoscopy today. Pain management with dilaudid IV prn. R CONSULTANT Plan of Care - Radha Nobles RN - 02/16/2015 10:05 PM SOLAR CONSULTANT Problem: Goal Outcome Summary Goal: Goal Outcome Summary Outcome: No Change VSS. C/o's abd cramping after bowel prep was started. Pain relieved with Dilaudid IV x1 and BM x2 ofgreenish/yellow watery stool then 1large formed stool. Voiding but not saved. Up ad mable. Pt still taking golytely (total 4liters) in prep fro colonoscopy tomorrow. Per PODIATRY DOCTOR, pt might have to take to more golytely if stools are still not clear. P: continue to monitor status and continue with POC. Pls MD if stools are not clear yet. R CONSULTANT Plan of Care - Ino Seymour RN - 02/16/2015 2:23 PM CST Problem: Goal Outcome Summary Goal: Goal Outcome Summary Pt VSS. Reports intermittent pain to right lower abdomen. Refusing pain medication. Tolerating a clear liquid diet. May have colonoscopy tomorrow a.m. Awaiting orders. IVF cont as ordered. Friend at the bedside. Up independently. Will continue to monitor and follow plan of care. 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 She has been mostly in bed with [...] no significant ongoing stools. Seen initially at [facility], then sent to [facility]. Notably though her WBC was normal in [...] Jessica Malone MD Utilization Review/ Case Management [facility]. R CONSULTANT Plan of Care - Shy Trimble RN [...] control pills at bedside, verified by pharmacy. R CONSULTANT documented in this encounter Plan of Treatment Not on filedocumented as of this encounter Procedures Procedure Name Priority Date/Time Associated Diagnosis Comme nts CRP INFLAMMATION Routine 02/18/2015 7:32 Ileitis, terminal, Re sults for this AM SOLAR CONSULTANT unspecified procedure are i n complication (H) the results section. BASIC METABOLIC PANEL Routine 02/18/2015 7:32 Ileitis, termina l, Results for this AM SOLAR CONSULTANT unspecified procedure are i n complication (H) the results section. CBC WITH PLATELETS Routine 02/18/2015 7:32 Ileitis, terminal, Results for this AM SOLAR CONSULTANT unspecified procedure are i n complication (H) the results section. AFB STAIN NON BLOOD Routine 02/17/2015 10:51 Ileitis, terminal , Results for this AM SOLAR CONSULTANT unspecified procedure are i n complication (H) the results section. AFB CULTURE AND STAIN Routine 02/17/2015 10:51 Ileitis, termin al, Results for this NON BLOOD AM SOLAR CONSULTANT unspecified procedure are i n complication (H) the results section. SURGICAL PATHOLOGY Routine 02/17/2015 10:35 Resul ts for this EXAM AM SOLAR CONSULTANT procedure are i n the results section. COLONOSCOPY, WITH 02/17/2015 9:33 Inflammed terminal POLYPECTOMY AND BIOPSY AM SOLAR CONSULTANT ileum on CT COLONOSCOPY Routine 02/17/2015 9:19 Results for this AM SOLAR CONSULTANT procedure are i n the results section. INR Routine 02/17/2015 6:35 Ileitis, terminal, Result s for this AM SOLAR CONSULTANT unspecified procedure are i n complication (H) the results section. FOLATE Routine 02/17/2015 6:35 Ileitis, terminal, Result s for this AM SOLAR CONSULTANT unspecified procedure are i n complication (H) the results section. CRP INFLAMMATION Routine 02/17/2015 6:35 Ileitis, terminal, Re sults for this AM SOLAR CONSULTANT unspecified procedure are i n complication (H) the results section. COMPREHENSIVE Routine 02/17/2015 6:35 Ileitis, terminal, Resul ts for this METABOLIC PANEL AM SOLAR CONSULTANT unspecified procedure ar e in complication (H) the results section. VITAMIN B12 Routine 02/17/2015 6:35 Ileitis, terminal, Result s for this AM SOLAR CONSULTANT unspecified procedure are i n complication (H) the results section. CBC WITH PLATELETS Routine 02/17/2015 6:35 Ileitis, terminal, Results for this AM SOLAR CONSULTANT unspecified procedure are i n complication (H) the results section. COMPREHENSIVE Routine 02/16/2015 6:35 Ileitis, terminal, Resul ts for this METABOLIC PANEL AM SOLAR CONSULTANT unspecified procedure ar e in complication (H) the results section. CBC WITH PLATELETS Routine 02/16/2015 6:35 Ileitis, terminal, Results for this AM SOLAR CONSULTANT unspecified procedure are i n complication (H) the results section. CT ABDOMEN PELVIS W STAT 02/15/2015 10:57 Resu lts for this CONTRAST PM SOLAR CONSULTANT procedure are i n the results section. HCG QUALITATIVE URINE STAT 02/15/2015 8:49 Res ults for this PM SOLAR CONSULTANT procedure are i n the results section. UA MACROSCOPIC WITH STAT 02/15/2015 8:49 Resul ts for this REFLEX TO MICRO AND PM SOLAR CONSULTANT procedur e are in CULTURE the results section. US ABDOMEN COMPLETE STAT 02/15/2015 8:32 Resul ts for this PM SOLAR CONSULTANT procedure are i n the results section. LACTIC ACID STAT 02/15/2015 7:29 Results for this PM SOLAR CONSULTANT procedure are i n the results section. CRP INFLAMMATION Routine 02/15/2015 7:29 Ileitis, terminal, Re sults for this PM SOLAR CONSULTANT unspecified procedure are i n complication (H) the results section. COMPREHENSIVE STAT 02/15/2015 7:29 Results for this METABOLIC PANEL PM SOLAR CONSULTANT procedure ar e in the results section. documented in this encounter Results CRP inflammation (02/18/2015 7:32 AM SOLAR CONSULTANT) Analysis Performed At Patho logist Time Signature CRP Inflammation 8.0 0.0 - 8.0 [facility] mg/L [facility] Specimen Anatomical Collection Method Collection Time Receive d Time (Source) Location / / Volume Laterality Blood specimen 02/18/2015 7:32 AM 015 7:54 (specimen) SOLAR CONSULTANT AM SOLAR CONSULTANT Glo Little PA-C LAB - BLOOD ORDERABLES Performing Organization Address City/State/ZIP Code Phon e Number [facility] [address] [place] [address] [facility] (ABNORMAL) Basic metabolic panel (02/18/2015 7:32 AM SOLAR CONSULTANT) Patholo gist Method Time Signature Sodium 139 133 - 144 [facility] mmol/L [facility] Potassium 4.0 3.4 - 5.3 [facility] mmol/L [facility] Chloride 109 94 - 109 [facility] mmol/L [facility] Carbon Dioxide 24 20 - 32 [facility] mmol/L [facility] Anion Gap 6 3 - 14 [facility] mmol/L [facility] Glucose 92 70 - 99 [facility] mg/dL [facility] Urea Nitrogen 1 (L) 7 - 30 [facility] mg/dL [facility] Creatinine 0.60 0.52 - [facility] 1.04 [facility] mg/dL [facility] GFR Estimate >90 >60 [facility] Non GFR Calc mL/min/1. [facility] 7m2 [facility] GFR Estimate >90 >60 [facility] If Black GFR Calc mL/min/1. [facility] 7m2 [facility] Calcium 8.0 (L) 8.5 - [facility] 10.1 [facility] mg/dL [facility] Specimen Anatomical Collection Method Collection Time Receive d Time (Source) Location / / Volume Laterality Blood specimen 02/18/2015 7:32 AM 015 7:54 (specimen) SOLAR CONSULTANT AM SOLAR CONSULTANT Glo Little PA-C LAB - BLOOD ORDERABLES Performing Organization Address City/State/ZIP Code Phon e Number [facility] [address] [place], [place] [address] [place] [address] (ABNORMAL) CBC with platelets (02/18/2015 7:32 AM SOLAR CONSULTANT) [facility] gist Method Time Signature WBC 4.2 4.0 - 11.0 [facility] 10e9/L [facility] RBC Count 3.73 (L) 3.8 - 5.2 [facility] 10e12/L [facility] Hemoglobin 10.3 (L) 11.7 - [facility] 15.7 g/dL [facility] Hematocrit 31.3 (L) 35.0 - [facility] 47.0 % [facility] MCV 84 78 - 100 [facility] fl [facility] MCH 27.6 26.5 - [facility] 33.0 pg [facility] MCHC 32.9 31.5 - [facility] 36.5 g/dL [facility] RDW 12.7 10.0 - [facility] 15.0 % [facility] Platelet Count 149 (L) 150 - 450 [facility] 10e9/L [facility] Specimen Anatomical Collection Method Collection Time Receive d Time (Source) Location / / Volume Laterality Blood specimen 02/18/2015 7:32 AM 015 7:54 (specimen) SOLAR CONSULTANT AM SOLAR CONSULTANT Glo Little PA-C LAB - BLOOD ORDERABLES Performing Organization Address City/State/ZIP Code Phon e Number [address] [address] [facility] AFB Stain Non Blood (02/17/2015 10:51 AM SOLAR CONSULTANT) [facility] Method Time Signature Specimen Tissue [place] [facility] AFB Stain Negative for acid fast bacteria [facility] [employer] [employer] Micro Report FINAL [facility] Status 02/20/2015 [facility] Specimen Anatomical Collection Method Collection Time Receive d Time (Source) Location / / Volume Laterality 02/17/2015 10:51 02/17/2015 4:50 AM SOLAR CONSULTANT PM SOLAR CONSULTANT Giovanny Burch MD LAB - MICRO GENERAL ORD ERABLES Performing Organization Address City/State/ZIP Code Phon e Number [address] [address] [place] [employer] Culture Non Blood (02/17/2015 10:51 AM SOLAR CONSULTANT) [facility] Signature Specimen Tissue [facility] Culture Micro Culture negative for acid fast bacilli [facility] [employer] [email or web address] [id number] [facility] Micro Report FINAL [facility] Status 04/15/2015 [facility] Specimen Anatomical Collection Method Collection Time Receive d Time (Source) Location / / Volume Laterality 02/17/2015 10:51 02/17/2015 4:50 AM SOLAR CONSULTANT PM SOLAR CONSULTANT Giovanny Burch MD LAB - MICRO GENERAL ORD ERABLES Performing Organization Address City/State/ZIP Code Phon e Number [address] [address] [place] Surgical pathology exam (02/17/2015 10:35 AM SOLAR CONSULTANT) Component Value Ref Test Analysis Performed At [facility] Method Time Signature Copath Report Patient Name: SHARMAINE SALAS MR#: [id number] Specimen #: [id number] Collected: 02/17/2015 Received: 02/17/2015 Reported: 02/18/2015 15:18 [...] Electronically signed out by: Giles Wong M.D., [facility] CLINICAL HISTORY: The patient is a [...] Microscopic examination is performed. CPT Codes: A: 32415-FB8 B: 82075-EP0 C: 55681-MM2 TESTING LAB LOCATION: [facility], [facility] [address] [place] [address] ?? [phone] COLLECTION SITE: Client: [facility] Location: [facility] (B) Specimen Anatomical Collection Method Collection Time Receive d Time (Source) Location / / Volume Laterality 02/17/2015 10:35 02/17/2015 2:55 AM SOLAR CONSULTANT PM SOLAR CONSULTANT Giovanny HARDING - [place] Performing Organization Address City/State/ZIP Code Phon e Number [facility] COLONOSCOPY (02/17/2015 9:19 AM SOLAR CONSULTANT) [facility] gist Method Time Signature COLONOSCOPY [facility] RADIOLOGY [address] [place] [address] [phone] ? End oscopy Department RESULTS Patient Name: Sharmaine Salas ?Procedure Date: 02/17/2015 9:19 AM ? Accou nt Number: [id number] Date of : 1995 ?Admit Type: Inp [...] / / Volume Laterality 02/17/2015 9:19 AM SOLAR CONSULTANT Giovanny Burch MD PROCEDURES Performing Organization Address City/[facility]/ZIP Code Phon e Number RADIOLOGY RESULTS (ABNORMAL) CRP inflammation (02/17/2015 6:35 AM SOLAR CONSULTANT) Patholo gist Method Time Signature CRP Inflammation 16.0 (H) 0.0 - 8.0 [facility] mg/L [facility] Specimen Anatomical Collection Method Collection Time Receive d Time (Source) Location / / Volume Laterality Blood specimen 02/17/2015 6:35 AM 015 7:21 (specimen) SOLAR CONSULTANT AM SOLAR CONSULTANT Glo Little PA-C LAB - BLOOD ORDERABLES Performing Organization Address City/[facility]/ZIP Code Phon e Number [facility] [address] [place] [address] [facility] Folate (02/17/2015 6:35 AM SOLAR CONSULTANT) P athologist Signature Folate 14.0 >5.4 ng/mL [facility] Comment: Interp: >5.4 ng/mL = Normal Specimen Anatomical Collection Method Collection Time Receive d Time (Source) Location / / Volume Laterality Blood specimen 02/17/2015 6:35 AM 015 7:21 (specimen) SOLAR CONSULTANT AM SOLAR CONSULTANT Glo Little PA-C LAB - BLOOD ORDERABLES Performing Organization Address City/State/ZIP Code Phon e Number [facility] [address] [place] [address] [facility] Vitamin B12 (02/17/2015 6:35 AM SOLAR CONSULTANT) P athologist Signature Vitamin B12 522 193 - 986 [facility] pg/mL [facility] Comment: Interp: [phone] = Normal Specimen Anatomical Collection Method Collection Time Receive d Time (Source) Location / / Volume Laterality Blood specimen 02/17/2015 6:35 AM 015 7:21 (specimen) SOLAR CONSULTANT AM SOLAR CONSULTANT Glo Little PA-C LAB - BLOOD ORDERABLES Performing Organization Address City/State/ZIP Code Phon e Number [facility] [address] [place] [address] [facility] (ABNORMAL) Comprehensive metabolic panel (02/17/2015 6:35 AM SOLAR CONSULTANT) Patholo gist Method Time Signature Sodium 144 133 - 144 [facility] mmol/L [facility] Potassium 3.8 3.4 - 5.3 [facility] mmol/L [facility] Chloride 112 (H) 94 - 109 [facility] mmol/L [facility] Carbon Dioxide 24 20 - 32 [facility] mmol/L [facility] Anion Gap 8 3 - 14 [facility] mmol/L [facility] Glucose 93 70 - 99 [facility] mg/dL [facility] Urea Nitrogen 1 (L) 7 - 30 [facility] mg/dL [facility] Creatinine 0.65 0.52 - [facility] 1.04 [facility] mg/dL [facility] GFR Estimate >90 >60 [facility] Non GFR Calc mL/min/1. [facility] [address] GFR Estimate If >90 >60 [facility] Black GFR Calc mL/min/1. [facility] 7m2 [facility] Calcium 7.3 (L) 8.5 - [facility] 10.1 [facility] mg/dL [facility] Bilirubin Total 0.4 0.2 - 1.3 [facility] mg/dL [facility] Albumin 2.6 (L) 3.4 - 5.0 [facility] g/dL [facility] Protein Total 5.4 (L) 6.8 - 8.8 [facility] g/dL [facility] Alkaline 44 40 - 150 [facility] Phosphatase U/L [facility] ALT 14 0 - 50 [facility] U/L [facility] AST 15 0 - 45 [facility] U/L [facility] Specimen Anatomical Collection Method Collection Time Receive d Time (Source) Location / / Volume Laterality Blood specimen 02/17/2015 6:35 AM 015 7:21 (specimen) SOLAR CONSULTANT AM SOLAR CONSULTANT Glo Little PA-C LAB - BLOOD ORDERABLES Performing Organization Address City/[facility]/ZIP Code Phon e Number [address] INR (02/17/2015 6:35 AM SOLAR CONSULTANT) P athologist Signature INR 1.13 0.86 - 1.14 [facility] Specimen Anatomical Collection Method Collection Time Receive d Time (Source) Location / / Volume Laterality Blood specimen 02/17/2015 6:35 AM 015 7:21 (specimen) SOLAR CONSULTANT AM SOLAR CONSULTANT Glo Little PA-C LAB - BLOOD ORDERABLES Performing Organization Address City/State/ZIP Code Phon e Number [address] (ABNORMAL) CBC with platelets (02/17/2015 6:35 AM SOLAR CONSULTANT) Patholo gist Method Time Signature WBC 4.2 4.0 - 11.0 [facility] 10e9/L [facility] RBC Count 3.40 (L) 3.8 - 5.2 [facility] 10e12/L [facility] Hemoglobin 9.3 (L) 11.7 - [facility] 15.7 g/dL [facility] Hematocrit 28.7 (L) 35.0 - [facility] 47.0 % [facility] MCV 84 78 - 100 [facility] MCH 27.4 26.5 - [facility] 33.0 pg [facility] MCHC 32.4 31.5 - [facility] 36.5 g/dL [facility] RDW 13.0 10.0 - [facility] 15.0 % [facility] Platelet Count 134 (L) 150 - 450 [facility] 10e9/L [facility] Specimen Anatomical Collection Method Collection Time Receive d Time (Source) Location / / Volume Laterality Blood specimen 02/17/2015 6:35 AM 015 7:21 (specimen) SOLAR CONSULTANT AM SOLAR CONSULTANT Glo Little PA-C LAB - BLOOD ORDERABLES Performing Organization Address City/[facility]/ZIP Code Phon e Number [facility] [address] (ABNORMAL) CBC with platelets (02/16/2015 6:35 AM SOLAR CONSULTANT) [facility] Method Time Signature WBC 4.6 4.0 - 11.0 [facility] 10e9/L [facility] RBC Count 3.40 (L) 3.8 - 5.2 [facility] 10e12/L [facility] Hemoglobin 9.4 (L) 11.7 - [facility] 15.7 g/dL [facility] Hematocrit 29.0 (L) 35.0 - [facility] 47.0 % [facility] MCV 85 78 - 100 [facility] fl [facility] MCH 27.6 26.5 - [facility] 33.0 pg [facility] MCHC 32.4 31.5 - [facility] 36.5 g/dL [facility] RDW 12.9 10.0 - [facility] 15.0 % [facility] Platelet Count 117 (L) 150 - 450 [facility] 10e9/L [facility] Specimen Anatomical Collection Method Collection Time Receive d Time (Source) Location / / Volume Laterality Blood specimen 02/16/2015 6:35 AM 015 7:48 (specimen) SOLAR CONSULTANT AM SOLAR CONSULTANT rFedis Mas MD LAB - BLOOD ORDERABLES Performing Organization Address City/State/ZIP Code Phon e Number [facility] [address] (ABNORMAL) Comprehensive metabolic panel (02/16/2015 6:35 AM SOLAR CONSULTANT) [facility] Method Time Signature Sodium 139 133 - 144 [facility] mmol/L [facility] Potassium 3.8 3.4 - 5.3 [facility] mmol/L [facility] Chloride 108 94 - 109 [facility] mmol/L [facility] Carbon Dioxide 24 20 - 32 [facility] mmol/L [facility] Anion Gap 7 3 - 14 [facility] mmol/L [facility] Glucose 69 (L) 70 - 99 [facility] mg/dL [facility] Urea Nitrogen 5 (L) 7 - 30 [facility] mg/dL [facility] Creatinine 0.66 0.52 - [facility] 1.04 [facility] mg/dL [facility] GFR Estimate >90 >60 [facility] Non GFR Calc mL/min/1. [facility] [address] GFR Estimate If >90 >60 [facility] Black GFR Calc mL/min/1. [facility] M ED[facility] 7m2 [facility] Calcium 7.3 (L) 8.5 - [facility] 10.1 [facility] mg/dL [facility] Bilirubin Total 0.3 0.2 - 1.3 [facility] mg/dL [facility] Albumin 2.4 (L) 3.4 - 5.0 [facility] g/dL [facility] Protein Total 5.4 (L) 6.8 - 8.8 [facility] g/dL [facility] Alkaline 42 40 - 150 [facility] Phosphatase U/L [facility] ALT 7 0 - 50 [facility] U/L [facility] AST 13 0 - 45 [facility] U/L [facility] Specimen Anatomical Collection Method Collection Time Receive d Time (Source) Location / / Volume Laterality Blood specimen 02/16/2015 6:35 AM 015 7:48 (specimen) SOLAR CONSULTANT AM SOLAR CONSULTANT Fredis Mas MD LAB - BLOOD ORDERABLES Performing Organization Address City/State/ZIP Code Phon e Number [facility] [address] [place], [place] [id number] [place] [address] CT Abdomen Pelvis w Contrast (02/15/2015 10:57 PM SOLAR CONSULTANT) Anatomical Region Laterality Modality Abdomen/Pelvis, SUBRAD CT BODY, UMP CT ABDOMEN PELVIS Computed Tomography Specimen (Source) Anatomical Location Collection Method / Collectio n Time Received Time / Laterality Volume Impressions 02/16/2015 7:27 AM SOLAR CONSULTANT Impression: 1. Moderately thickened segment of termi [...] ANDERSON COY MD Narrative 02/16/2015 7:27 AM SOLAR CONSULTANT Examination: ??CT ABDOMEN PELVIS W CONTRAST 02/15/2015 10:57 PM History: Question appendicitis Comparison: Ultrasound from the same pancho e Technique: CT of the abdomen and pelvis were obtained with 85 mL Isovue-370 intravenous contrast. Sagitta l and coronal reconstructions created and reviewed. Findings: The appendix is normal in joe dawosn and fills with air and fluid. There [...] ORDERABLES HCG qualitative urine (02/15/2015 8:49 PM SOLAR CONSULTANT) Analysis Performed At Patho logist Time Signature HCG Qual Urine Negative NEG [facility] Specimen Anatomical Collection Method Collection Time Receive d Time (Source) Location / / Volume Laterality Urine specimen URINE SPECIMEN / 02/15/2015 8:49 PM 03/2014 8:57 (specimen) Unknown SOLAR CONSULTANT PM SOLAR CONSULTANT Jodi Pacheco MD LAB - URINE ORDERABLES Performing Organization Address City/[facility]/ZIP Code Phon e Number [facility] [address] [place] [address] [facility] (ABNORMAL) UA reflex to Microscopic and Culture (02/15/2015 8:49 PM SOLAR CONSULTANT) Patholo gist Method Time Signature Color Urine Yellow [facility] Appearance Urine Clear [facility] Glucose Urine Negative NEG mg/dL [facility] Bilirubin Urine Negative NEG [facility] Ketones Urine 10 (A) NEG mg/dL [facility] Specific [place] 1.009 1.003 - [facility] Urine 1.035 [facility] Blood Urine Negative NEG [facility] pH Urine 6.0 5.0 - 7.0 [facility] pH [facility] Protein Albumin Negative NEG mg/dL [facility] Urine [facility] Urobilinogen Normal 0.0 - 2.0 [facility] mg/dL mg/dL [facility] Nitrite Urine Negative NEG [facility] Leukocyte Negative NEG [facility] Esterase Urine [facility] Source Midstream [facility]rine [facility] Specimen Anatomical Collection Method Collection Time Receive d Time (Source) Location / / Volume Laterality Urine specimen MID-STREAM URINE 02/15/2015 8:49 PM 03/2014 8:57 (specimen) SAMPLE / Unknown SOLAR CONSULTANT PM SOLAR CONSULTANT Jodi Pacheco MD LAB - URINE ORDERABLES Performing Organization Address City/State/ZIP Code Phon e Number [facility] [address] [place] [address] [facility] (ABNORMAL) US Abdomen Complete (02/15/2015 8:32 PM SOLAR CONSULTANT) Component Value Ref Test Analysis Performed At [facility] gist Range Method Time Signature Radiologist Possible RADIOLOGY flags appendicitis RESULTS (Urgent) Anatomical Region Laterality Modality Abdomen/Pelvis Ultrasound Specimen (Source) Anatomical Location Collection Method / Collectio n Time Received Time / Laterality Volume Impressions 02/15/2015 10:13 PM SOLAR CONSULTANT Impression: Noncompressible appendix measuring up to 1.3 [...] ANDERSON COY MD Narrative 02/15/2015 10:13 PM SOLAR CONSULTANT Exam: US ABDOMEN COMPLETE, 02/15/2015 8:34 PM [...] ORDERABLES (ABNORMAL) CRP inflammation (02/15/2015 7:29 PM SOLAR CONSULTANT) [facility] Method Time Signature CRP Inflammation 55.0 (H) 0.0 - 8.0 [facility] mg/L [facility] Specimen Anatomical Collection Method Collection Time Receive d Time (Source) Location / / Volume Laterality 02/15/2015 7:29 PM 5 7:50 SOLAR CONSULTANT PM SOLAR CONSULTANT Jodi Pacheco MD LAB - BLOOD ORDERABLES Performing Organization Address City/State/ZIP Code Phon e Number [address] Lactic acid (02/15/2015 7:29 PM SOLAR CONSULTANT) athologist Signature Lactic Acid 0.7 0.4 - 2.0 [facility] mmol/L [facility] Specimen Anatomical Collection Method Collection Time Receive d Time (Source) Location / / Volume Laterality Blood specimen 02/15/2015 7:29 PM 015 7:50 (specimen) SOLAR CONSULTANT PM SOLAR CONSULTANT Jodi Pacheco MD LAB - BLOOD ORDERABLES Performing Organization Address City/[facility]/ZIP Code Phon e Number [id number] [place] [address] (ABNORMAL) Comprehensive metabolic panel (02/15/2015 7:29 PM SOLAR CONSULTANT) [facility] Method Time Signature Sodium 138 133 - 144 [facility] mmol/L [facility] Potassium 3.6 3.4 - 5.3 [facility] mmol/L [facility] Chloride 107 94 - 109 [facility] mmol/L [facility] Carbon Dioxide 25 20 - 32 [facility] mmol/L [facility] Anion Gap 7 3 - 14 [facility] mmol/L [facility] Glucose 77 70 - 99 [facility] mg/dL [facility] Urea Nitrogen 9 7 - 30 [facility] mg/dL [facility] Creatinine 0.66 0.52 - [facility] 1.04 [facility] mg/dL [facility] GFR Estimate >90 >60 [facility] Non GFR Calc mL/min/1. [facility] [address] GFR Estimate If >90 >60 [facility] Black GFR Calc mL/min/1. CO M EDICAL 7m2 [facility] Calcium 8.3 (L) 8.5 - [facility] 10.1 [facility] mg/dL [facility] Bilirubin Total 0.2 0.2 - 1.3 [facility] mg/dL [facility] Albumin 3.0 (L) 3.4 - 5.0 [facility] g/dL [facility] Protein Total 6.6 (L) 6.8 - 8.8 [facility] g/dL [facility] Alkaline 51 40 - 150 [facility] Phosphatase U/L [facility] ALT 12 0 - 50 [facility] U/L [facility] AST 14 0 - 45 [facility] U/L [facility] Specimen Anatomical Collection Method Collection Time Receive d Time (Source) Location / / Volume Laterality Blood specimen 02/15/2015 7:29 PM 015 7:50 (specimen) SOLAR CONSULTANT PM SOLAR CONSULTANT Jodi Pacheco MD LAB - BLOOD ORDERABLES Performing Organization Address City/State/ZIP Code Phon e Number [facility] [address] [place], [place] [phone] [place] [address] documented in this encounter Visit Diagnoses Diagnosis Ileitis, terminal, unspecified complicat ion (H) Ileitis Other and unspecified noninfectious halie roenteritis and colitis documented in this encounter Administered Medications Inactive Administered Medications - up to 3 most recent administrations Medication Order MAR Action Action Date Dose Rate Site 0.9% sodium chloride BOLUS New Bag 02/15/2015 7:31 PM SOLAR CONSULTANT 1,000 mLs 1000 mL/hr Intravenous, 1,000 mL, ONCE, at 1,000 mL/hr, Administer over 1 Hours, On Sat02/15/15 at 1932, For 1 dose 0.9% sodium chloride infusion New Bag 02/16/2015 12:34 AM SOLAR CONSULTANT 125 mL/hr at 125 mL/hr, Intravenous, CONTINUOUS, Starting on Sat02/15/15 at 2135, Until Sat02/16/15 at 0146 desogestrel-ethinyl estradiol (APRI) Given 02/17/2015 10:[address] 1 tablet 0.15-30 MG-MCG per tablet 1 tablet 1 tablet, Oral, EVERY EVENING, First dose on Sat02/16/15 at 0200 Given 02/16/2015 10:49 PM SOLAR CONSULTANT 1 tablet Given 02/16/2015 2:25 AM SOLAR CONSULTANT 1 tablet dextrose 5% and 0.9% NaCl + KCl 20 mEq/L 20-5-0.9 MEQ/L-%-% infusion INO SEYMOUR: cabinet override, 1 do se, Starting on Sat02/16/15 at 0841, Until Sat02/16/15 at 0843 dextrose 5% and 0.9% NaCl + KCl 20 New Bag 02/18/2015 12:17 AM SOLAR CONSULTANT 125 mL/hr mEq/L infusion at 125 mL/hr, Intravenous, CONTINUOUS, Starting on Sat02/16/15 at 0845, Until Sat02/18/15 at 0827 New Bag 02/17/2015 4:09 PM SOLAR CONSULTANT 125 mL/hr New Bag 02/17/2015 8:21 AM SOLAR CONSULTANT 125 mL/hr HYDROmorphone (DILAUDID) injection 0.2 m g Given 02/16/2015 8:21 PM SOLAR CONSULTANT 0.2 mg 0.2 mg, Intravenous, EVERY 2 HOURS PRN, moderate to severe pain, Starting on Sat02/16/15 at 0143 HYDROmorphone (PF) (DILAUDID) injection 0.5 Given 04/2014 12:22 AM SOLAR CONSULTANT 0.5 mg mg 0.5 mg, Intravenous, ONCE, On Sat02/16/15 at 0017, For 1 dose iohexol (OMNIPAQUE) 140 mg/mL solution 2 5 mL Given 02/15/2015 10:14 PM SOLAR CONSULTANT 25 mLs 25 mL, Oral, EVERY 30 [...] mL total fluid Given 02/15/2015 9:44 PM SOLAR CONSULTANT 25 mLs iopamidol (ISOVUE-370) 76% solution 85 m L Given 02/15/2015 10:49 PM SOLAR CONSULTANT 85 mLs 85 mL, Intravenous, ONCE, On Sat02/15/15 at 2214, For 1 dose lactated ringers infusion New Bag 02/16/2015 2:25 AM SOLAR CONSULTANT 1,000 mLs 150 mL/hr at 150 mL/hr, Intravenous, CONTINUOUS, Starting on Sat02/16/15 at 0200, Until Sat02/16/15 at 0834 ondansetron (ZOFRAN) 2 MG/ML injection Starting on Sat02/15/15 at 2325, For 1 dose, NANDINI GOLDBERG: cabinet override ondansetron (ZOFRAN) injection 4 mg Given 02/15/2015 11:26 PM SOLAR CONSULTANT 4 mg 4 mg, Intravenous, ONCE, Administer over 2 Minutes, On Sat02/15/15 at 2325, For 1 dose polyethylene glycol (GoLYTELY,NuLYTELY) Given 02/16/2015 6:06 PM SOLAR CONSULTANT 4,000 mLs suspension 4,000 mL 4,000 mL, Oral or NG Tube, ONCE, On Sat02/16/15 at 1600, For 1 dose, FOR Procedure PREP ONLY If patient is scheduled BEFORE 12 noon, give DAY BEFORE PROCEDURE from 0245-2442. One 8 ounce glass every 15 minutes until finished. If unable to drink Golytely/Colyte, give per NG at rate of 8 ounces every 15 minutes until finished. sodium chloride (PF) 0.9% PF flush 71 mL Given 02/15/2015 10:49 PM SOLAR CONSULTANT 71 mLs 71 mL, Intravenous, ONCE, On Sat02/15/15 at 2214, For 1 dose documented in this encounter Active and Recently Administered Medications Times are shown in SOLAR CONSULTANT. Scheduled Medication Order 02/16/2015 02/17/2015 02/18/2015 desogestrel-ethinyl [...] 12 noon, give DAY BEFORE PROCEDURE from 0872-0595. One 8 ounce glass every 15 min [...] Intra-procedure documented in this encounter Care Teams Cupola Patcher Helper Relationship Specialty Start Date End Date [facility] Md Lidia, MD PCP - General 02/15/15 05/02/[address] [place] [id number] documented as of this encounter
--- OUTSIDE RECORDS SUMMARY | 2021-11-02 09:05 | XMS_ITS | Encounter Summary ---
:1995 Author Organization [place] Address [address] [place] [address]. [place] [address] Care Team Providers Name Role Phone Richa Murillo Md MD Primary Care Provider [phone] Reason for Visit Reason Comments Arm Pain right arm pain post IV, redn ess, swelling, and hardness at sight after potassium Encounter Details Date Type Department Care Team Description 02/19/2015 - Emergency [facility] Santiago Cho after 02/20/2015 [facility] Emergency MD Travis infusion, initial Department [address] [place] [address] encounter [address] [place] [address] [phone] (Wo rk) Social History Tobacco Use Types [...] Comments Blood Pressure 109/55 02/20/2015 1:34 AM [facility] Pulse 82 02/20/2015 1:34 AM [facility] Temperature 36.6 ??C (97.9 ??F) 02/19/2015 10:47 PM [facility] Respiratory Rate 16 02/20/2015 1:34 AM [facility]ET [facility]OOKER Oxygen Saturation 100% 02/20/2015 1:34 AM [facility] Inhaled Oxygen Concentration - - Weight 63.5 kg (140 lb) 02/19/2015 10:47 PM [facility] Height 175.3 cm (5' 9) 02/19/2015 10:47 PM [facility] Body Mass Index 20.67 02/19/2015 10:47 PM [facility] documented in this encounter Discharge Instructions Discharge InstructionsSchSantiago gonzales MD - 02/20/2015 1:06 AM BUCKET [facility]ER Please make an appointment to follow up with [facility] (phone: ) in 2-3 days if not improving. Return if worsening redness that spreads up her arm, worse swelling in her hand or fever. ET HOOKER documented in this encounter Medications at Time [...] and Surgical History, and Social History inthe [facility] system. Past Medical History Diagnosis Date ??? [...] ED Course Procedures Critical Care time: none [facility] Diagnoses: None Labs Ordered and Resulted from [...] diagnoses: Phlebitis after infusion, initial encounter 02/19/2015 [facility] [place], EMERGENCY DEPARTMENT Santiago Cho MD 02/20/15 0252 ET HOOKER Kristal Rodney RN - 02/19/2015 10:49 PM [...] hours Kristal Vivar RN February 19, 2015 ET HOOKER documented in this encounter Plan of Treatment Not on filedocumented as of this encounter Visit Diagnoses Diagnosis Phlebitis after infusion, initial encoun ter documented in this encounter Administered Medications Inactive Administered Medications - up to 3 most recent administrations Medication Order MAR Action Action Date Dose Rate Site cephALEXin (KEFLEX) capsule Given 02/20/2015 1:16 AM BUCKET [facility]OOKER 1,000 m g 1,000 mg STAT, 1,000 mg, Oral, ONCE, On 02/20/15 at 0052, For 1 dose, Indications: Skin and Soft Tissue Infection documented in this encounter Active and Recently Administered Medications Times are shown in [facility]. Scheduled Medication Order 02/18/2015 02/19/2015 02/20/2015 cephALEXin (KEFLEX) capsule 1,000 mg (COMPLETED) 0116 (Given - Provider: Kristal Rodney RN) 1,000 mg, Oral, ONCE, 02/20/15 at 005 2, For 1 dose, Indications: Skin and Soft Tissue Infection documented in this encounter Care Teams Die Barber Relationship Specialty Start Date End Date [facility] Md Lidia, PCP - General 02/15/15 05/02/[address] [place] [id number] documented as of this encounter
[2021-11-03 11:11] LABS: Strep B DNA Probe NEGATIVE (Negative)
== END 2021-11-02 09:03 | disposition home or self-care (01) ==
LOC: NFLDREF 09:02
PROVIDERS: Visit Provider Advanced Practice Midwife
DX: O98.513 Other viral diseases complicating pregnancy, third trimester (principal); U07.1 COVID-19; Z3A.36 36 weeks gestation of pregnancy
CPT/HCPCS: 76816; 76819; 87081; 87653

== ENCOUNTER 2021-11-30 19:33 | Inpatient (IN) | payer OTHER, SELFPAY ==
--- OUTSIDE RECORDS SUMMARY | 2021-11-30 19:21 | XMS_ITS | Encounter Summary ---
:1995 Author Organization [place] Address [facility] [place] [address] Care Team Providers Name Role Phone Krissy Gutierrez APRN [employer]W TENDER Primary Care Provider [phone] Krissy Gutierrez APRN [employer]W T[employer]ER Unavailable [phone] Reason for Visit Diagnostic Imaging Ultrasound (Routine) - Closed Specialty Diagnoses / Procedures Referred By Contact Refer red To Contact Diagnoses Encounter for supervision of normal first in second trimester Jaqueline Castillo CNM Procedures US OB > 14 Weeks [address] [place], [place] [address] Referral ID Status Reason Start Date Expiration Date Visits Requ ested Visits Authorized [id number] Closed 10/27/2019 10/26/2020 1 1 Encounter Details Date Type Department Care Team Description 10/29/2019 Orders Only [facility] dale for supervision [place] of normal first [address] [facility] Emergency Department in second trimester [address] [place] [address] Social History Tobacco Use [...] have completed or the highest Mayda, MEd, CAPITAL EQUIPMENT SPECIALIST, [place]VIKA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 Sex [...] 6:21 AM CDT 10/29/2019 10:28 AM ? [facility] Obstetrics & Gynecology [address] [facility]. [address] [place] [address] ?? ULTRASOUND - OB > 14 Weeks [...] Not visualized ?? Complete obstetrical ultrasound using [facility] transabdominal scanning. No gross anomalies observed; ??cor responding menstrual and sonographic dates. Placenta is posterior and mid. Maternal Uterus appears Normal. Maternal ovaries were not visualized. Amniotic fluid assessment is: Normal. anomalies may be present but not d etected. Dr. Salma Barnett MD Obstetrics and Gynecology [facility] ?? Jaqueline Castillo CNM IMG US ORDERABLES documented in this encounter Visit Diagnoses Diagnosis Encounter for supervision of normal firs t in second trimester Supervision of normal first documented in this encounter Care Teams Larriman Helper Relationship Specialty Start Date End Date Krissy Gutierrez APRN [employer]W T[employer]ER PCP - General Nurse Practitioner 05/03/17 [address] [place], [place] [id number] Krissy Gutierrez APRN [employer]ER Assigned PCP 05/05/17 10/13/21 [address] [place], [place] [id number] documented as of this encounter
--- OUTSIDE RECORDS SUMMARY | 2021-11-30 19:21 | XMS_ITS | Encounter Summary ---
:1995 Author Organization [place] Address [address] [place] [address] Care Team Providers Name Role Phone Krissy Gutierrez APRN METAL BENCH PATTERNMAKER Primary Care Provider [phone] Krissy Gutierrez APRN METAL BENCH PATTERNMAKER Unavailable [phone] Jaqueline Castillo CNM Unavailable Mari Jauregui CNM Unavailable [phone] Encounter Details Date Type Department Care Team Description 07/28/2019 Documentation Only [facility] Janett Castillo, Stites Laborator y CNM [address] [address] [place] [address] (Wo rk) Social History [...] have completed or the highest Mayda, MEd, HEALTH WORKERS, DEVIKA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 Sex Assigned [...] on filedocumented in this encounter Care Teams Edge Baster Relationship Specialty Start Date End Date Krissy Gutierrez, PCP - General Nurse Practitioner 05/03/17 GARMENT PARTS CUTTER HAND METAL BENCH PATTERNMAKER [address] [place] [address] Krissy Gutierrez, Assigned PCP 05/05/17 2 GARMENT PARTS CUTTER HAND METAL BENCH PATTERNMAKER [address] [place] [address] Jaqueline Castillo, LEE Assigned OBGYN Provider 01/08/20 03/04/21 [address] [place] [address] Mari Jauregui, Assigned OBGYN Provider 1 04/29/[address] [address] documented as of this encounter
--- OUTSIDE RECORDS SUMMARY | 2021-11-30 19:21 | XMS_ITS | Encounter Summary ---
:1995 Author Organization [place] Address [address] [place] [address] Care Team Providers Name Role Phone Krissy Gutierrez APRN SOCCER REFEREE Primary Care Provider [phone] Krissy Gutierrez APRN SOCCER REFEREE Unavailable [phone] Reason for Visit Reason Comments Care Encounter Details Date Type Department Care Team Description 10/29/2019 Office [facility] Mari Jauregui Pre екатерина care in [facility] Jaqueline SELENAJanett second trimester [place] [address] (Primary Dx) [address] [place], [place] [address] [address] [place], [place] [phone] [address] (Work) [phone] Social History Tobacco Use Types Packs/Day Years [...] have completed or the highest Mayda, MEd, ABORIGINAL LIAISON OFFICER, DEVIKA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 Sex Assigned [...] headaches or other concerns. Reviewed to call [phone] for contractions, loss of fluid, vaginal bleeding, decreased movement or any other questions or concerns. RTC in 4 weeks - can be phone or video. Mari Jauregui DNP, CLEARING HAND, LEE documented in this encounter Nursing Notes [...] guillermo documented in this encounter Care Teams Referral Agent Relationship Specialty Start Date End Date Krissy Gutierrez APRN SOCCER REFEREE PCP - General Nurse Practitioner 05/03/17 [address] [place] [address] Krissy Gutierrez APRN SOCCER REFEREE Assigned PCP 05/05/17 10/13/21 [address] [place] [address] documented as of this encounter
--- OUTSIDE RECORDS SUMMARY | 2021-11-30 19:21 | XMS_ITS | Encounter Summary ---
:1993 Author Organization [place] Address [facility] [place] [address] Care Team Providers Name Role Phone Krissy Gutierrez APRN, CNP Primary Care Provider [phone] Krissy Gutierrez APRN SHELLFISH MANAGER Unavailable [phone] Krissy Gutierrez APRN SHELLFISH MANAGER Unavailable [phone] Reason for Visit Reason Comments Medication Refill fluticasone (FLONASE) 50 MCG /ACT spray Encounter Details Date Type Department Care Team Description 12/28/2017 Refill [facility] [place] [facility] SHELLFISH MANAGER (fluticasone (FLONASE) [address] [place] [address] 50 MCG/ACT spray ) [place] [address] [place], [place] [phone] (Wo rk) [address] [phone] Social History Tobacco Use Types Packs/Day Years [...] Primary documented in this encounter Care Teams Ice Seller Relationship Specialty Start Date End Date Krissy Gutierrez APRN PCP - General Nurse Practitioner 05/03/17 SHELLFISH MANAGER [address] [place], [place] [phone] Krissy Gutierrez APRN PCP - Assigned PCP 05/05/17 05/20/18 SHELLFISH MANAGER [address] [place], [place] [phone] Krissy Gutierrez APRN Assigned PCP 05/05/17 SHELLFISH MANAGER [address] [place], [place] [phone] documented as of this encounter
--- OUTSIDE RECORDS SUMMARY | 2021-11-30 19:21 | XMS_ITS | Encounter Summary ---
:1995 Author Organization [place] Address [facility] [place] [address] Care Team Providers Name Role Phone Krissy Gutierrez APRN POT TENDER Primary Care Provider [phone] Krissy Gutierrez APRN POT TENDER Unavailable [phone] Reason for Visit Diagnostic Imaging Ultrasound (Routine) - Closed Specialty Diagnoses / Procedures Referred By Contact Refer red To Contact Diagnoses Encounter for supervision of normal first in first trimester Jaqueline Castillo CNM Procedures US OB < 14 Weeks Single [address] [place], [place] [address] Referral ID Status Reason Start Date Expiration Date Visits Requ ested Visits Authorized [id number] Closed 07/28/2019 07/27/2020 1 1 Encounter Details Date Type Department Care Team Description 08/05/2019 Orders Only [facility] parvez for supervision [place] of normal first [address] [place] [address] in [facility] [address] [place] [address] Social History Tobacco Use [...] have completed or the highest Mayda, MEd, SHELLACKER, DEVIKA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 Sex Assigned [...] fluid. Yury Hooper MD Obstetrics & Gynecology [facility] Narrative 08/05/2019 3:09 PM CDT [facility] [address] [facility] [place] [address] ULTRASOUND - OB < 14 Weeks ?? Referring Provider: Jaqueline Castillo CNM Clinic: [facility] ?? INDICATIONS FOR ULTRASOUND: OB History: [...] first documented in this encounter Care Teams Financial Services Officer Relationship Specialty Start Date End Date Krissy Gutierrez APRN POT TENDER PCP - General Nurse Practitioner 05/03/17 [address] [place], [place] [phone] Krissy Gutierrez APRN POT TENDER Assigned PCP 05/05/17 10/13/21 [address] [place], [place] [phone] documented as of this encounter
--- OUTSIDE RECORDS SUMMARY | 2021-11-30 19:21 | XMS_ITS | Encounter Summary ---
:1995 Author Organization [place] Address [address] [place] [address] Care Team Providers Name Role Phone Krissy Gutierrez APRN, CNP Primary Care Provider [phone] Krissy Gutierrez APRN INSURANCE SALES ASSOCIATE Unavailable [phone] Encounter Details Date Type Department Care Team [...] have completed or the highest Mayda, MEd, KAIAKO KURA KAUPAPA MAORI, DEVIKA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 Sex Assigned [...] on filedocumented in this encounter Care Teams Receptionist Scheduler Relationship Specialty Start Date End Date Krissy Gutierrez APRN INSURANCE SALES ASSOCIATE PCP - General Nurse Practitioner 05/03/17 [address] [place], [place] [phone] Krissy Gutierrez APRN INSURANCE SALES ASSOCIATE Assigned PCP 05/05/17 10/13/21 [address] [place], [place] [phone] documented as of this encounter
--- OUTSIDE RECORDS SUMMARY | 2021-11-30 19:21 | XMS_ITS | Encounter Summary ---
:1995 Author Organization [place] Address [address] [place] [address] Care Team Providers Name Role Phone Krissy Gutierrez APRN, CNP Primary Care Provider [phone] Krissy Gutierrez APRN EXPLOSIVES MIXER OPERATOR Unavailable [phone] Encounter Details Date Type Department Care Team [...] have completed or the highest Mayda, MEd, FINANCIAL INSTITUTION VICE PRESIDENT, DEVIKA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 Sex Assigned [...] on filedocumented in this encounter Care Teams Batch Unit Treater Relationship Specialty Start Date End Date Krissy Gutierrez APRN EXPLOSIVES MIXER OPERATOR PCP - General Nurse Practitioner 05/03/17 [address] [place], [place] [phone] Krissy Gutierrez APRN EXPLOSIVES MIXER OPERATOR Assigned PCP 05/05/17 10/13/21 [address] [place], [place] [phone] documented as of this encounter
--- OUTSIDE RECORDS SUMMARY | 2021-11-30 19:21 | XMS_ITS | Clinical Summary ---
:1993 Author Organization [facility] [place] [address] Care Team Providers Name Role Phone Pcp, No Primary Care Provider Unavailable Allergies No known active allergies Medications Medication Sig Dispensed Refills Start Date End Date Status fluticasone (50 mcg Inhale 2 Sprays to 16 g 0 06/04/2021 Active per actuation) nasal both nostrils once solution daily. (FLONASE)Indications: Acute non-recurrent frontal sinusitis 25/iron Take 1 Tablet by 0 07/28/2019 Active fum/folic/dha mouth once daily. (-1 ORAL) docusate (COLACE) 100 Take 1 Capsule 0 11/15/2021 Active mg capsule (100 mg) by mouth 2 times daily if needed for Constipation. Active Problems Estimated Date of Delivery Comments Yes 11/30/2021 No known active problems Encounters Date Type Specialty Care Team Description 11/15/2021 Office Visit Cristina Fofana MD Back Injur y (72 hours) 11/15/2021 Travel from Last 3 Months Social History Tobacco Use Types Packs/Day Years Used Date Never Smoker Smokeless Tobacco: Never Used Alcohol Use Standard Drinks/Week Comments Not Currently 0 (1 standard drink = 0.6 oz pure alcoho l) Estimated Date of Delivery Comments Yes 11/30/2021 Sex Assigned at Date Recorded Not on file COVID-19 Exposure Response Date Recorded In the last 10 days, have you been in contact with No / Unsu re 11/15/2021 8:02 AM CDT someone who was confirmed or suspected to have Coronavirus/COVID-19? Obstetrics History Para Term AB IAB SAB Ectopic Multiple Living Live Births 1 Date Outcome GA Total Labor/2nd/3rd Weight Sex Delivery Anes PTL Cydney A 1 A5 Name Clin Labor Current Last Filed Vital Signs Vital Sign Reading Time Taken Comments Blood Pressure 107/57 11/15/2021 8:15 AM CDT Pulse 93 11/15/2021 8:15 AM CDT Temperature 36.3 ??C (97.3 ??F) 11/15/2021 8:15 AM CDT Respiratory Rate 18 11/15/2021 8:15 AM CDT Oxygen Saturation 97% 11/15/2021 8:15 AM CDT Inhaled Oxygen Concentration - - Weight 71.7 kg (158 lb) 11/15/2021 8:15 AM CDT Height 175.3 cm (5' 9) 11/15/2021 8:15 AM CDT Body Mass Index 23.33 11/15/2021 8:15 AM CDT Plan of Treatment Health Maintenance Due Date Last Done Comments Tdap 2004 Depression screening for age 12+ 2005 Hepatitis C screening for age 18-79 11/06/2011 Tetanus booster 2013 Influenza for age 9-49 11/16/2021 BMI (ht and wt on same day) for age 0811/15/2022 11/15/2021 18+ Pap test for age 21-65 05/01/2024 05/01/2021, 09/21/2020 COVID-19 vaccine series Completed 03/19/2021, 06/09/2020, 05/18/2020 Results Not on filefrom Last 3 Months Insurance Payer Benefit Plan / Subscriber ID Effective Dates Phone Addre ss Type Group WC WORKERS COMP WC SFM [id number] 2021-Present [address] [place] [address] [employer] HP [id number] 2020-Present [address] [place] [address] Care Teams Agricultural Appraiser Relationship Specialty Start Date End Date Pcp, No PCP - General 06/04/21 .
--- OUTSIDE RECORDS SUMMARY | 2021-11-30 19:21 | XMS_ITS | Encounter Summary ---
:1995 Author Organization [place] Address Counts include 234 beds at the [facility] [place] [address] Care Team Providers Name Role Phone Krissy Gutierrez APRN CARDIOPULMONARY TECHNOLOGIST Primary Care Provider [phone] Krissy Gutierrez APRN CARDIOPULMONARY TECHNOLOGIST Unavailable [phone] Reason for Visit Reason Comments Care 13w, Progenity screening Encounter Details Date Type Department Care Team Description 09/03/2019 Office [facility] Jaqueline Castillo for Visit [facility] L[facility] [place] supervision of [facility] [address] [address] first in [address] second trimester [facility], (Primary Dx) [address] [place] [address] [place], [place] [phone] [address] (Work) [phone] Social History Tobacco Use Types Packs/Day Years [...] have completed or the highest Mayda, MEd, SENIOR PROGRAMMER, DEVIKA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 Sex Assigned [...] Cell Free DNA (09/03/2019 2:29 PM CDT) [facility] gist Method Time Signature Lab Scanned NON [...] first documented in this encounter Care Teams Insurance Inspector Relationship Specialty Start Date End Date Krissy Gutierrez APRN CARDIOPULMONARY TECHNOLOGIST PCP - General Nurse Practitioner 05/03/17 [address] [place], [place] [phone] Krissy Gutierrez APRN CARDIOPULMONARY TECHNOLOGIST Assigned PCP 05/05/17 10/13/21 [address] [place] [address] documented as of this encounter
--- OUTSIDE RECORDS SUMMARY | 2021-11-30 19:21 | XMS_ITS | Encounter Summary ---
:1995 Author Organization [place] Address [address] [place] [address] Care Team Providers Name Role Phone Krissy Gutierrez APRN, CNP Primary Care Provider [phone] Krissy Gutierrez APRN WORKFORCE MANAGEMENT CONSULTANT Unavailable [phone] Encounter Details Date Type Department Care Team [...] have completed or the highest Mayda, MEd, ASSISTANT BRANCH OPERATIONS MANAGER, DEVIKA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 Sex Assigned [...] on filedocumented in this encounter Care Teams Health Care Technician Relationship Specialty Start Date End Date Krissy Gutierrez APRN WORKFORCE MANAGEMENT CONSULTANT PCP - General Nurse Practitioner 05/03/17 [address] [place], [place] [phone] Krissy Gutierrez APRN WORKFORCE MANAGEMENT CONSULTANT Assigned PCP 05/05/17 10/13/21 [address] [place], [place] [phone] documented as of this encounter
--- OUTSIDE RECORDS SUMMARY | 2021-11-30 19:21 | XMS_ITS | Encounter Summary ---
:1995 Author Organization [place] Address [address] [place] [address] Care Team Providers Name Role Phone Krissy Gutierrez APRN, CNP Primary Care Provider [phone] Krissy Gutierrez APRN MANAGER HARBOR Unavailable [phone] Encounter Details Date Type Department Care Team [...] on filedocumented in this encounter Care Teams Entry Processor Relationship Specialty Start Date End Date Krissy Gutierrez APRN MANAGER HARBOR PCP - General Nurse Practitioner 05/03/17 [address] [place] [address] Krissy Gutierrez APRN MANAGER HARBOR Assigned PCP 05/05/17 10/13/21 [address] [place] [address] documented as of this encounter
--- OUTSIDE RECORDS SUMMARY | 2021-11-30 19:21 | XMS_ITS | Encounter Summary ---
:1993 Author Organization [place] Address [facility] [place] [address] Care Team Providers Name Role Phone Krissy Gutierrez APRN, CNP Primary Care Provider [phone] Krissy Gutierrez APRN HOTEL RESERVATION AGENT Unavailable [phone] Krissy Gutierrez APRN HOTEL RESERVATION AGENT Unavailable [phone] Reason for Visit Reason Comments Refill Request BC Encounter Details Date Type Department Care Team Description 03/06/2018 Office Visit [facility] Krissy Gutierrez Encounter for [facility] [place] [address] [facility] HOTEL RESERVATION AGENT contraceptive [place], [place] [phone] [place] [address] [place], [place] [phone] [address] Social History Tobacco Use Types Packs/Day Years [...] Comments Blood Pressure 100/60 03/06/2018 4:21 PM CHEMICAL PRODUCTION ENGINEER Pulse 81 03/06/2018 4:21 PM CHEMICAL PRODUCTION ENGINEER Temperature 36.7 ??C (98.1 ??F) 03/06/2018 4:21 PM CHEMICAL PRODUCTION ENGINEER Respiratory Rate 12 03/06/2018 4:21 PM CHEMICAL PRODUCTION ENGINEER Oxygen Saturation 99% 03/06/2018 4:21 PM CHEMICAL PRODUCTION ENGINEER Inhaled Oxygen Concentration - - Weight 60.3 kg (133 lb) 03/06/2018 4:21 PM CHEMICAL PRODUCTION ENGINEER Height 175.3 cm (5' 9) 03/06/2018 4:21 PM CHEMICAL PRODUCTION ENGINEER Body Mass Index 19.64 03/06/2018 4:21 PM CHEMICAL PRODUCTION ENGINEER documented in this encounter Progress Notes Krissy Gutierrez, CANDIDA HOTEL RESERVATION AGENT - 03/06/2018 5:15 PM CST SUBJECTIVE: Sharmaine [...] sooner as needed. Krissy Gutierrez APRN CNP [facility] ICAL PRODUCTION ENGINEER documented in this encounter Plan of Treatment Not on filedocumented as of this encounter Visit Diagnoses Diagnosis Encounter for surveillance of contracept shirin pills Surveillance of previously prescribed co ntraceptive pill documented in this encounter Care Teams Paleontology Teacher Relationship Specialty Start Date End Date Krissy Gutierrez APRN PCP - General Nurse Practitioner 05/03/17 HOTEL RESERVATION AGENT [address] [place] [address] Krissy Gutierrez APRN PCP - Assigned PCP 05/05/17 05/20/18 HOTEL RESERVATION AGENT [address] [place] [address] Krissy Gutierrez APRN Assigned PCP 05/05/17 HOTEL RESERVATION AGENT [address] [place] [address] documented as of this encounter
--- OUTSIDE RECORDS SUMMARY | 2021-11-30 19:21 | XMS_ITS | Encounter Summary ---
:1995 Author Organization [place] Address [facility] [place] [address] Care Team Providers Name Role Phone Krissy Gutierrez APRN TILE LAYER DRAINAGE Primary Care Provider [phone] Krissy Gutierrez APRN TILE LAYER DRAINAGE Unavailable [phone] Reason for Visit Reason Comments Care feeling nausea but not throw ing up Encounter Details Date Type Department Care Team Description 08/05/2019 Office [facility] Jaqueline Castillo for Visit [facility] LEE Jackson supervision of normal [place] [address] [address] first in [address] first trimester [facility], (Primary Dx) [address] [place] [address] [place], [place] [phone] [address] (Work) [phone] Social History Tobacco Use Types Packs/Day Years [...] have completed or the highest Mayda, MEd, WAGE AND HOUR INVESTIGATOR, DEVIKA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 Sex Assigned [...] coming to see the Midwives at the [facility] ?? We will notify you about [...] next visit, you can reach the nurse lay midwife director of pulmonary unit by calling our pager number [phone]. ?? If you wish to schedule another appointment, please call our office at [phone]. You can alsomake appointments through eGym ?? If you have a medical emergency please call [phone]. Because you are , we have additional resources for you: ?? You may call our consulting RN's during normal business hours for non-urgent questions about yourpregnancy. ?? After hours you may also page the lay midwife director of pulmonary unit for urgent questions or issues at [phone].There is always a lay midwife director of pulmonary unit 24 hours a day. Reminders: Before 14 [...] Secure access to your medical record: Use WEbookhart (secure email communication and access to your chart) to send your primary care providera message or make an appointment. Ask someone on your Team how to sign up for D-ÉG Thermoset. To log on to OceanTailer or for more information in D-ÉG Thermoset please visit the website at [email or web address]. Certified Nurse Desk Officer (CNM) Team Jaqueline Castillo APRN, LEE Gerard APRN, LEE Pitts APRN, LEE Baumann APRN, LEE Again, thank you for choosing the midwives at [facility]. We are excited to be a part [...] groups include: , Southeast Asians, , Mediterranean, Gibraltarian, South and Central Armenian and Roe descent. 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 Intimate partner violence Fear of current or ex partner: Not on file Emotionally abused: Not on file Physically abused: Not on file Forced sexual activity: Not on file Other Topics Concern ??? Parent/sibling w/ CABG, PA or angioplasty before 65F 55M? Not Asked [...] tenderness or inflammation. Perineum without lesions. VAGINA: [place], normal rugae and discharge. CERVIX: Anterior, smooth, [...] of triage nurse line and contacting the director of pulmonary unit CNM after hours in an emergency. ?? Symptoms of N&V and fatigue usually start to resolve around 12-16 weeks ?? Reviewed CNM philosophy, call schedule for labor and delivery, and [facility] for delivery ?? 1st OB handout [...] desire a RN home visit from the [facility]? No If yes, paperwork completed? No [...] RPR and Titer (08/05/2019 3:16 PM CDT) [facility] Method Time Signature Treponema Nonreactive NR^Nonrea 08/06/2019 [facility] ctive 8:25 AM CDT [facility] Comment: Methodology Change: Test performed on DiaSorin Liaison XL by Treponema pallidum Total Antibodies Assay as of . Specimen Anatomical Collection Method Collection Time Receive d Time (Source) Location / / Volume Laterality Blood specimen 08/05/2019 3:16 PM 020 3:21 (specimen) CDT PM CDT SusanRenetta [facility] LAB - BLOOD ORDERABLES Performing Organization Address City/[facility]/ZIP Code Phon e Number [facility] [address] Rubella Antibody IgG Quantitative (08/05/2019 3:16 PM CDT) [facility] Signature Rubella Antibody 20 IU/mL 08/06/2019 [place] [facility] IgG Quantitative 9:39 AM CDT [facility] Comment: Positive. ??Suggests previous exposure o r immunization and probable immunity Reference Range: ??Unvaccinated Negative 0-7 IU/mL Vaccinated or previous exposure Positive 10 IU/ml or greater Specimen Anatomical Collection Method Collection Time Receive d Time (Source) Location / / Volume Laterality Blood specimen 08/05/2019 3:16 PM 020 3:21 (specimen) CDT PM CDT Jaqueline [facility] LAB - BLOOD ORDERABLES Performing Organization Address City/[facility]/ZIP Code Phon e Number [address] HIV Antigen Antibody Combo (08/05/2019 3:16 PM CDT) [facility] Method Time Signature HIV Antigen Nonreactive NR^Nonrea 08/06/2019 [place] Antibody ctive 11:32 AM CDT [facility] Comment: HIV-1 p24 Ag & HIV-1/HIV-2 Ab N ot Detected Specimen Anatomical Collection Method Collection Time Receive d Time (Source) Location / / Volume Laterality Blood specimen 08/05/2019 3:16 PM 020 3:21 (specimen) CDT PM CDT Jaqueline [facility] LAB - BLOOD ORDERABLES Performing Organization Address City/[facility]/ZIP Code Phon e Number [address] (ABNORMAL) CBC with platelets (08/05/2019 3:16 PM CDT) [facility] Method Time Signature WBC 8.8 4.0 - 11.0 08/05/2019 [facility] 10e9/L 4:28 PM CDT [facility] RBC Count 3.83 3.8 - 5.2 08/05/2019 [place] 10e12/L 4:28 PM CDT [facility] Hemoglobin 11.0 (L) 11.7 - 08/05/2019 [place] 15.7 g/dL 4:28 PM CDT [facility] Hematocrit 32.5 (L) 35.0 - 08/05/2019 [place] 47.0 % 4:28 PM CDT [facility] MCV 85 78 - 100 08/05/2019 [facility] fl 4:28 PM CDT [facility] MCH 28.7 26.5 - 08/05/2019 [place] 33.0 pg 4:28 PM CDT [facility] MCHC 33.8 31.5 - 08/05/2019 [place] 36.5 g/dL 4:28 PM CDT [facility] RDW 12.2 10.0 - 08/05/2019 [place] 15.0 % 4:28 PM CDT [facility] Platelet Count 204 150 - 450 08/05/2019 [place] 10e9/L 4:28 PM CDT [facility] Specimen Anatomical Collection Method Collection Time Receive d Time (Source) Location / / Volume Laterality Blood specimen 08/05/2019 3:16 PM 020 3:21 (specimen) CDT PM CDT Jaqueline [facility] LAB - BLOOD ORDERABLES Performing Organization Address City/State/ZIP Code Phon e Number [facility] [address] [place], [place] [address] [address] Hepatitis B surface antigen (08/05/2019 3:16 PM CDT) [facility] gist Method Time Signature Hep B Surface Nonreactive NR^Nonrea 08/06/2019 [facility] ctive 11:32 AM CDT [facility] Specimen Anatomical Collection Method Collection Time Receive d Time (Source) Location / / Volume Laterality Blood specimen 08/05/2019 3:16 PM 020 3:21 (specimen) CDT PM CDT Jaqueline [facility] LAB - BLOOD ORDERABLES Performing Organization Address City/State/ZIP Code Phon e Number [facility] [address] [place] [address] [facility] ABO/Rh type and screen (08/05/2019 3:16 PM CDT) [facility] InterpretOmics Method Time Signature ABO O 08/05/2019 [place] 5:42 PM CDT [facility] RH(D) Pos [facility] Antibody Neg 08/05/2019 [place] Screen 5:42 PM CDT [facility] Test Valid [place] 08/05/2019 [facility] Only At [facility] 5:50 PM CDT [facility] Specimen 08/08/2019 08/05/2019 [place] Expires 5:50 PM CDT [facility] Specimen Anatomical Collection Method Collection Time Receive d Time (Source) Location / / Volume Laterality Blood specimen 08/05/2019 3:16 PM 020 3:21 (specimen) CDT PM CDT Jaqueline Castillo CNM LAB - BLOOD BANK TEST ORDER Performing Organization Address City/State/ZIP [facility] Phon e Number [facility] [address] [place], [place] [address] [facility] [address] [place], [place] [address] [place] [address] CHLAMYDIA TRACHOMATIS PCR (08/05/2019 3:00 PM CDT) [facility] InterpretOmics Method Time Signature Specimen Vagina 08/05/2019 [place] Description 3:37 PM CDT [facility] Chlamydia Negative NEG^Negat 08/06/2019 INFECTIOUS Trachomatis PCR shirin 12:26 PM CDT [facility] Comment: Negative for C. trachomatis rRNA by galo scription mediated amplification. A negative result by pigs feet cleaner media mario amplification does not preclude the [...] Code Phon e Number [facility] [address] [place] [address] [facility], [facility] [address] [place] [address] [place] [address] INFECTIOUS DISEASES [address] [place] [address], A [facility] LAB[facility] NEISSERIA GONORRHOEA PCR (08/05/2019 3:00 PM CDT) Analysis Performed At Patho logist Time Signature Specimen Vagina 08/05/2019 [facility] 3:37 PM CDT [facility] N Gonorrhea Negative NEG^Negati 08/06/2019 INFECTIOUS PCR ve 12:26 PM CDT [facility] Comment: Negative for N. gonorrhoeae rRNA by galo scription mediated amplification. A negative result by pigs feet cleaner media mario amplification does not preclude the [...] Code Phon e Number INFECTIOUS DISEASES [address] [place] [address] DIAGNOSTIC LABORATORY, [facility] [address] [place] [address] [facility] 180 INFECTIOUS DISEASES [address] [place] [address], A DIAGNOSTIC LABORATORY Urine Culture Aerobic Bacterial [...] Code Phon e Number INFECTIOUS DISEASES [address] [place] [address] DIAGNOSTIC LABORATORY, [facility] INFECTIOUS DISEASES [address] [place] [address], A DIAGNOSTIC LABORATORY documented in this encounter Visit Diagnoses Diagnosis Encounter for supervision of normal firs t in first trimester - Primary Supervision of normal first documented in this encounter Care Teams Medicaid Plan Compliance Director Relationship Specialty Start Date End Date Krissy Gutierrez APRN TILE LAYER DRAINAGE PCP - General Nurse Practitioner 05/03/17 [address] [place], [place] [id number] Krissy Gutierrez APRN TILE LAYER DRAINAGE Assigned PCP 05/05/17 10/13/21 [address] [place], [place] [id number] documented as of this encounter
--- OUTSIDE RECORDS SUMMARY | 2021-11-30 19:21 | XMS_ITS | Encounter Summary ---
:1995 Author Organization [place] Address [address] [place] [address] Care Team Providers Name Role Phone Krissy Gutierrez APRN, CNP Primary Care Provider [phone] Krissy Gutierrez APRN RN ELIGIBILITY Unavailable [phone] Encounter Details Date Type Department Care Team [...] have completed or the highest Mayda, MEd, BUTTON DECORATING MACHINE OPERATOR, DEVIKA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 [...] on filedocumented in this encounter Care Teams Primary Clinician Relationship Specialty Start Date End Date Krissy Gutierrez APRN RN ELIGIBILITY PCP - General Nurse Practitioner 05/03/17 [address] [place], [place] [phone] Krissy Gutierrez APRN RN ELIGIBILITY Assigned PCP 05/05/17 10/13/21 [address] [place], [place] [id number] documented as of this encounter
--- OUTSIDE RECORDS SUMMARY | 2021-11-30 19:21 | XMS_ITS | Encounter Summary ---
:1995 Author Organization [place] Address [address] [place] [address] Care Team Providers Name Role Phone Krissy Gutierrez APRN, CNP Primary Care Provider [phone] Krissy Gutierrez APRN ATTENDANCE SECRETARY Unavailable [phone] Krissy Gutierrez APRN ATTENDANCE SECRETARY Unavailable [phone] Reason for Visit Reason Comments Medication Refill [place] Encounter Details Date Type Department Care Team Description 04/14/2018 Refill [facility] Krissy Gutierrez ication Refill [place] CANDIDA Heard CNP (Zully) [address] [place] [id number] [phone] (Wo rk) Social History Tobacco Use Types [...] 11:44 AM CST Duplicate Prescription approved per [facility] Refill Protocol. Jaqueline Pacheco RN, BSN VERY ROOM CLERK Telephone Encounter - Dena Hedrick - 04/14/2018 [...] prescribing provider: Krissy Gutierrez Future Office Visit: VERY ROOM CLERK documented in this encounter Plan of Treatment Not on filedocumented as of this encounter Visit Diagnoses Diagnosis Encounter for surveillance of contracept shirin pills Surveillance of previously prescribed co ntraceptive pill documented in this encounter Care Teams Physical Education Aide Relationship Specialty Start Date End Date Krissy Gutierrez APRN PCP - General Nurse Practitioner 05/03/17 ATTENDANCE SECRETARY [address] [place] [address] Krissy Gutierrez APRN PCP - Assigned PCP 05/05/17 05/20/18 ATTENDANCE SECRETARY [address] [place], [place] [phone] Krissy Gutierrez APRN Assigned PCP 05/05/17 ATTENDANCE SECRETARY [address] [place] [address] documented as of this encounter
--- OUTSIDE RECORDS SUMMARY | 2021-11-30 19:21 | XMS_ITS | Encounter Summary ---
:1995 Author Organization [place] Address [facility] [place] [address] Care Team Providers Name Role Phone [place] Toni Murillo Md MD Primary Care Provider [phone] Krissy Gutierrez APRN, CNP Primary Care Provider [phone] Krissy Gutierrez APRN OIL WELL FISHING TOOL TECHNICIAN Unavailable [phone] Krissy Gutierrez APRN, CNP Unavailable [phone] Reason for Visit Reason Comments Physical Recheck Medication Encounter Details Date Type Department Care Team Description 05/02/2017 Office Visit [facility] Krissy Gutierrez e xamination (Primary Dx); Clinic [place] CANDIDA Heard Encounter for surveillance o f contraceptive pills [address] [place] [address] [facility] [address] [place], [place] [phone] [id number] Social History Tobacco Use Types Packs/Day Years [...] Comments Blood Pressure 112/75 05/02/2017 6:05 PM CREDIT MANAGER Pulse 67 05/02/2017 6:05 PM CREDIT MANAGER Temperature 36.4 ??C (97.5 ??F) 05/02/2017 6:05 PM CREDIT MANAGER Respiratory Rate 14 05/02/2017 6:05 PM CREDIT MANAGER Oxygen Saturation 100% 05/02/2017 6:05 PM CREDIT MANAGER Inhaled Oxygen Concentration - - Weight 60.5 kg (133 lb 6.4 oz) 05/02/2017 6:05 PM CREDIT MANAGER Height 175.3 cm (5' 9) 05/02/2017 6:05 PM CREDIT MANAGER Body Mass Index 19.7 05/02/2017 6:05 PM CREDIT MANAGER documented in this encounter Patient Instructions Patient [...] six months for an exam and cleaning. IT MANAGER documented in this encounter Progress Notes Peace Gonzalez CMA - 05/02/2017 6:00 PM CST phy IT MANAGER Krissy Gutierrez APRN CNP - 05/02/2017 6:00 [...] a hard time maintaining that this year. INSOLE TACKER: Penny reports that for the most part her periods are good. She says that the longer she is on the Apri the technical aid her periods are becoming and the less [...] behalf by Ryan Castillo, a trained medical charge entry specialist. The creation of this document is based the provider's statements to the medical charge entry specialist. Ryan Castillo May 02, 2017 6:10 PM [...] rub, no peripheral edemaand peripheral pulses strong ACCOUNTING SUPPORT SPECIALIST: normal female external genitalia, vaginal mucosa pink, [...] in this document, created by the medical charge entry specialist for me, accurately reflects the services I personally performed and the decisions made by me. I have reviewed and approved this document for accuracy. Krissy Gutierrez CNP Follow up via phone in 1-2 months to update me on how the OCP is working. Return in 1 year for physical Krissy Gutierrez APRN CNP [facility] Answers for HPI/ROS submitted by the patient on 05/02/2017 PHQ-2 Score: 2 IT MANAGER documented in this encounter Nursing Notes Peace [...] 6.4 oz (60.5 kg). Medication Reconciliation: complete IT MANAGER documented in this encounter Plan of Treatment Not on filedocumented as of this encounter Procedures Procedure Name Priority Date/Time Associated Diagnosis Comme nts PAP IMAGED THIN Routine 05/02/2017 6:34 PM Wellness examinatio n Results for this LAYER SCREEN CREDIT MANAGER procedure are i n the results section. WET PREPARATION Routine 05/02/2017 6:30 PM Wellness examinatio n Results for this CREDIT MANAGER procedure are i n the results section. NEISSERIA Routine 05/02/2017 6:30 PM Wellness examination R esults for this GONORRHOEAE PCR CREDIT MANAGER procedure ar e in the results section. CHLAMYDIA Routine 05/02/2017 6:30 PM Wellness examination R esults for this TRACHOMATIS PCR CREDIT MANAGER procedure ar e in the results section. documented in this encounter Results PAP imaged thin layer screen (05/02/2017 6:34 PM CREDIT MANAGER) Component Value Ref Test Analysis Performed At [facility] Range Method Time Signature PAP NIL COPATH Copath Report COPATH Patient Name: PENNY SALAS MR#: [id number] Specimen #: [id number] Collected: 05/02/2017 Received: 05/06/2017 Reported: 05/07/2017 14:40 [...] SARA Kaye (ASCP) Processed and screened at [facility] Ce nt, [facility] CLINICAL HISTORY: LMP: 04/16/17 Papanicolaou Test Limitations: ??Cervical cytology is a sc reening test with limited sensitivity; regular screening is critical for cancer prevention; Pap tests are p rimarily effective for the diagnosis/prevention of squamous cell carcinoma, not adenocarcinomas or other cancer s. TESTING LAB LOCATION: [address] ??[address] COLLECTION SITE: Client: ??[facility] Location: CRFP (R) Specimen (Source) Anatomical Collection Method Collection Time Re ceived Time Location / / Volume Laterality Cytologic 05/02/2017 6:34 05/06/2017 8 :30 material PM CREDIT MANAGER AM CREDIT MANAGER (specimen) Krissy Gutierrez APRN, CNP LAB - OPTIME CLINICAL SPE LELE Performing Organization Address City/State/ZIP Code Phon e Number [place] Wet prep (05/02/2017 6:30 PM CREDIT MANAGER) Patholo gist Method Time Signature Specimen Vagina [facility] Description [facility] Wet Prep No Trichomonas 05/02/2017 [facility] seen 7:02 PM CREDIT MANAGER [facility] Wet Prep No clue cells 05/02/2017 [facility] seen 7:02 PM CREDIT MANAGER [facility] Wet Prep No yeast seen 05/02/2017 [facility] 7:02 PM CREDIT MANAGER [facility] Specimen Anatomical Collection Method Collection Time Receive d Time (Source) Location / / Volume Laterality Specimen from 05/02/2017 6:30 PM 05/02/19 18 6:36 vagina CREDIT MANAGER PM CREDIT MANAGER (specimen) Krissy Gutierrez APRN OIL WELL FISHING TOOL TECHNICIAN LAB - MICRO GENERAL ORDER NISHA Performing Organization Address City/[facility]/ZIP Code Phon e Number [facility] [address] [place] [address] Chlamydia trachomatis PCR (05/02/2017 6:30 PM CREDIT MANAGER) [facility] gist Method Time Signature Specimen Endocervical 05/02/2017 [facility] Description 6:36 PM CREDIT MANAGER [facility] Chlamydia Negative NEG^Negat 05/05/2017 [facility] Trachomatis PCR shirin 2:02 PM CREDIT MANAGER [facility] Comment: Negative for C. trachomatis rRNA by galo scription mediated amplification. A negative result by on call media mario amplification does not preclude the presence of C. trachomatis infection because results are dependent on proper and adequate collection, absence of inhibitors, and sufficient rRNA to be detected. Specimen (Source) Anatomical Collection Method Collection Time Re ceived Time Location / / Volume Laterality Endocervical 05/02/2017 6:30 05/02/2017 6 :36 cytologic material PM CREDIT MANAGER PM CREDIT MANAGER (specimen) Krissy Gutierrez APRN OIL WELL FISHING TOOL TECHNICIAN LAB - MICRO GENERAL ORDER NISHA Performing Organization Address City/State/ZIP Code Phon e Number [facility] [address] [place] [address] [address] Neisseria gonorrhoeae PCR (05/02/2017 6:30 PM CREDIT MANAGER) [facility] gist Method Time Signature Specimen Endocervical 05/02/2017 [place] 6:36 PM CREDIT MANAGER [facility] N Gonorrhea Negative NEG^Negat 05/05/2017 [facility] PCR shirin 2:02 PM CREDIT MANAGER [facility] Comment: Negative for N. gonorrhoeae rRNA by galo scription mediated amplification. A negative result by on call media mario amplification does not preclude the presence of N. gonorrhoeae infection because results are dependent on proper and adequate collection, absence of inhibitors, and sufficient rRNA to be detected. Specimen (Source) Anatomical Collection Method Collection Time Re ceived Time Location / / Volume Laterality Endocervical 05/02/2017 6:30 05/02/2017 6 :36 cytologic material PM CREDIT MANAGER PM CREDIT MANAGER (specimen) Krissy Gutierrez APRN OIL WELL FISHING TOOL TECHNICIAN LAB - MICRO GENERAL ORDER NISHA Performing Organization Address City/State/ZIP Code Phon e Number [facility] [address] [place], [place] [id number] [place] [address] documented in this encounter Visit Diagnoses Diagnosis Wellness examination - Primary Encounter for surveillance of contracept shirin pills Surveillance of previously prescribed co ntraceptive pill documented in this encounter Care Teams Video Systems Engineer Relationship Specialty Start Date End Date [facility] PCP - General 02/15/15 05/02/[address] [place] [address] Krissy Gutierrez APRN PCP - General Nurse Practitioner 05/03/17 OIL WELL FISHING TOOL TECHNICIAN [address] [place] [address] Krissy Gutierrez APRN PCP - Assigned PCP 05/05/17 05/20/18 OIL WELL FISHING TOOL TECHNICIAN [address] [place] [address] Krissy Gutierrez APRN Assigned PCP 05/05/17 [facility] [address] [place], [place] [phone] documented as of this encounter
--- OUTSIDE RECORDS SUMMARY | 2021-11-30 19:21 | XMS_ITS | Encounter Summary ---
:1995 Author Organization [place] Address [address] [place] [address] Care Team Providers Name Role Phone Krissy Gutierrez APRN LOADER UNLOADER Primary Care Provider [phone] Krissy Gutierrez APRN LOADER UNLOADER Unavailable [phone] Reason for Visit Reason Comments Medication Refill Encounter Details Date Type Department Care Team Description 09/01/[address] [facility] Cary Peres Ma, Medication Refill [place] MANAGER TRANSIT LOADER UNLOADER [address] [place] [address] [place] [address] [place] [address] [phone] Social History Tobacco Use Types Packs/Day Years [...] have completed or the highest Mayda, MEd, BOX INSPECTOR, DEVIKA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 Sex [...] Primary documented in this encounter Care Teams Toll Line Mechanic Relationship Specialty Start Date End Date Krissy Gutierrez APRN LOADER UNLOADER PCP - General Nurse Practitioner 05/03/17 [address] [place] [address] Krissy Gutierrez APRN LOADER UNLOADER Assigned PCP 05/05/17 10/13/21 [address] [place] [address] documented as of this encounter
--- OUTSIDE RECORDS SUMMARY | 2021-11-30 19:21 | XMS_ITS | Encounter Summary ---
:1995 Author Organization [place] Address [facility] [place] [address] Care Team Providers Name Role Phone Krissy Gutierrez APRN, CNP Primary Care Provider [phone] Krissy Gutierrez APRN REPEAT CHIEF Unavailable [phone] Reason for Referral Diagnostic Imaging Ultrasound (Routine) - Closed Specialty Diagnoses / Procedures Referred By Contact Refer red To Contact Diagnoses Encounter for supervision of normal first in first trimester Jaqueline Castillo CNM Procedures US OB < 14 Weeks Single [address] [place], [place] [address] Referral ID Status Reason Start Date Expiration Date Visits Requ ested Visits Authorized [id number] Closed 07/28/2019 07/27/2020 1 1 Reason for Visit Reason Comments Care New Nurse Telephone Visit Encounter Details Date Type Department Care Team Description 07/28/2019 Office [facility] er for supervision of normal first in first trimester (Primary Dx); Visit Clinic [place] [facility]; [address] [place] [address] Seasonal a llergic [facility] [address] [place] [address] Social History Tobacco Use Types Packs/Day [...] have completed or the highest Mayda, MEd, TIERCE FILLER, DEVIKA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 Sex Assigned [...] - documented in this encounter Progress Notes Zuelika Garcia RN - 07/28/2019 3:30 PM CDT [...] If you answered Yes, is this for hindu reasons?: No Does anyone in your home [...] you have any allergies to drugs or tquv-hfb-rfiycny medications?: No Allergies: Dust Mites, Aspartame, Ethanol, [...] discharge or bleed: No Current medications, including egxf-rpn-icfzepk medications, you are using? (If not applicable answer none): , iron supplement, OTC allergy medicine Will the patient be 35 years old or older at the time of delivery?: No Has the patient, baby's father or anyone in either family had: Thalassemia (Scottish, Citizen Of Guinea[place]iss[place], Mediterranean or background only) and an MCV result less than 80?: No Neural tube defect such as meningomyelocele, spina bifida or anencephaly?: No Congenital heart defect?: No Down's Syndrome?: No Nando-Sachs disease (Caodaism, Cajun, Luxembourger-Vale)?: No Sickle cell disease or trait ()?: No Hemophilia or other inherited problems of blood?: No Muscular dystrophy?: No Cystic fibrosis?: No [place]'s chorea?: No Mental retardation/autism?: No If yes, [...] fluid. Yury Hooper MD Obstetrics & Gynecology [facility] Narrative 08/05/2019 3:09 PM CDT [facility] Obstetrics & Gynecology [address] [place] [address] ULTRASOUND - OB < 14 Weeks ?? Referring Provider: Jaqueline Castillo CNM Clinic: [facility] ?? INDICATIONS FOR ULTRASOUND: OB History: [...] first documented in this encounter Care Teams Gin Operator Relationship Specialty Start Date End Date Krissy Gutierrez APRN REPEAT CHIEF PCP - General Nurse Practitioner 05/03/17 [address] [place] [address] Krissy Gutierrez APRN REPEAT CHIEF Assigned PCP 05/05/17 10/13/21 [address] [place] [address] documented as of this encounter
--- OUTSIDE RECORDS SUMMARY | 2021-11-30 19:21 | XMS_ITS | Encounter Summary ---
:1995 Author Organization [place] Address [facility] [place] [address] Care Team Providers Name Role Phone Krissy Gutierrez APRN, CNP Primary Care Provider [phone] Krissy Gutierrez APRN, CNP Unavailable [phone] Reason for Referral Diagnostic Imaging Ultrasound (Routine) - Closed Specialty Diagnoses / Procedures Referred By Contact Refer red To Contact Diagnoses Encounter for supervision of normal first in second trimester Jaqueline Castillo CNM Procedures US OB > [address] [place], [place] [address] Referral ID Status Reason Start Date Expiration Date Visits Requ ested Visits Authorized [id number] Closed 10/27/2019 10/26/2020 1 1 Reason for Visit Reason Comments Care 17w 1d, discuss cyst found o n US on 08/05/19-no sx Encounter Details Date Type Department Care Team Description 10/02/2019 Office [facility] Jaqueline Castillo for Visit [facility] [place] supervision of normal [place] [address] first in [address] [facility] ([facility] [address] [place] [address] [place], [place] [phone] [address] (Work) [phone] Social History Tobacco Use Types Packs/Day Years [...] have completed or the highest Mayda, MEd, VIRTUAL CUSTOMER ASSISTANT, DEVIKA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 Sex Assigned [...] 20-22 weeks Return to clinic 4 weeks Jauqeline Castillo APRN, CNM documented in this encounter [...] 6:21 AM CDT 10/29/2019 10:28 AM ? [facility] Obstetrics & Gynecology [address] [facility]. [address] [place] [address] ?? ULTRASOUND - OB > 14 Weeks [...] Dr. Salma Barnett MD Obstetrics and Gynecology [facility] ?? Jaqueline Castillo [facility] ORDERABLES documented in this encounter Visit Diagnoses Diagnosis Encounter for supervision of normal firs t in second trimester - Primary Supervision of normal first Encounter for supervision of normal firs t in second trimester Supervision of normal first documented in this encounter Care Teams Doctor Of Dental Medicine Relationship Specialty Start Date End Date Krissy Gutierrez APRN SHIFT COMMANDER PCP - General Nurse Practitioner 05/03/17 [address] [place] [address] Krissy Gutierrez, CANDIDA SHIFT COMMANDER Assigned PCP 05/05/17 10/13/21 [address] [place] [address] documented as of this encounter
--- OUTSIDE RECORDS SUMMARY | 2021-11-30 19:21 | XMS_ITS | Encounter Summary ---
:1995 Author Organization [place] Address [facility] [place] [address] Care Team Providers Name Role Phone Krissy Gutierrez APRN, CNP Primary Care Provider [phone] BrendaKrissy Orquidea TIRADO THEATER MANAGER Unavailable [phone] BrendaKrissy Orquidea TIRADO THEATER MANAGER Unavailable [phone] Encounter Details Date Type Department Care Team Description 11/30/2017 Virtual Visit [facility] Cary Peres, [address] [facility] MANAGER APPLICATION THEATER MANAGER [place] [address] [address] [facility] [address] [place] [address] [place] [address] [phone] Social History Tobacco Use Types Packs/Day Years [...] this encounter Progress Notes Cary Peres APRN THEATER MANAGER - 11/30/2017 9:32 PM CDT Date: Clinician: Cary Peres Clinician Patient: Sharmaine Augustin Patient : 1995 Patient Address: [address] [place] [address] Patient Visit Protocol: URI Patient Summary: Sharmaine [...] prescription. Unless you are allergic to the faqh-nxd-semxsoo medication(s) below, I recommend using: An antihistamine such as Benadryl, Claritin, or store brand. A decongestant such as Sudafed PE or store brand. Lcve-vsb-isuxtkm medications do not require a prescription. Ask [...] as needed: no, Allow substitutions: yes Pharmacy: [facility] [id number] [facility] - - [address] [place] [address] documented in this encounter Plan of Treatment Not on filedocumented as of this encounter Visit Diagnoses Not on filedocumented in this encounter Care Teams Link Wire Fabric Machine Operator Relationship Specialty Start Date End Date Krissy Gutierrez APRN PCP - General Nurse Practitioner 05/03/17 THEATER MANAGER [address] [place], [place] [phone] Krissy Gutierrez APRN PCP - Assigned PCP 05/05/17 05/20/18 THEATER MANAGER [address] [place], [place] [phone] Krissy Guiterrez APRN Assigned PCP 05/05/17 THEATER MANAGER [address] [place] [address] documented as of this encounter
--- OUTSIDE RECORDS SUMMARY | 2021-11-30 19:21 | XMS_ITS | Clinical Summary ---
:1995 Author Organization [place] Address [address] [place] [address] Care Team Providers Name Role Phone Krissy Gutierrez APRN FILLER SHREDDING MACHINE LOADER Primary Care Provider [phone] Allergies No known active allergies Medications Medication [...] contraceptive pills 05/02/2017 10/29/2019 Ileitis 02/16/2015 05/02/2017 Encounters Date Type Specialty Care Team Description 11/15/2021 Travel from Last 3 Months Immunizations Name Administration Dates Next Due HepA-Adult [...] have completed or the highest Mayda, MEd, SUPERVISOR LEAF SPRING REPAIR, DEVIKA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 Sex Assigned at Date Recorded Female 07/27/2019 7:13 AM CDT COVID-19 Exposure Response Date Recorded In the last 10 days, have you been in contact with No / Unsu re 11/15/2021 7:09 AM CDT someone who was confirmed or suspected to have Coronavirus/COVID-19? Last Filed Vital Signs Vital Sign Reading Time Taken Comments Blood Pressure 96/56 10/29/2019 10:26 AM CDT Pulse 72 02/10/2019 11:05 AM SUPERVISOR DOPING Temperature 36.8 ??C (98.2 ??F) 02/10/2019 11:05 AM SUPERVISOR DOPING Respiratory Rate 16 02/10/2019 11:05 AM SUPERVISOR DOPING Oxygen Saturation 98% 02/10/2019 11:05 AM SUPERVISOR DOPING Inhaled Oxygen Concentration - - Weight 63 [...] ss Type Group BCBS [place] OF [place] [id number] 2018-[place] [phone] [address] [address] Indemnity nt 0 [place] [address] Advance Directives For more information, please contact: [phone] Latest Code Status on File Code Status Date Activated Date Inactivated Comments Full Code 02/18/2015 1:58 PM Full Code 02/16/2015 1:46 AM 02/18/2015 1:58 PM Care Teams Wage Adjuster Relationship Specialty Start Date End Date Krissy Gutierrez CIRCLE SHEAR OPERATOR FILLER SHREDDING MACHINE LOADER PCP - General Nurse Practitioner 05/03/17 [address] [place], [place] [phone]
--- OUTSIDE RECORDS SUMMARY | 2021-11-30 19:21 | XMS_ITS | Encounter Summary ---
:1995 Author Organization [place] Address [facility] [place] [address] Care Team Providers Name Role Phone Krissy Gutierrez APRN, CNP Primary Care Provider [phone] rKissy Gutierrez APRN, CNP Unavailable [phone] Krissy Gutierrez APRN, CNP Unavailable [phone] Reason for Visit Reason Comments Medication Refill drospirenone-ethinyl estradi ol (MONIKA) 3-0.03 MG per tablet Encounter Details Date Type Department Care Team Description 08/07/[address] [facility] Krissy Gutierrez ication Refill [place] CANDIDA Heard CNP (drospirenone-ethinyl [address] [facility] [address] [place] [address] estradiol (MONIKA) [place], [place] 3-0.03 MG per tablet) [id number] [phone] (Wo rk) Social History Tobacco Use Types [...] 04/2018 for annual, FY Prescription approved per [facility] Refill Protocol. Jaqueline Pacheco RN, BSN Telephone [...] 3-0.03 MG per tablet [Pharmacy Med Name: [id number]-MA9-0.03 MG TAB] Last Written Prescription Date: 05/02/17 [...] pill documented in this encounter Care Teams Culinary Worker Relationship Specialty Start Date End Date Krissy Gutierrez APRN PCP - General Nurse Practitioner 05/03/17 FEATURE [address] [address] [place] [address] Krissy Gutierrez APRN PCP - Assigned PCP 05/05/17 05/20/18 [address] [address] [place] [address] Krissy Gutierrez APRN Assigned PCP 05/05/17 [address] [address] [place] [address] documented as of this encounter
--- OUTSIDE RECORDS SUMMARY | 2021-11-30 19:21 | XMS_ITS | Encounter Summary ---
:1995 Author Organization [place] Address [facility] [place] [address] Care Team Providers Name Role Phone BrendaKrissy ward Orquidea TIRADO CRYSTALIZER OPERATOR Primary Care Provider [phone] Encounter Details Date Type Department Care Team Description 11/15/2021 Travel Social History Tobacco Use Types Packs/Day [...] you have completed or the highest Mayda, Hermelinda, RESEARCH DEVELOPMENT MANAGER, DEVIKA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 Sex Assigned at Date Recorded Female 07/27/2019 7:13 AM CDT COVID-19 Exposure Response Date Recorded In the last 10 days, have you been in contact with No / Unsu re 11/15/2021 7:09 AM CDT someone who was confirmed or suspected to have Coronavirus/COVID-19? documented as of this encounter Plan of Treatment Not on filedocumented as of this encounter Visit Diagnoses Not on filedocumented in this encounter Care Teams Line Prep Cook Relationship Specialty Start Date End Date Krissy Gutierrez APRN CRYSTALIZER OPERATOR PCP - General Nurse Practitioner 05/03/17 [address] [place] [address] documented as of this encounter
--- OUTSIDE RECORDS SUMMARY | 2021-11-30 19:21 | XMS_ITS | Encounter Summary ---
:1995 Author Organization [place] Address [address] [place] [address] Care Team Providers Name Role Phone Krissy Gutierrez APRN, CNP Primary Care Provider [phone] Krissy Gutierrez APRN AIRWAY CONTROLLER Unavailable [phone] Brenda Krissy Heard APRN AIRWAY CONTROLLER Unavailable [phone] Encounter Details Date Type Department Care Team [...] on filedocumented in this encounter Care Teams Garment Manufacturing Supervisor Relationship Specialty Start Date End Date Krissy Gutierrez APRN PCP - General Nurse Practitioner 05/03/17 AIRWAY [address] [address] [place] [address] Krissy Gutierrez APRN PCP - Assigned PCP 05/05/17 05/20/18 AIRWAY CONTROLLER [address] [place] [address] Krissy Gutierrez APRN Assigned PCP 05/05/17 AIRWAY CONTROLLER [address] [place] [address] documented as of this encounter
--- OUTSIDE RECORDS SUMMARY | 2021-11-30 19:21 | XMS_ITS | Encounter Summary ---
:1995 Author Organization [place] Address [address] [place] [address] Care Team Providers Name Role Phone Krissy Gutierrez APRN PHARMACY TECHNOLOGY INSTRUCTOR Primary Care Provider [phone] Krissy Gutierrez APRN PHARMACY TECHNOLOGY INSTRUCTOR Unavailable Reason for Visit Reason Onset Date Comments Results 09/09/2019 Innatal Encounter Details Date Type Department Care Team Description 09/09/2019 Telephone [facility] Jaqueline Castillo, Results (Innatal) Clinic [facility] [address] [place] [address] [facility] [address] [place] [phone] (Wo rk) Social [...] have completed or the highest Mayda, MEd, PASSENGER SERVICE SUPERVISOR, DEVIKA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 Sex Assigned [...] CDT Results received from Progenity testing in [facility].. Testing done: Innatal Screen Action: Spoke to pt and gave NORMAL results. Gender: Gender revealed to pt on the phone. Routed to provider as FYI. [place] El RN documented in this encounter Plan of Treatment Not on filedocumented as of this encounter Visit Diagnoses Not on filedocumented in this encounter Care Teams Private Tutors And Teachers Relationship Specialty Start Date End Date Krissy Gutierrez APRN PHARMACY TECHNOLOGY INSTRUCTOR PCP - General Nurse Practitioner 05/03/17 [address] [place], [place] [phone] Krissy Gutierrez APRN PHARMACY TECHNOLOGY INSTRUCTOR Assigned PCP 05/05/17 10/13/21 [address] [place], [place] [phone] documented as of this encounter
--- OUTSIDE RECORDS SUMMARY | 2021-11-30 19:21 | XMS_ITS | Encounter Summary ---
:1995 Author Organization [place] Address [address] [place] [address] Care Team Providers Name Role Phone Krissy Gutierrez APRN, CNP Primary Care Provider [phone] Krissy Gutierrez APRN SURFACE WATER MANAGER Unavailable [phone] Encounter Details Date Type Department Care Team [...] have completed or the highest Mayda, MEd, REFUELING RAMP ATTENDANT, DEVIKA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 Sex [...] on filedocumented in this encounter Care Teams Family And Consumer Education Teacher Relationship Specialty Start Date End Date Krissy Gutierrez APRN SURFACE WATER MANAGER PCP - General Nurse Practitioner 05/03/17 [address] [place], [place] [phone] Krissy Gutierrez APRN SURFACE WATER MANAGER Assigned PCP 05/05/17 10/13/21 [address] [place], [place] [phone] documented as of this encounter
--- OUTSIDE RECORDS SUMMARY | 2021-11-30 19:21 | XMS_ITS | Encounter Summary ---
:1995 Author Organization [place] Address [facility] [place] [address] Care Team Providers Name Role Phone Krissy Gutierrez APRN, CNP Primary Care Provider [phone] Krissy Gutierrez APRN CONSERVATION WORKER Unavailable [phone] Reason for Visit Reason Onset Date Comments Physical Blood Draw Imm/Inj flu Imm/Inj 02/10/2019 Flu Shot Encounter Details Date Type Department Care Team Description 02/10/2019 Office Visit [facility] Krissy Gutierrez Wellness e xamination (Primary Dx); Clinic [place] CANDIDA Heard Iron deficiency anemia, unsp ecified iron deficiency anemia type; [address] [facility] Encounter for surveillance of contracept shirin pills; [place], [place] [phone] [place] [address] Need for Tdap vaccination; [address] [place], [place] Need for prophylactic vaccin ation and inoculation against influenza [phone] [address] Social History Tobacco Use Types Packs/Day [...] Comments Blood Pressure 96/50 02/10/2019 11:05 AM EXPORT AGENT Pulse 72 02/10/2019 11:05 AM EXPORT AGENT Temperature 36.8 ??C (98.2 ??F) 02/10/2019 11:05 AM EXPORT AGENT Respiratory Rate 16 02/10/2019 11:05 AM EXPORT AGENT Oxygen Saturation 98% 02/10/2019 11:05 AM EXPORT AGENT Inhaled Oxygen Concentration - - Weight 60.3 kg (133 lb) 02/10/2019 11:05 AM EXPORT AGENT Height 175.3 cm (5' 9) 02/10/2019 11:05 AM EXPORT AGENT Body Mass Index 19.64 02/10/2019 11:05 AM EXPORT AGENT documented in this encounter Progress Notes Krissy Gutierrez, CANDIDA CONSERVATION WORKER - 02/10/2019 10:45 AM CST SUBJECTIVE: CC: [...] BY BIOPSY; Surgeon: Bri Gallagher MD; Location: [facility] Social History Tobacco Use ??? Smoking status: [...] stress related to medical care and procedures (child welfare social worker contacted). Iron deficiency anemia, unspecified iron deficiency anemia type - CBC with platelets differential - Iron and iron binding capacity Encounter for surveillance of contraceptive pills - drospirenone-ethinyl estradiol (MONIKA) 3-0.03 MG tablet; Take 1 tablet by mouth daily Need for Tdap vaccination - TDAP VACCINE Need for prophylactic vaccination and inoculation against influenza - INFLUENZA VACCINE IM > 6 MONTHS VALENT IIV4 [[address]] - Vaccine Administration, Initial [[address]] COUNSELING: Reviewed preventive health counseling, as reflected [...] sooner as needed. Krissy Gutierrez APRN CNP [facility] RT AGENT documented in this encounter Plan of Treatment Not on filedocumented as of this encounter Procedures Procedure Name Priority Date/Time Associated Diagnosis Comme nts CBC WITH PLATELETS & Routine 02/10/2019 11:38 Iron deficiency Results for this DIFFERENTIAL AM EXPORT AGENT anemia, unspecified procedur e are in iron deficiency the results anemia type section. IRON AND IRON BINDING Routine 02/10/2019 11:38 Iron deficiency Results for this CAPACITY AM EXPORT AGENT anemia, unspecified procedur e are in iron deficiency the results anemia type section. documented in this encounter Results Iron and iron binding capacity (02/10/2019 11:38 AM EXPORT AGENT) athologist Signature Iron 157 35 - 180 02/11/2019 [facility] ug/dL 8:33 AM [facility] Iron Binding 386 240 - 430 02/11/2019 [facility] Cap ug/dL 8:36 AM [facility] Iron Saturation 41 15 - 46 % 02/11/2019 [facility] Index 8:36 AM [facility] Specimen Anatomical Collection Method Collection Time Receive d Time (Source) Location / / Volume Laterality Blood specimen 02/10/2019 11:38 9 (specimen) AM EXPORT AGENT 11:51 AM EXPORT AGENT Krissy Gutierrez FENCE POST CUTTER CONSERVATION WORKER LAB - BLOOD ORDERABLES Performing Organization Address City/State/ZIP Code Phon e Number M [facility] [address] [address] [phone] [facility] [address] [place], [place] [address] [facility] [address] [place] [address], [place] [phone] (ABNORMAL) CBC with platelets differential (02/10/2019 11:38 AM EXPORT AGENT) athologist Signature WBC 7.7 4.0 - 11.0 02/10/2019 [facility] 10e9/L 12:19 PM [facility] RBC Count 3.89 3.8 - 5.2 02/10/2019 [facility] 10e12/L 12:19 PM [facility] Hemoglobin 11.2 (L) 11.7 - 15.7 02/10/2019 [facility] g/dL 12:19 PM [facility] Comment: Results confirmed by repeat megan t Hematocrit 33.6 (L) 35.0 - 47.0 % 02/10/2019 12:19 PM CS T [facility] Comment: Results confirmed by repeat megan t MCV 86 78 - 100 fl 02/10/2019 12:19 [facility] PM [facility] MCH 28.8 26.5 - 33.0 02/10/2019 12:19 [facility] pg PM EXPORT AGENT [place] MCHC 33.3 31.5 - 36.5 02/10/2019 12:19 [facility] g/dL PM EXPORT AGENT [place] RDW 12.2 10.0 - 15.0 02/10/2019 12:19 [facility] % PM EXPORT AGENT [place] Platelet Count 229 150 - 450 02/10/2019 12:19 [facility] 10e9/L PM EXPORT AGENT [place] % Neutrophils 53.8 % 02/10/2019 12:19 [facility] PM EXPORT AGENT [place] % Lymphocytes 38.3 % 02/10/2019 12:19 [facility] PM EXPORT AGENT [place] % Monocytes 6.6 % 02/10/2019 12:19 [facility] PM EXPORT AGENT [place] % Eosinophils 0.8 % 02/10/2019 12:19 [facility] PM EXPORT AGENT [place] % Basophils 0.5 % 02/10/2019 12:19 [facility] PM EXPORT AGENT [place] Absolute Neutrophil 4.1 1.6 - 8.3 02/10/2019 12:19 [facility] 10e9/L PM EXPORT AGENT [place] Absolute 2.9 0.8 - 5.3 02/10/2019 12:19 [facility] Lymphocytes 10e9/L PM EXPORT AGENT [place] Absolute Monocytes 0.5 0.0 - 1.3 02/10/2019 12:19 [facility] 10e9/L PM EXPORT AGENT [place] Absolute 0.1 0.0 - 0.7 02/10/2019 12:19 [facility] Eosinophils 10e9/L PM EXPORT AGENT [place] Absolute Basophils 0.0 0.0 - 0.2 02/10/2019 12:19 [facility] 10e9/L PM EXPORT AGENT [place] Diff Method Automated Method 02/10/2019 12:19 [facility] PM EXPORT AGENT [place] Specimen Anatomical Collection Method Collection Time Receive d Time (Source) Location / / Volume Laterality Blood specimen 02/10/2019 11:38 9 (specimen) AM EXPORT AGENT 11:51 AM EXPORT AGENT Krissy Gutierrez APRN CONSERVATION WORKER LAB - BLOOD ORDERABLES Performing Organization Address City/State/ZIP Code Phon e Number [facility] [address] [place] [address] documented in this encounter Visit Diagnoses Diagnosis Wellness examination - Primary Iron deficiency anemia, unspecified iron deficiency anemia type Encounter for surveillance of contracept shirin pills Surveillance of previously prescribed co ntraceptive pill Need for Tdap vaccination Need for prophylactic vaccination with c ombined nmryawylbo-ycbaykn-cnjqsgzqs (DTP) vaccine Need for prophylactic vaccination and in oculation against influenza documented in this encounter Care Teams Director Drug Safety Relationship Specialty Start Date End Date Krissy Gutierrez APRN CONSERVATION WORKER PCP - General Nurse Practitioner 05/03/17 [address] [place], [place] [phone] Krissy Gutierrez APRN CONSERVATION WORKER Assigned PCP 05/05/17 10/13/21 [address] [place], [place] [phone] documented as of this encounter
--- OUTSIDE RECORDS SUMMARY | 2021-11-30 19:22 | XMS_ITS | Encounter Summary ---
:1995 Author Organization [facility] Address [address] [place] [address]. [place] [address] Care Team Providers Name Role Phone Richa Murillo Md MD Primary Care Provider [phone] Reason for Visit Reason Comments URI Encounter Details Date Type Department Care Team Description 02/14/2017 Office Visit [facility] Javier Rosales Acute recurrent Clinic [place] MD Angel Luis maxillary sinusitis [address] [place] [address] (Primary Dx) [place] [address] [phone] Social History Tobacco Use Types Packs/Day Years [...] Comments Blood Pressure 100/69 02/14/2017 9:44 AM CITY SOLICITOR Pulse 90 02/14/2017 9:44 AM CITY SOLICITOR Temperature 36.4 ??C (97.6 ??F) 02/14/2017 9:44 AM CITY SOLICITOR Respiratory Rate 12 02/14/2017 9:44 AM CITY SOLICITOR Oxygen Saturation 96% 02/14/2017 9:44 AM CITY SOLICITOR Inhaled Oxygen Concentration - - Weight 59.8 kg (131 lb 12.8 oz) 02/14/2017 9:44 AM CITY SOLICITOR Height - - Body Mass Index 19.46 02/19/2015 10:47 PM CITY SOLICITOR documented in this encounter Progress Notes Javier [...] none ?? 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 Therapies tried [...] or stridor. 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 Discussed signs of systemic or constutional illness. SOLICITOR documented in this encounter Plan of Treatment Not on filedocumented as of this encounter Visit Diagnoses Diagnosis Acute recurrent maxillary sinusitis - Pr imary Acute maxillary sinusitis documented in this encounter Care Teams Box Toe Stitcher Relationship Specialty Start Date End Date [facility] Md Murillo MD PCP - General 02/15/15 05/02/[address] [place] [address] documented as of this encounter
--- OUTSIDE RECORDS SUMMARY | 2021-11-30 19:22 | XMS_ITS | Encounter Summary ---
:1995 Author Organization [place] Address [address] [place] [address]. [place] [address] Care Team Providers Name Role Phone Richa Murillo Md MD Primary Care Provider [phone] Reason for Visit Reason Comments Arm Pain right arm pain post IV, redn ess, swelling, and hardness at sight after potassium Encounter Details Date Type Department Care Team Description 02/19/2015 - Emergency [facility] Santiago Cho after 02/20/2015 [facility] Emergency MD Travis infusion, initial Department [address] [place] [address] encounter [address] [place] [address] [phone] (Wo rk) Social History Tobacco Use Types [...] Comments Blood Pressure 109/55 02/20/2015 1:34 AM AIR ROUTE TRAFFIC CONTROLLER Pulse 82 02/20/2015 1:34 AM AIR ROUTE TRAFFIC CONTROLLER Temperature 36.6 ??C (97.9 ??F) 02/19/2015 10:47 PM AIR ROUTE TRAFFIC CONTROLLER Respiratory Rate 16 02/20/2015 1:34 AM AIR ROUTE TRAFFIC CONTROLLER Oxygen Saturation 100% 02/20/2015 1:34 AM AIR ROUTE TRAFFIC CONTROLLER Inhaled Oxygen Concentration - - Weight 63.5 kg (140 lb) 02/19/2015 10:47 PM AIR ROUTE TRAFFIC CONTROLLER Height 175.3 cm (5' 9) 02/19/2015 10:47 PM AIR ROUTE TRAFFIC CONTROLLER Body Mass Index 20.67 02/19/2015 10:47 PM AIR ROUTE TRAFFIC CONTROLLER documented in this encounter Discharge Instructions Discharge InstructionsSchSantiago gonzales MD - 02/20/2015 1:06 AM AIR ROUTE TRAFFIC CONTROLLER Please make an appointment to follow up with [facility] (phone: ) in 2-3 days if not improving. Return if worsening redness that spreads up her arm, worse swelling in her hand or fever. ROUTE TRAFFIC CONTROLLER documented in this encounter Medications at Time [...] and Surgical History, and Social History inthe triptap system. Past Medical History Diagnosis Date ??? [...] ED Course Procedures Critical Care time: none [facility] Diagnoses: None Labs Ordered and Resulted from [...] diagnoses: Phlebitis after infusion, initial encounter 02/19/2015 [facility] [place], EMERGENCY DEPARTMENT Santiago Cho MD 02/20/15 [address] R[employer]TE TRAFFIC CONTROLLER Kristal Rodney RN - 02/19/2015 10:49 PM [...] hours Kristal Vivar RN February 19, 2015 ROUTE TRAFFIC CONTROLLER documented in this encounter Plan of Treatment Not on filedocumented as of this encounter Visit Diagnoses Diagnosis Phlebitis after infusion, initial encoun ter documented in this encounter Administered Medications Inactive Administered Medications - up to 3 most recent administrations Medication Order MAR Action Action Date Dose Rate Site cephALEXin (KEFLEX) capsule Given 02/20/2015 1:16 AM AIR ROUTE TRAFFIC CONTROLLER 1,000 m g 1,000 mg STAT, 1,000 mg, Oral, ONCE, On 02/20/15 at 0052, For 1 dose, Indications: Skin and Soft Tissue Infection documented in this encounter Active and Recently Administered Medications Times are shown in AIR ROUTE TRAFFIC CONTROLLER. Scheduled Medication Order 02/18/2015 02/19/2015 02/20/2015 cephALEXin (KEFLEX) capsule 1,000 mg (COMPLETED) 0116 (Given - Provider: Kristal Rodney RN) 1,000 mg, Oral, ONCE, 02/20/15 at 005 2, For 1 dose, Indications: Skin and Soft Tissue Infection documented in this encounter Care Teams Meat Carver Relationship Specialty Start Date End Date [facility] Md Lidia, PCP - General 02/15/15 05/02/[address] [place] [address] documented as of this encounter
--- OUTSIDE RECORDS SUMMARY | 2021-11-30 19:22 | XMS_ITS | Encounter Summary ---
:1995 Author Organization [place] Address [address] [place] [address] Care Team Providers Name Role Phone [place] Murillo Md MD Primary Care Provider [phone] APRN SCOUT LEASER Primary Care Provider [phone] BrendaKrissy ward APRN SCOUT LEASER Unavailable [phone] BrendaKrissy ward APRN SCOUT LEASER Unavailable [phone] Yuki Roth MUSIC AUTOGRAPHER Unavailable Jonathan Susan CNM Unavailable Mair Jauregui CNM Unavailable [phone] Reason for Visit Reason Onset Date Comments Path Results 02/23/2015 biopsy Encounter Details Date Type Department Care Team Description 02/23/2015 Telephone Medicine GI - 1E Bri Gallagher Path Results (biopsy) Chris Payne MD Building [address] [place] [address] 1st Floor, Clinic [address] [phone] (Wo rk) [address] [phone] Social History Tobacco Use Types Packs/Day Years [...] Bri Gallagher MD - 02/23/2015 5:29 PM AIRLINE TICKET AGENT Notified by call center that patient had [...] RN coordinator if further questions or concerns. INE TICKET AGENT Telephone Encounter - Mary Anne Allen - 02/23/2015 2:52 PM CST Patient called today. Patient is trying to get their biopsy test results. Please call patient at [phone]. Thank you. Central Scheduling Mary Anne Felipe INE TICKET AGENT documented in this encounter Plan of Treatment Not on filedocumented as of this encounter Visit Diagnoses Not on filedocumented in this encounter Care Teams Public Health Nutritionist Relationship Specialty Start Date End Date [facility], PCP - General 02/15/15 05/02/17 MD Marlin [address] [place] [address] [id number] Krissy Gutierrez, PCP - General Nurse Practitioner 05/03/17 TIE IN HAND SCOUT LEASER [address] [place] [address] Krissy Gutierrez, PCP - Assigned PCP 05/05/17 05/20/18 TIE IN HAND SCOUT LEASER [address] [place] [address] Krissy Gutierrez, Assigned PCP 05/05/17 2 TIE IN HAND SCOUT LEASER [address] [place], [place] [id number] Yuki Roth, MUSIC AUTOGRAPHER Lead Market Researcher Primary Care - CC 02/11/19 05/05/19 Jaqueline Castillo CNM Assigned OBGYN Provider 01/08/20 03/04/21 [address] [place], [place] [id number] Mari Jauregui, Assigned OBGYN Provider 1 04/29/[address] [facility] [address] [place] [address] documented as of this encounter
--- OUTSIDE RECORDS SUMMARY | 2021-11-30 19:22 | XMS_ITS | Encounter Summary ---
:1995 Author Organization [place] Address [address] [place] [address] Care Team Providers Name Role Phone Richa Murillo Md MD Primary Care Provider Reason for Visit Reason Onset Date Comments Panel Management 05/01/2017 Patient is failing P hysical and Pap Encounter Details Date Type Department Care Team Description 05/01/2017 [facility]phone [facility] Hesham Murillo el [facility] TecateRanjit Isaac MD (Patient is failing [address] Physical and Pap) [place] [address] [phone] (Wo rk) Social History Tobacco Use Types [...] Peace Gonzalez Chart routed to none . GRADER documented in this encounter Plan of Treatment Not on filedocumented as of this encounter Visit Diagnoses Not on filedocumented in this encounter Care Teams Anaesthesiologist Relationship Specialty Start Date End Date [facility] Md Murillo MD PCP - General 02/15/15 05/02/[address] [place] [address] documented as of this encounter
--- OUTSIDE RECORDS SUMMARY | 2021-11-30 19:22 | XMS_ITS | Encounter Summary ---
:1995 Author Organization [facility] Address [address] [place] [address] Care Team Providers Name Role Phone [facility] KIKI Murillo Primary Care Provider [phone] Reason for Visit Reason Comments Abdominal Pain PT reports four days RLQ abd pain. Pain improves w/ laying down, leaning over. Pain in waves, + rebound pain. Auth/Cert Specialty Diagnoses / Procedures Referred By Contact Refer red To Contact Oncology Diagnoses Ileitis, terminal, unspecified complication (H) Ileitis [address]u [address] [place] [address] Phone: Referral ID Status Reason Start Date Expiration Date Visits Requ ested Visits Authorized [id number] 02/16/2015 02/16/2016 1 1 Encounter Details Date Type Department Care Team Description 02/15/2015 - [facility] Jodi Pacheco MD [facility] [place] [address] Ileitis, terminal, 02/18/2015 Encounter [facility] [address] Vipin Valentine MD unspecified [facility] Fredis Mas MD [address] [facility] [address] [place], [place] [id number] complication (H) [address] [facility] Gianni Martinez MD [facility] [address] [place], [place] [address] [place] [address] Social History Tobacco Use Types [...] Comments Blood Pressure 118/61 02/18/2015 7:25 AM ENTERTAINMENT MANAGER Pulse 55 02/18/2015 4:33 AM ENTERTAINMENT MANAGER Temperature 36.4 ??C (97.6 ??F) 02/18/2015 7:25 AM ENTERTAINMENT MANAGER Respiratory Rate 18 02/18/2015 7:25 AM ENTERTAINMENT MANAGER Oxygen Saturation 100% 02/18/2015 7:25 AM ENTERTAINMENT MANAGER Inhaled Oxygen Concentration - - Weight 61.2 kg (135 lb) 02/17/2015 9:08 AM ENTERTAINMENT MANAGER Height 175.3 cm (5' 9) 02/17/2015 9:08 AM ENTERTAINMENT MANAGER Body Mass Index 19.94 02/17/2015 9:08 AM ENTERTAINMENT MANAGER documented in this encounter Discharge Summaries Glo Little PA-C - 02/18/2015 12:56 PM CST Images from the original note were not included. [facility] - Internal Medicine Discharge Summary Date of Service: 02/18/2015 Sharmaine Salas Date of : 1995 Age: [age] year old Date of Admission: 02/15/2015 Date of Discharge: 02/18/2015 3:15 PM Admitting Physician: Fredis Mas MD Discharge Physician: Gianni Martinez MD / Glo Little PA-C [phone] Discharging Service: Internal Medicine, [facility] Primary Provider: [facility] Lidia Outpatient To Do: - [...] course or discharge plan. Glo Little PA-C [facility] Pager: [phone] RTAINMENT MANAGER documented in this encounter Medications at Time [...] Pelletier MD - 02/18/2015 2:47 PM CST [facility] GASTROENTEROLOGY PROGRESS NOTE Sharmaine Salas [id number] 02/18/2015 SUBJECTIVE: Patient is doing well today [...] results found in last 7 days. IMPRESSION: Sharmiane Salas is a 19 year old female with history of anemia from heavy menses who presents with RLQ pain since Saturday. Presented initially to [facility] where ultrasound was concerning for possible appendicitis, but when she presented to [facility], her CT scan showed normal appendix but [...] with questions. Margi Pelletier MD GI Fellow [phone] RTAINMENT MANAGER Associated attestation - Giovanny Burch MD - 02/18/2015 8:53 PM ENTERTAINMENT MANAGER Attestation: I performed a history and physical [...] with Dr. Elliott Pelletier MD GI Fellow [phone] RTAINMENT MANAGER Glo Little PA-Vera - 02/17/2015 12:58 PM [...] during Care Team Rounds. Glo Little PA-C [facility] Pager: [phone] Team: Manoj Myers 2 Page Cross Cover after 5 pm: pager [phone] Subjective & Interval Hx: Feeling out of [...] 0.9% NaCl + KCl 20 mEq/L infusion RTAINMENT MANAGER Glo Little PA-C - 02/16/2015 2:05 PM CST Images from the original note were not included. [facility] Service - Internal Medicine Daily Note Date [...] am, though per pt, Hgb 11.8 at [facility]. MCV 85. Likely dilutional component due to [...] during Care Team Rounds. Glo Little PA-C [facility] Pager: [phone] Team: Manoj Myers 2 Page Cross Cover after 5 pm: pager [phone] Subjective & Interval Hx: Sharmaine Salas is a previously healthy 19 y.o. female who initially presented to [facility] yesterdaywith abdominal pain and was sent to [...] have travel outside of the country to [facility] this past July and visited [...] 0.9% NaCl + KCl 20 mEq/L infusion RTAINMENT MANAGER Laura Levy MD - 02/16/2015 9:21 AM CST GENERAL SURGERY PROGRESS NOTE Sharmaine Salas [id number] 19 year old female Date of Service: [...] intervention at this time Laura Levy MD, [facility] General Surgery PGY1 Pager [phone] RTAINMENT MANAGER Associated attestation - Arie Paul MD - 02/17/2015 4:50 PM ENTERTAINMENT MANAGER Patient seen and evaluated. Discussed with resident team and agree with note as written. Clinically,this is unlikely to be appendicitis in light of the length of symptoms. In addition, CT scan is not consistent with appendicitis. Continue further workup by internal medicine. documented in this encounter H&P Notes Fredis Mas MD - 02/16/2015 1:49 AM CST [facility] Medicine History and Physical Department of Internal Medicine Patient Name: Sharmaine Salas Age: [age] year old Date of : 1995 Date of Admission:02/15/2015 Primary care provider: [facility] Lidia Date of Service: 02/16/2015 [...] MD Internal Medicine Hospitalist & Staff Physician [facility] Pager: [phone] - GOLD 1 or 2 will assume care in morning. Chief Complaint: RLQ belly pain HPI: Sharmaine has had pain in RLQ since Saturday (3 days PULLEY MAN). She has been mostly in bed with this pain,but she continues to attend classes at [employer]. She has missed work due to the [...] up until this weekend. 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 She did NOT drink any raw milk. She traveled to [facility] in July as a study abroad with no related health issues. Her last MP was Jan 25 - no issues. Sharmaine felt the pain is odd enough and persistent enough to go to [facility] for evaluation. There shewas noted to have RLQ pain that was concerning for appendicitis and sent to [employer] ED. 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 Fredis Mas MD RTAINMENT MANAGER documented in this encounter Consult Notes Lia Pelletier MD - 02/16/2015 6:29 PM CSTAssociated Order(s): GASTROENTEROLOGY IP CONSULT [facility] Gastroenterology Consultation Sharmaine Salas [id number] 19 year old 1995 02/16/2015 Date of [...] July 2014, she was in [place] [place] [facility] for study abroad. She denies any [...] RLQ pain since Saturday. Presented initially to [facility] where ultrasound was concerning for possible appendicitis, but when she presented to [facility], her CT scan showed normal appendix but [...] with questions. Margi Pelletier MD GI Fellow [phone] RTAINMENT MANAGER Associated attestation - Giovanny Burch MD - 02/16/2015 10:19 PM ENTERTAINMENT MANAGER Attestation: I performed a history and physical [...] CST Surgical Consult Note 02/15/15 Sharmaine Salas [id number] Chief complaint: RLQ pain HPI: Pt is [...] Lives with three other roommates in an [facility] apartment. 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 Alcohol: 2-3x/month, roughly 5 mixed drinks Smoking: [...] Odonnell. Miguelito Anguiano MD General Surgery PGY-2 RTAINMENT MANAGER Associated attestation - Lj Odonnell MD - 05/17/2015 2:00 PM ENTERTAINMENT MANAGER Agree with consult note Lj Odonnell documented in this encounter Nursing Notes Day Skaggs RN - 02/17/2015 10:46 AM CST Colonoscopy with biopsies completed. Pt had discomfort throughout, but given additional sedation with relief. Report called to pt nurse on 7C and transport here to take pt back to dept. RTAINMENT MANAGER documented in this encounter ED Notes Vipin Celaya MD - 02/16/2015 12:23 AM CST This patient is a 19-year-old female who was previously seen at [facility] with right lower quadrant abdominal pain. [...] kept NPO. Vipin Celaya MD 02/16/15 0054 RTAINMENT MANAGER Jodi Brewer MD - 02/15/2015 7:07 PM [...] she is pain-free. She was evaluated at [facility] today and advised to come here to [...] bleeding or discharge. UPT was negative at [facility] today. Patient reports that she has mild [...] She has no other concerns or complaints. [facility] History, Lab, and Exam Findings 02/15/15: +history [...] Surgical History, and [facility]. PAST MEDICAL HISTORY Past Medical [...] in ED 19. Critical Care time: None [facility] Diagnoses: None Labs Ordered and Resulted from Time of ED Arrival Up to the Time of Departure from the ED - No data to display Assessments & Plan (with Medical Decision Making) HISTORY TAKING INFORMATION: - History, ROS, SH, PMH and Physical exam performed myself in the presence of our medical lab specialist, EDnursing staff and the patient's friend. I obtained some collateral history originally when I took the referring phone call from the appointment provider. No interpretive services were needed. - Old chart from [facility] reviewed and revealed the patient has a [...] the objective testing and exam report from [facility] and shows that the patient has a [...] Otherwise as per the labs drawn at [facility] prior to arrival. - Urine: Pending - [...] Villavicencio, am serving as a trained medical lab specialist to document services personally performed by MD Cyn, based on the provider's statements to me. IJodi MD, was physically present and have reviewed and verified the accuracy of this note documented by Yulia Villavicencio. 02/15/2015 [facility], EMERGENCY DEPARTMENT Jodi Brewer MD 02/16/152052 RTAINMENT MANAGER Jodi Brewer MD - 02/15/2015 5:41 PM CST I received a phone call about this patient from the [facility]. Provider expressed concern of the patient [...] cell count Jodi Brewer MD 02/15/15 1743 RTAINMENT MANAGER Kathrine Stein, YOSELYN - 02/15/2015 5:38 PM CST PT reports four days RLQ abd pain. Pain improves w/ laying down, leaning over. Pain in waves, + rebound pain. PT w/ labs from [facility]. RTAINMENT MANAGER documented in this encounter Miscellaneous Notes Plan [...] to escort to pharmacy/frontdoor to meet ride. RTAINMENT MANAGER Plan of Care - Shy Trimble RN - 02/18/2015 5:18 AM CST Problem: Goal Outcome Summary Goal: Goal Outcome Summary Outcome: Improving VSS. Denies pain and N/V. Tolerating full liquids. Stool samples still needed, no BMs overnight. Continue plan of care. RTAINMENT MANAGER Plan of Care - Radha Nobles RN - 02/17/2015 9:10 PM CST Problem: Goal Outcome Summary Goal: Goal Outcome Summary Outcome: Improving VSS. Denies pain. Colonoscopy with biopsies done today. Tolerated full liqs diet. Up ad mable. Voidingbut saving. Pt in good spirits. P: continue with POC. Stool samples still needed for labs, pt aware. RTAINMENT MANAGER Plan of Care - Kristal Rodriguez - [...] Encourage ambulation, IS, emotional support., FALL PRECAUTIONS. RTAINMENT MANAGER Plan of Care - Catherine Valdez, YOSELYN - 02/17/2015 4:44 AM CST Problem: Goal Outcome Summary Goal: Goal Outcome Summary Outcome: Improving BP slightly soft; per pt's baseline. Bowel prep complete at 0130. Stools clear x3. Denies pain. BS hyperactive. Up ad mable. Plan: will go for colonoscopy today. Pain management with dilaudid IV prn. RTAINMENT MANAGER Plan of Care - Radha Nobles RN - 02/16/2015 10:05 PM ENTERTAINMENT MANAGER Problem: Goal Outcome Summary Goal: Goal Outcome Summary Outcome: No Change VSS. C/o's abd cramping after bowel prep was started. Pain relieved with Dilaudid IV x1 and BM x2 ofgreenish/yellow watery stool then 1large formed stool. Voiding but not saved. Up ad mable. Pt still taking golytely (total 4liters) in prep fro colonoscopy tomorrow. Per ECHO TECHNICIAN, pt might have to take to more golytely if stools are still not clear. P: continue to monitor status and continue with POC. Pls MD if stools are not clear yet. RTAINMENT MANAGER Plan of Care - Ino Seymour RN - 02/16/2015 2:23 PM CST Problem: Goal Outcome Summary Goal: Goal Outcome Summary Pt VSS. Reports intermittent pain to right lower abdomen. Refusing pain medication. Tolerating a clear liquid diet. May have colonoscopy tomorrow a.m. Awaiting orders. IVF cont as ordered. Friend at the bedside. Up independently. Will continue to monitor and follow plan of care. RTAINMENT MANAGER Utilization Review - Jessica Malone MD - 02/16/2015 12:14 PM CST [facility] Admission Status; Secondary Review Determination Admission [...] presented with RLQ since Saturday (3 days PULLEY MAN). She has been mostly in bed with [...] no significant ongoing stools. Seen initially at [facility], then sent to [facility]. Notably though her WBC was normal in [...] Jessica Malone MD Utilization Review/ Case Management [facility]. RTAINMENT MANAGER Plan of Care - Shy Trimble RN [...] control pills at bedside, verified by pharmacy. RTAINMENT MANAGER documented in this encounter Plan of Treatment Not on filedocumented as of this encounter Procedures Procedure Name Priority Date/Time Associated Diagnosis Comme nts CRP INFLAMMATION Routine 02/18/2015 7:32 Ileitis, terminal, Re sults for this AM ENTERTAINMENT MANAGER unspecified procedure are i n complication (H) the results section. BASIC METABOLIC PANEL Routine 02/18/2015 7:32 Ileitis, termina l, Results for this AM ENTERTAINMENT MANAGER unspecified procedure are i n complication (H) the results section. CBC WITH PLATELETS Routine 02/18/2015 7:32 Ileitis, terminal, Results for this AM ENTERTAINMENT MANAGER unspecified procedure are i n complication (H) the results section. AFB STAIN NON BLOOD Routine 02/17/2015 10:51 Ileitis, terminal , Results for this AM ENTERTAINMENT MANAGER unspecified procedure are i n complication (H) the results section. AFB CULTURE AND STAIN Routine 02/17/2015 10:51 Ileitis, termin al, Results for this NON BLOOD AM ENTERTAINMENT MANAGER unspecified procedure are i n complication (H) the results section. SURGICAL PATHOLOGY Routine 02/17/2015 10:35 Resul ts for this EXAM AM ENTERTAINMENT MANAGER procedure are i n the results section. COLONOSCOPY, WITH 02/17/2015 9:33 Inflammed terminal POLYPECTOMY AND BIOPSY AM ENTERTAINMENT MANAGER ileum on CT COLONOSCOPY Routine 02/17/2015 9:19 Results for this AM ENTERTAINMENT MANAGER procedure are i n the results section. INR Routine 02/17/2015 6:35 Ileitis, terminal, Result s for this AM ENTERTAINMENT MANAGER unspecified procedure are i n complication (H) the results section. FOLATE Routine 02/17/2015 6:35 Ileitis, terminal, Result s for this AM ENTERTAINMENT MANAGER unspecified procedure are i n complication (H) the results section. CRP INFLAMMATION Routine 02/17/2015 6:35 Ileitis, terminal, Re sults for this AM ENTERTAINMENT MANAGER unspecified procedure are i n complication (H) the results section. COMPREHENSIVE Routine 02/17/2015 6:35 Ileitis, terminal, Resul ts for this METABOLIC PANEL AM ENTERTAINMENT MANAGER unspecified procedure ar e in complication (H) the results section. VITAMIN B12 Routine 02/17/2015 6:35 Ileitis, terminal, Result s for this AM ENTERTAINMENT MANAGER unspecified procedure are i n complication (H) the results section. CBC WITH PLATELETS Routine 02/17/2015 6:35 Ileitis, terminal, Results for this AM ENTERTAINMENT MANAGER unspecified procedure are i n complication (H) the results section. COMPREHENSIVE Routine 02/16/2015 6:35 Ileitis, terminal, Resul ts for this METABOLIC PANEL AM ENTERTAINMENT MANAGER unspecified procedure ar e in complication (H) the results section. CBC WITH PLATELETS Routine 02/16/2015 6:35 Ileitis, terminal, Results for this AM ENTERTAINMENT MANAGER unspecified procedure are i n complication (H) the results section. CT ABDOMEN PELVIS W STAT 02/15/2015 10:57 Resu lts for this CONTRAST PM ENTERTAINMENT MANAGER procedure are i n the results section. HCG QUALITATIVE URINE STAT 02/15/2015 8:49 Res ults for this PM ENTERTAINMENT MANAGER procedure are i n the results section. UA MACROSCOPIC WITH STAT 02/15/2015 8:49 Resul ts for this REFLEX TO MICRO AND PM ENTERTAINMENT MANAGER procedur e are in CULTURE the results section. US ABDOMEN COMPLETE STAT 02/15/2015 8:32 Resul ts for this PM ENTERTAINMENT MANAGER procedure are i n the results section. LACTIC ACID STAT 02/15/2015 7:29 Results for this PM ENTERTAINMENT MANAGER procedure are i n the results section. CRP INFLAMMATION Routine 02/15/2015 7:29 Ileitis, terminal, Re sults for this PM ENTERTAINMENT MANAGER unspecified procedure are i n complication (H) the results section. COMPREHENSIVE STAT 02/15/2015 7:29 Results for this METABOLIC PANEL PM ENTERTAINMENT MANAGER procedure ar e in the results section. documented in this encounter Results CRP inflammation (02/18/2015 7:32 AM ENTERTAINMENT MANAGER) Analysis Performed At Patho logist Time Signature CRP Inflammation 8.0 0.0 - 8.0 [facility] mg/L [facility] Specimen Anatomical Collection Method Collection Time Receive d Time (Source) Location / / Volume Laterality Blood specimen 02/18/2015 7:32 AM 015 7:54 (specimen) ENTERTAINMENT MANAGER AM ENTERTAINMENT MANAGER Glo Little PA-C LAB - BLOOD ORDERABLES Performing Organization Address City/State/ZIP Code Phon e Number [facility] [address] [place] [address] [facility] (ABNORMAL) Basic metabolic panel (02/18/2015 7:32 AM ENTERTAINMENT MANAGER) Patholo gist Method Time Signature Sodium 139 133 - 144 [facility] mmol/L [facility] Potassium 4.0 3.4 - 5.3 [facility] mmol/L [facility] Chloride 109 94 - 109 [facility] mmol/L [facility] Carbon Dioxide 24 20 - 32 [facility] mmol/L [facility] Anion Gap 6 3 - 14 [facility] mmol/L [facility] Glucose 92 70 - 99 [facility] mg/dL [facility] Urea Nitrogen 1 (L) 7 - 30 [facility] mg/dL [facility] Creatinine 0.60 0.52 - [facility] 1.04 [facility] mg/dL [facility] GFR Estimate >90 >60 [facility] Non GFR Calc mL/min/1. [facility] 7m2 [facility] GFR Estimate >90 >60 [facility] If Black GFR Calc mL/min/1. [facility] 7m2 [facility] Calcium 8.0 (L) 8.5 - [facility] 10.1 [facility] mg/dL [facility] Specimen Anatomical Collection Method Collection Time Receive d Time (Source) Location / / Volume Laterality Blood specimen 02/18/2015 7:32 AM 015 7:54 (specimen) ENTERTAINMENT MANAGER AM ENTERTAINMENT MANAGER Glo Little PA-C LAB - BLOOD ORDERABLES Performing Organization Address City/State/ZIP Code Phon e Number [facility] [address] [place], [place] [id number] [place] [address] (ABNORMAL) CBC with platelets (02/18/2015 7:32 AM ENTERTAINMENT MANAGER) [facility] gist Method Time Signature WBC 4.2 4.0 - 11.0 [facility] 10e9/L [facility] RBC Count 3.73 (L) 3.8 - 5.2 [facility] 10e12/L [facility] Hemoglobin 10.3 (L) 11.7 - [facility] 15.7 g/dL [facility] Hematocrit 31.3 (L) 35.0 - [facility] 47.0 % [facility] MCV 84 78 - 100 [facility] fl [facility] MCH 27.6 26.5 - [facility] 33.0 pg [facility] MCHC 32.9 31.5 - [facility] 36.5 g/dL [facility] RDW 12.7 10.0 - [facility] 15.0 % [facility] Platelet Count 149 (L) 150 - 450 [facility] 10e9/L [facility] Specimen Anatomical Collection Method Collection Time Receive d Time (Source) Location / / Volume Laterality Blood specimen 02/18/2015 7:32 AM 015 7:54 (specimen) ENTERTAINMENT MANAGER AM ENTERTAINMENT MANAGER Glo Little PA-C LAB - BLOOD ORDERABLES Performing Organization Address City/State/ZIP Code Phon e Number [address] [address] [facility] AFB Stain Non Blood (02/17/2015 10:51 AM ENTERTAINMENT MANAGER) [facility] Method Time Signature Specimen Tissue [facility] AFB Stain Negative for acid fast bacteria [facility] [employer] Micro Report FINAL [facility] Status 02/20/2015 [facility] Specimen Anatomical Collection Method Collection Time Receive d Time (Source) Location / / Volume Laterality 02/17/2015 10:51 02/17/2015 4:50 AM ENTERTAINMENT MANAGER PM ENTERTAINMENT MANAGER Giovanny Burch MD LAB - MICRO GENERAL ORD ERABLES Performing Organization Address City/State/ZIP Code Phon e Number [address] [address] [place] [employer] Culture Non Blood (02/17/2015 10:51 AM ENTERTAINMENT MANAGER) [facility] Signature Specimen Tissue [facility] Culture Micro Culture negative for acid fast bacilli [facility] [employer],[place] [id number] [facility] Micro Report FINAL [facility] Status 04/15/2015 [facility] Specimen Anatomical Collection Method Collection Time Receive d Time (Source) Location / / Volume Laterality 02/17/2015 10:51 02/17/2015 4:50 AM ENTERTAINMENT MANAGER PM ENTERTAINMENT MANAGER Giovanny Burch MD LAB - MICRO GENERAL ORD ERABLES Performing Organization Address City/State/ZIP Code Phon e Number [address] [address] [place] Surgical pathology exam (02/17/2015 10:35 AM ENTERTAINMENT MANAGER) Component Value Ref Test Analysis Performed At [facility] Method Time Signature Copath Report Patient Name: SHARMAINE SALAS MR#: [id number] Specimen #: [id number] Collected: 02/17/2015 Received: 02/17/2015 Reported: 02/18/2015 15:18 [...] Electronically signed out by: Giles Wong M.D., [facility] CLINICAL HISTORY: The patient is a [...] Microscopic examination is performed. CPT Codes: A: 55248-FY3 B: 75230-YN0 C: 40693-IB5 TESTING LAB LOCATION: [facility], [facility] [address] [place] [address] ?? [id number] COLLECTION SITE: Client: [facility] Location: [facility] (B) Specimen Anatomical Collection Method Collection Time Receive d Time (Source) Location / / Volume Laterality 02/17/2015 10:35 02/17/2015 2:55 AM ENTERTAINMENT MANAGER PM ENTERTAINMENT MANAGER Giovanny HARDING - TAT[place] Performing Organization Address City/State/ZIP Code Phon e Number [facility] COLONOSCOPY (02/17/2015 9:19 AM ENTERTAINMENT MANAGER) [facility] gist Method Time Signature COLONOSCOPY [facility] RADIOLOGY [address] [place] [address] [phone] ? End oscopy Department RESULTS Patient Name: Sharmaine Salas ?Procedure Date: 02/17/2015 9:19 AM ? Accou nt Number: [id number] Date of : 1995 ?Admit Type: Inp [...] / / Volume Laterality 02/17/2015 9:19 AM ENTERTAINMENT MANAGER Giovanny Burch MD PROCEDURES Performing Organization Address City/[facility]/ZIP Code Phon e Number RADIOLOGY RESULTS (ABNORMAL) CRP inflammation (02/17/2015 6:35 AM ENTERTAINMENT MANAGER) Patholo gist Method Time Signature CRP Inflammation 16.0 (H) 0.0 - 8.0 [facility] mg/L [facility] Specimen Anatomical Collection Method Collection Time Receive d Time (Source) Location / / Volume Laterality Blood specimen 02/17/2015 6:35 AM 015 7:21 (specimen) ENTERTAINMENT MANAGER AM ENTERTAINMENT MANAGER Glo Little PA-C LAB - BLOOD ORDERABLES Performing Organization Address City/[facility]/ZIP Code Phon e Number [facility] [address] [place] [address] [facility] Folate (02/17/2015 6:35 AM ENTERTAINMENT MANAGER) P athologist Signature Folate 14.0 >5.4 ng/mL [facility] Comment: Interp: >5.4 ng/mL = Normal Specimen Anatomical Collection Method Collection Time Receive d Time (Source) Location / / Volume Laterality Blood specimen 02/17/2015 6:35 AM 015 7:21 (specimen) ENTERTAINMENT MANAGER AM ENTERTAINMENT MANAGER Glo Little PA-C LAB - BLOOD ORDERABLES Performing Organization Address City/State/ZIP Code Phon e Number [facility] [address] [place] [address] [facility] Vitamin B12 (02/17/2015 6:35 AM ENTERTAINMENT MANAGER) P athologist Signature Vitamin B12 522 193 - 986 [facility] pg/mL [facility] Comment: Interp: [phone] = Normal Specimen Anatomical Collection Method Collection Time Receive d Time (Source) Location / / Volume Laterality Blood specimen 02/17/2015 6:35 AM 015 7:21 (specimen) ENTERTAINMENT MANAGER AM ENTERTAINMENT MANAGER Glo Little PA-C LAB - BLOOD ORDERABLES Performing Organization Address City/State/ZIP Code Phon e Number [facility] [address] [place] [address] [facility] (ABNORMAL) Comprehensive metabolic panel (02/17/2015 6:35 AM ENTERTAINMENT MANAGER) Patholo gist Method Time Signature Sodium 144 133 - 144 [facility] mmol/L [facility] Potassium 3.8 3.4 - 5.3 [facility] mmol/L [facility] Chloride 112 (H) 94 - 109 [facility] mmol/L [facility] Carbon Dioxide 24 20 - 32 [facility] mmol/L [facility] Anion Gap 8 3 - 14 [facility] mmol/L [facility] Glucose 93 70 - 99 [facility] mg/dL [facility] Urea Nitrogen 1 (L) 7 - 30 [facility] mg/dL [facility] Creatinine 0.65 0.52 - [facility] 1.04 [facility] mg/dL [facility] GFR Estimate >90 >60 [facility] Non GFR Calc mL/min/1. [facility] [address] GFR Estimate If >90 >60 [facility] Black GFR Calc mL/min/1. SD M EDICAL 7m2 [facility] Calcium 7.3 (L) 8.5 - [facility] 10.1 [facility] mg/dL [facility] Bilirubin Total 0.4 0.2 - 1.3 [facility] mg/dL [facility] Albumin 2.6 (L) 3.4 - 5.0 [facility] g/dL [facility] Protein Total 5.4 (L) 6.8 - 8.8 [facility] g/dL [facility] Alkaline 44 40 - 150 [facility] Phosphatase U/L [facility] ALT 14 0 - 50 [facility] U/L [facility] AST 15 0 - 45 [facility] U/L [facility] Specimen Anatomical Collection Method Collection Time Receive d Time (Source) Location / / Volume Laterality Blood specimen 02/17/2015 6:35 AM 015 7:21 (specimen) ENTERTAINMENT MANAGER AM ENTERTAINMENT MANAGER Glo Little PA-C LAB - BLOOD ORDERABLES Performing Organization Address City/[facility]/ZIP Code Phon e Number [address] INR (02/17/2015 6:35 AM ENTERTAINMENT MANAGER) P athologist Signature INR 1.13 0.86 - 1.14 [facility] Specimen Anatomical Collection Method Collection Time Receive d Time (Source) Location / / Volume Laterality Blood specimen 02/17/2015 6:35 AM 015 7:21 (specimen) ENTERTAINMENT MANAGER AM ENTERTAINMENT MANAGER Glo Little PA-C LAB - BLOOD ORDERABLES Performing Organization Address City/State/ZIP Code Phon e Number [address] (ABNORMAL) CBC with platelets (02/17/2015 6:35 AM ENTERTAINMENT MANAGER) Patholo gist Method Time Signature WBC 4.2 4.0 - 11.0 [facility] 10e9/L [facility] RBC Count 3.40 (L) 3.8 - 5.2 [facility] 10e12/L [facility] Hemoglobin 9.3 (L) 11.7 - [facility] 15.7 g/dL [facility] Hematocrit 28.7 (L) 35.0 - [facility] 47.0 % [facility] MCV 84 78 - [address] [facility] MCH 27.4 26.5 - [facility] 33.0 pg [facility] MCHC 32.4 31.5 - [facility] 36.5 g/dL [facility] RDW 13.0 10.0 - [facility] 15.0 % [facility] Platelet Count 134 (L) 150 - 450 [facility] 10e9/L [facility] Specimen Anatomical Collection Method Collection Time Receive d Time (Source) Location / / Volume Laterality Blood specimen 02/17/2015 6:35 AM 015 7:21 (specimen) ENTERTAINMENT MANAGER AM ENTERTAINMENT MANAGER Glo Little PA-C LAB - BLOOD ORDERABLES Performing Organization Address City/[facility]/ZIP Code Phon e Number [facility] [address] (ABNORMAL) CBC with platelets (02/16/2015 6:35 AM ENTERTAINMENT MANAGER) [facility] Gen[employer] Method Time Signature WBC 4.6 4.0 - 11.0 [facility] 10e9/L [facility] RBC Count 3.40 (L) 3.8 - 5.2 [facility] 10e12/L [facility] Hemoglobin 9.4 (L) 11.7 - [facility] 15.7 g/dL [facility] Hematocrit 29.0 (L) 35.0 - [facility] 47.0 % [facility] MCV 85 78 - 100 [facility] fl [facility] MCH 27.6 26.5 - [facility] 33.0 pg [facility] MCHC 32.4 31.5 - [facility] 36.5 g/dL [facility] RDW 12.9 10.0 - [facility] 15.0 % [facility] Platelet Count 117 (L) 150 - 450 [facility] 10e9/L [facility] Specimen Anatomical Collection Method Collection Time Receive d Time (Source) Location / / Volume Laterality Blood specimen 02/16/2015 6:35 AM 015 7:48 (specimen) ENTERTAINMENT MANAGER AM ENTERTAINMENT MANAGER Fredis Mas MD LAB - BLOOD ORDERABLES Performing Organization Address City/State/ZIP Code Phon e Number [facility] [address] (ABNORMAL) Comprehensive metabolic panel (02/16/2015 6:35 AM ENTERTAINMENT MANAGER) [facility] Gen[employer] Method Time Signature Sodium 139 133 - 144 [facility] mmol/L [facility] Potassium 3.8 3.4 - 5.3 [facility] mmol/L [facility] Chloride 108 94 - 109 [facility] mmol/L [facility] Carbon Dioxide 24 20 - 32 [facility] mmol/L [facility] Anion Gap 7 3 - 14 [facility] mmol/L [facility] Glucose 69 (L) 70 - 99 [facility] mg/dL [facility] Urea Nitrogen 5 (L) 7 - 30 [facility] mg/dL [facility] Creatinine 0.66 0.52 - [facility] 1.04 [facility] mg/dL [facility] GFR Estimate >90 >60 [facility] Non GFR Calc mL/min/1. [facility] [address] GFR Estimate If >90 >60 [facility] Black GFR Calc mL/min/1. SD M EDICAL 7m2 [facility] Calcium 7.3 (L) 8.5 - [facility] 10.1 [facility] mg/dL [facility] Bilirubin Total 0.3 0.2 - 1.3 [facility] mg/dL [facility] Albumin 2.4 (L) 3.4 - 5.0 [facility] g/dL [facility] Protein Total 5.4 (L) 6.8 - 8.8 [facility] g/dL [facility] Alkaline 42 40 - 150 [facility] Phosphatase U/L [facility] ALT 7 0 - 50 [facility] U/L [facility] AST 13 0 - 45 [facility] U/L [facility] Specimen Anatomical Collection Method Collection Time Receive d Time (Source) Location / / Volume Laterality Blood specimen 02/16/2015 6:35 AM 015 7:48 (specimen) ENTERTAINMENT MANAGER AM ENTERTAINMENT MANAGER Fredis Mas MD LAB - BLOOD ORDERABLES Performing Organization Address City/State/ZIP Code Phon e Number [facility] [address] [place], [place] [id number] [place] [address] CT Abdomen Pelvis w Contrast (02/15/2015 10:57 PM ENTERTAINMENT MANAGER) Anatomical Region Laterality Modality Abdomen/Pelvis, SUBRAD CT BODY, UMP CT ABDOMEN PELVIS Computed Tomography Specimen (Source) Anatomical Location Collection Method / Collectio n Time Received Time / Laterality Volume Impressions 02/16/2015 7:27 AM ENTERTAINMENT MANAGER Impression: 1. Moderately thickened segment of termi [...] ANDERSON COY MD Narrative 02/16/2015 7:27 AM ENTERTAINMENT MANAGER Examination: ??CT ABDOMEN PELVIS W CONTRAST 02/15/2015 [...] ORDERABLES HCG qualitative urine (02/15/2015 8:49 PM ENTERTAINMENT MANAGER) Analysis Performed At Patho logist Time Signature HCG Qual Urine Negative NEG [facility] Specimen Anatomical Collection Method Collection Time Receive d Time (Source) Location / / Volume Laterality Urine specimen URINE SPECIMEN / 02/15/2015 8:49 PM 03/2014 8:57 (specimen) Unknown ENTERTAINMENT MANAGER PM ENTERTAINMENT MANAGER Jodi Pacheco MD LAB - URINE ORDERABLES Performing Organization Address City/[facility]/ZIP Code Phon e Number [facility] [address] [place] [address] [facility] (ABNORMAL) UA reflex to Microscopic and Culture (02/15/2015 8:49 PM ENTERTAINMENT MANAGER) Patholo gist Method Time Signature Color Urine Yellow [facility] Appearance Urine Clear [facility] Glucose Urine Negative NEG mg/dL [facility] Bilirubin Urine Negative NEG [facility] Ketones Urine 10 (A) NEG mg/dL [facility] Specific [place] 1.009 1.003 - [facility] Urine 1.035 [facility] Blood Urine Negative NEG [facility] pH Urine 6.0 5.0 - 7.0 [facility] pH [facility] Protein Albumin Negative NEG mg/dL [facility] Urine [facility] Urobilinogen Normal 0.0 - 2.0 [facility] mg/dL mg/dL [facility] Nitrite Urine Negative NEG [facility] Leukocyte Negative NEG [facility] Esterase Urine [facility] Source Midstream [facility]rine [facility] Specimen Anatomical Collection Method Collection Time Receive d Time (Source) Location / / Volume Laterality Urine specimen MID-STREAM URINE 02/15/2015 8:49 PM 03/2014 8:57 (specimen) SPECIMEN / Unknown ENTERTAINMENT MANAGER PM ENTERTAINMENT MANAGER Jodi Pacheco MD LAB - URINE ORDERABLES Performing Organization Address City/State/ZIP Code Phon e Number [facility] [address] [place] [address] [facility] (ABNORMAL) US Abdomen Complete (02/15/2015 8:32 PM ENTERTAINMENT MANAGER) Component Value Ref Test Analysis Performed At [facility] gist Range Method Time Signature Radiologist Possible RADIOLOGY flags appendicitis RESULTS (Urgent) Anatomical Region Laterality Modality Abdomen/Pelvis Ultrasound Specimen (Source) Anatomical Location Collection Method / Collectio n Time Received Time / Laterality Volume Impressions 02/15/2015 10:13 PM ENTERTAINMENT MANAGER Impression: Noncompressible appendix measuring up to 1.3 [...] ANDERSON COY MD Narrative 02/15/2015 10:13 PM ENTERTAINMENT MANAGER Exam: US ABDOMEN COMPLETE, 02/15/2015 8:34 PM [...] ORDERABLES (ABNORMAL) CRP inflammation (02/15/2015 7:29 PM ENTERTAINMENT MANAGER) [facility] Method Time Signature CRP Inflammation 55.0 (H) 0.0 - 8.0 [facility] mg/L [facility] Specimen Anatomical Collection Method Collection Time Receive d Time (Source) Location / / Volume Laterality 02/15/2015 7:29 PM 5 7:50 ENTERTAINMENT MANAGER PM ENTERTAINMENT MANAGER Jodi Pacheco MD LAB - BLOOD ORDERABLES Performing Organization Address City/State/ZIP Code Phon e Number [address] Lactic acid (02/15/2015 7:29 PM ENTERTAINMENT MANAGER) athologist Signature Lactic Acid 0.7 0.4 - 2.0 [facility] mmol/L [facility] Specimen Anatomical Collection Method Collection Time Receive d Time (Source) Location / / Volume Laterality Blood specimen 02/15/2015 7:29 PM 015 7:50 (specimen) ENTERTAINMENT MANAGER PM ENTERTAINMENT MANAGER Jodi Pacheco MD LAB - BLOOD ORDERABLES Performing Organization Address City/[facility]/ZIP Code Phon e Number [phone] [place] [address] (ABNORMAL) Comprehensive metabolic panel (02/15/2015 7:29 PM ENTERTAINMENT MANAGER) [facility] Method Time Signature Sodium 138 133 - 144 [facility] mmol/L [facility] Potassium 3.6 3.4 - 5.3 [facility] mmol/L [facility] Chloride 107 94 - 109 [facility] mmol/L [facility] Carbon Dioxide 25 20 - 32 [facility] mmol/L [facility] Anion Gap 7 3 - 14 [facility] mmol/L [facility] Glucose 77 70 - 99 [facility] mg/dL [facility] Urea Nitrogen 9 7 - 30 [facility] mg/dL [facility] Creatinine 0.66 0.52 - [facility] 1.04 [facility] mg/dL [facility] GFR Estimate >90 >60 [facility] Non GFR Calc mL/min/1. [facility] [address] GFR Estimate If >90 >60 [facility] Black GFR Calc mL/min/1. SD M EDICAL 7m2 [facility] Calcium 8.3 (L) 8.5 - [facility] 10.1 [facility] mg/dL [facility] Bilirubin Total 0.2 0.2 - 1.3 [facility] mg/dL [facility] Albumin 3.0 (L) 3.4 - 5.0 [facility] g/dL [facility] Protein Total 6.6 (L) 6.8 - 8.8 [facility] g/dL [facility] Alkaline 51 40 - 150 [facility] Phosphatase U/L [facility] ALT 12 0 - 50 [facility] U/L [facility] AST 14 0 - 45 [facility] U/L [facility] Specimen Anatomical Collection Method Collection Time Receive d Time (Source) Location / / Volume Laterality Blood specimen 02/15/2015 7:29 PM 015 7:50 (specimen) ENTERTAINMENT MANAGER PM ENTERTAINMENT MANAGER Jodi Pacheco MD LAB - BLOOD ORDERABLES Performing Organization Address City/State/ZIP Code Phon e Number [facility] [address] [place], [place] [phone] [place] [address] documented in this encounter Visit Diagnoses Diagnosis Ileitis, terminal, unspecified complicat ion (H) Ileitis Other and unspecified noninfectious halie roenteritis and colitis documented in this encounter Administered Medications Inactive Administered Medications - up to 3 most recent administrations Medication Order MAR Action Action Date Dose Rate Site 0.9% sodium chloride BOLUS New Bag 02/15/2015 7:31 PM ENTERTAINMENT MANAGER 1,000 mLs 1000 mL/hr Intravenous, 1,000 mL, ONCE, at 1,000 mL/hr, Administer over 1 Hours, On Sat02/15/15 at 1932, For 1 dose 0.9% sodium chloride infusion New Bag 02/16/2015 12:34 AM ENTERTAINMENT MANAGER 125 mL/hr at 125 mL/hr, Intravenous, CONTINUOUS, Starting on Sat02/15/15 at 2135, Until Sat02/16/15 at 0146 desogestrel-ethinyl estradiol (APRI) Given 02/17/2015 10:[address] 1 tablet 0.15-30 MG-MCG per tablet 1 tablet 1 tablet, Oral, EVERY EVENING, First dose on Sat02/16/15 at 0200 Given 02/16/2015 10:49 PM ENTERTAINMENT MANAGER 1 tablet Given 02/16/2015 2:25 AM ENTERTAINMENT MANAGER 1 tablet dextrose 5% and 0.9% NaCl + KCl 20 mEq/L 20-5-0.9 MEQ/L-%-% infusion INO SEYMOUR: cabinet override, 1 do se, Starting on Sat02/16/15 at 0841, Until Sat02/16/15 at 0843 dextrose 5% and 0.9% NaCl + KCl 20 New Bag 02/18/2015 12:17 AM ENTERTAINMENT MANAGER 125 mL/hr mEq/L infusion at 125 mL/hr, Intravenous, CONTINUOUS, Starting on Sat02/16/15 at 0845, Until Sat02/18/15 at 0827 New Bag 02/17/2015 4:09 PM ENTERTAINMENT MANAGER 125 mL/hr New Bag 02/17/2015 8:21 AM ENTERTAINMENT MANAGER 125 mL/hr HYDROmorphone (DILAUDID) injection 0.2 m g Given 02/16/2015 8:21 PM ENTERTAINMENT MANAGER 0.2 mg 0.2 mg, Intravenous, EVERY 2 HOURS PRN, moderate to severe pain, Starting on Sat02/16/15 at 0143 HYDROmorphone (PF) (DILAUDID) injection 0.5 Given 04/2014 12:22 AM ENTERTAINMENT MANAGER 0.5 mg mg 0.5 mg, Intravenous, ONCE, On Sat02/16/15 at 0017, For 1 dose iohexol (OMNIPAQUE) 140 mg/mL solution 2 5 mL Given 02/15/2015 10:14 PM ENTERTAINMENT MANAGER 25 mLs 25 mL, Oral, EVERY 30 [...] mL total fluid Given 02/15/2015 9:44 PM ENTERTAINMENT MANAGER 25 mLs iopamidol (ISOVUE-370) 76% solution 85 m L Given 02/15/2015 10:49 PM ENTERTAINMENT MANAGER 85 mLs 85 mL, Intravenous, ONCE, On Sat02/15/15 at 2214, For 1 dose lactated ringers infusion New Bag 02/16/2015 2:25 AM ENTERTAINMENT MANAGER 1,000 mLs 150 mL/hr at 150 mL/hr, Intravenous, CONTINUOUS, Starting on Sat02/16/15 at 0200, Until Sat02/16/15 at 0834 ondansetron (ZOFRAN) 2 MG/ML injection Starting on Sat02/15/15 at 2325, For 1 dose, NANDINI GOLDBERG: cabinet override ondansetron (ZOFRAN) injection 4 mg Given 02/15/2015 11:26 PM ENTERTAINMENT MANAGER 4 mg 4 mg, Intravenous, ONCE, Administer over 2 Minutes, On Sat02/15/15 at 2325, For 1 dose polyethylene glycol (GoLYTELY,NuLYTELY) Given 02/16/2015 6:06 PM ENTERTAINMENT MANAGER 4,000 mLs suspension 4,000 mL 4,000 mL, Oral or NG Tube, ONCE, On Sat02/16/15 at 1600, For 1 dose, FOR Procedure PREP ONLY If patient is scheduled BEFORE 12 noon, give DAY BEFORE PROCEDURE from [id number]. One 8 ounce glass every 15 minutes until finished. If unable to drink Golytely/Colyte, give per NG at rate of 8 ounces every 15 minutes until finished. sodium chloride (PF) 0.9% PF flush 71 mL Given 02/15/2015 10:49 PM ENTERTAINMENT MANAGER 71 mLs 71 mL, Intravenous, ONCE, On Sat02/15/15 at 2214, For 1 dose documented in this encounter Active and Recently Administered Medications Times are shown in ENTERTAINMENT MANAGER. Scheduled Medication Order 02/16/2015 02/17/2015 02/18/2015 desogestrel-ethinyl [...] 12 noon, give DAY BEFORE PROCEDURE from [id number]. One 8 ounce glass every 15 min [...] Intra-procedure documented in this encounter Care Teams Analytical Statistician Relationship Specialty Start Date End Date [facility] Md Lidia, MD PCP - General 02/15/15 05/02/[address] [place] [id number] documented as of this encounter
--- OUTSIDE RECORDS SUMMARY | 2021-11-30 19:22 | XMS_ITS | Encounter Summary ---
:1995 Author Organization [employer] Address [address] [place] [address] Care Team Providers Name Role Phone [place] [facility] Md KIKI Murillo Primary Care Provider [phone] Reason for Visit Reason Comments Abdominal Pain PT reports four days RLQ abd pain. Pain improves w/ laying down, leaning over. Pain in waves, + rebound pain. Auth/Cert Specialty Diagnoses / Procedures Referred By Contact Refer red To Contact Oncology Diagnoses Ileitis, terminal, unspecified complication (H) Ileitis Uu [address] [address] [place] [address] Phone: Referral ID Status Reason Start Date Expiration Date Visits Requ ested Visits Authorized [id number] 02/16/2015 02/16/2016 1 1 Encounter Details Date Type Department Care Team Description 02/17/2015 Surgery [facility] Giovanny Burch COLKatie NOSCOPY, WITH Endoscopy MD Kerry POLYPECTOMY AND BIOPSY [address] [facility] [address] [place] [address] [place], [place] [phone] (Wo rk) Surgery Details Date/Time Status Location [...] Comments Blood Pressure 121/81 02/17/2015 10:15 AM PICCOLOIST Pulse 63 02/17/2015 6:18 AM PICCOLOIST Temperature 36.8 ??C (98.3 ??F) 02/17/2015 6:18 AM PICCOLOIST Respiratory Rate 21 02/17/2015 10:15 AM PICCOLOIST Oxygen Saturation 98% 02/17/2015 10:15 AM PICCOLOIST Inhaled Oxygen Concentration - - Weight 61.2 kg (135 lb) 02/17/2015 9:08 AM PICCOLOIST Height 175.3 cm (5' 9) 02/17/2015 9:08 AM PICCOLOIST Body Mass Index 19.94 02/17/2015 9:08 AM PICCOLOIST documented in this encounter Discharge Summaries Glo Little PA-C - 02/18/2015 12:56 PM CST Images from the original note were not included. [facility] Service - Internal Medicine Discharge Summary Date of Service: 02/18/2015 Sharmaine Salas Date of : 1995 Age: [age] year old Date of Admission: 02/15/2015 Date of Discharge: 02/18/2015 3:15 PM Admitting Physician: Fredis Mas MD Discharge Physician: Gianni Martinez MD / Glo Little PA-C [phone] Discharging Service: Internal Medicine, [facility] Primary Provider: [facility] Md Lidia Outpatient To Do: - GI [...] course or discharge plan. Glo Little PA-C [facility] Pager: [phone] OLOIST documented in this encounter Medications at Time [...] Pelletier MD - 02/18/2015 2:47 PM CST [facility] GASTROENTEROLOGY PROGRESS NOTE Sharmaine Salas [id number] 02/18/2015 SUBJECTIVE: Patient is doing well today [...] RLQ pain since Saturday. Presented initially to [place] where ultrasound was concerning for possible appendicitis, but when she presented to [facility], her CT scan showed normal appendix but [...] with questions. Margi Pelletier MD GI Fellow [phone] OLOIST Associated attestation - Giovanny Burch MD - 02/18/2015 8:53 PM PICCOLOIST Attestation: I performed a history and physical [...] with Dr. Elliott Pelletier MD GI Fellow [phone] OLOIST Glo Little PA-Vera - 02/17/2015 12:58 PM [...] am, though per pt, Hgb 11.8 at [place]. MCV 85. Likely dilutional component due to [...] during Care Team Rounds. Glo Little PA-C [facility] Pager: [phone] Team: Manoj Myers 2 Page Cross Cover after 5 pm: pager [phone] Subjective & Interval Hx: Feeling out of [...] 0.9% NaCl + KCl 20 mEq/L infusion OLOIST Glo Little PA-C - 02/16/2015 2:05 PM CST Images from the original note were not included. [facility] Service - Internal Medicine Daily [...] am, though per pt, Hgb 11.8 at [place]. MCV 85. Likely dilutional component due to [...] during Care Team Rounds. Glo Little PA-C [facility] Pager: [phone] Team: Manoj Myers 2 Page Cross Cover after 5 pm: pager [phone] Subjective & Interval Hx: Sharmaine Salas is a previously healthy 19 y.o. female who initially presented to [place] yesterdaywith abdominal pain and was sent to [...] have travel outside of the country to [facility] this past July and visited a [...] 0.9% NaCl + KCl 20 mEq/L infusion OLOIST Laura Levy MD - 02/16/2015 9:21 AM CST GENERAL SURGERY PROGRESS NOTE Sharmaine Salas [id number] 19 year old female Date of Service: [...] at this time Laura Levy MD, [facility] General Surgery PGY1 Pager [phone] OLOIST Associated attestation - Arie Paul MD - 02/17/2015 4:50 PM PICCOLOIST Patient seen and evaluated. Discussed with resident team and agree with note as written. Clinically,this is unlikely to be appendicitis in light of the length of symptoms. In addition, CT scan is not consistent with appendicitis. Continue further workup by internal medicine. documented in this encounter H&P Notes Fredis Mas MD - 02/16/2015 1:49 AM CST [facility] Medicine History and Physical Department of Internal Medicine Patient Name: Sharmaine Salas Age: [age] year old Date of : 1995 Date of Admission:02/15/2015 Primary care provider: [facility] Md Lidia Date of Service: 02/16/2015 Admitting [...] MD Internal Medicine Hospitalist & Staff Physician [facility] Pager: [phone] - GOLD 1 or 2 will assume care in morning. Chief Complaint: RLQ belly pain HPI: Sharmaine has had pain in RLQ since Saturday (3 days [facility]). She has been mostly in bed with this pain,but she continues to attend classes at [employer]. She has missed work due [...] drink any raw milk. She traveled to [place] [facility] in July as a study abroad with no related health issues. Her last MP was Jan 25 - no issues. Sharmaine felt the pain is odd enough and persistent enough to go to [facility] for evaluation. There shewas noted to have RLQ pain that was concerning for appendicitis and sent to [employer] ED. 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 Fredis Mas MD OLOIST documented in this encounter Consult Notes Lia Pelletier MD - 02/16/2015 6:29 PM CSTAssociated Order(s): GASTROENTEROLOGY IP CONSULT [facility] Gastroenterology Consultation Sharmaine Salas [id number] 19 year old 1995 02/16/2015 Date of [...] that in July 2014, she was in [place] [facility] for study abroad. She denies any [...] RLQ pain since Saturday. Presented initially to [place] where ultrasound was concerning for possible appendicitis, but when she presented to [facility], her CT scan showed normal appendix but [...] with questions. Margi Pelletier MD GI Fellow [phone] OLOIST Associated attestation - Giovanny Burch MD - 02/16/2015 10:19 PM PICCOLOIST Attestation: I performed a history and physical [...] CST Surgical Consult Note 02/15/15 Sharmaine Salas [id number] Chief complaint: RLQ pain HPI: Pt is [...] Lives with three other roommates in an [facility] apartment. 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 Alcohol: 2-3x/month, roughly 5 mixed drinks Smoking: [...] Odonnell. Miguelito Anguiano MD General Surgery PGY-2 OLOIST Associated attestation - Lj Odonnell MD - 05/17/2015 2:00 PM PICCOLOIST Agree with consult note Lj Odonnell documented in this encounter Nursing Notes Day Skaggs RN - 02/17/2015 10:46 AM CST Colonoscopy with biopsies completed. Pt had discomfort throughout, but given additional sedation with relief. Report called to pt nurse on 7C and transport here to take pt back to dept. OLOIST documented in this encounter ED Notes Vipin Celaya MD - 02/16/2015 12:23 AM CST This patient is a 19-year-old female who was previously seen at [facility] with right lower quadrant abdominal pain. Patient [...] kept NPO. Vipin Celaya MD 02/16/15 0054 OLOIST Jodi Brewer MD - 02/15/2015 7:07 PM [...] she is pain-free. She was evaluated at [place] today and advised to come here to [...] bleeding or discharge. UPT was negative at [place] today. Patient reports that she has mild [...] She has no other concerns or complaints. [place] History, Lab, and Exam Findings 02/15/15: +history [...] and Surgical History, [facility] PAST MEDICAL HISTORY Past Medical History [...] in ED 19. Critical Care time: None [facility] Diagnoses: None Labs Ordered and Resulted from Time of ED Arrival Up to the Time of Departure from the ED - No data to display Assessments & Plan (with Medical Decision Making) HISTORY TAKING INFORMATION: - History, ROS, SH, PMH and Physical exam performed myself in the presence of our medical liaison, EDnursing staff and the patient's friend. I obtained some collateral history originally when I took the referring phone call from the appointment provider. No interpretive services were needed. - Old chart from [facility] reviewed and revealed the patient has a [...] the objective testing and exam report from ligonier and shows that the patient has a [...] Otherwise as per the labs drawn at [place] prior to arrival. - Urine: Pending - [...] Villavicencio, am serving as a trained medical liaison to document services personally performed by MD Cyn, based on the provider's statements to me. IJodi MD, was physically present and have reviewed and verified the accuracy of this note documented by Yulia Villavicencio. 02/15/2015 [facility] EMERGENCY DEPARTMENT Jodi Brewer MD 02/16/152052 OLOIST Jodi Brewer MD - 02/15/2015 5:41 PM [...] blood cell count Jodi Brewer MD 02/15/15 6903 OLOIST Kathrine Stein RN - 02/15/2015 5:38 PM CST PT reports four days RLQ abd pain. Pain improves w/ laying down, leaning over. Pain in waves, + rebound pain. PT w/ labs from [facility]. OLOIST documented in this encounter Miscellaneous Notes Plan [...] to escort to pharmacy/frontdoor to meet ride. OLOIST Plan of Care - Shy Trimble RN - 02/18/2015 5:18 AM CST Problem: Goal Outcome Summary Goal: Goal Outcome Summary Outcome: Improving VSS. Denies pain and N/V. Tolerating full liquids. Stool samples still needed, no BMs overnight. Continue plan of care. OLOIST Plan of Care - Radha Nobles RN - 02/17/2015 9:10 PM CST Problem: Goal Outcome Summary Goal: Goal Outcome Summary Outcome: Improving VSS. Denies pain. Colonoscopy with biopsies done today. Tolerated full liqs diet. Up ad mable. Voidingbut saving. Pt in good spirits. P: continue with POC. Stool samples still needed for labs, pt aware. OLOIST Plan of Care - Kristal Rodriguez - [...] until medication has cleared. Emotional, parents in [place]. P: Encourage ambulation, IS, emotional support., FALL PRECAUTIONS. OLOIST Plan of Care - Catherine Valdez RN - 02/17/2015 4:44 AM CST Problem: Goal Outcome Summary Goal: Goal Outcome Summary Outcome: Improving BP slightly soft; per pt's baseline. Bowel prep complete at 0130. Stools clear x3. Denies pain. BS hyperactive. Up ad mable. Plan: will go for colonoscopy today. Pain management with dilaudid IV prn. OLOIST Plan of Care - Radha Nobles RN - 02/16/2015 10:05 PM PICCOLOIST Problem: Goal Outcome Summary Goal: Goal Outcome Summary Outcome: No Change VSS. C/o's abd cramping after bowel prep was started. Pain relieved with Dilaudid IV x1 and BM x2 ofgreenish/yellow watery stool then 1large formed stool. Voiding but not saved. Up ad mable. Pt still taking golytely (total 4liters) in prep fro colonoscopy tomorrow. Per OBIEE ARCHITECT, pt might have to take to more golytely if stools are still not clear. P: continue to monitor status and continue with POC. Bear SWANSON if stools are not clear yet. OLOIST Plan of Care - Teresa Mcgovern RN - 02/16/2015 2:23 PM CST Problem: Goal Outcome Summary Goal: Goal Outcome Summary Pt VSS. Reports intermittent pain to right lower abdomen. Refusing pain medication. Tolerating a clear liquid diet. May have colonoscopy tomorrow a.m. Awaiting orders. IVF cont as ordered. Friend at the bedside. Up independently. Will continue to monitor and follow plan of care. OLOIST Utilization Review - Jessica Malone MD - 02/16/2015 12:14 PM CST [facility] Admission Status; Secondary Review Determination Admission [...] presented with RLQ since Saturday (3 days [facility]). She has been mostly in bed with [...] no significant ongoing stools. Seen initially at [facility], then sent to [facility]. Notably though her WBC was normal in [...] Jessica Malone MD Utilization Review/ Case Management [facility]. OLOIST Plan of Care - Shy Trimble RN [...] control pills at bedside, verified by pharmacy. OLOIST documented in this encounter Plan of Treatment Not on filedocumented as of this encounter Procedures Procedure Name Priority Date/Time Associated Diagnosis Comme nts CRP INFLAMMATION Routine 02/18/2015 7:32 Ileitis, terminal, Re sults for this AM PICCOLOIST unspecified procedure are i n complication (H) the results section. BASIC METABOLIC PANEL Routine 02/18/2015 7:32 Ileitis, termina l, Results for this AM PICCOLOIST unspecified procedure are i n complication (H) the results section. CBC WITH PLATELETS Routine 02/18/2015 7:32 Ileitis, terminal, Results for this AM PICCOLOIST unspecified procedure are i n complication (H) the results section. AFB STAIN NON BLOOD Routine 02/17/2015 10:51 Ileitis, terminal , Results for this AM PICCOLOIST unspecified procedure are i n complication (H) the results section. AFB CULTURE AND STAIN Routine 02/17/2015 10:51 Ileitis, termin al, Results for this NON BLOOD AM PICCOLOIST unspecified procedure are i n complication (H) the results section. SURGICAL PATHOLOGY Routine 02/17/2015 10:35 Resul ts for this EXAM AM PICCOLOIST procedure are i n the results section. COLONOSCOPY, WITH 02/17/2015 9:33 Inflammed terminal POLYPECTOMY AND BIOPSY AM PICCOLOIST ileum on CT COLONOSCOPY Routine 02/17/2015 9:19 Results for this AM PICCOLOIST procedure are i n the results section. INR Routine 02/17/2015 6:35 Ileitis, terminal, Result s for this AM PICCOLOIST unspecified procedure are i n complication (H) the results section. FOLATE Routine 02/17/2015 6:35 Ileitis, terminal, Result s for this AM PICCOLOIST unspecified procedure are i n complication (H) the results section. CRP INFLAMMATION Routine 02/17/2015 6:35 Ileitis, terminal, Re sults for this AM PICCOLOIST unspecified procedure are i n complication (H) the results section. COMPREHENSIVE Routine 02/17/2015 6:35 Ileitis, terminal, Resul ts for this METABOLIC PANEL AM PICCOLOIST unspecified procedure ar e in complication (H) the results section. VITAMIN B12 Routine 02/17/2015 6:35 Ileitis, terminal, Result s for this AM PICCOLOIST unspecified procedure are i n complication (H) the results section. CBC WITH PLATELETS Routine 02/17/2015 6:35 Ileitis, terminal, Results for this AM PICCOLOIST unspecified procedure are i n complication (H) the results section. COMPREHENSIVE Routine 02/16/2015 6:35 Ileitis, terminal, Resul ts for this METABOLIC PANEL AM PICCOLOIST unspecified procedure ar e in complication (H) the results section. CBC WITH PLATELETS Routine 02/16/2015 6:35 Ileitis, terminal, Results for this AM PICCOLOIST unspecified procedure are i n complication (H) the results section. CT ABDOMEN PELVIS W STAT 02/15/2015 10:57 Resu lts for this CONTRAST PM PICCOLOIST procedure are i n the results section. HCG QUALITATIVE URINE STAT 02/15/2015 8:49 Res ults for this PM PICCOLOIST procedure are i n the results section. UA MACROSCOPIC WITH STAT 02/15/2015 8:49 Resul ts for this REFLEX TO MICRO AND PM PICCOLOIST procedur e are in CULTURE the results section. US ABDOMEN COMPLETE STAT 02/15/2015 8:32 Resul ts for this PM PICCOLOIST procedure are i n the results section. LACTIC ACID STAT 02/15/2015 7:29 Results for this PM PICCOLOIST procedure are i n the results section. CRP INFLAMMATION Routine 02/15/2015 7:29 Ileitis, terminal, Re sults for this PM PICCOLOIST unspecified procedure are i n complication (H) the results section. COMPREHENSIVE STAT 02/15/2015 7:29 Results for this METABOLIC PANEL PM PICCOLOIST procedure ar e in the results section. documented in this encounter Results CRP inflammation (02/18/2015 7:32 AM PICCOLOIST) Analysis Performed At Patho logist Time Signature CRP Inflammation 8.0 0.0 - 8.0 [facility] mg/L [facility] Specimen Anatomical Collection Method Collection Time Receive d Time (Source) Location / / Volume Laterality Blood specimen 02/18/2015 7:32 AM 015 7:54 (specimen) PICCOLOIST AM PICCOLOIST Glo Little PA-C LAB - BLOOD ORDERABLES Performing Organization Address City/State/ZIP Code Phon e Number [facility] [address] [place] [address] [facility] (ABNORMAL) Basic metabolic panel (02/18/2015 7:32 AM PICCOLOIST) Patholo gist Method Time Signature Sodium 139 133 - 144 [facility] mmol/L [facility] Potassium 4.0 3.4 - 5.3 [facility] mmol/L [facility] Chloride 109 94 - 109 [facility] mmol/L [facility] Carbon Dioxide 24 20 - 32 [facility] mmol/L [facility] Anion Gap 6 3 - 14 [facility] mmol/L [facility] Glucose 92 70 - 99 [facility] mg/dL [facility] Urea Nitrogen 1 (L) 7 - 30 [facility] mg/dL [facility] Creatinine 0.60 0.52 - [facility] 1.04 [facility] mg/dL [facility] GFR Estimate >90 >60 [facility] Non GFR Calc mL/min/1. [place] [facility] [address] [facility] GFR Estimate >90 >60 [facility] If Black GFR Calc mL/min/1. [place] [facility] 7m[address] [facility] Calcium 8.0 (L) 8.5 - [facility] 10.1 [facility] mg/dL [facility] Specimen Anatomical Collection Method Collection Time Receive d Time (Source) Location / / Volume Laterality Blood specimen 02/18/2015 7:32 AM 015 7:54 (specimen) PICCOLOIST AM PICCOLOIST Glo Little PA-C LAB - BLOOD ORDERABLES Performing Organization Address City/State/ZIP Code Phon e Number [facility] [address] [place], [place] [id number] [place] [address] (ABNORMAL) CBC with platelets (02/18/2015 7:32 AM PICCOLOIST) [facility] gist Method Time Signature WBC 4.2 4.0 - 11.0 [facility] 10e9/L [facility] RBC Count 3.73 (L) 3.8 - 5.2 [facility] 10e12/L [facility] Hemoglobin 10.3 (L) 11.7 - [facility] 15.7 g/dL [facility] Hematocrit 31.3 (L) 35.0 - [facility] 47.0 % [facility] MCV 84 78 - 100 [facility] fl [facility] MCH 27.6 26.5 - [facility] 33.0 pg [facility] MCHC 32.9 31.5 - [facility] 36.5 g/dL [facility] RDW 12.7 10.0 - [facility] 15.0 % [facility] Platelet Count 149 (L) 150 - 450 [facility] 10e9/L [facility] Specimen Anatomical Collection Method Collection Time Receive d Time (Source) Location / / Volume Laterality Blood specimen 02/18/2015 7:32 AM 015 7:54 (specimen) PICCOLOIST AM PICCOLOIST Glo Little PA-C LAB - BLOOD ORDERABLES Performing Organization Address City/State/ZIP Code Phon e Number [address] [address] [facility] AFB Stain Non Blood (02/17/2015 10:51 AM PICCOLOIST) [facility] Method Time Signature Specimen Tissue [facility] [employer] Stain Negative for acid fast bacteria [facility] Micro Report FINAL [facility] Status 02/20/2015 [facility] Specimen Anatomical Collection Method Collection Time Receive d Time (Source) Location / / Volume Laterality 02/17/2015 10:51 02/17/2015 4:50 AM PICCOLOIST PM PICCOLOIST Giovanny Burch MD LAB - MICRO GENERAL ORD ERABLES Performing Organization Address City/State/ZIP Code Phon e Number [address] [address] [place] [employer] Culture Non Blood (02/17/2015 10:51 AM PICCOLOIST) [facility] Method Time Signature Specimen Tissue [facility] Culture Micro Culture negative for acid fast bacilli [facility] [id number] [facility] Micro Report FINAL [facility] Status 04/15/2015 [facility] Specimen Anatomical Collection Method Collection Time Receive d Time (Source) Location / / Volume Laterality 02/17/2015 10:51 02/17/2015 4:50 AM PICCOLOIST PM PICCOLOIST Giovanny Burch MD LAB - MICRO GENERAL ORD ERABLES Performing Organization Address City/State/ZIP Code Phon e Number [address] [address] [place] Surgical pathology exam (02/17/2015 10:35 AM PICCOLOIST) Component Value Ref Test Analysis Performed At [facility] Range Method Time Signature Copath Report Patient Name: SHARMAINE SALAS MR#: [id number] Specimen #: [id number] Collected: 02/17/2015 Received: 02/17/2015 Reported: 02/18/2015 15:18 [...] signed out by: Giles Wong M.D., [facility] CLINICAL HISTORY: The patient is a 19 [...] Microscopic examination is performed. CPT Codes: A: 96438-FV6 B: 65447-XS9 C: 14209-AH6 TESTING LAB LOCATION: [facility], [facility] [address] [place] [address] ?? [id number] COLLECTION SITE: Client: [facility] Location: [id number] (B) Specimen Anatomical Collection Method Collection Time Receive d Time (Source) Location / / Volume Laterality 02/17/2015 10:35 02/17/2015 2:55 AM PICCOLOIST PM PICCOLOIST Giovanny HARDING - [place] Performing Organization Address City/State/ZIP Code Phon e Number [facility] COLONOSCOPY (02/17/2015 9:19 AM PICCOLOIST) [facility] gist Method Time Signature COLONOSCOPY [facility] RADIOLOGY [address] [place], [place] [id number] [phone] ? End oscopy Department RESULTS Patient Name: Sharmaine Salas ?Procedure Date: 02/17/2015 9:19 AM ? Accou nt Number: [id number] Date of : 1995 ?Admit Type: Inp [...] / / Volume Laterality 02/17/2015 9:19 AM PICCOLOIST Giovanny Burch MD PROCEDURES Performing Organization Address City/State/ZIP Code Phon e Number RADIOLOGY RESULTS (ABNORMAL) CRP inflammation (02/17/2015 6:35 AM PICCOLOIST) Patholo gist Method Time Signature CRP Inflammation 16.0 (H) 0.0 - 8.0 [facility] mg/L [facility] Specimen Anatomical Collection Method Collection Time Receive d Time (Source) Location / / Volume Laterality Blood specimen 02/17/2015 6:35 AM 015 7:21 (specimen) PICCOLOIST AM PICCOLOIST Glo Little PA-C LAB - BLOOD ORDERABLES Performing Organization Address City/[facility] [address]/ZIP Code Phon e Number [facility] [address] [place], [place] [phone] [place] [address] Folate (02/17/2015 6:35 AM PICCOLOIST) P athologist Signature Folate 14.0 >5.4 ng/mL [facility] Comment: Interp: >5.4 ng/mL = Normal Specimen Anatomical Collection Method Collection Time Receive d Time (Source) Location / / Volume Laterality Blood specimen 02/17/2015 6:35 AM 015 7:21 (specimen) PICCOLOIST AM PICCOLOIST Glo Little PA-C LAB - BLOOD ORDERABLES Performing Organization Address City/State/ZIP Code Phon e Number [facility] [address] [place] [address] [facility] Vitamin B12 (02/17/2015 6:35 AM PICCOLOIST) P athologist Signature Vitamin B12 [phone] - 986 [facility] pg/mL [facility] Comment: Interp: [phone] = Normal Specimen Anatomical Collection Method Collection Time Receive d Time (Source) Location / / Volume Laterality Blood specimen 02/17/2015 6:35 AM 015 7:21 (specimen) PICCOLOIST AM PICCOLOIST Glo Little PA-C LAB - BLOOD ORDERABLES Performing Organization Address City/State/ZIP Code Phon e Number [facility] [address] [place] [address] [facility] (ABNORMAL) Comprehensive metabolic panel (02/17/2015 6:35 AM PICCOLOIST) Patholo gist Method Time Signature Sodium 144 133 - 144 [facility] mmol/L [facility] Potassium 3.8 3.4 - 5.3 [facility] mmol/L [facility] Chloride 112 (H) 94 - 109 [facility] mmol/L [facility] Carbon Dioxide 24 20 - 32 [facility] mmol/L [facility] Anion Gap 8 3 - 14 [facility] mmol/L [facility] Glucose 93 70 - 99 [facility] mg/dL [facility] Urea Nitrogen 1 (L) 7 - 30 [facility] mg/dL [facility] Creatinine 0.65 0.52 - [facility] 1.04 [facility] mg/dL [facility] GFR Estimate >90 >60 [facility] Non GFR Calc mL/min/1. [facility] [address] GFR Estimate If >90 >60 [facility] Black GFR Calc mL/min/1. [place] [facility] [address] [facility] Calcium 7.3 (L) 8.5 - [facility] 10.1 [facility] mg/dL [facility] Bilirubin Total 0.4 0.2 - 1.3 [facility] mg/dL [facility] Albumin 2.6 (L) 3.4 - 5.0 [facility] g/dL [facility] Protein Total 5.4 (L) 6.8 - 8.8 [facility] g/dL [facility] Alkaline 44 40 - 150 [facility] Phosphatase U/L [facility] ALT 14 0 - 50 [facility] U/L [facility] AST 15 0 - 45 [facility] U/L [facility] Specimen Anatomical Collection Method Collection Time Receive d Time (Source) Location / / Volume Laterality Blood specimen 02/17/2015 6:35 AM 015 7:21 (specimen) PICCOLOIST AM PICCOLOIST Glo Little PA-C LAB - BLOOD ORDERABLES Performing Organization Address City/[facility] [address]/ZIP Code Phon e Number [address] INR (02/17/2015 6:35 AM PICCOLOIST) P athologist Signature INR 1.13 0.86 - 1.14 [facility] Specimen Anatomical Collection Method Collection Time Receive d Time (Source) Location / / Volume Laterality Blood specimen 02/17/2015 6:35 AM 015 7:21 (specimen) PICCOLOIST AM PICCOLOIST Glo Little PA-C LAB - BLOOD ORDERABLES Performing Organization Address City/[facility] [address]/ZIP Code Phon e Number [address] (ABNORMAL) CBC with platelets (02/17/2015 6:35 AM PICCOLOIST) Patholo gist Method Time Signature WBC 4.2 4.0 - 11.0 [facility] 10e9/L [facility] RBC Count 3.40 (L) 3.8 - 5.2 [facility] 10e12/L [facility] Hemoglobin 9.3 (L) 11.7 - [facility] 15.7 g/dL [facility] Hematocrit 28.7 (L) 35.0 - [facility] 47.0 % [facility] MCV 84 78 - 100 [facility] fl [facility] MCH 27.4 26.5 - [facility] 33.0 pg [facility] MCHC 32.4 31.5 - [facility] 36.5 g/dL [facility] RDW 13.0 10.0 - [facility] 15.0 % [facility] Platelet Count 134 (L) 150 - 450 [facility] 10e9/L [facility] Specimen Anatomical Collection Method Collection Time Receive d Time (Source) Location / / Volume Laterality Blood specimen 02/17/2015 6:35 AM 015 7:21 (specimen) PICCOLOIST AM PICCOLOIST Glo Little PA-C LAB - BLOOD ORDERABLES Performing Organization Address City/[facility] [address]/ZIP Code Phon e Number [facility] [address] (ABNORMAL) CBC with platelets (02/16/2015 6:35 AM PICCOLOIST) [facility] [employer] Method Time Signature WBC 4.6 4.0 - 11.0 [facility] 10e9/L [facility] RBC Count 3.40 (L) 3.8 - 5.2 [facility] 10e12/L [facility] Hemoglobin 9.4 (L) 11.7 - [facility] 15.7 g/dL [facility] Hematocrit 29.0 (L) 35.0 - [facility] 47.0 % [facility] MCV 85 78 - 100 [facility] fl [facility] MCH 27.6 26.5 - [facility] 33.0 pg [facility] MCHC 32.4 31.5 - [facility] 36.5 g/dL [facility] RDW 12.9 10.0 - [facility] 15.0 % [facility] Platelet Count 117 (L) 150 - 450 [facility] 10e9/L [facility] Specimen Anatomical Collection Method Collection Time Receive d Time (Source) Location / / Volume Laterality Blood specimen 02/16/2015 6:35 AM 015 7:48 (specimen) PICCOLOIST AM PICCOLOIST Fredis Mas MD LAB - BLOOD ORDERABLES Performing Organization Address City/[facility] [address]/ZIP Code Phon e Number [facility] [address] (ABNORMAL) Comprehensive metabolic panel (02/16/2015 6:35 AM PICCOLOIST) [facility] [employer] Method Time Signature Sodium 139 133 - 144 [facility] mmol/L [facility] Potassium 3.8 3.4 - 5.3 [facility] mmol/L [facility] Chloride 108 94 - 109 [facility] mmol/L [facility] Carbon Dioxide 24 20 - 32 [facility] mmol/L [facility] Anion Gap 7 3 - 14 [facility] mmol/L [facility] Glucose 69 (L) 70 - 99 [facility] mg/dL [facility] Urea Nitrogen 5 (L) 7 - 30 [facility] mg/dL [facility] Creatinine 0.66 0.52 - [facility] 1.04 [facility] mg/dL [facility] GFR Estimate >90 >60 [place] Non GFR Calc mL/min/1. [facility] [address] GFR Estimate If >90 >60 [place] GFR Calc mL/min/1. [place] M ED[facility] [address] [facility] Calcium 7.3 (L) 8.5 - [facility] 10.1 [place] [facility] mg/dL [facility] Bilirubin Total 0.3 0.2 - 1.3 [facility] mg/dL [facility] Albumin 2.4 (L) 3.4 - 5.0 [facility] g/dL [facility] Protein Total 5.4 (L) 6.8 - 8.8 [facility] g/dL [facility] Alkaline 42 40 - 150 [facility] Phosphatase U/L [facility] ALT 7 0 - 50 [facility] U/L [facility] AST 13 0 - 45 [facility] U/L [facility] Specimen Anatomical Collection Method Collection Time Receive d Time (Source) Location / / Volume Laterality Blood specimen 02/16/2015 6:35 AM 015 7:48 (specimen) PICCOLOIST AM PICCOLOIST Fredis Mas MD LAB - BLOOD ORDERABLES Performing Organization Address City/State/ZIP Code Phon e Number [facility] [address] [place] [address] [facility] CT Abdomen Pelvis w Contrast (02/15/2015 10:57 PM PICCOLOIST) Anatomical Region Laterality Modality Abdomen/Pelvis, SUBRAD CT BODY, UMP CT ABDOMEN PELVIS Computed Tomography Specimen (Source) Anatomical Location Collection Method / Collectio n Time Received Time / Laterality Volume Impressions 02/16/2015 7:27 AM PICCOLOIST Impression: 1. Moderately thickened segment of termi [...] ANDERSON COY MD Narrative 02/16/2015 7:27 AM PICCOLOIST Examination: ??CT ABDOMEN PELVIS W CONTRAST 02/15/2015 [...] pericecal and stephane-ileal fat, best appreciated on samatnha nal images. Small amount of adjacent free [...] ORDERABLES HCG qualitative urine (02/15/2015 8:49 PM PICCOLOIST) Analysis Performed At Patho logist Time Signature HCG Qual Urine Negative NEG [facility] Specimen Anatomical Collection Method Collection Time Receive d Time (Source) Location / / Volume Laterality Urine specimen URINE SPECIMEN / 02/15/2015 8:49 PM 03/2014 8:57 (specimen) Unknown PICCOLOIST PM PICCOLOIST Jodi Pacheco MD LAB - URINE ORDERABLES Performing Organization Address City/[facility] [address]/ZIP Code Phon e Number [facility] [address] [place] [address] [facility] (ABNORMAL) UA reflex to Microscopic and Culture (02/15/2015 8:49 PM PICCOLOIST) Patholo gist Method Time Signature Color Urine Yellow [facility] Appearance Urine Clear [facility] Glucose Urine Negative NEG mg/dL [facility] Bilirubin Urine Negative NEG [facility] Ketones Urine 10 (A) NEG mg/dL [facility] Specific [place] 1.009 1.003 - [facility] Urine 1.035 [facility] Blood Urine Negative NEG [facility] pH Urine 6.0 5.0 - 7.0 [facility] pH [facility] Protein Albumin Negative NEG mg/dL [facility] Urine [facility] Urobilinogen Normal 0.0 - 2.0 [place] mg/dL mg/dL [facility] Nitrite Urine Negative NEG [facility] Leukocyte Negative NEG [facility] Esterase Urine [facility] Source Midstream [facility] Urine [facility] Specimen Anatomical Collection Method Collection Time Receive d Time (Source) Location / / Volume Laterality Urine specimen MID-STREAM URINE 02/15/2015 8:49 PM 03/2014 8:57 (specimen) SPECIMEN / Unknown PICCOLOIST PM PICCOLOIST Jodi Pacheco MD LAB - URINE ORDERABLES Performing Organization Address City/State/ZIP Code Phon e Number [facility] [address] [place] [address] [facility] (ABNORMAL) US Abdomen Complete (02/15/2015 8:32 PM PICCOLOIST) Component Value Ref Test Analysis Performed At [facility] gist Range Method Time Signature Radiologist Possible RADIOLOGY flags appendicitis RESULTS (Urgent) Anatomical Region Laterality Modality Abdomen/Pelvis Ultrasound Specimen (Source) Anatomical Location Collection Method / Collectio n Time Received Time / Laterality Volume Impressions 02/15/2015 10:13 PM PICCOLOIST Impression: Noncompressible appendix measuring up to 1.3 [...] ANDERSON COY MD Narrative 02/15/2015 10:13 PM PICCOLOIST Exam: US ABDOMEN COMPLETE, 02/15/2015 8:34 PM [...] ORDERABLES (ABNORMAL) CRP inflammation (02/15/2015 7:29 PM PICCOLOIST) [facility] Method Time Signature CRP Inflammation 55.0 (H) 0.0 - 8.0 [facility] mg/L [facility] Specimen Anatomical Collection Method Collection Time Receive d Time (Source) Location / / Volume Laterality 02/15/2015 7:29 PM 5 7:50 PICCOLOIST PM PICCOLOIST Jodi Pacheco MD LAB - BLOOD ORDERABLES Performing Organization Address City/State/ZIP Code Phon e Number [facility] [address] [place], [place] [id number] [place] [address] Lactic acid (02/15/2015 7:29 PM PICCOLOIST) athologist Signature Lactic Acid 0.7 0.4 - 2.0 [facility] mmol/L [facility] Specimen Anatomical Collection Method Collection Time Receive d Time (Source) Location / / Volume Laterality Blood specimen 02/15/2015 7:29 PM 015 7:50 (specimen) PICCOLOIST PM PICCOLOIST Jodi Pacheco MD LAB - BLOOD ORDERABLES Performing Organization Address City/State/ZIP Code Phon e Number [facility] [address] [place], [place] [id number] [place] [address] (ABNORMAL) Comprehensive metabolic panel (02/15/2015 7:29 PM PICCOLOIST) [facility] Method Time Signature Sodium 138 133 - 144 [facility] mmol/L [facility] Potassium 3.6 3.4 - 5.3 [facility] mmol/L [facility] Chloride 107 94 - 109 [facility] mmol/L [facility] Carbon Dioxide 25 20 - 32 [facility] mmol/L [facility] Anion Gap 7 3 - 14 [facility] mmol/L [facility] Glucose 77 70 - 99 [facility] mg/dL [facility] Urea Nitrogen 9 7 - 30 [facility] mg/dL [facility] Creatinine 0.66 0.52 - [facility] 1.04 [facility] mg/dL [facility] GFR Estimate >90 >60 [place] Non GFR Calc mL/min/1. [facility] [address] GFR Estimate If >90 >60 [facility] Black GFR Calc mL/min/1. [place] [facility] [address] [facility] Calcium 8.3 (L) 8.5 - [facility] 10.1 [facility] mg/dL [facility] Bilirubin Total 0.2 0.2 - 1.3 [facility] mg/dL [facility] Albumin 3.0 (L) 3.4 - 5.0 [facility] g/dL [facility] Protein Total 6.6 (L) 6.8 - 8.8 [facility] g/dL [facility] Alkaline 51 40 - 150 [facility] Phosphatase U/L [facility] ALT 12 0 - 50 [facility] U/L [facility] AST 14 0 - 45 [facility] U/L [facility] Specimen Anatomical Collection Method Collection Time Receive d Time (Source) Location / / Volume Laterality Blood specimen 02/15/2015 7:29 PM 015 7:50 (specimen) PICCOLOIST PM PICCOLOIST Jodi Pacheco MD LAB - BLOOD ORDERABLES Performing Organization Address City/State/ZIP Code Phon e Number [facility] [address], [place] [id number] [place] [address] documented in this encounter Visit Diagnoses Not on filedocumented in this encounter Administered Medications Inactive Administered Medications - up to 3 most recent administrations Medication Order MAR Action Action Date Dose Rate Site fentaNYL (SUBLIMAZE) injection Given 02/17/2015 10:10 AM PICCOLOIST 50 mcg PRN, Starting on Peggy 02/17/15 at 0953, Intra-procedure Given 02/17/2015 10:03 AM PICCOLOIST 50 mcg Given 02/17/2015 9:58 AM PICCOLOIST 50 mcg midazolam (VERSED) injection Given 02/17/2015 10:10 AM PICCOLOIST 1 mg PRN, Starting on Peggy 02/17/15 at 0953, Intra-procedure Given 02/17/2015 10:06 AM PICCOLOIST 1 mg Given 02/17/2015 10:03 AM PICCOLOIST 1 mg simethicone (MYLICON) suspension Given 02/17/2015 9:53 AM PICCOLOIST 2 mLs PRN, Starting on Peggy 02/17/15 at 0953, Intra-procedure documented in this encounter Active and Recently Administered Medications Times are shown in PICCOLOIST. Scheduled Medication Order 02/16/2015 02/17/2015 02/18/2015 desogestrel-ethinyl estradiol (APRI) 0.1 5-30 MG-MCG per tablet 1 tablet (CANCELED) 0225 (Given - Provider: Shy vasquez RN)2249 (Given - Provider: Radha Nobles, OYSELYN) 2229 (Given - Provider: Ruchi Mendez RN) [...] 12 noon, give DAY BEFORE PROCEDURE from [id number]. One 8 ounce glass every 15 min [...] Intra-procedure documented in this encounter Care Teams [place] Molder Relationship Specialty Start Date End Date [facility] Md Lidia, PCP - General 02/15/15 05/02/[address] [place] [id number] documented as of this encounter
[2021-11-30 19:28] VITALS: BP 113/76; PULSE 100; TEMP 36.6
[2021-11-30 20:00] VITALS: BMI 23.8
--- NOTE | 2021-11-30 20:06 | W.PM.LDBA ---
Subjective History of Present Illness Time Seen by Provider: 19:45 Date Seen: 11/30/21 Narrative: Patient is being admitted to Labor and Delivery for early labor. She is a 26 year old at 40.0 weeks gestation. Her full history and physical was dictated by Zonia Jules on 11/09/21. Please see this for details. Pt states ctx started this morning, and have slowly increased in intensity throughout the day. Was seen in clinic today, and noted to be 5/70/-2, stretchy. Hx of fast labor with first baby. Partner at bedside for support. Planning a waterbirth again, but open to nitrous if needed. Blood type: O positive G2 P 1-0-0-1. ANANTH 11/30/2021 by LMP consistent with 9 week ultrasound H&P done 11/09/2021 by Zonia Jules Problem list: 1. Darkly pigmented macules over back. Derm referral placed 05/01/21. 2. Subchorionic hemorrhage at 9 weeks: 3 X 2.3 X 0.7 cm. No bleeding. 3. COVID infection early 1st trimester. Level 2 US ordered. --growth 32 and 36 weeks: wants both 32 (EFW 49%) and 36 wk US 4. Hx fast labor with 1st baby. Labor ~4.5hrs, pushed ~1.25hrs 5. US at 36wks EFW 82% (49% at 32wks), AC >97% 6. Seasonal Allergies Taking allergy medication Struggling with cough. Albuterol inhaler ordered 7. Anemic, Hgb 10.3 Discussed not rechecking on admission unless concerned 8. Back injury on L upper back, muscular Tylenol not working, rx for flexeril sent Has seen chiropractor and done lots of home remedies OB - H&P: Exam Physical Exam: Vital signs: Pulse BP 100 113/76 11/30/21 19:28 11/30/21 19:28 Constitutional: Constitutional: no acute distress and cooperative Routine HEENT Exam: Head: Present normocephalic Eye: Present normal appearance Routine Neck Exam: Neck: Present full ROM and normal inspection (supple) Routine Respiratory Exam: Respiratory: Present CTA bilaterally Routine Cardiovascular Exam: Cardiovascular: RRR Detailed Abdominal Exam: Comments: Gravid Routine Exam: Patient deferred: external exam (done in clinic a few hours ago, ctx not much stronger at this time) Detailed Labor and Delivery Exam: Patient Gravid: yes Dilation (cm): 5 (Per Zonia Jules in office this AM. /-2, stretchy) Effacement (%): 70 Consistency: soft Contraction intensity: Moderate Fetus (Single): Station: -2 Heart Rate Baseline: 135 Monitor Accelerations: Present Monitor Decelerations: None (Tracing maternal briefly, readjusted by RN) Institute Director Variability: Average (6-10) (Moderate) Routine Extremities Exam: Extremities: Present full ROM Routine Back/Spine/Pelvis Exam: Back/Spine: full ROM Routine Skin Exam: Present intact and dry Routine Neurological Exam: Present alert, oriented X3 and normal speech Routine Psychiatric Exam: Present normal affect OB - Problem Based A/P Additional Plan (1) : Status: Acute (2) Uterine contractions: Status: Acute Plan Assessment: at 40.0 weeks GBS negative Uncomplicated Early labor, hx of fast labor Plan: Admit to L & D Candidate for analgesia of choice. Planning unmedicated , open to nitrous if needed. Desires waterbirth. Consent signed and Hep C neg. Intermittent monitoring per protocol No IV needed at this time Expectant management at this time. Anticipate progress to NVD. Delivery/Labor/Induction Plan Plan: expectant management
[2021-11-30 20:23] LABS: SARS PCR* Negative SARS-CoV-2 (Negative)
[2021-11-30] MEDS: OXYTOCIN 10 UNIT/ML INJ IM (22:44)
[2021-11-30 23:00] VITALS: BP 114/67; PULSE 69
[2021-11-30 23:16] VITALS: BP 116/79; PULSE 63
[2021-11-30 23:20] VITALS: BP 117/80; PULSE 62
[2021-11-30] MEDS: LIDOCAINE 1% MDV 20 ML INJECTION (23:20)
[2021-11-30 23:35] VITALS: BP 109/71; PULSE 69
[2021-11-30] MEDS: miSOPROStoL 800 MCG/4 TABLET PR (23:42)
[2021-11-30 23:50] VITALS: BP 116/75; PULSE 70
[2021-12-01] VITALS (12 sets, daily range): BP systolic 98–119; BP diastolic 49–84; PULSE 61–92; RESP 15–18; TEMP 36.3–36.9; O2SAT 97
--- NOTE | 2021-12-01 00:09 | PM.OBPRCVD ---
Procedure Delivery date: 11/30/21 Procedure Done: Global Procedure Details: Patient is a 26 year-old G2 now ?P2002 admitted on 12/01/21 at 40.0 Weeks gestation for early labor. ?Cervical exam on admission was deferred, but noted to be 5 cm/70 % effaced/-2 station in office a few hours previous, with membranes intact in vertex presentation.? SROM occurred shortly after pushing started with clear fluid. Labor?Analgesia:? tried nitrous, but did not use Pitocin:? ? No, PP only for AMTSL Labor?onset:? 2109 Complete: unknown Pushing:? 2220 heart tones during second stage were: WNL per doppler Sharmaine continued to labor, w/ ctx becoming more intense. Tried various positions, including on the toilet and hands and knees. Attempted to use nitrous, but did not like the feel of the mask. Decision made to get into the tub. Shortly after noted to be spontaneously pushing. SROM, clear fluid noted shortly after pushing started. Requested SVE, not sure if safe to start pushing. Baby noted complete and +2 station. Encouraged to push w/ ctx. At 2240 a viable? female infant delivered in vertex OA presentation over intact perineum via spontaneous vaginal delivery. ?Delivery occurred in the tub. Infant was placed on maternal abdomen. ? Nose and mouth were bulb suctioned, and stimulated to cry. Good tone and heart rate noted at that time. Infant weight pending. CNM called to bedside of another pt for emergency. Bleeding at that time noted to be minimal and pt and baby stable. Continued to watch by RN, until a second provider arrived. CNM returned to bedside, cord had been clamped and cut and pt assisted to bed. Cord was clamped and cut after a 5+ minute delay.? Placenta delivered w/o difficulty. 8 at 1 minute and 9 at 5 minutes. ?Shoulder dystocia: no. ?Nuchal cord: no. Placenta delivered spontaneously and complete at 2318 with a 3 vessel cord. Mother and were stable after delivery. Lacerations:? 2nd degree, repaired with 3-0 vicryl.? During repair, small trickle of blood noted from uterus. Crede done by firm, minimal gushing noted. Crede done near end of repair as trickle continued, and large clot noted. Decision made to proceed with rectal cytotec to assist with continued trickle that was not resolving. RN to monitor. Blood loss: 300 mL QBL, 100 EBL = 400 . Blood loss measurement type: QBL?& EBL r/t waterbirth Sponge and needles counts are correct. Events: Covid Infection in (1st trimester) Intrapartal Events: None Delivery monitor: external FHT (by doppler) Route of delivery: Laceration description: Vaginal - 2nd Degree (repaired) Delivery repair: Vicryl Estimated blood loss (mL): 400 Anesthesia type: None (briefly ttepted nitrous) Disposition: floor Gender: Female presentation: vertex Placental Delivery Description: Spontaneous Cord Description: 3 Vessels OB Vag Delivery Procedures Additional Procedures ECV: No Cook Catheter Insertion: No NST: No D&C: No Laceration Repair: Yes Tubal Ligation : No Other: No
--- NOTE | 2021-12-01 17:46 | P.DS_ITS ---
DS: Providers Provider Time Seen by Provider: 07:45 Date Seen: 12/01/21 Date of admission: 11/30/21 19:33 Primary care physician: Not a Local Provider Admitting Clinician: Gabriella Cortez CNM Attending Physician on discharge: Mariajose Buchanan CNM Date of Discharge: 12/01/21 DS: Diagnosis Discharge Diagnosis (1) state: Status: Acute (2) Lactating mother: Status: Acute Exam Const: Vital Signs, click to edit/add: Vital Signs - 24 hr 11/30/21 19:28 11/30/21 19:28 11/30/21 23:00 Temperature 98 F Pulse Rate 100 69 Pulse Rate [Pulse Oximeter] Respiratory Rate Blood Pressure 113/76 114/67 Blood Pressure [Le ft Arm] Pulse Oximetry Oxygen Delivery [facility] 11/30/21 23:16 11/30/21 23:20 11/30/21 23:35 Temperature Pulse Rate 63 62 69 Pulse Rate [Pulse Oximeter] Respiratory Rate Blood Pressure 116/79 117/80 109/71 Blood Pressure [Le ft Arm] Pulse Oximetry Oxygen Delivery [facility] 11/30/21 23:50 12/01/21 00:20 12/01/21 00:35 Temperature Pulse Rate 70 62 63 Pulse Rate [Pulse Oximeter] Respiratory Rate Blood Pressure 116/75 115/78 110/75 Blood Pressure [Le ft Arm] Pulse Oximetry Oxygen Delivery [facility] 12/01/21 00:50 12/01/21 01:05 12/01/21 01:20 Temperature Pulse Rate 61 63 65 Pulse Rate [Pulse Oximeter] Respiratory Rate Blood Pressure 119/71 117/74 116/77 Blood Pressure [Le ft Arm] Pulse Oximetry Oxygen Delivery [facility] 12/01/21 01:35 12/01/21 01:20 12/01/21 06:25 Temperature 98.4 F 98.2 F Pulse Rate 73 Pulse Rate [Pulse Oximeter] 78 Respiratory Rate 16 18 Blood Pressure 118/77 Blood Pressure [Le ft Arm] 107/50 L Pulse Oximetry 97 Oxygen Delivery [facility] Room Air 12/01/21 10:33 12/01/21 14:19 Temperature 97.4 F L 98.4 F Pulse Rate Pulse Rate [Pulse Oximeter] 92 79 Respiratory Rate 16 16 Blood Pressure Blood Pressure [Le ft Arm] 98/65 100/49 L Pulse Oximetry 97 97 Oxygen Delivery Me thod Room Air Room Air Documenting provider has reviewed patient's vital signs: yes Common normals: no apparent distress, oriented x3, healthy appearing, alert and well nourished General appearance: cooperative, well kempt and well developed Orientation/consciousness: Yes awake, Yes oriented to person, Yes oriented to place and Yes oriented to time HENMT: Common normals: normocephalic and external nose normal Head and scalp: normocephalic Nose: external nose normal Eye: General eye: normal appearance of both eyes Neck & C-Spine: Common normals: full ROM and supple General: normal visual inspection Cervical spine: cervical ROM normal Chest: Common normals: inspection of chest normal and palpation of chest normal Chest: symmetrical chest wall rise Resp: Common normals: normal respiratory effort, no retractions, no use of accessory muscles and clear to auscultation bilaterally Effort & inspection: able to speak in complete sentences Auscultation: clear to auscultation bilaterally Cardio: Common normals: regular rate and regular rhythm Rate: regular rate Rhythm: regular rhythm GI: Common normals: Normal to inspection, nondistended, normoactive bowel sounds present and soft to palpation Inspection: normal to inspection Auscultation: normoactive bowel sounds Palpation: soft and tender : Bimanual exam- vagina & uterus: other (Involuting) OB/external & specul um: Yes deferred (per pt, no concerns or pain at repair) Uterus: firm (involuting) Lochia: small Uterus palpation: uterus tender Back & Pelvis: Common normals: thoracic and lumbar spine normal to inspection and no thoracic nor lumbar tenderness Thoracic spine/upper back: normal to inspection and thoracic ROM normal Lumbar spine/lower back: normal to inspection and lumbar ROM normal Extremity: Common normals: normal to inspection, full ROM and no pedal edema General: normal exam except as noted Neuro: Common normals: oriented x3 Sensorium/orientation: awake, alert, oriented to person, oriented to place and oriented to time Speech: speech normal Psych: Common normals: mental status grossly normal, thought process normal and speech normal Appearance: grossly normal and well kempt Attitude: calm and engaged Activity/motor behavior: appropriate eye contact Speech: normal speech Thought process: normal thought process Thought content: normal thought content Attention/concentration: attention grossly intact Memory/cognition: memory grossly intact Insight: insight good Judgement: judgment good Skin: Common normals: no rashes or lesions noted General skin exam: no rashes or lesions noted DS: Data Data Completed and Pending Labs on day of discharge: Labs from last 24 hours 11/30/21 19:35 SARS-CoV-2 (PCR) Negative SARS-CoV-2 OB - DS: Summary Hospital Course Hospital Course: Sharmaine yee is a 26 year old G2 now P2 at 40 0/7 weeks gestation that was admitted to the Center on 11/30/21 for active labor. She had an uncomplicated vaginal waterbirth, with a 2nd degree perineal laceration repaird with 3.0 vycril. She delivered a viable female infant. She is breast feeding and reports that baby latched well and breast feeing is going fine. the patient has done well and would like to go home tonight. Peripartum Data complications: none Gender: Female Infant Discharge Plan: Home Status at Discharge Functional status at discharge: independent ambulation Overall status at discharge: patient is progressing back to baseline Time Spent with Patient Time attestation: Total time spent providing and/or coordinating discharge services: Time spent: Less than 30 minutes Discharge Plan Discharge Disposition: Home, Self-Care Date of Admission: 11/30/21 19:33 Attending Provider on Discharge: Mariajose Buchanan Primary Care Provider: Provider,Not a Local Condition: Stable Anticipated Discharge Date/Time: 12/01/21 23:00 Discharge Medications: New acetaminophen 500 mg Tablet 1,000 mg PO Q6H PRNQty: 0 0RF ibuprofen 600 mg Tablet 600 mg PO Q6H PRNQty: 0 0RF Continued calcium carbonate [Tums] 200 mg calcium (500 mg) tablet,chewable 200 mg PO .bedtime DHA 200 mg capsule 200 mg PO DAILY docusate sodium [Colace] 100 mg capsule 100 mg PO QDAY albuterol sulfate 90 mcg/actuation HFA aerosol inhaler 1 inh inhalation Q6H PRN (Reason: shortness of breath or wheezing) Qty: 6.7 0RF Rx Instructions: Use as needed for cyclobenzaprine 5 mg tablet 5 mg PO BID PRN (Reason: muscle spasm) Qty: 28 0RF Rx Instructions: Take 1 tab as needed for muscle spasm. May take 2x per day as needed. Discharge Orders: Discharge Order (Routine); Ordered 12/01/21 Ordered By: Mariajose Buchanan Patient Education: OB Vaginal/Breast Feeding Activity Restrictions/Additional Instructions: Discharge instructions were reviewed with the patient including signs and symptoms of infection and home going medications Nothing vaginally for 6 weeks: no tampons or intercourse Do not drive while taking narcotic pain medication(s) Off Work or School for 6 weeks Symptoms to report to doctor: * Bleeding that saturates more than one pad per hour * Passing clots larger than the size of a golf ball * Pain not relieved by prescribed medication * Fever above 100.4 degrees Fahrenheit * A foul vaginal odor * Difficulty in emotions, mood, and functions * Thoughts of hurting yourself and/or * Painful, reddened area in your breast * Any drainage, redness, or tenderness in your IV/epidural site * Severe headache that doesn't improve after taking medications * Changes in vision, including temporary loss of vision, blurred vision, and/or light sensitivity * Upper abdominal pain (usually under ribs on the right side) * Decrease in urination or painful, frequent urinating * Chest pain * Shortness of breath * Tenderness or pain with redness and/swelling in the calf(s) of your leg 2-week visit: discuss feeding concerns, review control options and screen for anxiety/depression. 6-week visit for an annual exam. consultation services are available to all mothers and babies for the first year after delivery.? To make an appointment, please call [phone]. Activity Level: Activity as Tolerated Discharge Diet: Regular Follow Up Appointments: [facility] [Provider Group] (2 & 6 Week appointments) Forms: [employer] Info Instructions
--- NOTE | 2021-12-02 06:55 | P.DS_ITS ---
DS: Providers Provider Time Seen by Provider: 06:56 Date Seen: 12/02/21 Date of admission: 11/30/21 19:33 Primary care physician: Not a Local Provider Admitting Clinician: Gabriella Cortez CNM Attending Physician on discharge: Mariajose Buchanan CNM Date of Discharge: 12/02/21 DS: Diagnosis Discharge Diagnosis (1) Lactating mother: Status: Acute (2) state: Status: Acute (3) Seasonal allergies: Status: Acute (4) Back injury: Status: Acute Exam Const: Vital Signs, click to edit/add: Vital Signs - 24 hr 12/01/21 10:33 12/01/21 14:19 12/01/21 18:00 Temperature 97.4 F L 98.4 F 98.2 F Pulse Rate [Pulse Oximeter] 92 79 88 Respiratory Rate 16 16 16 Blood Pressure [Le ft Arm] 98/65 100/49 L 110/64 Pulse Oximetry 97 97 97 Oxygen Delivery Me thod Room Air Room Air Room Air 12/01/21 20:15 12/01/21 23:30 Temperature 97.8 F 98.1 F Pulse Rate [Pulse Oximeter] 86 83 Respiratory Rate 15 16 Blood Pressure [Le ft Arm] 118/84 110/79 Pulse Oximetry Oxygen Delivery Me thod Documenting provider has reviewed patient's vital signs: yes Common normals: no apparent distress, oriented x3, healthy appearing, alert and well nourished General appearance: cooperative, well kempt and well developed Orientation/consciousness: Yes awake, Yes oriented to person, Yes oriented to place and Yes oriented to time HENMT: Common normals: normocephalic and external nose normal Head and scalp: normocephalic Nose: external nose normal Eye: General eye: normal appearance of both eyes Neck & C-Spine: Common normals: full ROM and supple General: normal visual inspection Cervical spine: cervical ROM normal Chest: Common normals: inspection of chest normal and palpation of chest normal Chest: symmetrical chest wall rise Other: Deferred breast exam per pt, going well with good latch Resp: Common normals: normal respiratory effort, no retractions, no use of accessory muscles and clear to auscultation bilaterally Effort & inspection: able to speak in complete sentences Auscultation: clear to auscultation bilaterally Cardio: Common normals: regular rate and regular rhythm Rate: regular rate Rhythm: regular rhythm GI: Common normals: soft to palpation Inspection: normal to inspection Palpation: soft and tender : Bimanual exam- vagina & uterus: other (Involuting) Uterus: U/1 and firm Lochia: small Uterus palpation: uterus tender Back & Pelvis: Common normals: thoracic and lumbar spine normal to inspection and no thoracic nor lumbar tenderness Thoracic spine/upper back: normal to inspection and thoracic ROM normal Lumbar spine/lower back: normal to inspection and lumbar ROM normal Extremity: Common normals: normal to inspection and full ROM General: normal exam except as noted; no edema Neuro: Common normals: oriented x3 Sensorium/orientation: awake, alert, oriented to person, oriented to place and oriented to time Speech: speech normal Psych: Common normals: mental status grossly normal, thought process normal and speech normal Appearance: grossly normal and well kempt Attitude: calm and engaged Activity/motor behavior: appropriate eye contact Speech: normal speech Thought process: normal thought process Thought content: normal thought content Attention/concentration: attention grossly intact Memory/cognition: memory grossly intact Insight: insight good Judgement: judgment good Skin: Common normals: no rashes or lesions noted General skin exam: no rashes or lesions noted OB - DS: Summary Hospital Course Hospital Course: Sharmaine yee is a 26 year old G2 now P2 at 40 0/7 weeks gestation that was admitted to the Center on 11/30/21 for active labor. She had an uncomplicated vaginal waterbirth, with a 2nd degree perineal laceration repaired with 3.0 Vicryl. She delivered a viable female infant. She is breast feeding and reports that baby latched well and breast feeing is going fine. the patient has done well and would like to go home today when baby is cleared by peds. Peripartum Data delivery method: Vaginal Laceration description: Perineal - 2nd Degree complications: none Infant Gender: Female Discharge Plan: Home Status at Discharge Functional status at discharge: independent ambulation Overall status at discharge: patient is progressing back to baseline Time Spent with Patient Time attestation: Total time spent providing and/or coordinating discharge services: Time spent: Less than 30 minutes Discharge Plan Discharge Disposition: Home, Self-Care Date of Admission: 11/30/21 19:33 Attending Provider on Discharge: Mariajose Buchanan Primary Care Provider: Provider,Not a Local Condition: Stable Anticipated Discharge Date/Time: 12/01/21 23:00 Discharge Medications: New acetaminophen 500 mg Tablet 1,000 mg PO Q6H PRNQty: 0 0RF ibuprofen 600 mg Tablet 600 mg PO Q6H PRNQty: 0 0RF Continued calcium carbonate [Tums] 200 mg calcium (500 mg) tablet,chewable 200 mg PO .bedtime DHA 200 mg capsule 200 mg PO DAILY docusate sodium [Colace] 100 mg capsule 100 mg PO QDAY albuterol sulfate 90 mcg/actuation HFA aerosol inhaler 1 inh inhalation Q6H PRN (Reason: shortness of breath or wheezing) Qty: 6.7 0RF Rx Instructions: Use as needed for cyclobenzaprine 5 mg tablet 5 mg PO BID PRN (Reason: muscle spasm) Qty: 28 0RF Rx Instructions: Take 1 tab as needed for muscle spasm. May take 2x per day as needed. Discharge Orders: Discharge Order (Routine); Ordered 12/01/21 Ordered By: Mariajose Buchanan Patient Education: OB Vaginal/Breast Feeding Activity Restrictions/Additional Instructions: Discharge instructions were reviewed with the patient including signs and symptoms of infection and home going medications Nothing vaginally for 6 weeks: no tampons or intercourse Do not drive while taking narcotic pain medication(s) Off Work or School for 6 weeks Symptoms to report to doctor: * Bleeding that saturates more than one pad per hour * Passing clots larger than the size of a golf ball * Pain not relieved by prescribed medication * Fever above 100.4 degrees Fahrenheit * A foul vaginal odor * Difficulty in emotions, mood, and functions * Thoughts of hurting yourself and/or * Painful, reddened area in your breast * Any drainage, redness, or tenderness in your IV/epidural site * Severe headache that doesn't improve after taking medications * Changes in vision, including temporary loss of vision, blurred vision, and/or light sensitivity * Upper abdominal pain (usually under ribs on the right side) * Decrease in urination or painful, frequent urinating * Chest pain * Shortness of breath * Tenderness or pain with redness and/swelling in the calf(s) of your leg 2-week visit: discuss infant feeding concerns, review control options and screen for anxiety/depression. 6-week visit for an annual exam. consultation services are available to all mothers and babies for the first year after delivery.? To make an appointment, please call [phone]. Activity Level: Activity as Tolerated Discharge Diet: Regular Follow Up Appointments: [facility] [Provider Group] (2 & 6 Week appointments) Forms: [employer] Info Instructions
[2021-12-02 07:53] VITALS: BP 106/69; PULSE 86; RESP 16; TEMP 36.5; O2SAT 98
== END 2021-12-02 09:25 | disposition home or self-care (01) | DRG 807 ==
LOC: OB OUT 19:39 → OB 19:39
PROVIDERS: Admitting Provider Advanced Practice Midwife; Visit Provider Advanced Practice Midwife
DX: O70.1 Second degree perineal laceration during delivery (principal); Z37.0 Single live birth; Z86.16 Personal history of COVID-19; Z3A.40 40 weeks gestation of pregnancy
CPT/HCPCS: 85018; 87635; 99213; A9270; J2590

== ENCOUNTER 2024-11-10 16:28 | Outpatient (CLI) | payer BC, SELFPAY ==
[2024-11-13 08:39] LABS: HPV Source Cervix
[2024-11-17 11:13] LABS: Pap Test Digital Imaging Done
== END 2024-11-10 16:29 | disposition home or self-care (01) ==
PROVIDERS: Visit Provider Registered Nurse
DX: Z12.4 Encounter for screening for malignant neoplasm of cervix (principal); Z11.51 Encounter for screening for human papillomavirus (HPV)
CPT/HCPCS: 87624; 87625; 88141; 88142; 88175